=== PATIENT | female | born 1970 | race Caucasian/White ===

== ENCOUNTER 2016-03-14 14:22 | Outpatient (RCR) | payer OTHER ==
[~2016-03-14 14:22] MED LIST: AMLO1CAP; ATOR40TA PO; CANA100T PO; CIPR500T78 PO; CLN.1T; GLIM4TAB PO; INSU100V5 SQ; LEVO50TA6 PO; LISI-552 PO; METF-380 PO; METF500T4 PO; METR500T PO; ONDA-42 SL; PANT40TA2 PO; SUCR1TAB36 PO; THYR60TA2; TRILIPIX PO; VENL150C PO
[2016-03-14 14:55] LABS: BASOPHILS % (AUTO) 1 % (0-10); EOSINOPHILS # (AUTO) 0.3 10^3/uL (0.0-0.3); EOSINOPHILS % (AUTO) 4 % (0-10); LYMPHOCYTES # (AUTO) 2.4 X 10^3 (1.0-4.0); LYMPHOCYTES % (AUTO) 34 % (12-44); MEAN CORPUSCULAR HEMOGLOBIN 29 PG (25-34); MEAN CORPUSCULAR HGB CONC 33 G/DL (32-36); MEAN CORPUSCULAR VOLUME 86 FL (80-99); MEAN PLATELET VOLUME 10.1 FL (7.4-10.4); MONOCYTES # (AUTO) 0.6 X 10^3 (0.0-1.0); MONOCYTES % (AUTO) 8 % (0-12); NEUTROPHILS # (AUTO) 3.9 X 10^3 (1.8-7.8); NEUTROPHILS % (AUTO) 53 % (42-75); PLATELET COUNT 322 10^3/uL (130-400); RED BLOOD COUNT 4.76 10^6/uL (4.35-5.85); RED CELL DISTRIBUTION WIDTH 13.4 % (10.0-14.5); WHITE BLOOD COUNT 7.2 10^3/uL (4.3-11.0)
== END 2016-06-12 | disposition home or self-care (01) ==
LOC: ONC 14:22
PROVIDERS: ATTEND Internal Medicine Hematology & Oncology
DX: D50.9 Iron deficiency anemia, unspecified (principal); E11.9 Type 2 diabetes mellitus without complications; I10 Essential (primary) hypertension; E03.9 Hypothyroidism, unspecified; F32.9 Major depressive disorder, single episode, unspecified; K59.00 Constipation, unspecified; Z79.899 Other long term (current) drug therapy
CPT/HCPCS: 99213

== ENCOUNTER 2018-03-25 14:45 | Emergency (ER) | payer SELFPAY ==
[~2018-03-25] VITALS: Ht 157.5 cm; Wt 79.4 kg
[~2018-03-25 14:45] MED LIST changes: +METF-397 PO; -METF500T4 PO
--- OUTSIDE RECORDS SUMMARY | 2018-03-25 14:49 | XMS REPORT ---
Author Author KHRIS TRUONG [facility] Address [address] [place] [address] Care Team Providers Care Field Ring Assembler Name Role Phone MAYLIN TRUONGTA Unavailable PROBLEMS Type Condition ICD9-CM Code UGU67-SS Code Onset Dates Condition Status SNOMED Code Problem Essential hypertension I10 Active 55504298 Problem Mixed hyperlipidemia E78.2 Active 522244439 Problem Depression F32.9 Active 336319715 Problem Type 2 diabetes mellitus with other diabetic kidney complication E11.29 Active 010493133 Problem Type 2 diabetes mellitus with other specified complication E11.69 Active 68925474 Problem Body mass index (BMI) of 33.0-33.9 in adult Z68.33 Active 270462732 Problem Other obesity due to excess calories E66.09 Active 610109324 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 Active 794280914 Problem Body mass index (BMI) of 32.0-32.9 in adult Z68.32 Active 907843765 Problem Anxiety F41.9 Active 37848651 Problem Hypothyroid E03.9 Active 35036043 Problem Type 2 diabetes mellitus without complication E11.9 Active 721165710 Problem Microalbuminuria R80.9 Active 918217632 Problem Anemia D64.9 Active 548502282 ALLERGIES Substance Reaction Event Type Date Status Tresiba FlexTouch nausea and vomiting Drug Allergy Dec, Active Victoza nausea and vomiting Drug Allergy Dec, Active ENCOUNTERS Encounter Location Date Diagnosis [facility] [id number], [place] [address] Jan, [facility] [id number] [place] [address] 02831- 4547 Dec, Type 2 diabetes mellitus without complication E11.9 ; Essential hypertension I10 ; Mixed hyperlipidemia E78.2 and Depression F32.9 [facility] [id number] [place] [address] 72167- 7710 Dec, Essential hypertension I10 [facility] [id number] [place] [address] 49019- 5875 Sep, Depression F32.9 [facility] [place] [address] [place] [address] 05798- 6012 Aug, [facility] [id number] [place] [address] 80943- 3131 Aug, Type 2 diabetes mellitus with other specified complication E11.69 [facility] [address] [place] [address] 62564- 6750 02 Aug, 2017 Type 2 diabetes mellitus with other specified complication E11.69 ; group home current use of insulin Z79.4 ; Proteinuria, unspecified R80.9 ; Type 2 diabetes mellitus with other diabetic kidney complication E11.29 ; Hypothyroid E03.9 ; Mixed hyperlipidemia E78.2 ; Essential hypertension I10 ; Depression F32.9 ; Other obesity due to excess calories E66.09 and Body mass index (BMI) of 32.0-32.9 in adult Z68.32 [facility] [id number] [place] [address] 66001- 4908 June, Mixed hyperlipidemia E78.2 and Type 2 diabetes mellitus without complication E11.9 [facility] [place] [address] [place] [address] 06301- 1422 May, Anemia D64.9 ; Type 2 diabetes mellitus without complication E11.9 ; Hypothyroid E03.9 ; Mixed hyperlipidemia E78.2 ; Essential hypertension I10 ; Depression F32.9 ; Other obesity due to excess calories E66.09 ; Body mass index (BMI) of 33.0-33.9 in adult Z68.33 ; Anxiety F41.9 and Herpes zoster without complication B02.9 [place] [address] [place] [address] 78563- 3480 Apr, Type 2 diabetes mellitus without complication E11.9 ; Anemia D64.9 ; Hypothyroid E03.9 ; Mixed hyperlipidemia E78.2 ; Essential hypertension I10 ; Depression F32.9 ; Other obesity due to excess calories E66.09 ; Body mass index (BMI) of 33.0-33.9 in adult Z68.33 ; Anxiety F41.9 and Herpes zoster without complication B02.9 [facility] [address], [place] [address] 2303 27 Apr, 2017 [facility] [id number] [place] [address] 08445- 7311 Apr, [facility] [id number] [place] [address] 25353- 6193 Apr, [facility] [id number] [place] [address] 87790- 8704 Mar, [facility] [id number] [place] [address] 91906- 7127 Feb, [facility] [id number] [place] [address] 14592- 7062 Jan, [facility] [id number] [place] [address] 30399- 9164 Jan, [facility] [id number] [place] [address] 68006- 2713 Dec, Type 2 diabetes mellitus without complication E11.9 [facility] [address], [place] [address]- 9549 30 Nov, 2016 [facility] [id number] [place] [address] 02557- 3587 18 Nov, 2016 Type 2 diabetes mellitus without complication E11.9 [facility] [address], [place] [address]- 6921 17 Nov, 2016 [facility] [id number] [place] [address] 017759- 4996 26 Oct, 2016 Type 2 diabetes mellitus without complication E11.9 [facility] [address], [place] [address]- 1387 14 Oct, 2016 [facility] [address], [place] [address]- 4485 Oct, [facility] [address] [place] [address] 0845 Sep, [facility] [address] [place] [address]- 3145 Sep, Type 2 diabetes mellitus without complication E11.9 [facility] [id number] [place] [address], [place] [address]- 1178 Sep, Type 2 diabetes mellitus without complication E11.9 and Essential hypertension I10 [facility] [address] [place] [address] 3917 Sep, [facility] [address], [place] [address]- 2277 Sep, [facility] [address], [place] [address]- 4270 Sep, Type 2 diabetes mellitus without complication E11.9 [facility] [address], [place] [address]- 3599 Aug, [facility] [address], [place] [address]- 1895 Aug, Type 2 diabetes mellitus without complication E11.9 [facility] [address] [place] [address]- 5518 Aug, Type 2 diabetes mellitus without complication E11.9 [facility] [address], [place] [address]- 2067 Aug, [facility] [address], [place] [address]- 7573 Aug, Abnormal weight gain R63.5 [facility] [address], [place] [address]- 9135 Aug, [facility] [address], [place] [address]- 7694 Aug, Hypothyroid E03.9 [facility] [address], [place] [address]- 2536 Aug, Type 2 diabetes mellitus without complication E11.9 [facility] [address], [place] [address] 2546 Jul, Abnormal weight gain R63.5 [facility] [address], [place] [address] 2546 Jul, Abnormal weight gain R63.5 [facility] [address], [place] [address] 2546 Jul, Abnormal weight gain R63.5 [facility] [address], [place] [address]- 7586 Jul, Abnormal weight gain R63.5 ; Pain in right knee M25.561 and Pain in right ankle and joints of right foot M25.571 [place] [address], [place] [address]- 6306 Jul, [facility] [address], [place] [address]- 2690 Jul, 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 [place] [address], [place] [address]- 8916 Jul, Type 2 diabetes mellitus without complication E11.9 [facility] [address], [place] [address]- 3086 June, [facility] [address], [place] [address] 2546 June, Type 2 diabetes mellitus without complication E11.9 [facility] [address], [place] [address] 2546 June, [facility] [address], [place] [address] 2546 June, [facility] [address], [place] [address]- 3271 June, Type 2 diabetes mellitus without complication E11.9 ; Hypothyroid E03.9 ; Essential hypertension I10 ; Depression F32.9 and Mixed hyperlipidemia E78.2 [place] [id number] [place] [address] 48378- 0515 May, [place] [place] [id number] [place] [address] 52182- 3956 Feb, Type 2 diabetes mellitus without complication E11.9 ; Hypothyroid E03.9 ; Mixed hyperlipidemia E78.2 ; Essential hypertension I10 ; Depression F32.9 and Anemia D64.9 [place] [id number] [place] [address] 16559- 1967 Jan, [place] [id number] [place] [address] 74155- 7671 Sep, [place] [id number] [place] [address] 88318- 2221 Sep, Type 2 diabetes mellitus without complication E11.9 ; Anemia D64.9 ; Hypothyroid E03.9 ; Hyperlipidemia, unspecified hyperlipidemia type E78.5 and Essential (primary) hypertension I10 [place] [id number] [place] [address] 06502- 9833 Aug, [place] [id number] [place] [address] 71433- 4766 June, [place] [id number] [place] [address] 10167- 4700 June, Iron deficiency anemia, unspecified iron deficiency anemia type D50.9 [place] [id number] [place] [address] 80280- 5770 May, Abnormal finding of blood chemistry, unspecified R79.9 [place] [id number] [place] [address] 20010- 0185 May, Type 2 diabetes mellitus without complication E11.9 ; Anemia D64.9 ; Hypothyroid E03.9 ; Anxiety F41.9 and Dyslipidemia E78.5 [facility] [id number] [place] [address] 64252- 1062 Jan, Type 2 diabetes mellitus without complication E11.9 ; Depression F32.9 ; Essential hypertension I10 ; Hyperlipidemia E78.5 ; Anxiety F41.9 and Hypothyroidism E03.9 [facility] [id number] [place] [address] 26561- 6592 Jan, Type 2 diabetes mellitus with diabetic neuropathy E11.40 [facility] [id number] [place] [address] 34943- 3477 Jan, Type 2 diabetes mellitus with diabetic neuropathy E11.40 [facility] [id number] [place] [address] 95834- 1759 Jan, [facility] [id number] [place] [address] 35571- 5991 Jan, [facility] [id number] [place] [address] 59968- 3318 Jan, [facility] [id number] [place] [address] 58676- 7654 Jan, [facility] [id number] [place] [address] 86584- 2994 Dec, [facility] [id number] [place] [address] 98353- 5214 Dec, [facility] [id number] [place] [address] 23899- 1796 Nov, [facility] [id number] [place] [address] 78622- 1790 Nov, [facility] [id number] [place] [address] 00170- 0162 Nov, [facility] [id number] [place] [address] 71784- 0724 Nov, [facility] [id number] [place] [address] 48162- 2889 Nov, [facility] [id number] 6612 Nov, Pertussis exposure Z20.89 [facility] [address], [place] [address] 2546 Nov, [facility] [id number] [address]- 6216 Oct, [facility] [id number] [place] [address] 35588- 8652 Oct, [facility] [address] [place] [address] 77775- 2275 Oct, [facility] [id number] [place] [address] 41507- 1474 Sep, [facility] [id number] [place] [address] 490363- 8456 Sep, Diabetes mellitus without mention of complication, type II or unspecified type, uncontrolled 250.02 and Hyperlipidemia associated with type 2 diabetes mellitus 250.80 [facility] [address] 6178 Sep, [facility] [id number] 3499 Sep, [facility] [address] 4660 Sep, Diabetes mellitus without mention of complication, type II or unspecified type, not stated as uncontrolled 250.00 ; Hypothyroid 244.9 ; Hyperlipidemia 272.4 and Hypertension 401.9 [facility] [id number], [place] [address]- 9498 Aug, [facility] [id number] 5559 June, Diabetes mellitus without mention of complication, type II or unspecified type, not stated as uncontrolled 250.00 ; Hyperlipidemia 272.4 ; Hypertension 401.9 ; Candidiasis of female genitalia 112.1 ; Hypothyroid 244.9 and Liver lesion 573.8 [facility] [id number], [place] [address]- 9932 June, [facility] [address], [place] [address]- 7989 May, [facility] [address] [place] [address] 99108- 4755 May, [facility] [address] [facility] [id number] [place] [address] 09537- 4540 Mar, [facility] [id number] [place] [address] 832813- 0898 Mar, [facility] [id number] [place] [address] 13000- 0320 Mar, [facility] [id number] [place] [address] 92117- 3672 Mar, [facility] [address], [place] [address]- 9983 Jan, [facility] [id number] [place] [address], [place] [address]- 1216 Jan, [facility] [id number], [place] [address]- 1444 Nov, [facility] [id number], [place] [address]- 5364 Nov, [facility] [id number], [place] [address]- 4340 Nov, [facility] [address] [place] [address] 482522- 3222 Nov, [facility] [address] 4306 Nov, [facility] [address] 9112 Nov, [facility] [place] [facility] [address] [id number] [place] [address]- 5803 29 Oct, 2013 [facility] [place] [facility] [address] [id number] [place] [address]- 6456 29 Oct, 2013 [facility] [place] [facility] [address] [id number] [place] [address]- 9386 29 Oct, 2013 [facility] [place] [facility] [address] [id number] [place] [address] 2546 29 Oct, 2013 [facility] [place] [facility] [address] [id number] [place] [address]- 5686 23 Oct, 2013 [facility] [place] [facility] [address] [id number] [place] [address]- 1906 23 Oct, 2013 [facility] [place] [facility] [address] [id number] [place] [address]- 8966 Oct, 2013 [facility] [place] [facility] [address] [id number] [place] [address]- 0749 Oct, 2013 [facility] [place] [facility] [address] [id number] [place] [address]- 0465 Oct, 2013 [facility] [place] [facility] [address] [id number] [place] [address]- 7052 Oct, 2013 [facility] [place] [facility] [address] [id number], [place] [address]- 8206 08 Oct, 2013 [facility] [place] [facility] [address] [id number], [place] [address]- 9921 08 Oct, 2013 [facility] [place] [facility] [address] [id number] [place] [address]- 2548 Oct, 2013 [facility] [place] [facility] [address] [id number] [place] [address]- 9346 08 Oct, 2013 [facility] [place] [facility] [address] [id number], [place] [address]- 7726 29 Sep, 2013 [facility] [place] [facility] [address] [id number], [place] [address]- 0172 Sep, [facility] [place] [facility] [address] [id number] [place] [address]- 2605 Sep, [facility] [place] [facility] [address] [id number] [place] [address]- 7391 Sep, [facility] [place] [facility] [address] [id number] [place] [address]- 5352 Sep, [facility] [place] [facility] [address] [id number] [place] [address]- 2908 Sep, [facility] [place] [facility] [address] [id number] [place] [address]- 1229 Aug, [facility] [place] [facility] [address] [id number] [place] [address]- 5473 Aug, [facility] [place] [facility] [address] [id number] [place] [address]- 5283 Aug, [facility] [place] [facility] [address] [id number] [place] [address]- 3451 Aug, [facility] [place] [facility] [address] [id number] [place] [address]- 6071 Aug, [facility] [place] [facility] [address] [id number] [place] [address]- 9769 Aug, [facility] [place] [facility] [address] [id number] [place] [address]- 9471 Aug, [facility] [place] [facility] [address] [id number] [place] [address]- 8667 Aug, [facility] [place] [facility] [address] [id number] [place] [address]- 6338 Aug, [facility] [place] [facility] [address] [id number] [place] [address]- 6877 Aug, [facility] [place] [facility] [address] [id number] [place] [address]- 6297 Aug, [facility] [place] [facility] [address] [id number] [place] [address]- 0814 Aug, 2013 [facility] [place] [facility] [address] [id number] [place] [address]- 2246 Aug, 2013 [facility] [place] [facility] [address] [id number] [place] [address]- 8480 Aug, 2013 [facility] [place] [facility] [address] [id number] [place] [address]- 0692 Aug, 2013 [facility] [place] [facility] [address] [id number] [place] [address]- 7020 Aug, 2013 [facility] [place] [facility] [address] [id number] [place] [address]- 3771 Aug, 2013 [facility] [place] [facility] [address] [id number] [place] [address]- 3171 Aug, 2013 [facility] [place] [facility] [address] [id number] [place] [address]- 7627 Aug, 2013 [facility] [place] [facility] [address] [id number] [place] [address]- 8028 Jul, [facility] [place] [facility] [address] [id number] [place] [address]- 9565 Jul, [facility] [place] [facility] [address] [id number] [place] [address]- 3134 Jul, [facility] [place] [facility] [address] [id number] [place] [address]- 0782 Jul, [facility] [place] [facility] [address] [id number] [place] [address]- 0533 Apr, [facility] [place] [facility] [address] [id number] [place] [address]- 3267 Apr, [facility] [place] [facility] [address] [id number] [place] [address]- 1106 15 Mar, 2012 [facility] [place] [facility] [address] [id number] [place] [address]- 2602 Mar, [facility] [address] [id number] [place] [address]- 8999 Feb, [facility] [place] [facility] [address] [id number] [place] [address]- 0006 Feb, [facility] [address] [facility] [id number] [place] [address]- 1366 Feb, [facility] [place] [facility] [address] [id number] [place] [address]- 8666 Feb, [facility] [address] [id number] [place] [address]- 1562 Jan, [facility] [place] [facility] [address] [id number] [place] [address]- 9944 Jan, [facility] [address] [id number] [place] [address]- 0066 17 Jan, 2012 [facility] [place] [facility] [address] [id number] [place] [address]- 8727 17 Jan, 2012 [facility] [place] [facility] [address] [id number] [place] [address]- 8050 14 Jan, 2012 [facility] [place] [facility] [address] [facility] [id number] [place] [address]- 9061 13 Jan, 2012 [facility] [place] [facility] [address] [id number] [place] [address]- 2399 13 Jan, 2012 [facility] [place] [facility] [address] [id number], [place] [address]- 3258 10 Jan, 2012 [facility] [place] [facility] [address] [id number] [place] [address]- 7330 Jan, [facility] [place] [facility] [address] [id number] [place] [address]- 0196 Dec, [facility] [place] [facility] [address] [id number] [place] [address]- 9746 Dec, [facility] [place] [facility] [address] [id number] [place] [address]- 1661 21 Dec, 2011 [facility] [place] [facility] [address] [id number] [place] [address] 21 Dec, 2011 [facility] [place] [facility] [address] [id number] [place] [address] 20 Dec, 2011 [facility] [place] [facility] [address] [id number] [place] [address] 19 Dec, 2011 [facility] [place] [facility] [address] [id number] [place] [address] 19 Dec, 2011 [facility] [place] [facility] [address] [id number] [place] [address] 19 Dec, 2011 [facility] [place] [facility] [address] [id number] [place] [address] 19 Dec, 2011 [facility] [place] [facility] [address] [id number] [place] [address] 16 Dec, 2011 [facility] [place] [facility] [address] [id number] [place] [address] 16 Dec, 2011 [facility] [place] [facility] [address] [id number] [place] [address] 16 Dec, 2011 [facility] [place] [facility] [address] [facility] [id number] [place] [address] 16 Dec, 2011 [facility] [place] [facility] [address] [id number] [place] [address] 14 Dec, 2011 [facility] [place] [facility] [address] [id number] [place] [address] 14 Dec, 2011 [facility] [place] [facility] [address] [id number] [place] [address] 31 Nov, 2011 [facility] [place] [facility] [address] [id number] [place] [address] 31 Nov, 2011 [facility] [place] [facility] [address] [id number] [place] [address] Nov, [facility] [address] [facility] [id number] [place] [address] Nov, IMMUNIZATIONS No Known Immunizations SOCIAL HISTORY Never Assessed REASON FOR VISIT New Provider Visit, is needing medications refilled Desire Bentley MA, Needs A1C PLAN OF CARE Activity Details Follow Up 4 Weeks Reason:HTN VITAL SIGNS Height 63 in 2018-01-22 Weight 179.9 lbs 2018-01-22 Temperature 97.6 degrees Fahrenheit 2018-01-22 Heart Rate 110 bpm 2018-01-22 Respiratory Rate 20 2018-01-22 BMI 31.86 kg/m2 2018-01-22 Blood pressure systolic 158 mmHg 2018-01-22 Blood pressure diastolic 96 mmHg 2018-01-22 MEDICATIONS Medication Instructions Dosage Frequency Start Date End Date Duration Status Liraglutide 18 MG/3ML Subcutaneous Once a day 0.6 mg daily 24h Aug, Aug, Active Glucocard Expression Test 1 subcutaneously 4 times a day test 4 times per day 6h June, Active Levemir FlexTouch 100 UNIT/ML Subcutaneous 2 times a day 50 units 12h Dec, Active NovoFine 32G X 6 MM as directed Aug, 90 days Active Levothyroxine Sodium 50 mcg Orally Once a day TAKE ONE TABLET BY MOUTH ONCE DAILY 24h Active Effexor XR 150 MG Orally Once a day 1 capsule with food 24h Active MetFORMIN HCl ER 500 mg Orally twice a day 2 tablet twice daily with meals 12h Active Pioglitazone HCl 30 MG Orally Once a day 1 tablet 24h 17 Sep, 2016 Active NovoLog Flexpen 100 UNIT/ML Subcutaneous 3 times a day before meals 50 units June, Active Trilipix 135 MG Orally Once a day take 1 capsule (135 mg) by oral route once daily 24h Nov, 90 days Active Pen [place] 32G X 4 MM as directed 6h Sep, Active Lisinopril-Hydrochlorothiazide 20-25 MG Orally Once a day TAKE ONE TABLET BY MOUTH ONCE DAILY 24h Active Lipitor 40 mg Orally Once a day 1 tablet 24h June, Active RESULTS Name Result Date Reference Range A1C (IN HOUSE) 2018-01-22 A1C IN HOUSE 14 4.3 - 5.6 % Previous A1c 12.4 Lot [id number] Exp date 04/2019 PROCEDURES Procedure Date Ordered Result Body Site GLYCATED HEMOGLOBIN TEST Jan 22, 2018 INSTRUCTIONS MEDICATIONS ADMINISTERED No Known Medications MEDICAL (GENERAL) HISTORY Type Description Date Medical History Hypothyroidism Medical History Type II diabetes - dx 2004 Medical History kidney stones Medical History Hyperlipidemia Medical History Hypertension Medical History Depressive disorder, not elsewhere classified Medical History Anxiety state, unspecified Medical History Anemia Surgical History tonsillectomy 1991 Surgical History lithotripsy (multiple times-last in 2000) Surgical History colonoscopy/EGD 2015 Hospitalization History surgery
--- OUTSIDE RECORDS SUMMARY | 2018-03-25 14:50 | XMS REPORT ---
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.29 Active 675298888 Problem Type 2 diabetes mellitus with other specified complication E11.69 Active 72203106 Problem Body mass index (BMI) of 33.0-33.9 in adult Z68.33 Active 629222393 Problem Other obesity due to excess calories E66.09 Active 365981451 Problem senior living current use of insulin Z79.4 Active 213674226 Problem Body mass index (BMI) of 32.0-32.9 in adult Z68.32 Active 033630026 Problem Anxiety F41.9 Active 97214911 Problem Hypothyroid E03.9 Active 42785441 Problem Type 2 diabetes mellitus without complication E11.9 Active 263809640 Problem Microalbuminuria R80.9 Active 933953594 Problem Anemia D64.9 Active 440984975 ALLERGIES No Information ENCOUNTERS Encounter Location Date Diagnosis [facility] [id number] [address] Sep, Depression F32.9 [facility] [address] [id number] [address] Aug, [facility] [id number] [place] [address]- 7527 Aug, Type 2 diabetes mellitus with other specified complication E11.69 [facility] [id number] [address] Aug, Type 2 diabetes mellitus with other specified complication E11.69 ; terminal clerk current use of insulin Z79.4 ; Proteinuria, unspecified R80.9 ; Type 2 diabetes mellitus with other diabetic kidney complication E11.29 ; Hypothyroid E03.9 ; Mixed hyperlipidemia E78.2 ; Essential hypertension I10 ; Depression F32.9 ; Other obesity due to excess calories E66.09 and Body mass index (BMI) of 32.0-32.9 in adult Z68.32 [place] [address] [address] June, Mixed hyperlipidemia E78.2 and Type 2 diabetes mellitus without complication E11.[address] [address] May, Anemia D64.9 ; Type 2 diabetes mellitus without complication E11.9 ; Hypothyroid E03.9 ; Mixed hyperlipidemia E78.2 ; Essential hypertension I10 ; Depression F32.9 ; Other obesity due to excess calories E66.09 ; Body mass index (BMI) of 33.0-33.9 in adult Z68.33 ; Anxiety F41.9 and Herpes zoster without complication B02.[address] [address] Apr, Type 2 diabetes mellitus without complication E11.9 ; Anemia D64.9 ; Hypothyroid E03.9 ; Mixed hyperlipidemia E78.2 ; Essential hypertension I10 ; Depression F32.9 ; Other obesity due to excess calories E66.09 ; Body mass index (BMI) of 33.0-33.9 in adult Z68.33 ; Anxiety F41.9 and Herpes zoster without complication B02.9 [place] [id number] [place] [address]- 8397 Apr, [address] [address]- [address] Apr, [place] [id number] [place] [address]- 7887 Apr, [address] [place] [address] 9[address] 15 Mar, 2017 [facility] [address] [address] Feb, [facility] [address] [place] [address] 90[address] Jan, [facility] [address] [address] 6[address] Jan, [facility] [address] [place] [address]- 6974 Dec, Type 2 diabetes mellitus without complication E11.9 [facility] [address] [place] [address], [place] [address]- 4154 Nov, [facility] [address] [place] [address] 8[address] Nov, Type 2 diabetes mellitus without complication E11.9 [facility] [address] [address] 5[address] Nov, [facility] [address] [place] [address]- 2532 Oct, Type 2 diabetes mellitus without complication E11.9 [facility] [address] [place] [address]- 0878 14 Oct, 2016 [facility] [address] [address]- 8180 Oct, [facility] [address] [address]- 0[address] Sep, [facility] [address], [place] [address]- 6266 Sep, Type 2 diabetes mellitus without complication E11.9 [facility] [address] [place] [address]- 0702 Sep, Type 2 diabetes mellitus without complication E11.9 and Essential hypertension I10 [facility] [address] [place] [address]- 8769 Sep, [facility] [address] [facility] [id number] [place] [address]- 8179 Sep, [facility] [address] [id number] [place] [address]- 0880 Sep, Type 2 diabetes mellitus without complication E11.9 [facility] [address] [place] [address]- 3556 Aug, [facility] [address] [facility] [id number] [place] [address]- 7697 Aug, Type 2 diabetes mellitus without complication E11.9 [facility] [address] [place] [address]- 6552 Aug, Type 2 diabetes mellitus without complication E11.9 [facility] [address] [place] [address]- 3119 Aug, [facility] [address] [place] [address]- 9192 Aug, Abnormal weight gain R63.5 [facility] [address] [place] [address]- 8806 Aug, [facility] [id number] [address]- 4314 Aug, Hypothyroid E03.9 [facility] [address] [place] [address]- 1400 Aug, Type 2 diabetes mellitus without complication E11.9 [facility] [id number] [place] [address]- 1842 Jul, Abnormal weight gain R63.5 [facility] [id number] [place] [address]- 7[address] Jul, Abnormal weight gain R63.5 [facility] [id number] [place] [address]- 9479 Jul, Abnormal weight gain R63.5 [place] [address], [place] [address]- 87[address] 26 Jul, 2016 Abnormal weight gain R63.5 ; Pain in right knee M25.561 and Pain in right ankle and joints of right foot M25.571 [place] [address] [address]- 2973 Jul, [place] [id number] [place] [address] 264[address]- 8694 Jul, 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 [place] [address], [place] [address]- 9759 Jul, Type 2 diabetes mellitus without complication E11.9 [place] [address] [address]- 450[address] June, [place] [id number] [place] [address]- 7742 June, Type 2 diabetes mellitus without complication E11.9 [place] [address] [address]- 0[address] June, [place] [id number] [place] [address]- 8337 June, [place] [address] [address]- 5996 June, Type 2 diabetes mellitus without complication E11.9 ; Hypothyroid E03.9 ; Essential hypertension I10 ; Depression F32.9 and Mixed hyperlipidemia E78.2 [place] [address] [address]- 3394 May, [place] [id number] [place] [address] 35186- 8156 Feb, Type 2 diabetes mellitus without complication E11.9 ; Hypothyroid E03.9 ; Mixed hyperlipidemia E78.2 ; Essential hypertension I10 ; Depression F32.9 and Anemia D64.9 [place] [id number] [place] [address]- 9379 Jan, [place] [id number] [place] [address] 455[address]- 9984 Sep, [place] [id number] [place] [address] 99476- 5792 Sep, Type 2 diabetes mellitus without complication E11.9 ; Anemia D64.9 ; Hypothyroid E03.9 ; Hyperlipidemia, unspecified hyperlipidemia type E78.5 and Essential (primary) hypertension I10 [place] [id number] [place] [address] 18194- 8858 Aug, [place] [address] [address]- 9282 June, [place] [address] [address]- 2260 June, Iron deficiency anemia, unspecified iron deficiency anemia type D50.9 [place] [id number] [place] [address] 88352- 9018 May, Abnormal finding of blood chemistry, unspecified R79.9 [place] [id number] [place] [address] 22243- 1188 May, Type 2 diabetes mellitus without complication E11.9 ; Anemia D64.9 ; Hypothyroid E03.9 ; Anxiety F41.9 and Dyslipidemia E78.5 [place] [id number] [place] [address] 65368- 9823 Jan, Type 2 diabetes mellitus without complication E11.9 ; Depression F32.9 ; Essential hypertension I10 ; Hyperlipidemia E78.5 ; Anxiety F41.9 and Hypothyroidism E03.9 [place] [id number] [place] [address] 07241- 9114 Jan, Type 2 diabetes mellitus with diabetic neuropathy E11.40 [place] [address] [address]- 7599 Jan, Type 2 diabetes mellitus with diabetic neuropathy E11.40 [facility] [address] [id number] [place] [address]- 1426 Jan, [facility] [place] [facility] [address] [id number] [place] [address]- 2830 Jan, [facility] [place] [facility] [address] [id number] [place] [address]- 5699 Jan, [facility] [place] [facility] [id number] [place] [address], [place] [address]- 3623 Jan, [facility] [place] [facility] [address] [id number] [place] [address]- 2759 Dec, [facility] [place] [facility] [address] [id number] [place] [address]- 1105 Dec, [facility] [id number] [address]16 Nov, [facility] [address] [facility] [id number] [address]- 7214 Nov, [facility] [id number] [place] [address]- 7511 Nov, [facility] [address], [place] [address]- 6096 Nov, [facility] [address], [place] [address]- 2811 Nov, [facility] [id number], [place] [address]- 9742 Nov, Pertussis exposure Z20.89 [facility] [address] [facility] [id number] [place] [address]- 4416 Nov, [facility] [address] [facility] [id number] [address]- 6316 Oct, [facility] [place] [facility] [id number], [place] [address]- 0918 16 Oct, 2014 [facility] [id number], [place] [address]- 0151 Oct, [facility] [address], [place] [address]- 7487 Sep, [facility] [id number] [place] [address] 747515- 0460 Sep, Diabetes mellitus without mention of complication, type II or unspecified type, uncontrolled 250.02 and Hyperlipidemia associated with type 2 diabetes mellitus 250.80 [facility] [id number] [place] [address] 68125- 3115 Sep, [facility] [id number] [place] [address] 19022- 1050 Sep, [facility] [id number] [place] [address] 67003- 4179 Sep, Diabetes mellitus without mention of complication, type II or unspecified type, not stated as uncontrolled 250.00 ; Hypothyroid 244.9 ; Hyperlipidemia 272.4 and Hypertension 401.9 [facility] [address], [place] [address]- 2267 Aug, [facility] [id number] [place] [address] 24637- 3303 June, Diabetes mellitus without mention of complication, type II or unspecified type, not stated as uncontrolled 250.00 ; Hyperlipidemia 272.4 ; Hypertension 401.9 ; Candidiasis of female genitalia 112.1 ; Hypothyroid 244.9 and Liver lesion 573.8 [facility] [address], [place] [address]- 2599 June, [facility] [address], [place] [address]- 8041 May, [facility] [id number] [place] [address] 26435- 4910 May, [facility] [address], [place] [address]- 4330 Mar, [facility] [address] [place] [address]- 9148 16 Mar, 2014 [facility] [place] [facility] [address] [id number] [place] [address]- 7236 Mar, 2014 [facility] [place] [facility] [address] [id number] [place] [address]- 3576 Mar, 2014 [facility] [place] [facility] [address] [id number] [place] [address]- 5423 Jan, [facility] [place] [facility] [address] [id number] [place] [address]- 3767 Jan, [facility] [place] [facility] [address] [id number] [place] [address]- 8643 Nov, [facility] [place] [facility] [address] [id number] [place] [address]- 5482 Nov, [facility] [place] [facility] [address] [id number] [place] [address]- 4436 Nov, [facility] [place] [facility] [address] [id number] [place] [address]- 4268 Nov, [facility] [place] [facility] [address] [facility] [id number] [place] [address]- 3918 Nov, [facility] [place] [facility] [address] [facility] [id number] [place] [address]- 7442 06 Nov, 2013 [facility] [place] [facility] [address] [id number] [place] [address]- 9380 29 Oct, 2013 [facility] [place] [facility] [address] [id number] [place] [address]- 254 29 Oct, 2013 [facility] [place] [facility] [address] [id number] [place] [address]- 0097 29 Oct, 2013 [facility] [place] [facility] [address] [id number] [place] [address]- 2545 29 Oct, 2013 [facility] [place] [facility] [address] [id number] [place] [address]- 6428 Oct, 2013 [facility] [place] [facility] [address] [id number] [place] [address]- 6763 23 Oct, 2013 [facility] [place] [facility] [address] [id number] [place] [address]- 5245 Oct, 2013 [facility] [place] [facility] [address] [id number] [place] [address]- 1315 Oct, 2013 [facility] [place] [facility] [address] [id number] [place] [address]- 8002 Oct, 2013 [facility] [place] [facility] [address] [id number] [place] [address]- 9910 Oct, 2013 [facility] [place] [facility] [address] [id number] [place] [address]- 0663 Oct, 2013 [facility] [place] [facility] [address] [id number] [place] [address]- 8572 Oct, 2013 [facility] [place] [facility] [address] [id number] [place] [address]- 0057 Oct, 2013 [facility] [place] [facility] [address] [id number] [place] [address]- 6635 Oct, [facility] [place] [facility] [address] [id number] [place] [address]- 4075 Sep, [facility] [place] [facility] [address] [id number] [place] [address]- 6804 Sep, [facility] [place] [facility] [address] [id number] [place] [address]- 1662 Sep, [facility] [place] [facility] [address] [id number] [place] [address]- 7555 Sep, [facility] [place] [facility] [address] [id number] [place] [address]- 2779 Sep, [facility] [place] [facility] [address] [id number] [place] [address]- 2894 Sep, [facility] [place] [facility] [address] [id number], [place] [address]- 4298 Aug, 2013 [facility] [place] [facility] [address] [id number] [place] [address]- 3946 Aug, 2013 [facility] [place] [facility] [address] [id number] [place] [address]- 7392 Aug, 2013 [facility] [place] [facility] [address] [id number] [place] [address]- 5758 Aug, 2013 [facility] [place] [facility] [address] [id number] [place] [address]- 8386 Aug, 2013 [facility] [place] [facility] [address] [id number] [place] [address]- 0937 Aug, 2013 [facility] [place] [facility] [address] [id number] [place] [address]- 0329 Aug, 2013 [facility] [place] [facility] [address] [id number] [place] [address]- 6987 Aug, 2013 [facility] [place] [facility] [address] [id number] [place] [address]- 2297 Aug, [facility] [place] [facility] [address] [id number] [place] [address]- 6637 Aug, 2013 [facility] [place] [facility] [address] [id number] [place] [address]- 1046 Aug, [facility] [place] [facility] [address] [id number] [place] [address]- 2866 Aug, 2013 [facility] [place] [facility] [address] [id number] [place] [address]- 8676 Aug, 2013 [facility] [place] [facility] [address] [id number] [place] [address]- 3771 Aug, [facility] [place] [facility] [address] [id number] [place] [address]- 0693 Aug, [facility] [place] [facility] [address] [id number] [place] [address]- 6640 Aug, 2013 [facility] [place] [facility] [address] [id number] [place] [address]- 1393 Aug, [facility] [place] [facility] [address] [id number] [place] [address]- 8540 Aug, [facility] [place] [facility] [address] [id number] [place] [address]- 9403 Aug, [facility] [place] [facility] [address] [id number] [place] [address]- 7000 Jul, [facility] [place] [facility] [address] [id number] [place] [address]- 3555 Jul, [facility] [place] [facility] [address] [id number] [place] [address]- 7837 Jul, [facility] [place] [facility] [address] [id number] [place] [address]- 3421 Jul, [facility] [place] [facility] [address] [id number] [place] [address]- 4341 Apr, [facility] [place] [facility] [address] [id number] [place] [address]- 0593 Apr, [facility] [place] [facility] [address] [id number] [place] [address]- 7460 Mar, [facility] [place] [facility] [address] [id number] [place] [address]- 9794 Mar, [facility] [place] [facility] [address] [id number] [place] [address]- 9561 Feb, [facility] [place] [facility] [address] [id number] [place] [address]- 0934 Feb, [facility] [place] [facility] [address] [id number] [place] [address]- 3981 Feb, [facility] [place] [facility] [address] [id number] [place] [address]- 1228 Feb, [facility] [place] [facility] [address] [id number] [place] [address]- 6498 21 Jan, 2012 [facility] [place] [facility] [address] [id number] [place] [address]- 9762 21 Jan, 2012 [facility] [place] [facility] [address] [id number] [place] 7196 17 Jan, 2012 [facility] [place] [facility] [address] [id number] [place] 3386 17 Jan, 2012 [facility] [place] [facility] [address] [id number] [place] [address]- 6012 14 Jan, 2012 [facility] [place] [facility] [address] [id number] [place] [address]- 2932 13 Jan, 2012 [facility] [place] [facility] [address] [id number] [place] [address]- 6691 13 Jan, 2012 [facility] [place] [facility] [address] [id number] [place] [address] 10 Jan, 2012 [facility] [place] [facility] [address] [id number] [place] [address] 10 Jan, 2012 [facility] [place] [facility] [address] [id number] [place] [address] Dec, [facility] [place] [facility] [address] [id number] [place] [address] Dec, [facility] [place] [facility] [address] [id number] [place] [address] Dec, [facility] [place] [facility] [address] [id number], [place] [address] Dec, [facility] [place] [facility] [address] [id number] [place] [address] Dec, [facility] [place] [facility] [address] [id number] [place] [address] Dec, [facility] [place] [facility] [address] [id number] [place] [address] Dec, [facility] [place] [facility] [id number] [address] Dec, [facility] [id number], [place] [address] Dec, [facility] [address] [facility] [id number], [place] [address] Dec, [facility] [id number], [place] [address] Dec, [facility] [id number], [place] [address] Dec, [facility] [id number] [place] [address] Dec, [facility] [id number], [place] [address] Dec, [facility] [id number] [place] [address] Dec, [facility] [id number], [place] [address] Nov, [facility] [address], [place] [address] Nov, [facility] [address], [place] [address] Nov, [facility] [id number], [place] [address] Nov, IMMUNIZATIONS No Known Immunizations SOCIAL HISTORY Never Assessed REASON FOR VISIT Medication question PLAN OF CARE VITAL SIGNS MEDICATIONS Unknown Medications RESULTS No Results PROCEDURES No Known procedures INSTRUCTIONS MEDICATIONS ADMINISTERED No Known Medications MEDICAL [...]
--- OUTSIDE RECORDS SUMMARY | 2018-03-25 14:50 | XMS REPORT ---
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 Phone ERMIAS LOPEZ Unavailable PROBLEMS Type Condition ICD9-CM Code NWJ22-IY Code Onset Dates Condition Status SNOMED Code Problem Essential hypertension I10 Active 51126530 Problem Mixed hyperlipidemia E78.2 Active 018105992 Problem Depression F32.9 Active 782412289 Problem Type 2 diabetes mellitus with other diabetic kidney complication E11.29 Active 577157733 Problem Type 2 diabetes mellitus with other specified complication E11.69 Active 47729834 Problem Body mass index (BMI) of 33.0-33.9 in adult Z68.33 Active 114172315 Problem Other obesity due to excess calories E66.09 Active 857356462 Problem retirement current use of insulin Z79.4 Active 966774451 Problem Body mass index (BMI) of 32.0-32.9 in adult Z68.32 Active 912716908 Problem Anxiety F41.9 Active 89084206 Problem Hypothyroid E03.9 Active 36016612 Problem Type 2 diabetes mellitus without complication E11.9 Active 939301484 Problem Microalbuminuria R80.9 Active 550685197 Problem Anemia D64.9 Active 433671103 ALLERGIES No Information ENCOUNTERS Encounter Location Date Diagnosis [facility] [id number], [place] [address] Dec, [facility] [address], [place] [address] Dec, [facility] [id number] [place] [address]- 7425 Dec, Essential hypertension I10 [facility] [id number], [place] [address] 14 Sep, 2017 Depression F32.9 [place] [address], [place] [address] Aug, [place] [id number] [place] [address]656- 4660 Aug, Type 2 diabetes mellitus with other specified complication E11.69 [place] [id number] [place] [address] 46105- 7588 02 Aug, 2017 Type 2 diabetes mellitus with other specified complication E11.69 ; retirement current use of insulin Z79.4 ; Proteinuria, unspecified R80.9 ; Type 2 diabetes mellitus with other diabetic kidney complication E11.29 ; Hypothyroid E03.9 ; Mixed hyperlipidemia E78.2 ; Essential hypertension I10 ; Depression F32.9 ; Other obesity due to excess calories E66.09 and Body mass index (BMI) of 32.0-32.9 in adult Z68.32 [address] [place] [address] 99656- 9662 June, Mixed hyperlipidemia E78.2 and Type 2 diabetes mellitus without complication E11.9 [place] [address] [place] [address] 42781- 5857 May, Anemia D64.9 ; Type 2 diabetes mellitus without complication E11.9 ; Hypothyroid E03.9 ; Mixed hyperlipidemia E78.2 ; Essential hypertension I10 ; Depression F32.9 ; Other obesity due to excess calories E66.09 ; Body mass index (BMI) of 33.0-33.9 in adult Z68.33 ; Anxiety F41.9 and Herpes zoster without complication B02.9 [place] [id number], [place] [address] Apr, Type 2 diabetes mellitus without complication E11.9 ; Anemia D64.9 ; Hypothyroid E03.9 ; Mixed hyperlipidemia E78.2 ; Essential hypertension I10 ; Depression F32.9 ; Other obesity due to excess calories E66.09 ; Body mass index (BMI) of 33.0-33.9 in adult Z68.33 ; Anxiety F41.9 and Herpes zoster without complication B02.9 [place] [address] [facility] [id number] [place] [address] 5338 Apr, [facility] [address] [facility] [id number] [place] [address]- 4852 Apr, [facility] [address] [facility] [id number] [place] [address] 1486 Apr, [facility] [address] [facility] [id number] [place] [address]- 1410 Mar, [facility] [address] [facility] [id number] [place] [address]- 8224 Feb, [facility] [address] [address] 4653 Jan, [facility] [address] [address] Jan, [facility] [address] [address] 9630 Dec, Type 2 diabetes mellitus without complication E11.9 [facility] [address] [address] 6845 Nov, [facility] [address] [address] Nov, Type 2 diabetes mellitus without complication E11.9 [facility] [address] [address]- 6074 Nov, [facility] [address] 98[address] Oct, Type 2 diabetes mellitus without complication E11.9 [facility] [address] [address] 3[address] 14 Oct, 2016 [facility] [address] [facility] [id number] [place] [address]- 8129 Oct, [facility] [id number] [address]- 9697 Sep, [facility] [address], [place] [address] 7616 Sep, Type 2 diabetes mellitus without complication E11.9 [facility] [address], [place] [address]- 7167 Sep, Type 2 diabetes mellitus without complication E11.9 and Essential hypertension I10 [facility] [address], [place] [address]- 8960 Sep, [facility] [address], [place] [address]- 3842 Sep, [facility] [address] [place] [address] 17887- 4166 Sep, Type 2 diabetes mellitus without complication E11.9 [facility] [address] [address]- 8661 Aug, [facility] [address] [place] [address] 41647- 4613 Aug, Type 2 diabetes mellitus without complication E11.9 [facility] [address], [place] [address]- 7306 Aug, Type 2 diabetes mellitus without complication E11.9 [facility] [address], [place] [address]- 1453 Aug, [facility] [address], [place] [address]- 3687 Aug, Abnormal weight gain R63.5 [facility] [address], [place] [address]- 2853 Aug, [facility] [address], [place] [address]- 1126 Aug, Hypothyroid E03.9 [facility] [address], [place] [address]- 9942 Aug, Type 2 diabetes mellitus without complication E11.9 [facility] [address], [place] [address]- 0445 Jul, Abnormal weight gain R63.5 [facility] [address], [place] [address]- 2886 Jul, Abnormal weight gain R63.5 [facility] [address], [place] [address]- 8764 Jul, Abnormal weight gain R63.5 [facility] [id number] [place] [address] 32965- 2435 Jul, Abnormal weight gain R63.5 ; Pain in right knee M25.561 and Pain in right ankle and joints of right foot M25.571 [place] [address], [place] [address]- 9894 Jul, [place] [id number] [place] [address] 93377- 2972 Jul, 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 [place] [address], [place] [address]- 2792 Jul, Type 2 diabetes mellitus without complication E11.9 [place] [address], [place] [address]- 4117 June, [place] [address], [place] [address]- 6271 June, Type 2 diabetes mellitus without complication E11.9 [facility] [address], [place] [address]- 6228 June, [facility] [address], [place] [address]- 9372 June, [facility] [address], [place] [address]- 7231 June, Type 2 diabetes mellitus without complication E11.9 ; Hypothyroid E03.9 ; Essential hypertension I10 ; Depression F32.9 and Mixed hyperlipidemia E78.2 [place] [id number], [place] [address]- 4860 May, [place] [id number] [place] [address] 61736- 3248 Feb, Type 2 diabetes mellitus without complication E11.9 ; Hypothyroid E03.9 ; Mixed hyperlipidemia E78.2 ; Essential hypertension I10 ; Depression F32.9 and Anemia D64.9 [place] [id number] [place] [address] 19128- 2546 Jan, [place] [id number] [place] [address] 05216- 9414 Sep, [place] [id number] [place] [address] 53694- 0038 Sep, Type 2 diabetes mellitus without complication E11.9 ; Anemia D64.9 ; Hypothyroid E03.9 ; Hyperlipidemia, unspecified hyperlipidemia type E78.5 and Essential (primary) hypertension I10 [place] [id number] [place] [address] 57994- 4480 Aug, [place] [id number] [place] [address] 96666- 2890 June, [place] [id number] [place] [address] 24450- 8448 June, Iron deficiency anemia, unspecified iron deficiency anemia type D50.9 [place] [id number] [place] [address] 56719- 7150 May, Abnormal finding of blood chemistry, unspecified R79.9 [place] [address] [place] [address] 70454- 9512 May, Type 2 diabetes mellitus without complication E11.9 ; Anemia D64.9 ; Hypothyroid E03.9 ; Anxiety F41.9 and Dyslipidemia E78.5 [place] [address] [place] [address] 86367- 6146 Jan, Type 2 diabetes mellitus without complication E11.9 ; Depression F32.9 ; Essential hypertension I10 ; Hyperlipidemia E78.5 ; Anxiety F41.9 and Hypothyroidism E03.9 [facility] [address], [place] [address]- 8521 Jan, Type 2 diabetes mellitus with diabetic neuropathy E11.40 [facility] [id number] [place] [address] 96769- 3205 Jan, Type 2 diabetes mellitus with diabetic neuropathy E11.40 [facility] [id number] [place] [address] 98751- 8192 Jan, [facility] [id number] [place] [address] 52588- 6553 Jan, [facility] [id number] [place] [address] 47932- 4068 Jan, [facility] [id number] [place] [address] 12096- 5433 Jan, [facility] [id number] [place] [address] 69476- 9112 Dec, [facility] [id number] [place] [address] 67573- 1561 Dec, [facility] [id number] [place] [address] 72630- 8102 Nov, [facility] [address] [place] [address] 12496- 9584 Nov, [facility] [address] [place] [address] 75284- 1748 Nov, [facility] [id number] [place] [address] 41167- 7796 Nov, [facility] [id number] [place] [address] 946583- 1633 Nov, [facility] [address], [place] [address]- 9748 Nov, Pertussis exposure Z20.89 [facility] [address], [place] [address]- 8106 Nov, [facility] [address] 6048 Oct, [facility] [address], [place] [address]- 4388 Oct, [facility] [address], [place] [address]- 3880 Oct, [facility] [address] 0565 Sep, [facility] [address] [place] [address] 019379- 4568 Sep, Diabetes mellitus without mention of complication, type II or unspecified type, uncontrolled 250.02 and Hyperlipidemia associated with type 2 diabetes mellitus 250.80 [facility] [address], [place] [address]- 8460 Sep, [facility] [address], [place] [address]- 7142 Sep, [facility] [address], [place] [address]- 8801 Sep, Diabetes mellitus without mention of complication, type II or unspecified type, not stated as uncontrolled 250.00 ; Hypothyroid 244.9 ; Hyperlipidemia 272.4 and Hypertension 401.9 [facility] [address], [place] [address]- 2912 Aug, [facility] [id number] 8518 June, Diabetes mellitus without mention of complication, type II or unspecified type, not stated as uncontrolled 250.00 ; Hyperlipidemia 272.4 ; Hypertension 401.9 ; Candidiasis of female genitalia 112.1 ; Hypothyroid 244.9 and Liver lesion 573.8 [facility] [address] 9324 June, [facility] [place] [facility] [address] [id number] [place] [address]- 2926 14 May, 2014 [facility] [place] [facility] [address] [id number] [place] [address]- 7693 May, 2014 [facility] [place] [facility] [address] [id number] [place] [address]- 9433 16 Mar, 2014 [facility] [place] [facility] [address] [id number] [place] [address]- 4606 16 Mar, 2014 [facility] [place] [facility] [address] [id number] [place] [address]- 0183 Mar, 2014 [facility] [place] [facility] [address] [id number] [place] [address]- 6416 Mar, 2014 [facility] [place] [facility] [address] [facility] [id number] [place] [address]- 5156 Jan, [facility] [place] [facility] [address] [id number] [place] [address]- 7990 Jan, [facility] [place] [facility] [address] [id number] [place] [address]- 2276 Nov, [facility] [place] [facility] [address] [id number] [place] [address]- 4455 Nov, [facility] [place] [facility] [address] [id number] [place] [address]- 4713 Nov, [facility] [place] [facility] [address] [id number] [place] [address]- 9698 Nov, [facility] [place] [facility] [address] [id number] [place] [address]- 1942 Nov, [facility] [place] [facility] [address] [id number] [place] [address]- 8076 Nov, [facility] [place] [facility] [address] [id number] [place] [address]- 0377 29 Oct, 2013 [facility] [place] [facility] [address] [id number] [place] [address]- 4366 29 Oct, 2013 [facility] [place] [facility] [address] [id number] [place] [address] 2546 29 Oct, 2013 [facility] [place] [facility] [address] [id number] [place] [address] 2546 29 Oct, 2013 [facility] [place] [facility] [address] [id number] [place] [address] 2546 23 Oct, 2013 [facility] [place] [facility] [address] [id number] [place] [address] 2548 23 Oct, 2013 [facility] [place] [facility] [address] [id number] [place] [address]- 1462 Oct, 2013 [facility] [place] [facility] [address] [id number] [place] [address]- 4451 Oct, 2013 [facility] [place] [facility] [address] [id number] [place] [address]- 0856 Oct, 2013 [facility] [place] [facility] [address] [id number] [place] [address]- 3914 Oct, 2013 [facility] [place] [facility] [address] [id number] [place] [address]- 2110 Oct, 2013 [facility] [place] [facility] [address] [id number] [place] [address]- 9087 08 Oct, 2013 [facility] [place] [facility] [address] [id number] [place] [address]- 6649 Oct, 2013 [facility] [place] [facility] [address] [id number] [place] [address]- 1931 Oct, 2013 [facility] [place] [facility] [address] [id number] [place] [address]- 6683 Sep, [facility] [place] [facility] [address] [id number] [place] [address]- 8069 Sep, [facility] [place] [facility] [address] [id number] [place] [address]- 6150 Sep, [facility] [place] [facility] [address] [id number] [place] [address]- 3065 Sep, [facility] [place] [facility] [address] [id number] [place] [address]- 6596 Sep, [facility] [place] [facility] [address] [id number] [place] [address]- 5426 Sep, [facility] [place] [facility] [address] [id number] [place] [address]- 2224 Aug, [facility] [place] [facility] [address] [id number] [place] [address]- 0452 Aug, [facility] [place] [facility] [address] [id number] [place] [address]- 9777 Aug, [facility] [place] [facility] [address] [id number] [place] [address]- 7265 Aug, [facility] [place] [facility] [address] [id number] [place] [address]- 3967 Aug, [facility] [place] [facility] [address] [id number] [place] [address]- 0666 Aug, [facility] [place] [facility] [address] [id number] [place] [address]- 8279 Aug, [facility] [place] [facility] [address] [id number] [place] [address]- 9527 Aug, [facility] [place] [facility] [address] [id number] [place] [address]- 7754 Aug, [facility] [place] [facility] [address] [id number] [place] [address]- 4924 Aug, [facility] [place] [facility] [address] [id number] [place] [address]- 8911 Aug, [facility] [place] [facility] [address] [id number] [place] [address]- 2916 Aug, [facility] [place] [facility] [address] [id number] [place] [address]- 3223 Aug, [facility] [place] [facility] [address] [id number] [place] [address]- 1734 Aug, 2013 [facility] [place] [facility] [address] [id number] [place] [address]- 4746 Aug, 2013 [facility] [place] [facility] [address] [id number] [place] [address]- 4147 Aug, 2013 [facility] [place] [facility] [address] [id number] [place] [address]- 0327 Aug, 2013 [facility] [place] [facility] [address] [id number] [place] [address]- 9788 Aug, 2013 [facility] [place] [facility] [address] [id number] [place] [address]- 3545 Aug, 2013 [facility] [place] [facility] [address] [id number] [place] [address]- 5435 Jul, [facility] [place] [facility] [address] [id number] [place] [address]- 2161 Jul, [facility] [place] [facility] [address] [id number] [place] [address]- 4448 Jul, [facility] [place] [facility] [address] [id number] [place] [address]- 9926 Jul, [facility] [place] [facility] [address] [id number] [place] [address]- 2116 Apr, [facility] [place] [facility] [address] [id number] [place] [address]- 7320 Apr, [facility] [place] [facility] [address] [id number] [place] [address]- 0986 Mar, [facility] [place] [facility] [address] [id number] [place] [address]- 1624 Mar, [facility] [place] [facility] [address] [id number] [place] [address]- 8919 Feb, [facility] [place] [facility] [address] [id number] [place] [address]- 7354 Feb, [facility] [address] [id number] [place] [address]- 3989 Feb, [facility] [place] [facility] [address] [id number] [place] [address]- 4068 Feb, [facility] [address] [id number] [place] [address]- 2196 Jan, [facility] [place] [facility] [address] [id number] [place] [address]- 0208 Jan, [facility] [place] [facility] [address] [id number] [place] [address]- 1081 17 Jan, 2012 [facility] [place] [facility] [address] [id number] [place] [address]- 9560 17 Jan, 2012 [facility] [address] [id number] [place] [address]- 4778 14 Jan, 2012 [facility] [place] [facility] [address] [id number] [place] [address]- 3504 Jan, [facility] [place] [facility] [address] [id number] [place] [address]- 7464 13 Jan, 2012 [facility] [place] [facility] [address] [id number] [place] [address]- 0559 10 Jan, 2012 [facility] [place] [facility] [address] [id number] [place] [address]- 6208 Jan, [facility] [place] [facility] [address] [id number] [place] [address]- 7195 Dec, [facility] [place] [facility] [address] [id number] [place] [address]- 0460 Dec, [facility] [place] [facility] [address] [id number] [place] [address]- 6263 Dec, [facility] [place] [facility] [address] [id number] [place] [address]- 9564 Dec, [facility] [place] [facility] [address] [facility] [id number], [place] [address]- 2594 Dec, [facility] [address] [facility] [id number], [place] [address] Dec, [facility] [address] [facility] [id number], [place] [address] Dec, [facility] [address] [facility] [id number], [place] [address] Dec, [facility] [address] [facility] [id number], [place] [address] Dec, [facility] [address] [facility] [id number] [place] [address] 16 Dec, 2011 [facility] [address] [facility] [id number], [place] [address] 16 Dec, 2011 [facility] [id number], [place] [address] 16 Dec, 2011 [facility] [address] [id number], [place] [address] Dec, [facility] [id number], [place] [address] Dec, [facility] [address] [id number], [place] [address] Dec, [facility] [id number], [place] [address] Nov, [facility] [address] [facility] [id number][place] [address] Nov, [facility] [address] [facility] [id number], [place] [address] Nov, [facility] [address] [facility] [id number], [place] [address] Nov, IMMUNIZATIONS No Known Immunizations SOCIAL HISTORY Never Assessed REASON FOR VISIT PLAN OF CARE VITAL SIGNS MEDICATIONS Medication Instructions Dosage Frequency Start Date End Date Duration Status Lisinopril-Hydrochlorothiazide 20-25 MG Orally Once a day TAKE ONE TABLET BY MOUTH ONCE DAILY 24h 21 days Active RESULTS No Results PROCEDURES No Known procedures [...]
--- OUTSIDE RECORDS SUMMARY | 2018-03-25 14:50 | XMS REPORT ---
Author Author STOLLRONAL Organization [facility] Address [address] [place] [address] Care Team Providers Care Chief Lifestyle Officer Name Role Phone RONAL STOLL Unavailable PROBLEMS Type Condition ICD9-CM Code NGF93-RR Code Onset Dates Condition Status SNOMED Code Problem Essential hypertension I10 Active 64655829 Problem Mixed hyperlipidemia E78.2 Active 575613708 Problem Depression F32.9 Active 889641944 Problem Type 2 diabetes mellitus with other diabetic kidney complication E11.29 Active 029422063 Problem Type 2 diabetes mellitus with other specified complication E11.69 Active 86686644 Problem Body mass index (BMI) of 33.0-33.9 in adult Z68.33 Active 185201605 Problem Other obesity due to excess calories E66.09 Active 568617636 Problem FDC current use of insulin Z79.4 Active 495274111 Problem Body mass index (BMI) of 32.0-32.9 in adult Z68.32 Active 414763536 Problem Anxiety F41.9 Active 93432117 Problem Hypothyroid E03.9 Active 13138404 Problem Type 2 diabetes mellitus without complication E11.9 Active 151780113 Problem Microalbuminuria R80.9 Active 583885858 Problem Anemia D64.9 Active 948909061 ALLERGIES No Information ENCOUNTERS Encounter Location Date Diagnosis [facility] [id number] [address] Sep, Depression [address]32.9 [facility] [id number] [address] Aug, [facility] [id number] [place] [address]- 4745 Aug, Type 2 diabetes mellitus with other specified complication E11.69 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 ; Proteinuria, unspecified R80.9 ; Type 2 diabetes mellitus with other diabetic kidney complication E11.29 ; Hypothyroid E03.9 ; Mixed hyperlipidemia E78.2 ; Essential hypertension I10 ; Depression F32.9 ; Other obesity due to excess calories E66.09 and Body mass index (BMI) of 32.0-32.9 in adult Z68.32 [place] [address] [address] June, Mixed hyperlipidemia E78.2 and Type 2 diabetes mellitus without complication E11.[address] [address] May, Anemia D64.9 ; Type 2 diabetes mellitus without complication E11.9 ; Hypothyroid E03.9 ; Mixed hyperlipidemia E78.2 ; Essential hypertension I10 ; Depression F32.9 ; Other obesity due to excess calories E66.09 ; Body mass index (BMI) of 33.0-33.9 in adult Z68.33 ; Anxiety F41.9 and Herpes zoster without complication B02.[address] [address] Apr, Type 2 diabetes mellitus without complication E11.9 ; Anemia D64.9 ; Hypothyroid E03.9 ; Mixed hyperlipidemia E78.2 ; Essential hypertension I10 ; Depression F32.9 ; Other obesity due to excess calories E66.09 ; Body mass index (BMI) of 33.0-33.9 in adult Z68.33 ; Anxiety F41.9 and Herpes zoster without complication B02.9 [place] [id number] [place] [address] 44245- 4397 Apr, [address] [address] Apr, [place] [id number] [place] [address] 16562- 9026 Apr, [address] [place] [address] 4511 15 Mar, 2017 [facility] [address] [address] Feb, [facility] [address] [place] [address]47 Jan, [facility] [address] [address] Jan, [facility] [address] [place] [address] 74[address] Dec, Type 2 diabetes mellitus without complication E11.9 [facility] [id number] [place] [address], [place] [address]- [address] Nov, [facility] [address] [place] [address]- 3790 Nov, Type 2 diabetes mellitus without complication E11.9 [facility] [address] [address]- 5[address] Nov, [facility] [address] [address]- 7429 Oct, Type 2 diabetes mellitus without complication E11.9 [facility] [address] [place] [address]- 6494 [address], [address] [facility] [address] [address] Oct, [facility] [address] [address] Sep, [facility] [address] [address]- 1231 Sep, Type 2 diabetes mellitus without complication E11.9 [facility] [address] [place] [address]- 6059 Sep, Type 2 diabetes mellitus without complication E11.9 and Essential hypertension I10 [facility] [address] [place] [address]- [address] Sep, [facility] [address] [facility] [id number] [place] [address]- 1741 Sep, [facility] [id number] [address]- 0892 Sep, Type 2 diabetes mellitus without complication E11.9 [facility] [address] [place] [address]- 8[address] Aug, [facility] [address] [facility] [id number] [place] [address]- 7433 Aug, Type 2 diabetes mellitus without complication E11.9 [facility] [address] [address]- 7728 Aug, Type 2 diabetes mellitus without complication E11.9 [facility] [address] [place] [address] Aug, [facility] [address] [address]- 8463 Aug, Abnormal weight gain R63.5 [facility] [address] [place] [address]- 4736 Aug, [facility] [id number] [address]- 7294 Aug, Hypothyroid E03.9 [facility] [address] [address]- 4092 Aug, Type 2 diabetes mellitus without complication E11.9 [facility] [id number] [address]- 9281 Jul, Abnormal weight gain R63.5 [facility] [id number] [address]- 8820 Jul, Abnormal weight gain R63.5 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 [place] [address] [address]- 9441 Jul, Type 2 diabetes mellitus without complication E11.9 [place] [address] [address]- 3797 June, [place] [id number] [place] [address] 14522- 9825 June, Type 2 diabetes mellitus without complication E11.9 [place] [address] [address]- 3638 June, [place] [id number] [place] [address] 74180- 9378 June, [place] [address] [address]- 7691 June, Type 2 diabetes mellitus without complication E11.9 ; Hypothyroid E03.9 ; Essential hypertension I10 ; Depression F32.9 and Mixed hyperlipidemia E78.2 [place] [address] [address]- 4599 May, [place] [id number] [place] [address] 45198- 4105 Feb, Type 2 diabetes mellitus without complication E11.9 ; Hypothyroid E03.9 ; Mixed hyperlipidemia E78.2 ; Essential hypertension I10 ; Depression F32.9 and Anemia D64.9 [place] [id number] [place] [address] 97331- 6522 Jan, [place] [id number] [place] [address] 27809- 9801 Sep, [place] [id number] [place] [address] 14874- 5094 Sep, Type 2 diabetes mellitus without complication E11.9 ; Anemia D64.9 ; Hypothyroid E03.9 ; Hyperlipidemia, unspecified hyperlipidemia type E78.5 and Essential (primary) hypertension I10 [place] [id number] [place] [address] 40798- 6482 Aug, [place] [address] [address]- 3596 June, [place] [address] [address]- 9350 June, Iron deficiency anemia, unspecified iron deficiency anemia type D50.9 [place] [id number] [place] [address] 26325- 1163 May, Abnormal finding of blood chemistry, unspecified R79.9 [place] [id number] [place] [address] 07761- 2029 May, Type 2 diabetes mellitus without complication E11.9 ; Anemia D64.9 ; Hypothyroid E03.9 ; Anxiety F41.9 and Dyslipidemia E78.5 [place] [id number] [place] [address] 39511- 1478 Jan, Type 2 diabetes mellitus without complication E11.9 ; Depression F32.9 ; Essential hypertension I10 ; Hyperlipidemia E78.5 ; Anxiety F41.9 and Hypothyroidism E03.9 [place] [id number] [place] [address] 54601- 5363 Jan, Type 2 diabetes mellitus with diabetic neuropathy E11.40 [place] [address] [address]- 1216 Jan, Type 2 diabetes mellitus with diabetic neuropathy E11.40 [facility] [address] [id number] [place] [address]- 6625 Jan, [facility] [place] [facility] [address] [id number] [place] [address]- 7997 Jan, [facility] [place] [facility] [address] [id number] [place] [address]- 9445 Jan, [facility] [place] [facility] [id number] [place] [address], [place] [address]- 2833 Jan, [facility] [place] [facility] [address] [id number] [place] [address]- 8767 Dec, [facility] [place] [facility] [address] [id number] [place] [address]- 0866 Dec, [facility] [id number] 8189 Nov, [facility] [address] [facility] [id number] [address]- 8623 Nov, [facility] [id number] [place] [address]- 2591 Nov, [facility] [address] [address]- 4266 Nov, [facility] [address] [address]- 0940 Nov, [facility] [id number] [address]- 8604 Nov, Pertussis exposure Z20.89 [facility] [address] [facility] [id number] [place] [address]- 2727 Nov, [facility] [address] [facility] [id number] [place] [address]- 6896 Oct, [facility] [place] [facility] [id number] [address]- 6041 16 Oct, 2014 [facility] [id number] [address]- 7564 Oct, [facility] [address] [address]- 2959 Sep, [facility] [id number] [place] [address] 222244- 2799 Sep, Diabetes mellitus without mention of complication, type II or unspecified type, uncontrolled 250.02 and Hyperlipidemia associated with type [address] [facility] [id number] [place] [address] 55885- [address] Sep, [facility] [id number] [place] [address] 12976- 2725 Sep, [facility] [id number] [place] [address] 51337- 8813 Sep, Diabetes mellitus without mention of complication, type II or unspecified type, not stated as uncontrolled 250.00 ; Hypothyroid 244.9 ; Hyperlipidemia 272.[address] [facility] [address] [address]- 5235 Aug, [facility] [id number] [place] [address] 03322- 2780 June, Diabetes mellitus without mention of complication, type II or unspecified type, not stated as uncontrolled 250.00 ; Hyperlipidemia 272.4 ; Hypertension 401.9 ; Candidiasis of female genitalia 112.1 ; Hypothyroid 244.9 [address] [facility] [address] [address]- 6655 June, [facility] [address] [address]- 8468 May, [facility] [id number] [place] [address] 26161- 78[address] May, [facility] [address] [address]- 6804 Mar, [facility] [address] [place] [address]- 6844 16 Mar, 2014 [facility] [place] [facility] [address] [id number] [place] [address]- 9786 Mar, 2014 [facility] [place] [facility] [address] [id number] [place] [address]- 4026 Mar, 2014 [facility] [place] [facility] [address] [id number] [place] [address]- 3305 Jan, [facility] [place] [facility] [address] [id number] [place] [address]- 7451 Jan, [facility] [place] [facility] [address] [id number] [place] [address]- 5576 Nov, [facility] [place] [facility] [address] [id number] [place] [address]- 6601 Nov, [facility] [place] [facility] [address] [id number] [place] [address]- 2358 Nov, [facility] [place] [facility] [address] [id number] [place] [address]- 2131 Nov, [facility] [place] [facility] [address] [facility] [id number] [place] [address]- 1001 Nov, [facility] [place] [facility] [address] [facility] [id number] [place] [address]- 8413 06 Nov, 2013 [facility] [place] [facility] [address] [id number] [place] [address]- 2820 29 Oct, 2013 [facility] [place] [facility] [address] [id number] [place] [address]- 254 29 Oct, 2013 [facility] [place] [facility] [address] [id number] [place] [address]- 6392 29 Oct, 2013 [facility] [place] [facility] [address] [id number] [place] [address]- 2545 29 Oct, 2013 [facility] [place] [facility] [address] [id number] [place] [address]- 9762 Oct, 2013 [facility] [place] [facility] [address] [id number] [place] [address]- 7555 23 Oct, 2013 [facility] [place] [facility] [address] [id number] [place] [address]- 0982 Oct, 2013 [facility] [place] [facility] [address] [id number] [place] [address]- 7455 Oct, 2013 [facility] [place] [facility] [address] [id number] [place] [address]- 1343 Oct, 2013 [facility] [place] [facility] [address] [id number] [place] [address]- 6500 Oct, 2013 [facility] [place] [facility] [address] [id number] [place] [address]- 2164 Oct, 2013 [facility] [place] [facility] [address] [id number] [place] [address]- 1945 Oct, 2013 [facility] [place] [facility] [address] [id number] [place] [address]- 5128 Oct, 2013 [facility] [place] [facility] [address] [id number] [place] [address]- 7746 Oct, [facility] [place] [facility] [address] [id number] [place] [address]- 2289 Sep, [facility] [place] [facility] [address] [id number] [place] [address]- 8971 Sep, [facility] [place] [facility] [address] [id number] [place] [address]- 1578 Sep, [facility] [place] [facility] [address] [id number] [place] [address]- 2427 Sep, [facility] [place] [facility] [address] [id number] [place] [address]- 1018 Sep, [facility] [place] [facility] [address] [id number] [place] [address]- 7079 Sep, [facility] [place] [facility] [address] [id number] [address]- 3285 Aug, 2013 [facility] [place] [facility] [address] [id number] [place] [address]- 9740 Aug, 2013 [facility] [place] [facility] [address] [id number] [place] [address]- 8382 Aug, 2013 [facility] [place] [facility] [address] [id number] [place] [address]- 8043 Aug, 2013 [facility] [place] [facility] [address] [id number] [place] [address]- 3794 Aug, 2013 [facility] [place] [facility] [address] [id number] [place] [address]- 9764 Aug, 2013 [facility] [place] [facility] [address] [id number] [place] [address]- 9342 Aug, 2013 [facility] [place] [facility] [address] [id number] [place] [address]- 8681 Aug, 2013 [facility] [place] [facility] [address] [id number] [place] [address]- 0465 Aug, [facility] [place] [facility] [address] [id number] [place] [address]- 6219 Aug, 2013 [facility] [place] [facility] [address] [id number] [place] [address]- 6637 Aug, [facility] [place] [facility] [address] [id number] [place] [address]- 1668 Aug, 2013 [facility] [place] [facility] [address] [id number] [place] [address]- 8839 Aug, 2013 [facility] [place] [facility] [address] [id number] [place] [address]- 2285 Aug, [facility] [place] [facility] [address] [id number] [place] [address]- 6902 Aug, [facility] [place] [facility] [address] [id number] [place] [address]- 0436 Aug, 2013 [facility] [place] [facility] [address] [id number] [place] [address]- 0279 Aug, [facility] [place] [facility] [address] [id number] [place] [address]- 6775 Aug, [facility] [place] [facility] [address] [id number] [place] [address]- 0558 Aug, [facility] [place] [facility] [address] [id number] [place] [address]- 4005 Jul, [facility] [place] [facility] [address] [id number] [place] [address]- 9308 Jul, [facility] [place] [facility] [address] [id number] [place] [address]- 8378 Jul, [facility] [place] [facility] [address] [id number] [place] [address]- 8643 Jul, [facility] [place] [facility] [address] [id number] [place] [address]- 3909 Apr, [facility] [place] [facility] [address] [id number] [place] [address]- 1505 Apr, [facility] [place] [facility] [address] [id number] [place] [address]- 6452 Mar, [facility] [place] [facility] [address] [id number] [place] [address]- 1249 Mar, [facility] [place] [facility] [address] [id number] [place] [address]- 2142 Feb, [facility] [place] [facility] [address] [id number] [place] [address]- 0005 Feb, [facility] [place] [facility] [address] [id number] [place] [address]- 1188 Feb, [facility] [place] [facility] [address] [id number] [place] [address]- 4770 Feb, [facility] [place] [facility] [address] [id number] [place] [address]- 9505 21 Jan, 2012 [facility] [place] [facility] [address] [id number] [place] [address]- 2629 21 Jan, 2012 [facility] [place] [facility] [address] [id number] [place] 8976 17 Jan, 2012 [facility] [place] [facility] [address] [id number] [place] 4016 17 Jan, 2012 [facility] [place] [facility] [address] [id number] [place] [address]- 8335 14 Jan, 2012 [facility] [place] [facility] [address] [id number] [place] [address]- 6590 13 Jan, 2012 [facility] [place] [facility] [address] [id number] [place] [address]- 0915 13 Jan, 2012 [facility] [place] [facility] [address] [id number] [place] [address]- 0112 10 Jan, 2012 [facility] [place] [facility] [address] [id number] [place] [address]- 6710 10 Jan, 2012 [facility] [place] [facility] [address] [id number] [place] [address]- 0482 Dec, [facility] [place] [facility] [address] [id number] [place] [address]- 1297 Dec, [facility] [place] [facility] [address] [id number] [place] [address]- 2668 Dec, [facility] [place] [facility] [address] [id number] [address]- 2139 Dec, [facility] [place] [facility] [address] [id number] [place] [address]- 5215 Dec, [facility] [place] [facility] [address] [id number] [place] [address]- 6443 Dec, [facility] [place] [facility] [address] [id number] [place] [address]- 8939 Dec, [facility] [place] [facility] [address] [address]- 1152 Dec, [facility] [address] [address]- [address] Dec, [facility] [address] [address]- [address] Dec, [facility] [address] [address]- 2348 Dec, [facility] [address] [address]- [address] Dec, [facility] [id number] [place] [phone] Dec, [facility] [id number] [place] [address] Dec, [facility] [id number] [place] [address] Dec, [facility] [id number] [address] Nov, [facility] [id number] [place] [address] Nov, [facility] [id number] [address] Nov, [facility] [id number] [address] Nov, IMMUNIZATIONS No Known Immunizations SOCIAL HISTORY Never Assessed REASON FOR VISIT LVM PLAN OF CARE VITAL SIGNS MEDICATIONS Medication Instructions Dosage Frequency Start Date End Date Duration Status Effexor XR 150 MG Orally Once a day 1 capsule with food 24h Active RESULTS No Results PROCEDURES No Known [...] (multiple times-last in 2000) Surgical History colonoscopy/EGD 2016 Hospitalization History surgery
--- OUTSIDE RECORDS SUMMARY | 2018-03-25 14:51 | XMS REPORT ---
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.29 Active 341607982 Problem Type 2 diabetes mellitus with other specified complication E11.69 Active 67269352 Problem Body mass index (BMI) of 33.0-33.9 in adult Z68.33 Active 678367769 Problem Other obesity due to excess calories E66.09 Active 312118172 Problem intermediate current use of insulin Z79.4 Active 821576232 Problem Body mass index (BMI) of 32.0-32.9 in adult Z68.32 Active 087840147 Problem Anxiety F41.9 Active 00406678 Problem Hypothyroid E03.9 Active 07595854 Problem Type 2 diabetes mellitus without complication E11.9 Active 728478765 Problem Microalbuminuria R80.9 Active 094939791 Problem Anemia D64.9 Active 283675816 ALLERGIES Substance Reaction Event Type Date Status Tresiba FlexTouch nausea and vomiting Drug Allergy Aug, Active ENCOUNTERS Encounter Location Date Diagnosis [facility] [id number] [address] Sep, Depression F32.9 [facility] [address] [address] Aug, [facility] [id number] [address] Aug, Type 2 diabetes mellitus with other specified complication E11.69 [facility] [id number] [place] [address]- 2858 Aug, Type 2 diabetes mellitus with other specified complication E11.69 ; [employer] current use of insulin Z79.4 ; Proteinuria, unspecified R80.9 ; Type 2 diabetes mellitus with other diabetic kidney complication E11.29 ; Hypothyroid E03.9 ; Mixed hyperlipidemia E78.2 ; Essential hypertension I10 ; Depression F32.9 ; Other obesity due to excess calories E66.09 and Body mass index (BMI) of 32.0-32.9 in adult Z68.32 [facility] [id number] [place] [address]- 6603 June, Mixed hyperlipidemia E78.2 and Type 2 diabetes mellitus without complication E11.9 [facility] [id number] [place] [address] 65249- 1183 May, Anemia D64.9 ; Type 2 diabetes mellitus without complication E11.9 ; Hypothyroid E03.9 ; Mixed hyperlipidemia E78.2 ; Essential hypertension I10 ; Depression F32.9 ; Other obesity due to excess calories E66.09 ; Body mass index (BMI) of 33.0-33.9 in adult Z68.33 ; Anxiety F41.9 and Herpes zoster without complication B02.9 [facility] [id number] [place] [address] 98[address]- 0846 30 Apr, 2017 Type 2 diabetes mellitus without complication E11.9 ; Anemia D64.9 ; Hypothyroid E03.9 ; Mixed hyperlipidemia E78.2 ; Essential hypertension I10 ; Depression F32.9 ; Other obesity due to excess calories E66.09 ; Body mass index (BMI) of 33.0-33.9 in adult Z68.33 ; Anxiety F41.9 and Herpes zoster without complication B02.9 [facility] [id number] [place] [address] 57847- 4333 Apr, [facility] [id number] [place] [address] 65495- 1161 Apr, [facility] [id number] [place] [address] 14766- 7403 Apr, [facility] [address] [facility] [id number] [place] [address] 9159 Mar, [facility] [address] [facility] [id number] [place] [address]- 9836 Feb, [facility] [address] [place] [address]- 4668 Jan, [facility] [address] [facility] [id number] [place] [address]- 0252 Jan, [facility] [address] [facility] [id number] [place] [address] Dec, Type 2 diabetes mellitus without complication E11.9 [facility] [address] [facility] [id number] [place] [address]- 5366 Nov, [facility] [address] [place] [address]- 4785 Nov, Type 2 diabetes mellitus without complication E11.9 [facility] [address] [facility] [id number] [place] [address]- 2133 Nov, [facility] [address] [address] Oct, Type 2 diabetes mellitus without complication E11.9 [facility] [address] [place] [address]- 0422 14 Oct, 2016 [facility] [address] [id number] [address] 0404 Oct, [facility] [address] [facility] [id number] [place] [address]- 3701 Sep, [facility] [address] [facility] [id number] [place] 4136 Sep, Type 2 diabetes mellitus without complication E11.9 [facility] [address] [id number] [address]- 6026 Sep, Type 2 diabetes mellitus without complication E11.9 and Essential hypertension I10 [facility] [address] [facility] [id number] [place] [address]- 8316 Sep, [facility] [address] [place] [address] 2546 Sep, [facility] [address] [id number] [address]- 5436 Sep, Type 2 diabetes mellitus without complication E11.9 [facility] [id number] [address]- 3056 Aug, [facility] [address] [facility] [id number] [place] [address], [place] [address]- 6646 Aug, Type 2 diabetes mellitus without complication E11.9 [facility] [id number] [address]- 5416 Aug, Type 2 diabetes mellitus without complication E11.9 [facility] [address] [place] [address]- 8356 Aug, [facility] [address] [id number] [address]- 0912 Aug, Abnormal weight gain R63.5 [facility] [address] [address]- 0846 Aug, [facility] [address] [address]- 2666 Aug, Hypothyroid E03.9 [facility] [id number] [address]- 8430 Aug, Type 2 diabetes mellitus without complication E11.9 [facility] [id number] [address]- 2816 Jul, Abnormal weight gain R63.5 [facility] [id number] [address]- 1725 Jul, Abnormal weight gain R63.5 [facility] [address] [address]- 1184 Jul, Abnormal weight gain R63.5 [facility] [address] [place] [address] 44118- 9773 Jul, Abnormal weight gain R63.5 ; Pain in right knee M25.561 and Pain in right ankle and joints of right foot M25.571 [facility] [id number] [place] [address] 37419- 7577 Jul, [facility] [id number] [place] [address] 69798- 5725 Jul, 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 [facility] [id number] [place] [address] 55614- 8968 Jul, Type 2 diabetes mellitus without complication E11.9 [facility] [address] [address]- 4498 June, [facility] [id number] [place] [address] 69852- 0176 June, Type 2 diabetes mellitus without complication E11.9 [facility] [address] [address]- 0087 June, [facility] [address] [address]- 5777 June, [facility] [address] [address]- 9737 June, Type 2 diabetes mellitus without complication E11.9 ; Hypothyroid E03.9 ; Essential hypertension I10 ; Depression F32.9 and Mixed hyperlipidemia E78.2 [facility] [address] [address]- 0482 May, [facility] [address] [address]- 3119 Feb, Type 2 diabetes mellitus without complication E11.9 ; Hypothyroid E03.9 ; Mixed hyperlipidemia E78.2 ; Essential hypertension I10 ; Depression F32.9 and Anemia D64.9 [facility] [id number] [place] [address] 18606- 7080 Jan, [facility] [id number] [place] [address] 61892- 7910 Sep, [facility] [id number] [place] [address] 32141- 5542 Sep, Type 2 diabetes mellitus without complication E11.9 ; Anemia D64.9 ; Hypothyroid E03.9 ; Hyperlipidemia, unspecified hyperlipidemia type E78.5 and Essential (primary) hypertension I10 [facility] [address] [address]- 9239 Aug, [facility] [address] 20761- 5732 June, [facility] [address] 28354- 0479 June, Iron deficiency anemia, unspecified iron deficiency anemia type D50.9 [facility] [id number] [place] [address] 04931- 3816 May, Abnormal finding of blood chemistry, unspecified R79.9 [facility] [id number] [place] [address] 85538- 4869 May, Type 2 diabetes mellitus without complication E11.9 ; Anemia D64.9 ; Hypothyroid E03.9 ; Anxiety F41.9 and Dyslipidemia E78.5 [facility] [id number] [place] [address] 69688- 8763 Jan, Type 2 diabetes mellitus without complication E11.9 ; Depression F32.9 ; Essential hypertension I10 ; Hyperlipidemia E78.5 ; Anxiety F41.9 and Hypothyroidism E03.9 [facility] [id number] [place] [address] 12961- 0673 Jan, Type 2 diabetes mellitus with diabetic neuropathy E11.40 [facility] [address] 57905- 6967 Jan, Type 2 diabetes mellitus with diabetic neuropathy E11.40 [facility] [address] [address]- 5205 Jan, [facility] [address] [address]- 2803 Jan, [facility] [address] [address]- 8295 Jan, [facility] [id number] [address]- 0129 Jan, [facility] [id number] [place] [address] 09215- 2332 Dec, [facility] [id number] [place] [address] 51060- 7905 Dec, [facility] [id number] [place] [address] 07688- 5056 Nov, [facility] [address] 1210 Nov, [facility] [id number] [place] [address] 93319- 9528 Nov, [facility] [address] [address]- 7300 Nov, [facility] [address] [address]- 0832 Nov, [facility] [address] [address]- 7645 Nov, Pertussis exposure Z20.89 [facility] [id number] [address]- 4786 Nov, [facility] [address] [address]- 5626 Oct, [facility] [address] [address]- 4211 Oct, [facility] [id number] 6860 Oct, [facility] [address] 2424 Sep, [facility] [address] 6209 Sep, Diabetes mellitus without mention of complication, type II or unspecified type, uncontrolled 250.02 and Hyperlipidemia associated with type 2 diabetes mellitus 250.80 [facility] [address] [address]- 2002 Sep, [facility] [address] [address]- 4253 Sep, [facility] [address] [address]- 2947 Sep, Diabetes mellitus without mention of complication, type II or unspecified type, not stated as uncontrolled 250.00 ; Hypothyroid 244.9 ; Hyperlipidemia 272.4 and Hypertension 401.9 [facility] [address] [address]- 0906 Aug, [facility] [address] [address]- 9294 June, Diabetes mellitus without mention of complication, type II or unspecified type, not stated as uncontrolled 250.00 ; Hyperlipidemia 272.4 ; Hypertension 401.9 ; Candidiasis of female genitalia 112.1 ; Hypothyroid 244.9 and Liver lesion 573.8 [facility] [id number] [address]- 7699 June, [facility] [address] 3855 May, [facility] [id number] 3327 May, [facility] [id number] [address]- 0077 Mar, 2014 [facility] [place] [facility] [address] [id number] [place] [address]- 8416 16 Mar, 2014 [facility] [place] [facility] [address] [id number] [place] [address]- 1057 Mar, 2014 [facility] [place] [facility] [address] [id number] [place] [address]- 3750 Mar, 2014 [facility] [place] [facility] [address] [id number] [place] [address]- 1395 Jan, [facility] [place] [facility] [address] [id number] [place] [address]- 0454 Jan, [facility] [place] [facility] [address] [id number] [place] [address]- 8575 Nov, [facility] [place] [facility] [address] [id number] [place] [address]- 7363 Nov, [facility] [place] [facility] [address] [id number] [place] [address]- 1697 Nov, [facility] [place] [facility] [address] [id number] [place] [address]- 9810 Nov, [facility] [place] [facility] [address] [id number] [place] [address]- 8147 Nov, [facility] [place] [facility] [address] [id number] [place] [address]- 9463 Nov, [facility] [place] [facility] [address] [id number] [place] [address]- 3270 29 Oct, 2013 [facility] [place] [facility] [address] [id number] [place] [address]- 8735 29 Oct, 2013 [facility] [place] [facility] [address] [id number] [place] [address]- 5275 29 Oct, 2013 [facility] [place] [facility] [address] [id number] [place] [address]- 6016 29 Oct, 2013 [facility] [place] [facility] [address] [id number] [place] [address]- 6315 23 Oct, 2013 [facility] [place] [facility] [address] [id number] [place] [address]- 9936 23 Oct, 2013 [facility] [place] [facility] [address] [id number] [place] [address]- 3186 Oct, 2013 [facility] [place] [facility] [address] [id number] [place] [address]- 6224 Oct, 2013 [facility] [place] [facility] [address] [id number] [place] [address]- 2599 Oct, 2013 [facility] [place] [facility] [address] [id number] [place] [address]- 0057 Oct, 2013 [facility] [place] [facility] [address] [id number] [place] [address]- 4575 08 Oct, 2013 [facility] [place] [facility] [address] [id number] [place] [address]- 1975 Oct, 2013 [facility] [place] [facility] [address] [id number] [place] [address]- 2027 Oct, 2013 [facility] [place] [facility] [address] [id number] [place] [address]- 9268 Oct, 2013 [facility] [place] [facility] [address] [id number] [place] [address]- 0186 Sep, [facility] [place] [facility] [address] [id number] [place] [address]- 2543 Sep, [facility] [place] [facility] [address] [id number] [place] [address]- 5225 Sep, [facility] [place] [facility] [address] [id number] [place] [address]- 0873 Sep, [facility] [place] [facility] [address] [id number] [place] [address]- 7512 Sep, [facility] [place] [facility] [address] [id number] [place] [address]- 1828 Sep, [facility] [place] [facility] [address] [id number] [place] [address]- 8012 Aug, [facility] [place] [facility] [address] [id number] [place] [address]- 8605 Aug, [facility] [place] [facility] [address] [id number] [place] [address]- 6717 Aug, [facility] [place] [facility] [address] [id number] [place] [address]- 3897 Aug, [facility] [place] [facility] [address] [id number] [place] [address]- 1487 Aug, [facility] [place] [facility] [address] [id number] [place] [address]- 5878 Aug, [facility] [place] [facility] [address] [id number] [place] [address]- 1527 Aug, [facility] [place] [facility] [address] [id number] [place] [address]- 8406 Aug, [facility] [place] [facility] [address] [id number] [place] [address]- 4271 Aug, [facility] [place] [facility] [address] [id number] [place] [address]- 1651 Aug, [facility] [place] [facility] [address] [id number] [place] [address]- 3164 Aug, [facility] [place] [facility] [address] [id number] [place] [address]- 5333 Aug, [facility] [place] [facility] [address] [id number] [place] [address]- 7372 Aug, [facility] [place] [facility] [address] [id number] [place] [address]- 3834 Aug, [facility] [place] [facility] [address] [id number] [place] [address]- 6603 Aug, [facility] [place] [facility] [address] [id number] [place] [address]- 3252 Aug, [facility] [address] [id number] [place] [address]- 8315 Aug, [facility] [place] [facility] [address] [id number] [place] [address]- 8271 Aug, [facility] [address] [facility] [id number] [place] [address]- 1235 Aug, [facility] [place] [facility] [address] [id number] [place] [address]- 4237 Jul, [facility] [address] [id number] [place] [address]- 3264 Jul, [facility] [place] [facility] [address] [facility] [id number] [place] [address]- 0930 Jul, [facility] [id number] [place] [address]- 3743 Jul, [facility] [place] [facility] [address] [facility] [id number] [place] [address]- 5590 Apr, [facility] [id number] [place] [address]- 2442 Apr, [facility] [id number] [place] [address]- 2496 Mar, [facility] [address] [facility] [id number] [place] [address]- 4339 Mar, [facility] [place] [facility] [address] [facility] [id number] [place] [address]- 8730 Feb, [facility] [place] [facility] [address] [id number] [place] [address]- 1054 Feb, [facility] [place] [facility] [address] [facility] [id number] [place] [address]- 8597 Feb, [facility] [place] [facility] [address] [facility] [id number] [place] [address]- 4281 Feb, [facility] [place] [facility] [address] [id number] [place] [address]- 6669 21 Jan, 2012 [facility] [place] [facility] [address] [id number] [place] [address]- 8206 21 Jan, 2012 [facility] [place] [facility] [address] [id number] [place] [address]- 8136 17 Jan, 2012 [facility] [place] [facility] [address] [id number] [place] [address]- 3886 17 Jan, 2012 [facility] [place] [facility] [address] [id number] [place] [address]- 5710 14 Jan, 2012 [facility] [place] [facility] [address] [id number] [place] [address]- 5534 13 Jan, 2012 [facility] [place] [facility] [address] [id number] [place] [address]- 5985 13 Jan, 2012 [facility] [place] [facility] [address] [id number] [place] [address]- 2884 10 Jan, 2012 [facility] [place] [facility] [address] [id number] [place] [address]- 8144 10 Jan, 2012 [facility] [place] [facility] [address] [id number] [place] [address]- 0752 Dec, [facility] [place] [facility] [address] [id number] [place] [address]- 0468 Dec, [facility] [place] [facility] [address] [id number] [place] [address]- 2246 Dec, [facility] [place] [facility] [address] [id number] [place] [address] Dec, [facility] [place] [facility] [address] [id number] [place] [address] Dec, [facility] [place] [facility] [address] [id number] [place] [address] 19 Dec, 2011 [facility] [place] [facility] [address] [id number] [place] [address] Dec, [facility] [id number] [address] 19 Dec, 2011 [facility] [id number] [address] 19 Dec, 2011 [facility] [id number] [address] 16 Dec, 2011 [facility] [id number] [place] [id number] 16 Dec, 2011 [facility] [id number] [address] Dec, [facility] [id number] [place] [address] Dec, [facility] [id number] [place] [address] Dec, [facility] [id number] [place] [address] Dec, [facility] [id number] [place] [address] Nov, [facility] [id number] [address] Nov, [facility] [id number] [address] Nov, [facility] [id number] [id number] Nov, IMMUNIZATIONS No Known Immunizations SOCIAL HISTORY Never Assessed REASON FOR VISIT Diabetes follow-up. CRISTY Velázquez PLAN OF CARE Activity Details Follow Up 3 Months, prn Reason:CHM/DM VITAL SIGNS Height 63 in 2017-08-27 Weight 184.8 lbs 2017-08-27 Temperature 97.0 degrees Fahrenheit 2017-08-27 Heart Rate 88 bpm 2017-08-27 Respiratory Rate 20 2017-08-27 BMI 32.73 kg/m2 2017-08-27 Blood pressure systolic 122 mmHg 2017-08-27 Blood pressure diastolic 74 mmHg 2017-08-27 MEDICATIONS Medication Instructions Dosage Frequency Start Date End Date Duration Status Glucocard Expression Test 1 subcutaneously 4 times a day test 4 times per day 6h June, Active Pioglitazone HCl 30 MG Orally Once a day 1 tablet 24h 17 Sep, 2016 Active NovoLog Flexpen 100 UNIT/ML Subcutaneous 3 times a day before meals 50 units June, Active MetFORMIN HCl ER 500 mg Orally twice a day 2 tablet twice daily with meals 12h Active Levothyroxine Sodium 50 mcg Orally Once a day TAKE ONE TABLET BY MOUTH ONCE DAILY 24h Active Effexor XR 150 MG Orally Once a day 1 capsule with food 24h Active Levemir FlexTouch 100 UNIT/ML Subcutaneous 2 times a day 50 units 12h 15 Dec, 2016 Active Pen Leopold 32G X 4 MM as directed 6h Sep, Active Lipitor 40 mg Orally Once a day 1 tablet 24h 13 Jun, 2014 Active Trilipix 135 MG Orally Once a day take 1 capsule (135 mg) by oral route once daily 24h Nov, 90 days Active Lisinopril-Hydrochlorothiazide 20-25 MG Orally Once a day TAKE ONE TABLET BY MOUTH ONCE DAILY 24h Active Liraglutide 18 MG/3ML Subcutaneous Once a day 0.6 mg daily 24h Aug, Active RESULTS Name Result Date Reference Range A1C (IN HOUSE) 2017-08-27 A1C IN HOUSE 12.4 4.3 - 5.6 % Previous A1c 14 Lot [id number] Exp date 01/2019 PROCEDURES Procedure Date Ordered Result Body Site GLYCATED HEMOGLOBIN TEST August 27, 2017 INSTRUCTIONS MEDICATIONS ADMINISTERED No Known Medications MEDICAL [...]
--- OUTSIDE RECORDS SUMMARY | 2018-03-25 14:51 | XMS REPORT ---
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 Name Role Phone RONAL STOLL Unavailable PROBLEMS Type Condition ICD9-CM Code [id number] Code Onset Dates Condition Status SNOMED Code Problem Essential hypertension I10 Active 78851442 Problem Mixed hyperlipidemia E78.2 Active 956800939 Problem Depression F32.9 Active 295782090 Problem Type 2 diabetes mellitus with other diabetic kidney complication E11.29 Active 490255559 Problem Type 2 diabetes mellitus with other specified complication E11.69 Active 77309785 Problem Body mass index (BMI) of 33.0-33.9 in adult Z68.33 Active 694698534 Problem Other obesity due to excess calories E66.09 Active 914053003 Problem [facility] current use of insulin Z79.4 Active 762967687 Problem Body mass index (BMI) of 32.0-32.9 in adult Z68.32 Active 866465077 Problem Anxiety F41.9 Active 22439153 Problem Hypothyroid E03.9 Active 32228200 Problem Type 2 diabetes mellitus without complication E11.9 Active 758151300 Problem Microalbuminuria R80.9 Active 660613853 Problem Anemia D64.9 Active 924375808 ALLERGIES No Information ENCOUNTERS Encounter Location Date Diagnosis [facility] [id number] [address] Sep, Depression F32.9 [facility] [id number] [address] Aug, [facility] [id number] [place] [address]- 4828 Aug, Type 2 diabetes mellitus with other specified complication E11.69 [facility] [id number] [address] Aug, Type 2 diabetes mellitus with other specified complication E11.69 ; 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 ; Proteinuria, unspecified R80.9 ; Type 2 diabetes mellitus with other diabetic kidney complication E11.29 ; Hypothyroid E03.9 ; Mixed hyperlipidemia E78.2 ; Essential hypertension I10 ; Depression F32.9 ; Other obesity due to excess calories E66.09 and Body mass index (BMI) of 32.0-32.9 in adult Z68.32 [place] [address] [address] June, Mixed hyperlipidemia E78.2 and Type 2 diabetes mellitus without complication E11.[address] [address] May, Anemia D64.9 ; Type 2 diabetes mellitus without complication E11.9 ; Hypothyroid E03.9 ; Mixed hyperlipidemia E78.2 ; Essential hypertension I10 ; Depression F32.9 ; Other obesity due to excess calories E66.09 ; Body mass index (BMI) of 33.0-33.9 in adult Z68.33 ; Anxiety F41.9 and Herpes zoster without complication B02.[address] [address] Apr, Type 2 diabetes mellitus without complication E11.9 ; Anemia D64.9 ; Hypothyroid E03.9 ; Mixed hyperlipidemia E78.2 ; Essential hypertension I10 ; Depression F32.9 ; Other obesity due to excess calories E66.09 ; Body mass index (BMI) of 33.0-33.9 in adult Z68.33 ; Anxiety F41.9 and Herpes zoster without complication B02.9 [place] [id number] [place] [address]- 5463 Apr, [address] [address]- [address] Apr, [place] [id number] [place] [address]- 8970 Apr, [address] [place] [address] 15 Mar, 2017 [facility] [address] [address] Feb, [facility] [address] [place] [address] Jan, [facility] [address] [address] Jan, [facility] [address] [place] [address] 29[address] Dec, Type 2 diabetes mellitus without complication E11.9 [facility] [id number] [place] [address], [place] [address]- [address] Nov, [facility] [address] [place] [address] 1481 Nov, Type 2 diabetes mellitus without complication E11.9 [facility] [address] [address]- [address] Nov, [facility] [address] [place] [address]- 8[address] Oct, Type 2 diabetes mellitus without complication E11.9 [facility] [address] [place] [address]- 9[address] 14 Oct, 2016 [facility] [address] [address] 69[address] Oct, [facility] [address] [address]- [address] Sep, [facility] [address] [address] 2603 Sep, Type 2 diabetes mellitus without complication E11.9 [facility] [address] [place] [address] 7032 Sep, Type 2 diabetes mellitus without complication E11.9 and Essential hypertension I10 [facility] [address] [place] [address]- 0[address] Sep, [facility] [address] [facility] [id number] [place] [address] 52[address] Sep, [facility] [id number] [place] [address]- 7093 Sep, Type 2 diabetes mellitus without complication E11.9 [facility] [address] [place] [address]- 0466 Aug, [facility] [address] [facility] [id number] [place] [address]- 1610 Aug, Type 2 diabetes mellitus without complication E11.9 [facility] [address] [place] [address]- 6026 Aug, Type 2 diabetes mellitus without complication E11.9 [facility] [address] [place] [address]- 1314 Aug, [facility] [address] [place] [address]- 0616 Aug, Abnormal weight gain R63.5 [facility] [address] [place] [address]- 1446 Aug, [facility] [id number] [address]- 4275 Aug, Hypothyroid E03.9 [facility] [address] [place] [address]- 1856 Aug, Type 2 diabetes mellitus without complication E11.9 [facility] [id number] [place] [address]- 2[address] Jul, Abnormal weight gain R63.5 [facility] [id number] [place] [address]- 0660 Jul, Abnormal weight gain R63.5 [facility] [id number] [place] [address]- 7[address] Jul, Abnormal weight gain R63.5 [place] [address] [address]- [address] 26 Jul, 2016 Abnormal weight gain R63.5 ; Pain in right knee M25.561 and Pain in right ankle and joints of right foot M25.571 [place] [address] [address]- [address] Jul, [place] [id number] [place] [address]- 6045 Jul, 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 [place] [address] [address]- 0252 Jul, Type 2 diabetes mellitus without complication E11.9 [place] [address] [address]- 7004 June, [place] [id number] [place] [address] 28[address]- 4922 June, Type 2 diabetes mellitus without complication E11.9 [place] [address] [address]- 2686 June, [place] [address] [place] [address] 29204- 6001 June, [place] [address] [address]- 9281 June, Type 2 diabetes mellitus without complication E11.9 ; Hypothyroid E03.9 ; Essential hypertension I10 ; Depression F32.9 and Mixed hyperlipidemia E78.2 [place] [address] [address]- 3262 May, [place] [id number] [place] [address]- 2183 Feb, Type 2 diabetes mellitus without complication E11.9 ; Hypothyroid E03.9 ; Mixed hyperlipidemia E78.2 ; Essential hypertension I10 ; Depression F32.9 and Anemia D64.9 [place] [id number] [place] [address] 82294- 1502 Jan, [place] [id number] [place] [address] 19931- 7618 Sep, [place] [id number] [place] [address] 45131- 9225 Sep, Type 2 diabetes mellitus without complication E11.9 ; Anemia D64.9 ; Hypothyroid E03.9 ; Hyperlipidemia, unspecified hyperlipidemia type E78.5 and Essential (primary) hypertension I10 [place] [id number] [place] [address] 82143- 2145 Aug, [place] [address] [address]- [address] June, [place] [address] [address]- 9[address] June, Iron deficiency anemia, unspecified iron deficiency anemia type D50.9 [place] [id number] [place] [address] 85568- 2810 May, Abnormal finding of blood chemistry, unspecified R79.9 [place] [id number] [place] [address]37- 3650 May, Type 2 diabetes mellitus without complication E11.9 ; Anemia D64.9 ; Hypothyroid E03.9 ; Anxiety F41.9 and Dyslipidemia E78.5 [place] [id number] [place] [address] 05389- 0544 Jan, Type 2 diabetes mellitus without complication E11.9 ; Depression F32.9 ; Essential hypertension I10 ; Hyperlipidemia E78.5 ; Anxiety F41.9 and Hypothyroidism E03.9 [place] [id number] [place] [address] 86710- 9570 Jan, Type 2 diabetes mellitus with diabetic neuropathy E11.40 [place] [address] [address]- 7940 Jan, Type 2 diabetes mellitus with diabetic neuropathy E11.40 [facility] [address] [id number] [place] [address]- 2782 Jan, [facility] [place] [facility] [address] [id number] [place] [address]- 2985 Jan, [facility] [place] [facility] [address] [id number] [place] [address]- 7816 Jan, [facility] [place] [facility] [id number] [place] [address], [place] [address]- 4202 Jan, [facility] [place] [facility] [address] [id number] [place] [address]- 9293 Dec, [facility] [place] [facility] [address] [id number] [place] [address]- 2401 Dec, [facility] [id number] [address] Nov, [facility] [address] [facility] [id number] [address]- 5062 Nov, [facility] [id number] [place] [address]- 4000 Nov, [facility] [address] [address]- 6446 Nov, [facility] [address] [address]- 3018 Nov, [facility] [id number] [address]- 2423 Nov, Pertussis exposure Z20.89 [facility] [address] [facility] [id number] [place] [address]- 0564 Nov, [facility] [address] [facility] [id number] [address]- 2486 Oct, [facility] [place] [facility] [id number] [address]- 6914 16 Oct, 2014 [facility] [id number] [address]- 8209 Oct, [facility] [address] [address]- 9351 Sep, [facility] [id number] [place] [address] 786916- 6809 Sep, Diabetes mellitus without mention of complication, type II or unspecified type, uncontrolled 250.02 and Hyperlipidemia associated with type 2 diabetes mellitus 250.80 [facility] [id number] [place] [address] 79865- 8373 Sep, [facility] [id number] [place] [address] 69741- 6417 Sep, [facility] [id number] [place] [address] 52054- 5600 Sep, Diabetes mellitus without mention of complication, type II or unspecified type, not stated as uncontrolled 250.00 ; Hypothyroid 244.9 ; Hyperlipidemia 272.4 and Hypertension 401.9 [facility] [address] [address]- 4841 Aug, [facility] [id number] [place] [address] 90637- 2365 June, Diabetes mellitus without mention of complication, type II or unspecified type, not stated as uncontrolled 250.00 ; Hyperlipidemia 272.4 ; Hypertension 401.9 ; Candidiasis of female genitalia 112.1 ; Hypothyroid 244.9 and Liver lesion 573.8 [facility] [address] [address]- 5616 June, [facility] [address] [address]- 6352 May, [facility] [id number] [place] [address] 72924- 5089 May, [facility] [address] [address]- 1961 Mar, [facility] [address] [place] [address]- 6035 16 Mar, 2014 [facility] [place] [facility] [address] [id number] [place] [address]- 9596 Mar, 2014 [facility] [place] [facility] [address] [id number] [place] [address]- 3136 Mar, 2014 [facility] [place] [facility] [address] [id number] [place] [address]- 3196 Jan, [facility] [place] [facility] [address] [id number] [place] [address]- 9161 Jan, [facility] [place] [facility] [address] [id number] [place] [address]- 5364 Nov, [facility] [place] [facility] [address] [id number] [place] [address]- 9703 Nov, [facility] [place] [facility] [address] [id number] [place] [address]- 1308 Nov, [facility] [place] [facility] [address] [id number] [place] [address]- 7334 Nov, [facility] [place] [facility] [address] [facility] [id number] [place] [address]- 2994 Nov, [facility] [place] [facility] [address] [facility] [id number] [place] [address]- 1466 06 Nov, 2013 [facility] [place] [facility] [address] [id number] [place] [address]- 5986 29 Oct, 2013 [facility] [place] [facility] [address] [id number] [place] [address]- 2544 29 Oct, 2013 [facility] [place] [facility] [address] [id number] [place] [address]- 8124 29 Oct, 2013 [facility] [place] [facility] [address] [id number] [place] [address]- 2549 29 Oct, 2013 [facility] [place] [facility] [address] [id number] [place] [address]- 0573 Oct, 2013 [facility] [place] [facility] [address] [id number] [place] [address]- 1432 23 Oct, 2013 [facility] [place] [facility] [address] [id number] [place] [address]- 9870 Oct, 2013 [facility] [place] [facility] [address] [id number] [place] [address]- 7768 Oct, 2013 [facility] [place] [facility] [address] [id number] [place] [address]- 3919 Oct, 2013 [facility] [place] [facility] [address] [id number] [place] [address]- 8968 Oct, 2013 [facility] [place] [facility] [address] [id number] [place] [address]- 6615 Oct, 2013 [facility] [place] [facility] [address] [id number] [place] [address]- 6881 Oct, 2013 [facility] [place] [facility] [address] [id number] [place] [address]- 3756 Oct, 2013 [facility] [place] [facility] [address] [id number] [place] [address]- 3819 Oct, [facility] [place] [facility] [address] [id number] [place] [address]- 7246 Sep, [facility] [place] [facility] [address] [id number] [place] [address]- 9159 Sep, [facility] [place] [facility] [address] [id number] [place] [address]- 4639 Sep, [facility] [place] [facility] [address] [id number] [place] [address]- 3058 Sep, [facility] [place] [facility] [address] [id number] [place] [address]- 2336 Sep, [facility] [place] [facility] [address] [id number] [place] [address]- 8786 Sep, [facility] [place] [facility] [address] [id number] [address]- 9071 Aug, 2013 [facility] [place] [facility] [address] [id number] [place] [address]- 9580 Aug, 2013 [facility] [place] [facility] [address] [id number] [place] [address]- 1816 Aug, 2013 [facility] [place] [facility] [address] [id number] [place] [address]- 7672 Aug, 2013 [facility] [place] [facility] [address] [id number] [place] [address]- 3329 Aug, 2013 [facility] [place] [facility] [address] [id number] [place] [address]- 9558 Aug, 2013 [facility] [place] [facility] [address] [id number] [place] [address]- 7744 Aug, 2013 [facility] [place] [facility] [address] [id number] [place] [address]- 9921 Aug, 2013 [facility] [place] [facility] [address] [id number] [place] [address]- 3733 Aug, [facility] [place] [facility] [address] [id number] [place] [address]- 3083 Aug, 2013 [facility] [place] [facility] [address] [id number] [place] [address]- 3788 Aug, [facility] [place] [facility] [address] [id number] [place] [address]- 1138 Aug, 2013 [facility] [place] [facility] [address] [id number] [place] [address]- 8797 Aug, 2013 [facility] [place] [facility] [address] [id number] [place] [address]- 7116 Aug, [facility] [place] [facility] [address] [id number] [place] [address]- 8721 Aug, [facility] [place] [facility] [address] [id number] [place] [address]- 2527 Aug, 2013 [facility] [place] [facility] [address] [id number] [place] [address]- 8805 Aug, [facility] [place] [facility] [address] [id number] [place] [address]- 8076 Aug, [facility] [place] [facility] [address] [id number] [place] [address]- 7557 Aug, [facility] [place] [facility] [address] [id number] [place] [address]- 7153 Jul, [facility] [place] [facility] [address] [id number] [place] [address]- 8404 Jul, [facility] [place] [facility] [address] [id number] [place] [address]- 8054 Jul, [facility] [place] [facility] [address] [id number] [place] [address]- 4566 Jul, [facility] [place] [facility] [address] [id number] [place] [address]- 7965 Apr, [facility] [place] [facility] [address] [id number] [place] [address]- 6958 Apr, [facility] [place] [facility] [address] [id number] [place] [address]- 8226 Mar, [facility] [place] [facility] [address] [id number] [place] [address]- 4265 Mar, [facility] [place] [facility] [address] [id number] [place] [address]- 4478 Feb, [facility] [place] [facility] [address] [id number] [place] [address]- 1673 Feb, [facility] [place] [facility] [address] [id number] [place] [address]- 5056 Feb, [facility] [place] [facility] [address] [id number] [place] [address]- 1411 Feb, [facility] [place] [facility] [address] [id number] [place] [address]- 6975 21 Jan, 2012 [facility] [place] [facility] [address] [id number] [place] [address]- 8172 21 Jan, 2012 [facility] [place] [facility] [address] [id number] [place] 5746 17 Jan, 2012 [facility] [place] [facility] [address] [id number] [place] 7946 17 Jan, 2012 [facility] [place] [facility] [address] [id number] [place] [address]- 5091 14 Jan, 2012 [facility] [place] [facility] [address] [id number] [place] [address]- 8276 13 Jan, 2012 [facility] [place] [facility] [address] [id number] [place] [address]- 1449 13 Jan, 2012 [facility] [place] [facility] [address] [id number] [place] [address]- 4317 10 Jan, 2012 [facility] [place] [facility] [address] [id number] [place] [address]- 7122 10 Jan, 2012 [facility] [place] [facility] [address] [id number] [place] [address]- 5680 Dec, [facility] [place] [facility] [address] [id number] [place] [address]- 8408 Dec, [facility] [place] [facility] [address] [id number] [place] [address]- 9737 Dec, [facility] [place] [facility] [address] [id number] [address]- 8311 Dec, [facility] [place] [facility] [address] [id number] [place] [address] Dec, [facility] [place] [facility] [address] [id number] [place] [address] Dec, [facility] [place] [facility] [address] [id number] [place] [address] Dec, [facility] [place] [facility] [id number] [address] Dec, [facility] [address] [facility] [id number] [place] [address] Dec, [facility] [address] [facility] [id number] [place] [address] Dec, 2011 [facility] [id number] [address] Dec, [facility] [address] [facility] [id number] [place] [address] Dec, [facility] [id number] [place] [address] Dec, [facility] [id number] [place] [address] Dec, [facility] [id number] [place] [address] Dec, [facility] [id number] [address] Nov, [facility] [id number] [address] Nov, [facility] [id number] [address] Nov, [facility] [id number] [address] Nov, IMMUNIZATIONS No Known Immunizations SOCIAL HISTORY Never Assessed REASON FOR VISIT PALS PLAN OF CARE VITAL SIGNS MEDICATIONS Medication Instructions Dosage Frequency Start Date End Date Duration Status Liraglutide 18 MG/3ML Subcutaneous Once a day 0.6 mg daily 24h Aug, Aug, 90 days Active NovoFine 32G X 6 MM as directed Aug, 90 days Active Levemir FlexTouch 100 UNIT/ML Subcutaneous 2 times a day 50 units 12h 15 Dec, 2016 90 days Active NovoLog Flexpen 100 UNIT/ML Subcutaneous 3 times a day before meals 50 units June, 90 days Active RESULTS No Results PROCEDURES No [...]
--- OUTSIDE RECORDS SUMMARY | 2018-03-25 14:52 | XMS REPORT ---
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 Active 415905471 Problem Type 2 diabetes mellitus with other specified complication E11.69 Active 57523859 Problem Body mass index (BMI) of 33.0-33.9 in adult Z68.33 Active 246339540 Problem Other obesity due to excess calories E66.09 Active 597152205 Problem [facility] current use of insulin Z79.4 Active 775392743 Problem Body mass index (BMI) of 32.0-32.9 in adult Z68.32 Active 516794409 Problem Anxiety F41.9 Active 38151854 Problem Hypothyroid E03.9 Active 79852448 Problem Type 2 diabetes mellitus without complication E11.9 Active 203990566 Problem Microalbuminuria R80.9 Active 561768945 Problem Anemia D64.9 Active 312522108 ALLERGIES No Information ENCOUNTERS Encounter Location Date Diagnosis [facility] [id number], [place] [address] Aug, [facility] [id number], [place] [address] Aug, Type 2 diabetes mellitus with other specified complication E11.69 [facility] [id number], [place] [address] 7[address] Aug, Type 2 diabetes mellitus with other specified complication E11.69 ; 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 ; Proteinuria, unspecified R80.9 ; Type 2 diabetes mellitus with other diabetic kidney complication E11.29 ; Hypothyroid E03.9 ; Mixed hyperlipidemia E78.2 ; Essential hypertension I10 ; Depression F32.9 ; Other obesity due to excess calories E66.09 and Body mass index (BMI) of 32.0-32.9 in adult Z68.32 [address] [address] [place] [address] 53774- 4975 June, Mixed hyperlipidemia E78.2 and Type 2 diabetes mellitus without complication E11.9 [facility] [id number] [place] [address] 74978- 0231 May, Anemia D64.9 ; Type 2 diabetes mellitus without complication E11.9 ; Hypothyroid E03.9 ; Mixed hyperlipidemia E78.2 ; Essential hypertension I10 ; Depression F32.9 ; Other obesity due to excess calories E66.09 ; Body mass index (BMI) of 33.0-33.9 in adult Z68.33 ; Anxiety F41.9 and Herpes zoster without complication B02.9 [place] [address] [place] [address] 02271- 8253 Apr, Type 2 diabetes mellitus without complication E11.9 ; Anemia D64.9 ; Hypothyroid E03.9 ; Mixed hyperlipidemia E78.2 ; Essential hypertension I10 ; Depression F32.9 ; Other obesity due to excess calories E66.09 ; Body mass index (BMI) of 33.0-33.9 in adult Z68.33 ; Anxiety F41.9 and Herpes zoster without complication B02.9 [place] [id number] [place] [address] 43788- 9818 Apr, [place] [id number] [place] [address] 51063- 4969 Apr, [facility] [place] [id number] [place] [address] 27391- 8185 Apr, [facility] [id number] [place] [address] 73095- 4735 Mar, [facility] [place] [id number] [place] [address] 33294- 6698 Feb, [facility] [address], [place] [address] 44[address] Jan, [facility] [id number] [address] Jan, [facility] [address], [place] [address] 9441 Dec, Type 2 diabetes mellitus without complication E11.9 [facility] [id number] [address] 7160 Nov, [facility] [id number] [place] [address] 79561- 9148 Nov, Type 2 diabetes mellitus without complication E11.9 [facility] [address], [place] [address] 2252 Nov, [facility] [id number] [place] [address] 05873- 1991 Oct, Type 2 diabetes mellitus without complication E11.9 [facility] [address], [place] [address] 0447 Oct, [facility] [address], [place] [address] 8132 Oct, [facility] [address], [place] [address] Sep, [facility] [address], [place] [address]- 9705 Sep, Type 2 diabetes mellitus without complication E11.9 [facility] [address], [place] [address] 5289 Sep, Type 2 diabetes mellitus without complication E11.9 and Essential hypertension I10 [facility] [address], [place] [address] 1433 Sep, [facility] [address], [place] [address]- 2174 Sep, [facility] [address] [facility] [id number] [place] [address]- 1807 Sep, Type 2 diabetes mellitus without complication E11.9 [facility] [address] [facility] [id number] [place] [address]- 6396 Aug, [facility] [address] [facility] [id number] [place] [address]- 4949 Aug, Type 2 diabetes mellitus without complication E11.9 [facility] [address] [facility] [id number] [place] [address]- 8880 Aug, Type 2 diabetes mellitus without complication E11.9 [facility] [address] [facility] [id number] [place] [address]- 8984 Aug, [facility] [id number] [address]- 6182 Aug, Abnormal weight gain R63.5 [facility] [address] [facility] [id number] [place] [address]- 5666 Aug, [facility] [id number], [place] [address] 2029 Aug, Hypothyroid E03.9 [facility] [address] [facility] [id number] [place] [address]- 6975 Aug, Type 2 diabetes mellitus without complication E11.9 [facility] [address] [facility] [id number], [place] [address]- 8165 Jul, Abnormal weight gain R63.5 [facility] [address] [facility] [id number] [place] [address]- 5256 Jul, Abnormal weight gain R63.5 [facility] [address] 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 [place] [id number] [place] [address] 14665- 9376 Jul, Type 2 diabetes mellitus without complication E11.9 [place] [id number] [place] [address] 34781- 0026 June, [facility] [id number] [place] [address] 62430- 0496 June, Type 2 diabetes mellitus without complication E11.9 [facility] [id number] [place] [address] 43466- 3569 June, [facility] [id number], [place] [address]- 5729 June, [facility] [id number] [place] [address]- 3701 June, Type 2 diabetes mellitus without complication E11.9 ; Hypothyroid E03.9 ; Essential hypertension I10 ; Depression F32.9 and Mixed hyperlipidemia E78.2 [place] [address], [place] [address]- 9116 May, [place] [address], [place] [address]- 5649 Feb, Type 2 diabetes mellitus without complication E11.9 ; Hypothyroid E03.9 ; Mixed hyperlipidemia E78.2 ; Essential hypertension I10 ; Depression F32.9 and Anemia D64.9 [place] [address], [place] [address]- 7156 Jan, [facility] [id number] [place] [address] 77004- 7601 Sep, [place] [address] [place] [address] 81248- 7182 Sep, Type 2 diabetes mellitus without complication E11.9 ; Anemia D64.9 ; Hypothyroid E03.9 ; Hyperlipidemia, unspecified hyperlipidemia type E78.5 and Essential (primary) hypertension I10 [place] [id number] [place] [address] 35187- 5877 Aug, [place] [id number] [place] [address] 76539- 6811 June, [facility] [id number] [place] [address] 67178- 6190 June, Iron deficiency anemia, unspecified iron deficiency anemia type D50.9 [place] [id number] [place] [address] 74695- 0386 May, Abnormal finding of blood chemistry, unspecified R79.9 [place] [id number] [place] [address] 78360- 3953 May, Type 2 diabetes mellitus without complication E11.9 ; Anemia D64.9 ; Hypothyroid E03.9 ; Anxiety F41.9 and Dyslipidemia E78.5 [address] [address] [place] [address] 80095- 7167 Jan, Type 2 diabetes mellitus without complication E11.9 ; Depression F32.9 ; Essential hypertension I10 ; Hyperlipidemia E78.5 ; Anxiety F41.9 and Hypothyroidism E03.9 [place] [address] [place] [address] 21412- 1639 Jan, Type 2 diabetes mellitus with diabetic neuropathy E11.40 [place] [id number] [place] [address] 58143- 3158 Jan, Type 2 diabetes mellitus with diabetic neuropathy E11.40 [place] [id number] [place] [address] 87673- 8186 Jan, [place] [address] [facility] [id number] [place] [address]- 8808 Jan, [facility] [address] [facility] [id number] [place] [address]- 4743 Jan, [facility] [address] [facility] [id number] [place] [address]- 5114 Jan, [facility] [address] [facility] [id number] [place] [address], [place] [address]- 1062 Dec, [facility] [address] [facility] [id number] [place] [address]- 8767 Dec, [facility] [address] [facility] [id number] [place] [address], [place] 5974 Nov, [facility] [address] [facility] [id number], [place] [address]- 2185 Nov, [facility] [id number] [place] [address] 88338- 6148 Nov, [facility] [id number], [place] [address]- 3393 Nov, [facility] [address], [place] [address]- 3003 Nov, [facility] [address], [place] [address]- 3451 Nov, Pertussis exposure Z20.89 [facility] [id number], [place] [address]- 0459 Nov, [facility] [address] [facility] [id number] 6299 Oct, [facility] [address] [facility] [id number] 0297 Oct, [facility] [id number], [place] [address]- 0122 Oct, [facility] [address] [place] [address] 35458- 9824 Sep, [facility] [id number] 7085 Sep, Diabetes mellitus without mention of complication, type II or unspecified type, uncontrolled 250.02 and Hyperlipidemia associated with type 2 diabetes mellitus 250.80 [facility] [address] 2848 Sep, [facility] [id number] [place] [address] 480672- 2226 Sep, [facility] [address] [place] [address] 569494- 9404 Sep, Diabetes mellitus without mention of complication, type II or unspecified type, not stated as uncontrolled 250.00 ; Hypothyroid 244.9 ; Hyperlipidemia 272.4 and Hypertension 401.9 [facility] [id number] [place] [address]- 6437 Aug, [facility] [id number], [place] [address]- 4948 June, Diabetes mellitus without mention of complication, type II or unspecified type, not stated as uncontrolled 250.00 ; Hyperlipidemia 272.4 ; Hypertension 401.9 ; Candidiasis of female genitalia 112.1 ; Hypothyroid 244.9 and Liver lesion 573.8 [facility] [address] 1518 June, [facility] [address] [place] [address] 69833- 1950 May, [facility] [address] 4085 May, [facility] [id number] [place] [address] 927617- 9199 Mar, [facility] [address] 6586 Mar, [facility] [id number] [place] [address] [place] [address]- 2692 Mar, 2014 [facility] [place] [facility] [address] [id number] [place] [address]- 5496 Mar, 2014 [facility] [place] [facility] [address] [id number] [place] [address]- 8887 Jan, [facility] [place] [facility] [address] [id number] [place] [address]- 1858 Jan, [facility] [place] [facility] [address] [id number] [place] [address]- 1462 Nov, [facility] [place] [facility] [address] [id number] [place] [address]- 6087 Nov, [facility] [place] [facility] [address] [id number] [place] [address]- 6277 Nov, [facility] [place] [facility] [address] [id number] [place] [address]- 6585 Nov, [facility] [place] [facility] [address] [id number] [place] [address]- 1680 Nov, [facility] [place] [facility] [address] [id number] [place] [address]- 0541 Nov, [facility] [place] [facility] [address] [id number] [place] [address]- 6894 29 Oct, 2013 [facility] [place] [facility] [address] [id number] [place] [address]- 3767 29 Oct, 2013 [facility] [place] [facility] [address] [id number] [place] [address]- 2540 29 Oct, 2013 [facility] [place] [facility] [address] [id number] [place] [address]- 3501 29 Oct, 2013 [facility] [place] [facility] [address] [id number] [place] [address]- 8248 23 Oct, 2013 [facility] [place] [facility] [address] [id number] [place] [address]- 1467 23 Oct, 2013 [facility] [place] [facility] [address] [id number] [place] [address]- 3811 Oct, 2013 [facility] [place] [facility] [address] [id number] [place] [address]- 9833 Oct, [facility] [place] [facility] [address] [id number] [place] [address]- 3799 Oct, [facility] [place] [facility] [address] [id number] [place] [address]- 2817 Oct, 2013 [facility] [place] [facility] [address] [id number] [place] [address]- 4309 Oct, [facility] [place] [facility] [address] [id number] [place] [address]- 9185 Oct, [facility] [place] [facility] [address] [id number] [place] [address]- 2880 Oct, [facility] [place] [facility] [address] [id number] [place] [address]- 2835 Oct, [facility] [place] [facility] [address] [id number] [place] [address]- 3595 Sep, [facility] [place] [facility] [address] [id number] [place] [address]- 6015 Sep, [facility] [place] [facility] [address] [id number] [place] [address]- 7020 Sep, [facility] [place] [facility] [address] [id number] [place] [address]- 8264 Sep, [facility] [place] [facility] [address] [id number] [place] [address]- 0465 Sep, [facility] [place] [facility] [address] [id number] [place] [address]- 2099 Sep, [facility] [place] [facility] [address] [id number] [place] [address]- 1537 Aug, [facility] [place] [facility] [address] [id number] [place] [address]- 8426 Aug, 2013 [facility] [place] [facility] [address] [id number] [place] [address]- 4490 Aug, 2013 [facility] [place] [facility] [address] [id number] [place] [address]- 1126 Aug, 2013 [facility] [place] [facility] [address] [id number] [place] [address]- 8301 Aug, 2013 [facility] [place] [facility] [address] [id number] [place] [address]- 8832 Aug, 2013 [facility] [place] [facility] [address] [id number] [place] [address]- 5979 Aug, [facility] [place] [facility] [address] [id number] [place] [address]- 6142 Aug, 2013 [facility] [place] [facility] [address] [id number] [place] [address]- 2898 Aug, [facility] [place] [facility] [address] [id number] [place] [address]- 6469 Aug, [facility] [place] [facility] [address] [id number] [place] [address]- 0183 Aug, 2013 [facility] [place] [facility] [address] [id number] [place] [address]- 1852 Aug, [facility] [place] [facility] [address] [id number] [place] [address]- 8572 Aug, [facility] [place] [facility] [address] [id number] [place] [address]- 8087 Aug, [facility] [place] [facility] [address] [id number] [place] [address]- 8216 Aug, [facility] [place] [facility] [address] [id number] [place] [address]- 2524 Aug, [facility] [place] [facility] [address] [id number] [place] [address]- 7496 Aug, [facility] [place] [facility] [address] [id number] [place] [address]- 5526 Aug, [facility] [address] [id number] [place] [address]- 8027 Aug, [facility] [address] [id number] [place] [address]- 3992 Jul, [facility] [address] [id number] [place] [address]- 1000 Jul, [facility] [address] [id number] [place] [address]- 0564 Jul, [facility] [address] [id number] [place] [address]- 7667 Jul, [facility] [address] [id number] [place] [address]- 0216 Apr, [facility] [address] [id number] [place] [address]- 2782 Apr, [facility] [address] [id number] [place] [address]- 8358 Mar, [facility] [address] [id number] [place] [address]- [address] Mar, [facility] [address] [id number] [place] [address]- 6452 Feb, [facility] [address] [id number] [place] [address]- 5685 Feb, [facility] [address] [id number] [place] [address]- 8396 Feb, [facility] [address] [id number] [place] [address]- 6579 Feb, [facility] [address] [id number] [place] [address]- 2086 Jan, [facility] [address] [id number] [place] 2036 Jan, [facility] [place] [facility] [address] [id number] [place] [address]- 1767 17 Jan, 2012 [facility] [place] [facility] [address] [id number] [place] [address]- 4456 17 Jan, 2012 [facility] [place] [facility] [address] [id number] [place] [address]- 6551 14 Jan, 2012 [facility] [place] [facility] [address] [id number] [place] [address]- 0368 13 Jan, 2012 [facility] [place] [facility] [address] [id number] [place] [address]- 0210 13 Jan, 2012 [facility] [place] [facility] [address] [id number] [place] [address]- 8297 10 Jan, 2012 [facility] [place] [facility] [address] [id number] [place] [address]- 7388 10 Jan, 2012 [facility] [place] [facility] [address] [id number] [place] [address] 26 Dec, 2011 [facility] [place] [facility] [address] [id number] [place] [address] Dec, [facility] [place] [facility] [address] [id number] [place] [address] Dec, [facility] [place] [facility] [address] [id number] [place] [address] Dec, [facility] [place] [facility] [address] [id number] [place] [address] Dec, [facility] [place] [facility] [address] [id number] [place] [address] Dec, [facility] [place] [facility] [address] [id number] [place] [address] Dec, [facility] [place] [facility] [address] [id number] [place] [address] Dec, [facility] [place] [facility] [address] [id number], [place] [address] 19 Dec, 2011 [facility] [id number] [address] 16 Dec, 2011 [facility] [id number] [address] 16 Dec, 2011 [facility] [id number], [place] [address] Dec, [facility] [id number] [address] Dec, [facility] [id number] [place] [address] Dec, [facility] [id number], [place] [address] Dec, [facility] [id number] [place] [address] Nov, [facility] [id number], [place] [address] Nov, [facility] [id number], [place] [address] Nov, [facility] [id number], [place] [address] Nov, IMMUNIZATIONS No Known Immunizations SOCIAL HISTORY Never Assessed REASON FOR VISIT Lab (walk-in) PLAN OF CARE VITAL SIGNS MEDICATIONS Unknown Medications RESULTS No Results PROCEDURES Procedure Date Ordered Result Body Site COMPLETE CBC W/AUTO DIFF WBC June 04, 2017 COMPREHEN METABOLIC PANEL June 04, 2017 LIPID PANEL June 04, 2017 ASSAY THYROID STIM HORMONE June 04, 2017 INSTRUCTIONS MEDICATIONS ADMINISTERED No Known Medications [...]
--- OUTSIDE RECORDS SUMMARY | 2018-03-25 14:52 | XMS REPORT ---
Author Author STOLLRONAL Vargas Organization [facility] Address [address] [place] [address] Care Team Providers Care Sales Representative Education Courses Name Role Phone RONAL STOLL Unavailable PROBLEMS Type Condition ICD9-CM Code [id number] Code Onset Dates Condition Status SNOMED Code Problem Essential hypertension I10 Active 17474348 Problem Mixed hyperlipidemia E78.2 Active 119810119 Problem Depression F32.9 Active 831336006 Problem Type 2 diabetes mellitus with other diabetic kidney complication E11.29 Active 852131335 Problem Type 2 diabetes mellitus with other specified complication E11.69 Active 90495989 Problem Body mass index (BMI) of 33.0-33.9 in adult Z68.33 Active 234179900 Problem Other obesity due to excess calories E66.09 Active 926074396 Problem [facility] current use of insulin Z79.4 Active 392275821 Problem Body mass index (BMI) of 32.0-32.9 in adult Z68.32 Active 785076252 Problem Anxiety F41.9 Active 24054630 Problem Hypothyroid E03.9 Active 73616474 Problem Type 2 diabetes mellitus without complication E11.9 Active 777301028 Problem Microalbuminuria R80.9 Active 384968315 Problem Anemia D64.9 Active 573827202 ALLERGIES No Information ENCOUNTERS Encounter Location Date Diagnosis [facility] [id number] [address] Aug, [facility] [id number] [address] Aug, Type 2 diabetes mellitus with other specified complication E11.69 [facility] [id number] [address] Aug, Type 2 diabetes mellitus with other specified complication E11.69 ; termite treater current use of insulin Z79.4 ; Proteinuria, unspecified R80.9 ; Type 2 diabetes mellitus with other diabetic kidney complication E11.29 ; Hypothyroid E03.9 ; Mixed hyperlipidemia E78.2 ; Essential hypertension I10 ; Depression F32.9 ; Other obesity due to excess calories E66.09 and Body mass index (BMI) of 32.0-32.9 in adult Z68.32 [address] [address] [place] [address] 59844- 4196 June, Mixed hyperlipidemia E78.2 and Type 2 diabetes mellitus without complication E11.9 [place] [id number] [place] [address] 50681- 2821 May, Anemia D64.9 ; Type 2 diabetes mellitus without complication E11.9 ; Hypothyroid E03.9 ; Mixed hyperlipidemia E78.2 ; Essential hypertension I10 ; Depression F32.9 ; Other obesity due to excess calories E66.09 ; Body mass index (BMI) of 33.0-33.9 in adult Z68.33 ; Anxiety F41.9 and Herpes zoster without complication B02.9 [place] [id number] [place] [address] 30634- 9872 Apr, Type 2 diabetes mellitus without complication E11.9 ; Anemia D64.9 ; Hypothyroid E03.9 ; Mixed hyperlipidemia E78.2 ; Essential hypertension I10 ; Depression F32.9 ; Other obesity due to excess calories E66.09 ; Body mass index (BMI) of 33.0-33.9 in adult Z68.33 ; Anxiety F41.9 and Herpes zoster without complication B02.9 [place] [id number] [place] [address] 63649- 1848 Apr, [place] [id number] [place] [address] 95900- 3039 Apr, [place] [id number] [place] [address] 96786- 5267 Apr, [place] [id number] [place] [address] 98956- 0681 Mar, [place] [id number] [place] [address] 84831- 9112 Feb, [facility] [address] [address] 9226 Jan, [facility] [id number] [address] [address] Jan, [facility] [address] [address] 7961 Dec, Type 2 diabetes mellitus without complication E11.9 [facility] [id number] [place] [address] 6273 Nov, [facility] [id number] [place] [address] 05570- 7509 Nov, Type 2 diabetes mellitus without complication E11.9 [facility] [address] [address]- 4773 Nov, [facility] [id number] [place] [address] 93214- 9267 Oct, Type 2 diabetes mellitus without complication E11.9 [facility] [address] [address]- 4287 Oct, [facility] [address] [address]- 2495 Oct, [facility] [address] [address]- 4083 Sep, [facility] [address] [address]- 3199 Sep, Type 2 diabetes mellitus without complication E11.9 [facility] [address] [address]- 7761 Sep, Type 2 diabetes mellitus without complication E11.9 and Essential hypertension I10 [facility] [address] [address]- 7123 Sep, [facility] [address] [address]- 1127 Sep, [facility] [address] [facility] [id number] [place] [address]- 3005 Sep, Type 2 diabetes mellitus without complication E11.9 [facility] [address] [facility] [id number] [place] [address]- 1436 Aug, [facility] [address] [facility] [id number] [place] [address]- 0957 Aug, Type 2 diabetes mellitus without complication E11.9 [facility] [address] [facility] [id number] [place] [address]- 8956 Aug, Type 2 diabetes mellitus without complication E11.9 [facility] [address] [facility] [id number] [place] [address]- 0852 Aug, [facility] [id number] [place] [address]- 3483 Aug, Abnormal weight gain R63.5 [facility] [address] [facility] [id number] [place] [address]- 7776 Aug, [facility] [id number] [address]- 5649 Aug, Hypothyroid E03.9 [facility] [address] [facility] [id number] [place] [address]- 4462 Aug, Type 2 diabetes mellitus without complication E11.9 [facility] [address] [facility] [id number] [address] 4339 Jul, Abnormal weight gain R63.5 [facility] [address] [facility] [id number] [place] [address]- 9866 Jul, Abnormal weight gain R63.5 [facility] [address] [facility] [id number] [place] [address]- 7276 Jul, Abnormal weight gain R63.5 [facility] [id number] [address]- 5210 Jul, Abnormal weight gain R63.5 ; Pain in right knee M25.561 and Pain in right ankle and joints of right foot M25.571 [place] [address] [address]- 0656 Jul, [place] [id number] [address]- 3509 Jul, 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 [place] [id number] [place] [address] 89523- 0975 Jul, Type 2 diabetes mellitus without complication E11.9 [place] [id number] [place] [address] 26648- 1539 June, [place] [id number] [place] [address] 60674- 5825 June, Type 2 diabetes mellitus without complication E11.9 [place] [id number] [place] [address] 17665- 5581 June, [place] [id number] [address]- 0739 June, [place] [id number] [address]- 3186 June, Type 2 diabetes mellitus without complication E11.9 ; Hypothyroid E03.9 ; Essential hypertension I10 ; Depression F32.9 and Mixed hyperlipidemia E78.2 [place] [address] [address]- 1179 May, [place] [address] [address]- 2408 Feb, Type 2 diabetes mellitus without complication E11.9 ; Hypothyroid E03.9 ; Mixed hyperlipidemia E78.2 ; Essential hypertension I10 ; Depression F32.9 and Anemia D64.9 [place] [address] [address]- 3901 Jan, [place] [id number] [place] [address] 36928- 1147 Sep, [place] [address] [place] [address] 73436- 9179 Sep, Type 2 diabetes mellitus without complication E11.9 ; Anemia D64.9 ; Hypothyroid E03.9 ; Hyperlipidemia, unspecified hyperlipidemia type E78.5 and Essential (primary) hypertension I10 [place] [id number] [place] [address] 74901- 8687 Aug, [place] [id number] [place] [address] 84875- 6700 June, [place] [id number] [place] [address] 42485- 8043 June, Iron deficiency anemia, unspecified iron deficiency anemia type D50.9 [place] [id number] [place] [address] 10383- 3186 May, Abnormal finding of blood chemistry, unspecified R79.9 [place] [id number] [place] [address] 13921- 9075 May, Type 2 diabetes mellitus without complication E11.9 ; Anemia D64.9 ; Hypothyroid E03.9 ; Anxiety F41.9 and Dyslipidemia E78.5 [place] [address] [place] [address] 69004- 1274 Jan, Type 2 diabetes mellitus without complication E11.9 ; Depression F32.9 ; Essential hypertension I10 ; Hyperlipidemia E78.5 ; Anxiety F41.9 and Hypothyroidism E03.9 [place] [address] [place] [address] 60659- 9461 Jan, Type 2 diabetes mellitus with diabetic neuropathy E11.40 [place] [id number] [place] [address] 17497- 6339 Jan, Type 2 diabetes mellitus with diabetic neuropathy E11.40 [place] [id number] [place] [address] 77944- 6524 Jan, [place] [address] [facility] [id number] [place] [address]- 7640 Jan, [facility] [address] [facility] [id number] [place] [address]- 8912 Jan, [facility] [address] [facility] [id number] [place] [address]- 1384 Jan, [facility] [address] [facility] [id number] [place] [address], [place] [address]- 1391 Dec, [facility] [address] [facility] [id number] [place] [address]- 8098 Dec, [facility] [address] [facility] [id number] [place] [address], [place] 5746 Nov, [facility] [address] [facility] [id number] [address]- 1452 Nov, [facility] [id number] [place] [address] 34034- 2644 Nov, [facility] [id number] [address]- 5670 Nov, [facility] [address] [address]- 8166 Nov, [facility] [address] [address]- 3220 Nov, Pertussis exposure Z20.89 [facility] [id number] [address]- 9230 Nov, [facility] [address] [facility] [id number] 3314 Oct, [facility] [address] [facility] [id number] 3684 Oct, [facility] [id number] [address]- 0163 Oct, [facility] [id number] [place] [address] 57885- 2858 Sep, [facility] [id number] 3125 Sep, Diabetes mellitus without mention of complication, type II or unspecified type, uncontrolled 250.02 and Hyperlipidemia associated with type 2 diabetes mellitus 250.80 [facility] [address]- 7829 Sep, [facility] [id number] [place] [address] 377791- 9924 Sep, [facility] [address] [place] [address] 171201- 3930 Sep, Diabetes mellitus without mention of complication, type II or unspecified type, not stated as uncontrolled 250.00 ; Hypothyroid 244.9 ; Hyperlipidemia 272.4 and Hypertension 401.9 [facility] [id number] [address]- 2969 Aug, [facility] [id number] [address]- 4528 June, Diabetes mellitus without mention of complication, type II or unspecified type, not stated as uncontrolled 250.00 ; Hyperlipidemia 272.4 ; Hypertension 401.9 ; Candidiasis of female genitalia 112.1 ; Hypothyroid 244.9 and Liver lesion 573.8 [facility] [address]- 2292 June, [facility] [address] [place] [address] 50213- 8444 May, [facility] [address] 5246 May, [facility] [id number] [place] [address] 693583- 9490 Mar, [facility] [address] 9636 Mar, [facility] [id number] [place] [address] [place] [address]- 4803 Mar, 2014 [facility] [place] [facility] [address] [id number] [place] [address]- 0788 Mar, 2014 [facility] [place] [facility] [address] [id number] [place] [address]- 2477 Jan, [facility] [place] [facility] [address] [id number] [place] [address]- 1488 Jan, [facility] [place] [facility] [address] [id number] [place] [address]- 1907 Nov, [facility] [place] [facility] [address] [id number] [place] [address]- 2896 Nov, [facility] [place] [facility] [address] [id number] [place] [address]- 7822 Nov, [facility] [place] [facility] [address] [id number] [place] [address]- 8628 Nov, [facility] [place] [facility] [address] [id number] [place] [address]- 6978 Nov, [facility] [place] [facility] [address] [id number] [place] [address]- 0036 Nov, [facility] [place] [facility] [address] [id number] [place] [address]- 6632 29 Oct, 2013 [facility] [place] [facility] [address] [id number] [place] [address]- 6364 29 Oct, 2013 [facility] [place] [facility] [address] [id number] [place] [address]- 2541 29 Oct, 2013 [facility] [place] [facility] [address] [id number] [place] [address]- 3882 29 Oct, 2013 [facility] [place] [facility] [address] [id number] [place] [address]- 2872 23 Oct, 2013 [facility] [place] [facility] [address] [id number] [place] [address]- 2426 23 Oct, 2013 [facility] [place] [facility] [address] [id number] [place] [address]- 7637 Oct, 2013 [facility] [place] [facility] [address] [id number] [place] [address]- 5324 Oct, [facility] [place] [facility] [address] [id number] [place] [address]- 4967 Oct, [facility] [place] [facility] [address] [id number] [place] [address]- 4846 Oct, 2013 [facility] [place] [facility] [address] [id number] [place] [address]- 3048 Oct, [facility] [place] [facility] [address] [id number] [place] [address]- 9613 Oct, [facility] [place] [facility] [address] [id number] [place] [address]- 0822 Oct, [facility] [place] [facility] [address] [id number] [place] [address]- 4177 Oct, [facility] [place] [facility] [address] [id number] [place] [address]- 3244 Sep, [facility] [place] [facility] [address] [id number] [place] [address]- 3795 Sep, [facility] [place] [facility] [address] [id number] [place] [address]- 0091 Sep, [facility] [place] [facility] [address] [id number] [place] [address]- 6815 Sep, [facility] [place] [facility] [address] [id number] [place] [address]- 6383 Sep, [facility] [place] [facility] [address] [id number] [place] [address]- 2382 Sep, [facility] [place] [facility] [address] [id number] [place] [address]- 2254 Aug, [facility] [place] [facility] [address] [id number] [place] [address]- 5591 Aug, 2013 [facility] [place] [facility] [address] [id number] [place] [address]- 8401 Aug, 2013 [facility] [place] [facility] [address] [id number] [place] [address]- 2580 Aug, 2013 [facility] [place] [facility] [address] [id number] [place] [address]- 7635 Aug, 2013 [facility] [place] [facility] [address] [id number] [place] [address]- 6195 Aug, 2013 [facility] [place] [facility] [address] [id number] [place] [address]- 0323 Aug, [facility] [place] [facility] [address] [id number] [place] [address]- 6798 Aug, 2013 [facility] [place] [facility] [address] [id number] [place] [address]- 1494 Aug, [facility] [place] [facility] [address] [id number] [place] [address]- 4381 Aug, [facility] [place] [facility] [address] [id number] [place] [address]- 1520 Aug, 2013 [facility] [place] [facility] [address] [id number] [place] [address]- 6791 Aug, [facility] [place] [facility] [address] [id number] [place] [address]- 8726 Aug, [facility] [place] [facility] [address] [id number] [place] [address]- 4541 Aug, [facility] [place] [facility] [address] [id number] [place] [address]- 1171 Aug, [facility] [place] [facility] [address] [id number] [place] [address]- 4768 Aug, [facility] [place] [facility] [address] [id number] [place] [address]- 4886 Aug, [facility] [place] [facility] [address] [id number] [place] [address]- 4549 Aug, [facility] [address] [id number] [place] [address]- 0911 Aug, [facility] [address] [id number] [place] [address]- 0323 Jul, [facility] [address] [id number] [place] [address]- 3070 Jul, [facility] [address] [id number] [place] [address]- 3937 Jul, [facility] [address] [id number] [place] [address]- 4280 Jul, [facility] [address] [id number] [place] [address]- 2536 Apr, [facility] [address] [id number] [place] [address]- 2141 Apr, [facility] [address] [id number] [place] [address]- 1864 Mar, [facility] [address] [id number] [place] [address]- 8879 Mar, [facility] [address] [id number] [place] [address]- 5574 Feb, [facility] [address] [id number] [place] [address]- 1262 Feb, [facility] [address] [id number] [place] [address]- 9355 Feb, [facility] [address] [id number] [place] [address]- 8754 Feb, [facility] [address] [id number] [place] [address]- 7996 Jan, [facility] [address] [id number] [id number] 7044 Jan, [facility] [place] [facility] [address] [id number] [place] [address]- 4829 17 Jan, 2012 [facility] [place] [facility] [address] [id number] [place] [address]- 9296 17 Jan, 2012 [facility] [place] [facility] [address] [id number] [place] [address]- 2372 14 Jan, 2012 [facility] [place] [facility] [address] [id number] [place] [address]- 1078 13 Jan, 2012 [facility] [place] [facility] [address] [id number] [place] [address]- 5695 13 Jan, 2012 [facility] [place] [facility] [address] [id number] [place] [address]- 9761 10 Jan, 2012 [facility] [place] [facility] [address] [id number] [place] [address]- 8115 10 Jan, 2012 [facility] [place] [facility] [address] [id number] [place] [address]- 1240 26 Dec, 2011 [facility] [place] [facility] [address] [id number] [place] [address]- 1047 Dec, [facility] [place] [facility] [address] [id number] [place] [address]- 8225 Dec, [facility] [place] [facility] [address] [id number] [place] [address]- 1375 Dec, [facility] [place] [facility] [address] [id number] [place] [address]- 0163 Dec, [facility] [place] [facility] [address] [id number] [place] [address]- 7657 Dec, [facility] [place] [facility] [address] [id number] [place] [address]- 9036 Dec, [facility] [place] [facility] [address] [id number] [place] [address]- [address] Dec, [facility] [place] [facility] [address] [id number] [address] Dec, [facility] [id number] [address] Dec, [facility] [id number] [address] 16 Dec, 2011 [facility] [id number] [address] Dec, [facility] [id number] [address] Dec, [facility] [id number] [address] Dec, [facility] [id number] [address] Dec, [facility] [id number] [address] Nov, [facility] [id number] [address] Nov, [facility] [id number] [address] Nov, [facility] [id number] [address] Nov, IMMUNIZATIONS No Known Immunizations SOCIAL HISTORY Never Assessed REASON FOR VISIT Update on doses PLAN OF CARE VITAL SIGNS MEDICATIONS Medication Instructions Dosage Frequency Start Date End Date Duration Status Levemir FlexTouch 100 UNIT/ML Subcutaneous 2 times a day 50 units 12h 15 Dec, 2016 Active NovoLog Flexpen 100 UNIT/ML Subcutaneous 3 times a day before meals 25 units June, Active RESULTS No Results PROCEDURES No Known [...]
--- OUTSIDE RECORDS SUMMARY | 2018-03-25 14:53 | XMS REPORT ---
Author Author STOLLRONAL Vargas Organization [facility] Address [address] [place] [address] Care Team Providers Care Supervisor Cold Rolling Name Role Phone RONAL STOLL Unavailable PROBLEMS Type Condition ICD9-CM Code DHE84-OS Code Onset Dates Condition Status SNOMED Code Problem Essential hypertension I10 Active 65618838 Problem Mixed hyperlipidemia E78.2 Active 868747098 Problem Depression F32.9 Active 218917925 Problem Type 2 diabetes mellitus with other diabetic kidney complication E11.29 Active 569230857 Problem Type 2 diabetes mellitus with other specified complication E11.69 Active 94572377 Problem Body mass index (BMI) of 33.0-33.9 in adult Z68.33 Active 429494354 Problem Other obesity due to excess calories E66.09 Active 617743335 Problem skilled nursing current use of insulin Z79.4 Active 706395536 Problem Body mass index (BMI) of 32.0-32.9 in adult Z68.32 Active 332115513 Problem Anxiety F41.9 Active 98283388 Problem Hypothyroid E03.9 Active 39585563 Problem Type 2 diabetes mellitus without complication E11.9 Active 293836913 Problem Microalbuminuria R80.9 Active 737930265 Problem Anemia D64.9 Active 214913443 ALLERGIES No Information ENCOUNTERS Encounter Location Date Diagnosis [facility] [id number] [address] Aug, [facility] [id number] [address] 5[address] Aug, Type 2 diabetes mellitus with other specified complication E11.69 [facility] [id number] [address] 6101 Aug, Type 2 diabetes mellitus with other specified complication E11.69 ; 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 ; Proteinuria, unspecified R80.9 ; Type 2 diabetes mellitus with other diabetic kidney complication E11.29 ; Hypothyroid E03.9 ; Mixed hyperlipidemia E78.2 ; Essential hypertension I10 ; Depression F32.9 ; Other obesity due to excess calories E66.09 and Body mass index (BMI) of 32.0-32.9 in adult Z68.32 [address] [place] [address] 91720- 2797 June, Mixed hyperlipidemia E78.2 and Type 2 diabetes mellitus without complication E11.9 [place] [id number] [place] [address] 42124- 4184 May, Anemia D64.9 ; Type 2 diabetes mellitus without complication E11.9 ; Hypothyroid E03.9 ; Mixed hyperlipidemia E78.2 ; Essential hypertension I10 ; Depression F32.9 ; Other obesity due to excess calories E66.09 ; Body mass index (BMI) of 33.0-33.9 in adult Z68.33 ; Anxiety F41.9 and Herpes zoster without complication B02.9 [place] [id number] [place] [address] 32111- 6772 Apr, Type 2 diabetes mellitus without complication E11.9 ; Anemia D64.9 ; Hypothyroid E03.9 ; Mixed hyperlipidemia E78.2 ; Essential hypertension I10 ; Depression F32.9 ; Other obesity due to excess calories E66.09 ; Body mass index (BMI) of 33.0-33.9 in adult Z68.33 ; Anxiety F41.9 and Herpes zoster without complication B02.9 [place] [id number] [place] [address] 40496- 9795 Apr, [place] [id number] [place] [address] 63244- 6840 Apr, [place] [id number] [place] [address] 13142- 8427 Apr, [place] [id number] [place] [address] 09670- 1132 Mar, [place] [id number] [place] [address] 79496- 5477 Feb, [facility] [address] [address] 3[address] Jan, [facility] [id number] [address] Jan, [facility] [address] [address]- 0860 Dec, Type 2 diabetes mellitus without complication E11.9 [facility] [id number] [address] 7936 Nov, [facility] [id number] [place] [address] 82443- 9674 Nov, Type 2 diabetes mellitus without complication E11.9 [facility] [address], [place] [address] 3501 Nov, [facility] [id number] [place] [address] 84397- 1887 Oct, Type 2 diabetes mellitus without complication E11.9 [facility] [address], [place] [address]- 4509 Oct, [facility] [address], [place] [address]- 7838 Oct, [facility] [address], [place] [address]- 1278 Sep, [facility] [address], [place] [address]- 3528 Sep, Type 2 diabetes mellitus without complication E11.9 [facility] [address], [place] [address]- 1835 Sep, Type 2 diabetes mellitus without complication E11.9 and Essential hypertension I10 [facility] [address], [place] [address]- 9802 Sep, [facility] [address], [place] [address]- 4873 Sep, [facility] [address] [facility] [id number] [place] [address]- 8647 Sep, Type 2 diabetes mellitus without complication E11.9 [facility] [address] [facility] [id number] [place] [address]- 7136 Aug, [facility] [address] [facility] [id number] [place] [address]- 4245 Aug, Type 2 diabetes mellitus without complication E11.9 [facility] [address] [facility] [id number] [place] [address]- 8918 Aug, Type 2 diabetes mellitus without complication E11.9 [facility] [address] [facility] [id number] [place] [address]- 7998 Aug, [facility] [id number] [address]- 5052 Aug, Abnormal weight gain R63.5 [facility] [address] [facility] [id number] [place] [address]- 0446 Aug, [facility] [id number] [address]- 0120 Aug, Hypothyroid E03.9 [facility] [address] [facility] [id number] [place] [address]- 8573 Aug, Type 2 diabetes mellitus without complication E11.9 [facility] [address] [facility] [id number] [address] 8014 Jul, Abnormal weight gain R63.5 [facility] [address] [facility] [id number] [place] [address]- 8896 Jul, Abnormal weight gain R63.5 [facility] [address] [facility] [id number] [place] [address]- 5046 Jul, Abnormal weight gain R63.5 [facility] [id number] [address]- 3086 Jul, Abnormal weight gain R63.5 ; Pain in right knee M25.561 and Pain in right ankle and joints of right foot M25.571 [place] [address], [place] [address]- 9542 Jul, [place] [id number], [place] [address]- 2612 Jul, 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 [place] [id number] [place] [address] 33202- 2340 Jul, Type 2 diabetes mellitus without complication E11.9 [place] [id number] [place] [address] 42351- 7622 June, [place] [id number] [place] [address] 42061- 5379 June, Type 2 diabetes mellitus without complication E11.9 [place] [id number] [place] [address] 50688- 2275 June, [place] [id number] [address]- 3662 June, [place] [id number] [address]- 3257 June, Type 2 diabetes mellitus without complication E11.9 ; Hypothyroid E03.9 ; Essential hypertension I10 ; Depression F32.9 and Mixed hyperlipidemia E78.2 [place] [address], [place] [address]- 0454 May, [place] [address] [address]- 1802 Feb, Type 2 diabetes mellitus without complication E11.9 ; Hypothyroid E03.9 ; Mixed hyperlipidemia E78.2 ; Essential hypertension I10 ; Depression F32.9 and Anemia D64.9 [place] [address], [place] [address]- 2615 Jan, [place] [id number] [place] [address] 50808- 2444 Sep, [place] [address] [place] [address] 29592- 3061 Sep, Type 2 diabetes mellitus without complication E11.9 ; Anemia D64.9 ; Hypothyroid E03.9 ; Hyperlipidemia, unspecified hyperlipidemia type E78.5 and Essential (primary) hypertension I10 [place] [id number] [place] [address] 58128- 9111 Aug, [place] [id number] [place] [address] 05649- 8518 June, [place] [id number] [place] [address] 92236- 5911 June, Iron deficiency anemia, unspecified iron deficiency anemia type D50.9 [place] [id number] [place] [address] 96108- 3338 May, Abnormal finding of blood chemistry, unspecified R79.9 [place] [id number] [place] [address] 26607- 4198 May, Type 2 diabetes mellitus without complication E11.9 ; Anemia D64.9 ; Hypothyroid E03.9 ; Anxiety F41.9 and Dyslipidemia E78.5 [place] [address] [place] [address] 35783- 0965 Jan, Type 2 diabetes mellitus without complication E11.9 ; Depression F32.9 ; Essential hypertension I10 ; Hyperlipidemia E78.5 ; Anxiety F41.9 and Hypothyroidism E03.9 [place] [address] [place] [address] 11224- 9990 Jan, Type 2 diabetes mellitus with diabetic neuropathy E11.40 [place] [id number] [place] [address] 26860- 0064 Jan, Type 2 diabetes mellitus with diabetic neuropathy E11.40 [place] [id number] [place] [address] 55874- 5489 Jan, [place] [address] [facility] [id number] [place] [address]- 9483 Jan, [facility] [address] [facility] [id number] [place] [address]- 8355 Jan, [facility] [address] [facility] [id number] [place] [address]- 4870 Jan, [facility] [address] [facility] [id number] [place] [address], [place] [address]- 7792 Dec, [facility] [address] [facility] [id number] [place] [address]- 5510 Dec, [facility] [address] [facility] [id number] [place] [address], [place] 9263 Nov, [facility] [address] [facility] [id number] [address]- 4261 Nov, [facility] [id number] [place] [address] 15599- 4798 Nov, [facility] [id number], [place] [address]- 0412 Nov, [facility] [address], [place] [address]- 4271 Nov, [facility] [address], [place] [address]- 2598 Nov, Pertussis exposure Z20.89 [facility] [id number], [place] [address]- 3544 Nov, [facility] [address] [facility] [id number] 1657 Oct, [facility] [address] [facility] [id number] 5056 Oct, [facility] [id number], [place] [address]- 0813 Oct, [facility] [id number] [place] [address] 46236- 7966 Sep, [facility] [id number]- 5684 Sep, Diabetes mellitus without mention of complication, type II or unspecified type, uncontrolled 250.02 and Hyperlipidemia associated with type 2 diabetes mellitus 250.80 [facility] [address] 0470 Sep, [facility] [id number] [place] [address] 528603- 0986 Sep, [facility] [address] [place] [address] 699434- 4821 Sep, Diabetes mellitus without mention of complication, type II or unspecified type, not stated as uncontrolled 250.00 ; Hypothyroid 244.9 ; Hyperlipidemia 272.4 and Hypertension 401.9 [facility] [id number], [place] [address]- 0691 Aug, [facility] [id number], [place] [address]- 5366 June, Diabetes mellitus without mention of complication, type II or unspecified type, not stated as uncontrolled 250.00 ; Hyperlipidemia 272.4 ; Hypertension 401.9 ; Candidiasis of female genitalia 112.1 ; Hypothyroid 244.9 and Liver lesion 573.8 [facility] [address] [address]- 2008 June, [facility] [id number] [place] [address] 10834- 5638 May, [facility] [address] 8772 May, [facility] [id number] [place] [address] 600471- 1803 Mar, [facility] [address] 0266 Mar, [facility] [id number] [place] [address] [place] [address]- 8385 Mar, 2014 [facility] [place] [facility] [address] [id number] [place] [address]- 0789 Mar, 2014 [facility] [place] [facility] [address] [id number] [place] [address]- 6398 Jan, [facility] [place] [facility] [address] [id number] [place] [address]- 7711 Jan, [facility] [place] [facility] [address] [id number] [place] [address]- 1959 Nov, [facility] [place] [facility] [address] [id number] [place] [address]- 1481 Nov, [facility] [place] [facility] [address] [id number] [place] [address]- 7734 Nov, [facility] [place] [facility] [address] [id number] [place] [address]- 0242 Nov, [facility] [place] [facility] [address] [id number] [place] [address]- 0302 Nov, [facility] [place] [facility] [address] [id number] [place] [address]- 8253 Nov, [facility] [place] [facility] [address] [id number] [place] [address]- 5067 29 Oct, 2013 [facility] [place] [facility] [address] [id number] [place] [address]- 8760 29 Oct, 2013 [facility] [place] [facility] [address] [id number] [place] [address]- 2549 29 Oct, 2013 [facility] [place] [facility] [address] [id number] [place] [address]- 4637 29 Oct, 2013 [facility] [place] [facility] [address] [id number] [place] [address]- 5100 23 Oct, 2013 [facility] [place] [facility] [address] [id number] [place] [address]- 5989 23 Oct, 2013 [facility] [place] [facility] [address] [id number] [place] [address]- 2131 Oct, 2013 [facility] [place] [facility] [address] [id number] [place] [address]- 5130 Oct, [facility] [place] [facility] [address] [id number] [place] [address]- 9221 Oct, [facility] [place] [facility] [address] [id number] [place] [address]- 4013 Oct, 2013 [facility] [place] [facility] [address] [id number] [place] [address]- 2984 Oct, [facility] [place] [facility] [address] [id number] [place] [address]- 3223 Oct, [facility] [place] [facility] [address] [id number] [place] [address]- 7671 Oct, [facility] [place] [facility] [address] [id number] [place] [address]- 3323 Oct, [facility] [place] [facility] [address] [id number] [place] [address]- 2524 Sep, [facility] [place] [facility] [address] [id number] [place] [address]- 3839 Sep, [facility] [place] [facility] [address] [id number] [place] [address]- 3573 Sep, [facility] [place] [facility] [address] [id number] [place] [address]- 6915 Sep, [facility] [place] [facility] [address] [id number] [place] [address]- 6371 Sep, [facility] [place] [facility] [address] [id number] [place] [address]- 2085 Sep, [facility] [place] [facility] [address] [id number] [place] [address]- 5884 Aug, [facility] [place] [facility] [address] [id number] [place] [address]- 6894 Aug, 2013 [facility] [place] [facility] [address] [id number] [place] [address]- 2927 Aug, 2013 [facility] [place] [facility] [address] [id number] [place] [address]- 9247 Aug, 2013 [facility] [place] [facility] [address] [id number] [place] [address]- 1400 Aug, 2013 [facility] [place] [facility] [address] [id number] [place] [address]- 8242 Aug, 2013 [facility] [place] [facility] [address] [id number] [place] [address]- 5402 Aug, [facility] [place] [facility] [address] [id number] [place] [address]- 6017 Aug, 2013 [facility] [place] [facility] [address] [id number] [place] [address]- 8817 Aug, [facility] [place] [facility] [address] [id number] [place] [address]- 8589 Aug, [facility] [place] [facility] [address] [id number] [place] [address]- 4279 Aug, 2013 [facility] [place] [facility] [address] [id number] [place] [address]- 1840 Aug, [facility] [place] [facility] [address] [id number] [place] [address]- 0529 Aug, [facility] [place] [facility] [address] [id number] [place] [address]- 8625 Aug, [facility] [place] [facility] [address] [id number] [place] [address]- 0532 Aug, [facility] [place] [facility] [address] [id number] [place] [address]- 0193 Aug, [facility] [place] [facility] [address] [id number] [place] [address]- 3341 Aug, [facility] [place] [facility] [address] [id number] [place] [address]- 0987 Aug, [facility] [address] [id number] [place] [address]- 3012 Aug, [facility] [address] [id number] [place] [address]- 6965 Jul, [facility] [address] [id number] [place] [address]- 8193 Jul, [facility] [address] [id number] [place] [address]- 2220 Jul, [facility] [address] [id number] [place] [address]- 4634 Jul, [facility] [address] [id number] [place] [address]- 2216 Apr, [facility] [address] [id number] [place] [address]- 5301 Apr, [facility] [address] [id number] [place] [address]- 2977 Mar, [facility] [address] [id number] [place] [address]- 0689 Mar, [facility] [address] [id number] [place] [address]- 3064 Feb, [facility] [address] [id number] [place] [address]- 4186 Feb, [facility] [address] [id number] [place] [address]- 3429 Feb, [facility] [address] [id number] [place] [address]- 6141 Feb, [facility] [address] [id number] [place] [address]- 2226 Jan, [facility] [address] [id number] [place] 6398 Jan, [facility] [place] [facility] [address] [id number] [place] [address]- 1673 17 Jan, 2012 [facility] [place] [facility] [address] [id number] [place] [address]- 7536 17 Jan, 2012 [facility] [place] [facility] [address] [id number] [place] [address]- 3155 14 Jan, 2012 [facility] [place] [facility] [address] [id number] [place] [address]- 7933 13 Jan, 2012 [facility] [place] [facility] [address] [id number] [place] [address]- 7522 13 Jan, 2012 [facility] [place] [facility] [address] [id number] [place] [address]- 4104 10 Jan, 2012 [facility] [place] [facility] [address] [id number] [place] [address]- 0890 10 Jan, 2012 [facility] [place] [facility] [address] [id number] [place] [address]- 5270 26 Dec, 2011 [facility] [place] [facility] [address] [id number] [place] [address]- 4540 Dec, [facility] [place] [facility] [address] [id number] [place] [address]- 8940 Dec, [facility] [place] [facility] [address] [id number] [place] [address]- 2958 Dec, [facility] [place] [facility] [address] [id number] [place] [address]- 5667 Dec, [facility] [place] [facility] [address] [id number] [place] [address]- 2395 Dec, [facility] [place] [facility] [address] [id number] [place] [address]- 5059 Dec, [facility] [place] [facility] [address] [id number] [place] [address]- 9328 Dec, [facility] [place] [facility] [address] [id number], [place] [address]- 3664 Dec, [facility] [address], [place] [address]- 4402 Dec, [facility] [address], [place] [address]- 0187 16 Dec, 2011 [facility] [address], [place] [address]- 8862 Dec, [facility] [address], [place] [address]- 0832 Dec, [facility] [id number] [address] Dec, [facility] [id number] [address] Dec, [facility] [id number] [place] [id number] Nov, [facility] [id number] [address] Nov, [facility] [id number] [place] [address] Nov, [facility] [id number] [address] Nov, IMMUNIZATIONS No Known Immunizations SOCIAL HISTORY Never Assessed REASON FOR VISIT Requests return call PLAN OF CARE VITAL SIGNS MEDICATIONS Unknown [...]
--- OUTSIDE RECORDS SUMMARY | 2018-03-25 14:53 | XMS REPORT ---
Author Author STOLLRONAL Vargas Organization [facility] Address [address] [place] [address] Care Team Providers Care Head Cager Name Role Phone RONAL STOLL Unavailable PROBLEMS Type Condition ICD9-CM Code TQD13-OA Code Onset Dates Condition Status SNOMED Code Problem Essential hypertension I10 Active 62303643 Problem Mixed hyperlipidemia E78.2 Active 827108531 Problem Depression F32.9 Active 997346645 Problem Type 2 diabetes mellitus with other diabetic kidney complication E11.29 Active 848071760 Problem Type 2 diabetes mellitus with other specified complication E11.69 Active 37955781 Problem Body mass index (BMI) of 33.0-33.9 in adult Z68.33 Active 369893872 Problem Other obesity due to excess calories E66.09 Active 585049569 Problem shelter current use of insulin Z79.4 Active 864819968 Problem Body mass index (BMI) of 32.0-32.9 in adult Z68.32 Active 786109509 Problem Anxiety F41.9 Active 11856043 Problem Hypothyroid E03.9 Active 80294956 Problem Type 2 diabetes mellitus without complication E11.9 Active 700820594 Problem Microalbuminuria R80.9 Active 174435534 Problem Anemia D64.9 Active 703146775 ALLERGIES No Information ENCOUNTERS Encounter Location Date Diagnosis [facility] [id number] [address] Aug, [facility] [id number], [place] [address] Aug, Type 2 diabetes mellitus with other specified complication E11.69 [facility] [id number], [place] [address] Aug, Type 2 diabetes mellitus with other specified complication E11.69 ; termite inspector current use of insulin Z79.4 ; Proteinuria, unspecified R80.9 ; Type 2 diabetes mellitus with other diabetic kidney complication E11.29 ; Hypothyroid E03.9 ; Mixed hyperlipidemia E78.2 ; Essential hypertension I10 ; Depression F32.9 ; Other obesity due to excess calories E66.09 and Body mass index (BMI) of 32.0-32.9 in adult Z68.32 [place] [address] [place] [address]6593- 1593 June, Mixed hyperlipidemia E78.2 and Type 2 diabetes mellitus without complication E11.9 [place] [id number] [place] [address] 14566- 5424 May, Anemia D64.9 ; Type 2 diabetes mellitus without complication E11.9 ; Hypothyroid E03.9 ; Mixed hyperlipidemia E78.2 ; Essential hypertension I10 ; Depression F32.9 ; Other obesity due to excess calories E66.09 ; Body mass index (BMI) of 33.0-33.9 in adult Z68.33 ; Anxiety F41.9 and Herpes zoster without complication B02.9 [place] [id number] [place] [address]- 8194 Apr, Type 2 diabetes mellitus without complication E11.9 ; Anemia D64.9 ; Hypothyroid E03.9 ; Mixed hyperlipidemia E78.2 ; Essential hypertension I10 ; Depression F32.9 ; Other obesity due to excess calories E66.09 ; Body mass index (BMI) of 33.0-33.9 in adult Z68.33 ; Anxiety F41.9 and Herpes zoster without complication B02.9 [place] [id number] [place] [address] 23699- 8265 Apr, [place] [id number] [place] [address] 00874- 9567 Apr, [place] [id number] [place] [address] 66622- 2094 Apr, [place] [id number] [place] [address] 68563- 6712 Mar, [place] [id number] [place] [address] 56851- 4751 Feb, [facility] [address], [place] [address] 5[address] Jan, [facility] [id number] [address] Jan, [facility] [address] [address] 3138 Dec, Type 2 diabetes mellitus without complication E11.9 [facility] [id number] [address] 0766 Nov, [facility] [id number] [place] [address] 65783- 9814 Nov, Type 2 diabetes mellitus without complication E11.9 [facility] [address], [place] [address] 2005 Nov, [facility] [id number] [place] [address] 27917- 7193 Oct, Type 2 diabetes mellitus without complication E11.9 [facility] [address], [place] [address] 8216 Oct, [facility] [address], [place] [address]- 9093 Oct, [facility] [address], [place] [address] 74[address] Sep, [facility] [address], [place] [address]- 8833 Sep, Type 2 diabetes mellitus without complication E11.9 [facility] [address], [place] [address]- 6752 Sep, Type 2 diabetes mellitus without complication E11.9 and Essential hypertension I10 [facility] [address], [place] [address]- 5565 Sep, [facility] [address], [place] [address]- 6207 Sep, [facility] [address] [facility] [id number] [place] [address]- 7598 Sep, Type 2 diabetes mellitus without complication E11.9 [facility] [address] [facility] [id number] [place] [address]- 2196 Aug, [facility] [address] [facility] [id number] [place] [address]- 6590 Aug, Type 2 diabetes mellitus without complication E11.9 [facility] [address] [facility] [id number] [place] [address]- 9183 Aug, Type 2 diabetes mellitus without complication E11.9 [facility] [address] [facility] [id number] [place] [address]- 8543 Aug, [facility] [id number] [place] [address]- 7754 Aug, Abnormal weight gain R63.5 [facility] [address] [facility] [id number] [place] [address]- 1536 Aug, [facility] [id number], [place] [address]- 8536 Aug, Hypothyroid E03.9 [facility] [address] [facility] [id number] [place] [address]- 7701 Aug, Type 2 diabetes mellitus without complication E11.9 [facility] [address] [facility] [id number], [place] [address]- 8465 Jul, Abnormal weight gain R63.5 [facility] [address] [facility] [id number] [place] [address]- 4976 Jul, Abnormal weight gain R63.5 [facility] [address] [facility] [id number] [place] [address]- 5706 Jul, Abnormal weight gain R63.5 [facility] [id number], [place] [address]- 8988 Jul, Abnormal weight gain R63.5 ; Pain in right knee M25.561 and Pain in right ankle and joints of right foot M25.571 [place] [address], [place] [address]- 60[address] Jul, [place] [id number] [address]- 6369 Jul, 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 [place] [id number] [place] [address] 72853- 5048 Jul, Type 2 diabetes mellitus without complication E11.9 [place] [id number] [place] [address] 79731- 4058 June, [place] [id number] [place] [address] 64016- 3054 June, Type 2 diabetes mellitus without complication E11.9 [place] [id number] [place] [address] 28822- 5940 June, [place] [id number] [address]- 8876 June, [place] [id number] [address]- 7121 June, Type 2 diabetes mellitus without complication E11.9 ; Hypothyroid E03.9 ; Essential hypertension I10 ; Depression F32.9 and Mixed hyperlipidemia E78.2 [place] [address], [place] [address]- 4840 May, [place] [address], [place] [address]- 2873 Feb, Type 2 diabetes mellitus without complication E11.9 ; Hypothyroid E03.9 ; Mixed hyperlipidemia E78.2 ; Essential hypertension I10 ; Depression F32.9 and Anemia D64.9 [place] [address], [place] [address]- 5288 Jan, [place] [id number] [place] [address] 45875- 3891 Sep, [place] [address] [place] [address] 03956- 8945 Sep, Type 2 diabetes mellitus without complication E11.9 ; Anemia D64.9 ; Hypothyroid E03.9 ; Hyperlipidemia, unspecified hyperlipidemia type E78.5 and Essential (primary) hypertension I10 [place] [id number] [place] [address] 34932- 8807 Aug, [place] [id number] [place] [address] 28629- 1780 June, [place] [id number] [place] [address] 55551- 9535 June, Iron deficiency anemia, unspecified iron deficiency anemia type D50.9 [place] [id number] [place] [address] 29083- 9158 May, Abnormal finding of blood chemistry, unspecified R79.9 [place] [id number] [place] [address] 08274- 2610 May, Type 2 diabetes mellitus without complication E11.9 ; Anemia D64.9 ; Hypothyroid E03.9 ; Anxiety F41.9 and Dyslipidemia E78.5 [place] [address] [place] [address] 67513- 6139 Jan, Type 2 diabetes mellitus without complication E11.9 ; Depression F32.9 ; Essential hypertension I10 ; Hyperlipidemia E78.5 ; Anxiety F41.9 and Hypothyroidism E03.9 [place] [id number] [place] [address] 82153- 1415 Jan, Type 2 diabetes mellitus with diabetic neuropathy E11.40 [place] [id number] [place] [address] 93906- 4421 Jan, Type 2 diabetes mellitus with diabetic neuropathy E11.40 [place] [id number] [place] [address] 58072- 8213 Jan, [place] [address] [facility] [id number] [place] [address]- 9824 Jan, [facility] [address] [facility] [id number] [place] [address]- 5237 Jan, [facility] [address] [facility] [id number] [place] [address]- 1428 Jan, [facility] [address] [facility] [id number] [place] [address], [place] [address]- 4348 Dec, [facility] [address] [facility] [id number] [place] [address]- 5378 Dec, [facility] [address] [facility] [id number] [place] [address], [place] 0624 Nov, [facility] [address] [facility] [id number], [place] [address]- 9445 Nov, [facility] [id number] [place] [address] 32383- 3274 Nov, [facility] [id number], [place] [address]- 9795 Nov, [facility] [address], [place] [address]- 6532 Nov, [facility] [address], [place] [address]- 8854 Nov, Pertussis exposure Z20.89 [facility] [id number], [place] [address]- 9262 Nov, [facility] [address] [facility] [id number] 3620 Oct, [facility] [address] [facility] [id number] 5097 Oct, [facility] [id number], [place] [address]- 0691 Oct, [facility] [address] [place] [address] 39489- 2640 Sep, [facility] [id number] 9319 Sep, Diabetes mellitus without mention of complication, type II or unspecified type, uncontrolled 250.02 and Hyperlipidemia associated with type 2 diabetes mellitus 250.80 [facility] [address] 1859 Sep, [facility] [id number] [place] [address] 941598- 5617 Sep, [facility] [address] [place] [address] 372850- 2888 Sep, Diabetes mellitus without mention of complication, type II or unspecified type, not stated as uncontrolled 250.00 ; Hypothyroid 244.9 ; Hyperlipidemia 272.4 and Hypertension 401.9 [facility] [id number] [address]- 5937 Aug, [facility] [id number] [address]- 3057 June, Diabetes mellitus without mention of complication, type II or unspecified type, not stated as uncontrolled 250.00 ; Hyperlipidemia 272.4 ; Hypertension 401.9 ; Candidiasis of female genitalia 112.1 ; Hypothyroid 244.9 and Liver lesion 573.8 [facility] [address] 1788 June, [facility] [address] [place] [address] 33934- 3562 May, [facility] [address] 4893 May, [facility] [id number] [place] [address] 556959- 8285 Mar, [facility] [address] 7966 Mar, [facility] [id number] [place] [address] [place] [address]- 6762 Mar, 2014 [facility] [place] [facility] [address] [id number] [place] [address]- 4834 Mar, 2014 [facility] [place] [facility] [address] [id number] [place] [address]- 3211 Jan, [facility] [place] [facility] [address] [id number] [place] [address]- 9695 Jan, [facility] [place] [facility] [address] [id number] [place] [address]- 3167 Nov, [facility] [place] [facility] [address] [id number] [place] [address]- 3644 Nov, [facility] [place] [facility] [address] [id number] [place] [address]- 5140 Nov, [facility] [place] [facility] [address] [id number] [place] [address]- 9020 Nov, [facility] [place] [facility] [address] [id number] [place] [address]- 8855 Nov, [facility] [place] [facility] [address] [id number] [place] [address]- 3703 Nov, [facility] [place] [facility] [address] [id number] [place] [address]- 3172 29 Oct, 2013 [facility] [place] [facility] [address] [id number] [place] [address]- 9793 29 Oct, 2013 [facility] [place] [facility] [address] [id number] [place] [address]- 2545 29 Oct, 2013 [facility] [place] [facility] [address] [id number] [place] [address]- 5163 29 Oct, 2013 [facility] [place] [facility] [address] [id number] [place] [address]- 6115 23 Oct, 2013 [facility] [place] [facility] [address] [id number] [place] [address]- 7664 23 Oct, 2013 [facility] [place] [facility] [address] [id number] [place] [address]- 6493 Oct, 2013 [facility] [place] [facility] [address] [id number] [place] [address]- 8741 Oct, [facility] [place] [facility] [address] [id number] [place] [address]- 7164 Oct, [facility] [place] [facility] [address] [id number] [place] [address]- 1176 Oct, 2013 [facility] [place] [facility] [address] [id number] [place] [address]- 4125 Oct, [facility] [place] [facility] [address] [id number] [place] [address]- 3260 Oct, [facility] [place] [facility] [address] [id number] [place] [address]- 6188 Oct, [facility] [place] [facility] [address] [id number] [place] [address]- 5480 Oct, [facility] [place] [facility] [address] [id number] [place] [address]- 8152 Sep, [facility] [place] [facility] [address] [id number] [place] [address]- 9579 Sep, [facility] [place] [facility] [address] [id number] [place] [address]- 7138 Sep, [facility] [place] [facility] [address] [id number] [place] [address]- 4131 Sep, [facility] [place] [facility] [address] [id number] [place] [address]- 0123 Sep, [facility] [place] [facility] [address] [id number] [place] [address]- 3346 Sep, [facility] [place] [facility] [address] [id number] [place] [address]- 3832 Aug, [facility] [place] [facility] [address] [id number] [place] [address]- 7065 Aug, 2013 [facility] [place] [facility] [address] [id number] [place] [address]- 3963 Aug, 2013 [facility] [place] [facility] [address] [id number] [place] [address]- 1301 Aug, 2013 [facility] [place] [facility] [address] [id number] [place] [address]- 3489 Aug, 2013 [facility] [place] [facility] [address] [id number] [place] [address]- 2379 Aug, 2013 [facility] [place] [facility] [address] [id number] [place] [address]- 7933 Aug, [facility] [place] [facility] [address] [id number] [place] [address]- 1839 Aug, 2013 [facility] [place] [facility] [address] [id number] [place] [address]- 9564 Aug, [facility] [place] [facility] [address] [id number] [place] [address]- 4494 Aug, [facility] [place] [facility] [address] [id number] [place] [address]- 5334 Aug, 2013 [facility] [place] [facility] [address] [id number] [place] [address]- 9902 Aug, [facility] [place] [facility] [address] [id number] [place] [address]- 2281 Aug, [facility] [place] [facility] [address] [id number] [place] [address]- 3507 Aug, [facility] [place] [facility] [address] [id number] [place] [address]- 4791 Aug, [facility] [place] [facility] [address] [id number] [place] [address]- 3547 Aug, [facility] [place] [facility] [address] [id number] [place] [address]- 1201 Aug, [facility] [place] [facility] [address] [id number] [place] [address]- 2500 Aug, [facility] [address] [id number] [place] [address]- 6554 Aug, [facility] [address] [id number] [place] [address]- 1758 Jul, [facility] [address] [id number] [place] [address]- 6755 Jul, [facility] [address] [id number] [place] [address]- 2915 Jul, [facility] [address] [id number] [place] [address]- 2708 Jul, [facility] [address] [id number] [place] [address]- 3966 Apr, [facility] [address] [id number] [place] [address]- 1987 Apr, [facility] [address] [id number] [place] [address]- 0149 Mar, [facility] [address] [id number] [place] [address]- 9045 Mar, [facility] [address] [id number] [place] [address]- 5128 Feb, [facility] [address] [id number] [place] [address]- 7814 Feb, [facility] [address] [id number] [place] [address]- 1306 Feb, [facility] [address] [id number] [place] [address]- 5545 Feb, [facility] [address] [id number] [place] [address]- 8866 Jan, [facility] [address] [id number] [id number] 1766 Jan, [facility] [place] [facility] [address] [id number] [place] [address]- 5887 17 Jan, 2012 [facility] [place] [facility] [address] [id number] [place] [address]- 5986 17 Jan, 2012 [facility] [place] [facility] [address] [id number] [place] [address]- 2450 14 Jan, 2012 [facility] [place] [facility] [address] [id number] [place] [address]- 7073 13 Jan, 2012 [facility] [place] [facility] [address] [id number] [place] [address]- 9846 13 Jan, 2012 [facility] [place] [facility] [address] [id number] [place] [address]- 7099 10 Jan, 2012 [facility] [place] [facility] [address] [id number] [place] [address]- 0363 10 Jan, 2012 [facility] [place] [facility] [address] [id number] [place] [address]- 2368 26 Dec, 2011 [facility] [place] [facility] [address] [id number] [place] [address] Dec, [facility] [place] [facility] [address] [id number] [place] [address] Dec, [facility] [place] [facility] [address] [id number] [place] [address] Dec, [facility] [place] [facility] [address] [id number] [place] [address] Dec, [facility] [place] [facility] [address] [id number] [place] [address] Dec, [facility] [place] [facility] [address] [id number] [place] [address] Dec, [facility] [place] [facility] [address] [id number] [place] [address] Dec, [facility] [place] [facility] [address] [id number], [place] [address] Dec, [facility] [id number] [address] Dec, [facility] [id number] [address] Dec, [facility] [id number] [place] [address] Dec, [facility] [id number] [address] Dec, [facility] [id number] [address] Dec, [facility] [id number] [address] Dec, [facility] [id number] [place] [address] Nov, [facility] [id number] [address] Nov, [facility] [id number] [place] [address] Nov, [facility] [id number] [address] Nov, IMMUNIZATIONS No Known Immunizations SOCIAL HISTORY Never Assessed REASON FOR VISIT appt request PLAN OF CARE VITAL SIGNS MEDICATIONS Unknown [...]
--- OUTSIDE RECORDS SUMMARY | 2018-03-25 14:53 | XMS REPORT ---
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.29 Active 719137785 Problem Type 2 diabetes mellitus with other specified complication E11.69 Active 72581649 Problem Body mass index (BMI) of 33.0-33.9 in adult Z68.33 Active 817901534 Problem Other obesity due to excess calories E66.09 Active 893096781 Problem correction current use of insulin Z79.4 Active 198776772 Problem Body mass index (BMI) of 32.0-32.9 in adult Z68.32 Active 724720617 Problem Anxiety F41.9 Active 16070741 Problem Hypothyroid E03.9 Active 23720097 Problem Type 2 diabetes mellitus without complication E11.9 Active 851841923 Problem Microalbuminuria R80.9 Active 729399879 Problem Anemia D64.9 Active 966386931 ALLERGIES Substance Reaction Event Type Date Status Victoza nausea Drug Allergy Apr, Active ENCOUNTERS Encounter Location Date Diagnosis [facility] [address] [facility] [id number] [address] Aug, [facility] [address] [id number] [address] Aug, Type 2 diabetes mellitus with other specified complication E11.69 [facility] [address] [facility] [id number], [place] [address] Aug, Type 2 diabetes mellitus with other specified complication E11.69 ; correction current use of insulin Z79.4 ; Proteinuria, unspecified R80.9 ; Type 2 diabetes mellitus with other diabetic kidney complication E11.29 ; Hypothyroid E03.9 ; Mixed hyperlipidemia E78.2 ; Essential hypertension I10 ; Depression F32.9 ; Other obesity due to excess calories E66.09 and Body mass index (BMI) of 32.0-32.9 in adult Z68.32 [place] [address] [place] [address]- 2075 June, Mixed hyperlipidemia E78.2 and Type 2 diabetes mellitus without complication E11.9 [place] [id number] [place] [address] 63914- 5252 May, Anemia D64.9 ; Type 2 diabetes mellitus without complication E11.9 ; Hypothyroid E03.9 ; Mixed hyperlipidemia E78.2 ; Essential hypertension I10 ; Depression F32.9 ; Other obesity due to excess calories E66.09 ; Body mass index (BMI) of 33.0-33.9 in adult Z68.33 ; Anxiety F41.9 and Herpes zoster without complication B02.9 [place] [id number] [place] [address] 37666- 8238 Apr, Type 2 diabetes mellitus without complication E11.9 ; Anemia D64.9 ; Hypothyroid E03.9 ; Mixed hyperlipidemia E78.2 ; Essential hypertension I10 ; Depression F32.9 ; Other obesity due to excess calories E66.09 ; Body mass index (BMI) of 33.0-33.9 in adult Z68.33 ; Anxiety F41.9 and Herpes zoster without complication B02.9 [place] [address] [place] [address] 53515- 2243 Apr, [place] [id number] [place] [address] 07454- 7780 Apr, [place] [id number] [place] [address] 70554- 7751 Apr, [place] [id number] [place] [address] 16657- 9890 Mar, [place] [address] [facility] [id number] [place] [address] 4686 Feb, [facility] [address] [address] Jan, [facility] [address] [facility] [id number] [place] [address]- 9044 Jan, [facility] [id number] [place] [address], [place] [address]- 1029 Dec, Type 2 diabetes mellitus without complication E11.9 [facility] [address] [facility] [id number] [place] [address]- 3513 Nov, [facility] [id number] [place] [address], [place] [address]- 6369 Nov, Type 2 diabetes mellitus without complication E11.9 [facility] [address] [address] 7132 Nov, [facility] [address] [address] 2160 Oct, Type 2 diabetes mellitus without complication E11.9 [facility] [address] [address]- 4035 14 Oct, 2016 [facility] [address] [address] 2852 Oct, [facility] [address] [address] 0593 Sep, [facility] [address] [facility] [id number] [place] [address]- 8710 Sep, Type 2 diabetes mellitus without complication E11.9 [facility] [address] [address]- 4397 Sep, Type 2 diabetes mellitus without complication E11.9 and Essential hypertension I10 [facility] [address] [address]- 7018 Sep, [facility] [address] [facility] [id number] [place] [address]- 3746 Sep, [facility] [address] [facility] [id number] [place] [address]- 4646 Sep, Type 2 diabetes mellitus without complication E11.9 [facility] [address] [facility] [id number] [place] [address]- 6256 Aug, [facility] [address] [facility] [id number] [place] [address]- 1386 Aug, Type 2 diabetes mellitus without complication E11.9 [facility] [address] [facility] [id number] [place] [address]- 6736 Aug, Type 2 diabetes mellitus without complication E11.9 [facility] [address] [facility] [id number] [place] [address]- 9166 Aug, [facility] [id number] [address]- 2363 Aug, Abnormal weight gain R63.5 [facility] [address] [facility] [id number] [place] [address]- 2506 Aug, [facility] [address] [facility] [id number] [place] [address]- 3676 Aug, Hypothyroid E03.9 [facility] [address] [facility] [id number] [place] [address]- 7236 Aug, Type 2 diabetes mellitus without complication E11.9 [facility] [address] [facility] [id number] [place] [address]- 4217 Jul, Abnormal weight gain R63.5 [facility] [address] [facility] [id number] [place] [address]- 9576 Jul, Abnormal weight gain R63.5 [facility] [address] [facility] [id number] [place] [address]- 3276 Jul, Abnormal weight gain R63.5 [facility] [address] [facility] [id number], [place] [address]80 Jul, Abnormal weight gain R63.5 ; Pain in right knee M25.561 and Pain in right ankle and joints of right foot M25.571 [place] [address], [place] [address] 0468 Jul, [place] [address] [id number], [place] [address]- 8438 Jul, 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 [place] [id number] [place] [address] 76185- 5264 Jul, Type 2 diabetes mellitus without complication E11.9 [place] [id number] [place] [address] 91953- 6943 June, [place] [id number] [place] [address] 93071- 8176 June, Type 2 diabetes mellitus without complication E11.9 [place] [address] [id number], [place] [address]- 6466 June, [place] [address] [place] [address] 31670- 6538 June, [place] [address], [place] [address]- 4775 June, Type 2 diabetes mellitus without complication E11.9 ; Hypothyroid E03.9 ; Essential hypertension I10 ; Depression F32.9 and Mixed hyperlipidemia E78.2 [place] [address], [place] [address]- 5444 May, [place] [address], [place] [address]- 6769 Feb, Type 2 diabetes mellitus without complication E11.9 ; Hypothyroid E03.9 ; Mixed hyperlipidemia E78.2 ; Essential hypertension I10 ; Depression F32.9 and Anemia D64.9 [place] [address], [place] [address]- 9136 Jan, [place] [id number] [place] [address] 41817- 7571 Sep, [place] [id number] [place] [address] 35424- 3646 Sep, Type 2 diabetes mellitus without complication E11.9 ; Anemia D64.9 ; Hypothyroid E03.9 ; Hyperlipidemia, unspecified hyperlipidemia type E78.5 and Essential (primary) hypertension I10 [place] [id number] [place] [address] 65310- 9028 Aug, [place] [id number] [place] [address] 63034- 6089 June, [place] [id number] [place] [address] 38678- 2931 June, Iron deficiency anemia, unspecified iron deficiency anemia type D50.9 [place] [id number] [place] [address] 35856- 4611 May, Abnormal finding of blood chemistry, unspecified R79.9 [place] [id number] [place] [address] 06778- 7706 May, Type 2 diabetes mellitus without complication E11.9 ; Anemia D64.9 ; Hypothyroid E03.9 ; Anxiety F41.9 and Dyslipidemia E78.5 [place] [id number] [place] [address] 44573- 6796 Jan, Type 2 diabetes mellitus without complication E11.9 ; Depression F32.9 ; Essential hypertension I10 ; Hyperlipidemia E78.5 ; Anxiety F41.9 and Hypothyroidism E03.9 [place] [id number] [place] [address] 64648- 9814 Jan, Type 2 diabetes mellitus with diabetic neuropathy E11.40 [place] [id number] [place] [address] 24642- 0375 30 Jan, 2015 Type 2 diabetes mellitus with diabetic neuropathy E11.40 [place] [id number] [place] [address] 50088- 4174 Jan, [facility] [address] [facility] [id number], [place] [address]- 6329 Jan, [facility] [address] [facility] [id number], [place] [address]- 3316 Jan, [facility] [address], [place] [address]- 5265 Jan, [facility] [place] [facility] [address] [facility] [id number], [place] [address]- 6133 Dec, [facility] [address] [facility] [id number], [place] [address]- 1940 Dec, [facility] [address] [place] [address] 26263- 7717 Nov, [facility] [address] [id number], [place] [address]- 8535 Nov, [facility] [address], [place] [address]- 8719 Nov, [facility] [address], [place] [address]- 1426 Nov, [facility] [address], [place] [address]- 3189 Nov, [facility] [address], [place] [address]- 2879 Nov, Pertussis exposure Z20.89 [facility] [address] [facility] [id number], [place] [address] 2544 Nov, [facility] [address] [id number], [place] [address]- 5788 Oct, [facility] [place] [facility] [address] [facility] [id number], [place] [address] 2546 16 Oct, 2014 [facility] [address], [place] [address]- 6546 Oct, [facility] [place] [facility] [address], [place] [address]- 4134 Sep, [facility] [id number] [place] [address] 51013- 4519 Sep, Diabetes mellitus without mention of complication, type II or unspecified type, uncontrolled 250.02 and Hyperlipidemia associated with type 2 diabetes mellitus 250.80 [facility] [id number] [place] [address] 95416- 7507 Sep, [facility] [id number] [place] [address] 15988- 6576 Sep, [facility] [id number] [place] [address] 81350- 7303 Sep, Diabetes mellitus without mention of complication, type II or unspecified type, not stated as uncontrolled 250.00 ; Hypothyroid 244.9 ; Hyperlipidemia 272.4 and Hypertension 401.9 [facility] [id number] [place] [address] 85049- 4018 Aug, [facility] [address] [place] [address] 82938- 2343 June, Diabetes mellitus without mention of complication, type II or unspecified type, not stated as uncontrolled 250.00 ; Hyperlipidemia 272.4 ; Hypertension 401.9 ; Candidiasis of female genitalia 112.1 ; Hypothyroid 244.9 and Liver lesion 573.8 [facility] [address], [place] [address]- 7650 June, [facility] [address] [place] [address] 28083- 2970 May, [facility] [id number] [place] [address] 93826- 7993 May, [facility] [id number] [place] [address] 924708- 3250 Mar, [facility] [address] [place] [address] 50528- 9391 Mar, [facility] [place] [facility] [address] [id number] [place] [address]- 7258 Mar, 2014 [facility] [place] [facility] [address] [id number] [place] [address]- 4792 Mar, [facility] [place] [facility] [address] [id number] [place] [address]- 7602 Jan, [facility] [place] [facility] [address] [id number] [place] [address]- 4533 Jan, [facility] [place] [facility] [address] [id number] [place] [address]- 3081 Nov, [facility] [place] [facility] [address] [id number] [place] [address]- 0849 Nov, [facility] [place] [facility] [address] [id number] [place] [address]- 8862 Nov, [facility] [place] [facility] [address] [id number] [place] [address]- 3667 Nov, [facility] [place] [facility] [address] [id number] [place] [address]- 6624 Nov, [facility] [place] [facility] [address] [id number] [place] [address]- 5601 Nov, [facility] [place] [facility] [address] [id number] [place] [address]- 5760 29 Oct, 2013 [facility] [place] [facility] [address] [id number], [place] [address]- 6454 29 Oct, 2013 [facility] [place] [facility] [address] [id number] [place] [address]- 1526 29 Oct, 2013 [facility] [place] [facility] [address] [id number] [place] [address]- 9222 29 Oct, 2013 [facility] [place] [facility] [address] [id number] [place] [address]- 4479 23 Oct, 2013 [facility] [place] [facility] [address] [id number], [place] [address]- 0196 Oct, [facility] [place] [facility] [address] [id number] [place] [address]- 7033 Oct, [facility] [place] [facility] [address] [id number] [place] [address]- 9242 Oct, [facility] [place] [facility] [address] [id number] [place] [address]- 6056 Oct, [facility] [place] [facility] [address] [id number] [place] [address]- 0641 Oct, [facility] [place] [facility] [address] [id number] [place] [address]- 3248 Oct, [facility] [place] [facility] [address] [id number] [place] [address]- 4318 Oct, [facility] [place] [facility] [address] [id number] [place] [address]- 2280 Oct, [facility] [place] [facility] [address] [id number] [place] [address]- 0703 Oct, [facility] [place] [facility] [address] [id number] [place] [address]- 1265 Sep, [facility] [place] [facility] [address] [id number] [place] [address]- 9529 Sep, [facility] [place] [facility] [address] [id number] [place] [address]- 0147 Sep, [facility] [place] [facility] [address] [id number] [place] [address]- 0615 Sep, [facility] [place] [facility] [address] [id number] [place] [address]- 4206 Sep, [facility] [place] [facility] [address] [id number] [place] [address]- 1823 Sep, [facility] [place] [facility] [address] [id number] [place] [address]- 3933 Aug, [facility] [place] [facility] [address] [id number] [place] [address]- 2249 Aug, 2013 [facility] [place] [facility] [address] [id number] [place] [address]- 3699 Aug, 2013 [facility] [place] [facility] [address] [id number] [place] [address]- 6731 Aug, 2013 [facility] [place] [facility] [address] [id number] [place] [address]- 3291 Aug, 2013 [facility] [place] [facility] [address] [id number] [place] [address]- 9393 Aug, 2013 [facility] [place] [facility] [address] [id number] [place] [address]- 7611 Aug, 2013 [facility] [place] [facility] [address] [id number] [place] [address]- 2110 Aug, 2013 [facility] [place] [facility] [address] [id number] [place] [address]- 5860 Aug, 2013 [facility] [place] [facility] [address] [id number] [place] [address]- 5766 Aug, [facility] [place] [facility] [address] [id number] [place] [address]- 3672 Aug, [facility] [place] [facility] [address] [id number] [place] [address]- 5517 Aug, [facility] [place] [facility] [address] [id number] [place] [address]- 5278 Aug, [facility] [place] [facility] [address] [id number] [place] [address]- 7112 Aug, [facility] [place] [facility] [address] [id number] [place] [address]- 4495 Aug, [facility] [place] [facility] [address] [id number] [place] [address]- 2727 Aug, [facility] [place] [facility] [address] [id number] [place] [address]- 6670 Aug, [facility] [address] [id number] [place] [address]- 4275 Aug, [facility] [place] [facility] [address] [id number] [place] [address]- 3573 Aug, [facility] [place] [facility] [address] [id number] [place] [address]- 6524 Jul, [facility] [place] [facility] [address] [id number] [place] [address]- 5686 Jul, [facility] [place] [facility] [address] [id number] [place] [address]- 8218 Jul, [facility] [place] [facility] [address] [id number] [place] [address]- 8484 Jul, [facility] [place] [facility] [address] [id number] [place] [address]- 7106 Apr, [facility] [place] [facility] [address] [id number] [place] [address]- 3624 Apr, [facility] [place] [facility] [address] [id number] [place] [address]- 1812 Mar, [facility] [place] [facility] [address] [id number] [place] [address]- 0738 Mar, [facility] [place] [facility] [address] [id number] [place] [address]- 2047 Feb, [facility] [place] [facility] [address] [id number], [place] [address]- 3101 Feb, [facility] [place] [facility] [address] [id number] [place] [address]- 2484 Feb, [facility] [place] [facility] [address] [id number] [place] [address]- 0369 Feb, [facility] [place] [facility] [address] [id number] [place] [address]- 6743 Jan, [facility] [place] [facility] [address] [id number] [place] [address]- 1261 21 Jan, 2012 [facility] [place] [facility] [address] [id number] [place] [address]- 3966 17 Jan, 2012 [facility] [place] [facility] [address] [id number] [place] [address]- 4716 17 Jan, 2012 [facility] [place] [facility] [address] [id number] [place] [address]- 9026 14 Jan, 2012 [facility] [place] [facility] [address] [id number] [place] [address] 2546 13 Jan, 2012 [facility] [place] [facility] [address] [id number] [place] [address]- 1634 13 Jan, 2012 [facility] [place] [facility] [address] [id number] [place] [address]- 4704 10 Jan, 2012 [facility] [place] [facility] [address] [id number] [place] [address]- 8838 10 Jan, 2012 [facility] [place] [facility] [address] [id number] [place] [address]- 7176 26 Dec, 2011 [facility] [place] [facility] [address] [id number] [place] [address] 26 Dec, 2011 [facility] [place] [facility] [address] [facility] [id number] [place] [address] Dec, [facility] [place] [facility] [address] [id number] [place] [address] Dec, [facility] [place] [facility] [address] [id number] [place] [address] Dec, [facility] [place] [facility] [address] [id number] [place] [address] 19 Dec, 2011 [facility] [place] [facility] [address] [id number] [place] [address] Dec, [facility] [place] [facility] [address] [id number] [place] [address] Dec, [facility] [id number] [place] [address] Dec, [facility] [id number] [place] [address] Dec, [facility] [id number] [place] [address] 16 Dec, 2011 [facility] [id number] [place] [address] Dec, [facility] [id number] [place] [address] 16 Dec, 2011 [facility] [id number] [place] [address]- [address] Dec, [facility] [id number] [place] [address] Dec, [facility] [id number] [place] [address] Nov, [facility] [id number] [place] [address] Nov, [facility] [id number] [place] [address] Nov, [facility] [id number] [place] [address] Nov, IMMUNIZATIONS No Known Immunizations SOCIAL HISTORY Never Assessed REASON FOR VISIT med review, hasnt taken any meds since me except effexor. CRISTY Velázquez, Right mid back pain with tingles. PLAN OF CARE Activity Details Follow Up 3 Months, prn Reason:CHM/DM VITAL SIGNS Height 63 in 2017-05-25 Weight 187 lbs 2017-05-25 Temperature 98.2 degrees Fahrenheit 2017-05-25 Heart Rate 93 bpm 2017-05-25 Respiratory Rate 18 2017-05-25 BMI 33.12 kg/m2 2017-05-25 Blood pressure systolic 138 mmHg 2017-05-25 Blood pressure diastolic 96 mmHg 2017-05-25 MEDICATIONS Medication Instructions Dosage Frequency Start Date End Date Duration Status Pen Alpha 32G X 4 MM as directed 6h Sep, 90 days Not- Taking Effexor XR 150 MG Orally Once a day 1 capsule with food 24h 90 days Active Lisinopril-Hydrochlorothiazide 20-25 MG Orally Once a day TAKE ONE TABLET BY MOUTH ONCE DAILY 24h 90 days Active Glucocard Expression Test 1 subcutaneously 4 times a day test 4 times per day 6h June, 30 days Not-Taking Levemir FlexTouch 100 UNIT/ML Subcutaneous 2 times a day 80 units in divided dose 12h 15 Dec, 2016 12 months Active Levothyroxine Sodium 50 mcg Orally Once a day TAKE ONE TABLET BY MOUTH ONCE DAILY 24h 90 days Active NovoLog Flexpen 100 UNIT/ML Subcutaneous 3 times a day before meals 55 units June, Active Gabapentin 300 MG Orally 3 times a day 1 capsule as needed 8h 30 Apr, 2017 30 day(s) Active MetFORMIN HCl ER 500 mg Orally twice a day 2 tablet twice daily with meals 12h Not-Taking Trilipix 135 MG Orally Once a day take 1 capsule (135 mg) by oral route once daily 24h 28 Nov, 2013 90 days Active Famciclovir 500 mg Orally 3 times a day 1 tablet 8h 30 Apr, 2017 May, 10 day(s) Active Pioglitazone HCl 30 MG Orally Once a day 1 tablet 24h 17 Sep, 2016 90 days Active Lipitor 40 mg Orally Once a day 1 tablet 24h 13 Jun, 2014 90 days Active RESULTS No Results PROCEDURES Procedure Date Ordered Result Body Site GLYCATED HEMOGLOBIN TEST May 25, 2017 MICROALBUMIN, SEMIQUANT May 25, 2017 MICROALBUMIN, QUANTITATIVE May 25, 2017 ASSAY OF URINE CREATININE May 25, 2017 INSTRUCTIONS MEDICATIONS ADMINISTERED No Known Medications [...]
--- OUTSIDE RECORDS SUMMARY | 2018-03-25 14:54 | XMS REPORT ---
Author Author JERMAN RONAL Organization [facility] Address [address] [place] [address] Care Team Providers Care [employer] Consultant Name Role Phone RONAL STOLL Unavailable PROBLEMS Type Condition ICD9-CM Code [id number] Code Onset Dates Condition Status SNOMED Code Problem Anxiety F41.9 Active 99883943 Problem Type 2 diabetes mellitus without complication E11.9 Active 134906840 Problem Hypothyroid E03.9 Active 49247184 Problem Microalbuminuria R80.9 Active 835740801 Problem Other obesity due to excess calories E66.09 Active 060811057 Problem Body mass index (BMI) of 33.0-33.9 in adult Z68.33 Active 425607960 Problem Essential hypertension I10 Active 78707422 Problem Anemia D64.9 Active 891210709 Problem Mixed hyperlipidemia E78.2 Active 917422728 Problem Depression F32.9 Active [id number] ALLERGIES No Information ENCOUNTERS Encounter Location Date Diagnosis [facility] [id number] [place] [address] 91350- 1252 May, [facility] [id number] [place] [address] 17676- 2972 May, Anemia D64.9 ; Type 2 diabetes mellitus without complication E11.9 ; Hypothyroid E03.9 ; Mixed hyperlipidemia E78.2 ; Essential hypertension I10 ; Depression F32.9 ; Other obesity due to excess calories E66.09 ; Body mass index (BMI) of 33.0-33.9 in adult Z68.33 ; Anxiety F41.9 and Herpes zoster without complication B02.9 [facility] [id number] [place] [address] 61594- 3693 Apr, Type 2 diabetes mellitus without complication E11.9 ; Anemia D64.9 ; Hypothyroid E03.9 ; Mixed hyperlipidemia E78.2 ; Essential hypertension I10 ; Depression F32.9 ; Other obesity due to excess calories E66.09 ; Body mass index (BMI) of 33.0-33.9 in adult Z68.33 ; Anxiety F41.9 and Herpes zoster without complication B02.9 [facility] [id number] [place] [address] 43241- 0952 Apr, [facility] [id number] [place] [address] 78096- 7890 Apr, [facility] [id number] [place] [address] 43356- 3926 Apr, [facility] [id number] [place] [address] 80520- 8394 Mar, [facility] [id number] [place] [address] 83822- 3405 Feb, [facility] [id number] [place] [address] 38061- 9006 Jan, [facility] [id number] [place] [address] 55911- 7421 Jan, [facility] [id number] [place] [address] 03682- 8471 Dec, Type 2 diabetes mellitus without complication E11.9 [facility] [id number] [place] [address] 63440- 4783 30 Nov, 2016 [facility] [id number] [place] [address] 01962- 9759 Nov, Type 2 diabetes mellitus without complication E11.9 [facility] [id number] [place] [address] 56358- 2996 Nov, [facility] [id number] [place] [address] 867831- 5168 Oct, Type 2 diabetes mellitus without complication E11.9 [facility] [id number] [place] [address] 363041- 2409 14 Oct, 2016 [facility] [address] [address]- 9706 Oct, [facility] [id number] [place] [address]- 8021 Sep, [facility] [id number] [place] [address]- 1655 Sep, Type 2 diabetes mellitus without complication E11.9 [facility] [id number] [place] [address], [place] [address]- 1433 Sep, Type 2 diabetes mellitus without complication E11.9 and Essential hypertension I10 [facility] [id number] [place] [address], [place] [address]- 9012 Sep, [facility] [id number] [place] [address]- 0600 Sep, [facility] [id number] [place] [address] 26564- 9198 Sep, Type 2 diabetes mellitus without complication E11.9 [facility] [id number] [place] [address]- 6879 Aug, [facility] [address] [address]- 5763 Aug, Type 2 diabetes mellitus without complication E11.9 [facility] [address] [place] [address]- 1814 Aug, Type 2 diabetes mellitus without complication E11.9 [facility] [id number] [place] [address]- 2050 Aug, [facility] [address] [address]- 3911 Aug, Abnormal weight gain R63.5 [facility] [address] [place] [address]- 9246 Aug, [facility] [address] [address]- 2792 Aug, Hypothyroid E03.9 [facility] [address] [address]- 4555 Aug, Type 2 diabetes mellitus without complication E11.9 [facility] [id number] [address]- 3149 Jul, Abnormal weight gain R63.5 [facility] [id number] [place] [address] 18320- 5875 Jul, Abnormal weight gain R63.5 [facility] [id number] [place] [address] 38589- 5905 Jul, Abnormal weight gain R63.5 [facility] [id number] [place] [address] 75454- 6180 Jul, Abnormal weight gain R63.5 ; Pain in right knee M25.561 and Pain in right ankle and joints of right foot M25.571 [facility] [id number] [place] [address] 31951- 0121 Jul, [facility] [id number] [place] [address] 18907- 4981 Jul, 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 [facility] [id number] [place] [address] 40879- 7812 Jul, Type 2 diabetes mellitus without complication E11.9 [facility] [address] [address]- 9795 June, [facility] [address] [address]- 1800 June, Type 2 diabetes mellitus without complication E11.9 [facility] [id number] [address]- 1885 June, [facility] [id number], [place] [address]- 5376 June, [facility] [id number] [place] [address] 10565- 2724 June, Type 2 diabetes mellitus without complication E11.9 ; Hypothyroid E03.9 ; Essential hypertension I10 ; Depression F32.9 and Mixed hyperlipidemia E78.2 [facility] [id number] [place] [address] 74816- 0668 May, [facility] [id number] [place] [address] 93318- 6026 Feb, Type 2 diabetes mellitus without complication E11.9 ; Hypothyroid E03.9 ; Mixed hyperlipidemia E78.2 ; Essential hypertension I10 ; Depression F32.9 and Anemia D64.9 [facility] [id number] [place] [address] 81294- 6631 Jan, [facility] [id number] [place] [address] 95662- 2692 Sep, [facility] [id number] [place] [address] 09799- 4653 Sep, Type 2 diabetes mellitus without complication E11.9 ; Anemia D64.9 ; Hypothyroid E03.9 ; Hyperlipidemia, unspecified hyperlipidemia type E78.5 and Essential (primary) hypertension I10 [facility] [id number] [place] [address] 42277- 2995 Aug, [facility] [id number] [place] [address] 61351- 7633 June, [facility] [id number] [place] [address] 29255- 0047 June, Iron deficiency anemia, unspecified iron deficiency anemia type D50.9 [facility] [id number] [place] [address] 18445- 4187 May, Abnormal finding of blood chemistry, unspecified R79.9 [facility] [id number] [place] [address] 17264- 3336 May, Type 2 diabetes mellitus without complication E11.9 ; Anemia D64.9 ; Hypothyroid E03.9 ; Anxiety F41.9 and Dyslipidemia E78.5 [facility] [address] [place] [address] 61323- 4507 Jan, Type 2 diabetes mellitus without complication E11.9 ; Depression F32.9 ; Essential hypertension I10 ; Hyperlipidemia E78.5 ; Anxiety F41.9 and Hypothyroidism E03.9 [facility] [id number] [place] [address] 14656- 6375 Jan, Type 2 diabetes mellitus with diabetic neuropathy E11.40 [facility] [id number] [place] [address] 37056- 0003 Jan, Type 2 diabetes mellitus with diabetic neuropathy E11.40 [facility] [id number] [place] [address] 91594- 9714 Jan, [facility] [id number] [place] [address] 39764- 6309 Jan, [facility] [id number] [place] [address] 01326- 6377 Jan, [facility] [id number] [place] [address] 49210- 6163 Jan, [facility] [id number] [place] [address] 25675- 2790 Dec, [facility] [id number] [place] [address] 54922- 3271 Dec, [facility] [id number] [place] [address] 55846- 7984 Nov, [facility] [id number] [place] [address] 19818- 0486 Nov, [facility] [id number] [place] [address] 985515- 3180 Nov, [facility] [id number] [place] [address] 984576- 0229 Nov, [facility] [id number] [place] [address] 83027- 2766 Nov, [facility] [address] [address]- 0972 Nov, Pertussis exposure Z20.89 [facility] [address] [address]- 2546 Nov, [facility] [address], [place] [address]- 6026 Oct, [facility] [address], [place] [address]- 9333 Oct, [facility] [address], [place] [address]- 9591 Oct, [facility] [address], [place] [address]- 2166 Sep, [facility] [address], [place] [address]- 0079 Sep, Diabetes mellitus without mention of complication, type II or unspecified type, uncontrolled 250.02 and Hyperlipidemia associated with type 2 diabetes mellitus 250.80 [facility] [address], [place] [address]- 8819 Sep, [facility] [address] 4651 Sep, [facility] [address] 2301 Sep, Diabetes mellitus without mention of complication, type II or unspecified type, not stated as uncontrolled 250.00 ; Hypothyroid 244.9 ; Hyperlipidemia 272.4 and Hypertension 401.9 [facility] [address], [place] [address]- 1173 Aug, [facility] [address] 0802 June, Diabetes mellitus without mention of complication, type II or unspecified type, not stated as uncontrolled 250.00 ; Hyperlipidemia 272.4 ; Hypertension 401.9 ; Candidiasis of female genitalia 112.1 ; Hypothyroid 244.9 and Liver lesion 573.8 [facility] [address] 0879 June, [facility] [id number] [place] [address]- 8086 May, [facility] [id number] [place] [address] 895077- 9591 May, [facility] [address] [facility] [id number] [place] [address], [place] [address]- 4342 Mar, [facility] [id number] [place] [address], [place]- 4136 Mar, [facility] [id number] [place] [address]- 9713 Mar, [facility] [id number] [place] [address], [place] [address]- 3139 Mar, [facility] [address], [place] [address]- 5000 Jan, [facility] [address] [place] [address]- 3537 Jan, [facility] [address], [place] [address]- 0152 Nov, [facility] [address], [place] [address]- 5340 Nov, [facility] [id number], [place] [address]- 3316 Nov, [facility] [address] 3209 Nov, [facility] [address], [place] [address] 2546 Nov, [facility] [address], [place] [address]- 0156 Nov, [facility] [place] [facility] [address] [id number] [place] [address]- 1748 29 Oct, 2013 [facility] [place] [facility] [address] [id number] [place] [address]- 7750 29 Oct, 2013 [facility] [place] [facility] [address] [id number] [place] [address]- 9817 29 Oct, 2013 [facility] [place] [facility] [address] [id number] [place] [address]- 0578 29 Oct, 2013 [facility] [place] [facility] [address] [id number] [place] [address]- 5837 23 Oct, 2013 [facility] [place] [facility] [address] [id number] [place] [address]- 6841 23 Oct, 2013 [facility] [place] [facility] [address] [id number] [place] [address]- 4288 Oct, 2013 [facility] [place] [facility] [address] [id number] [place] [address]- 6651 Oct, 2013 [facility] [place] [facility] [address] [id number] [place] [address]- 7581 11 Oct, 2013 [facility] [place] [facility] [address] [id number] [place] [address]- 3406 Oct, 2013 [facility] [place] [facility] [address] [id number] [address]- 7102 08 Oct, 2013 [facility] [place] [facility] [address] [id number], [place] [address]- 6105 08 Oct, 2013 [facility] [place] [facility] [address] [id number] [place] [address]- 0552 Oct, 2013 [facility] [place] [facility] [address] [id number] [place] [address]- 1127 08 Oct, 2013 [facility] [place] [facility] [address] [id number] [place] [address]- 8811 Sep, [facility] [place] [facility] [address] [id number] [place] [address]- 1804 Sep, [facility] [place] [facility] [address] [id number] [place] [address]- 8697 Sep, [facility] [place] [facility] [address] [id number] [place] [address]- 8234 Sep, [facility] [place] [facility] [address] [id number] [place] [address]- 5239 Sep, [facility] [place] [facility] [address] [id number] [place] [address]- 2056 Sep, [facility] [place] [facility] [address] [id number] [place] [address]- 7167 Aug, [facility] [place] [facility] [address] [id number] [place] [address]- 4129 Aug, [facility] [place] [facility] [address] [id number] [place] [address]- 5383 Aug, [facility] [place] [facility] [address] [id number] [place] [address]- 7917 Aug, [facility] [place] [facility] [address] [id number] [place] [address]- 4672 Aug, [facility] [place] [facility] [address] [id number] [place] [address]- 8076 Aug, [facility] [place] [facility] [address] [id number] [place] [address]- 8659 Aug, [facility] [place] [facility] [address] [id number] [place] [address]- 3555 Aug, [facility] [place] [facility] [address] [id number] [place] [address]- 4841 Aug, [facility] [place] [facility] [address] [id number] [place] [address]- 1914 Aug, [facility] [place] [facility] [address] [id number] [place] [address]- 0019 Aug, [facility] [place] [facility] [address] [id number] [place] [address]- 7696 Aug, 2013 [facility] [place] [facility] [address] [id number] [place] [address]- 4905 Aug, 2013 [facility] [place] [facility] [address] [id number] [place] [address]- 8638 Aug, 2013 [facility] [place] [facility] [address] [id number] [place] [address]- 1438 Aug, 2013 [facility] [place] [facility] [address] [id number] [place] [address]- 3146 Aug, 2013 [facility] [place] [facility] [address] [id number] [place] [address]- 0605 Aug, 2013 [facility] [place] [facility] [address] [id number] [place] [address]- 4560 Aug, 2013 [facility] [place] [facility] [address] [id number] [place] [address]- 3293 Aug, [facility] [place] [facility] [address] [id number] [place] [address]- 5275 Jul, [facility] [place] [facility] [address] [id number] [place] [address]- 9108 Jul, [facility] [place] [facility] [address] [id number] [place] [address]- 8899 Jul, [facility] [place] [facility] [address] [id number] [place] [address]- 3198 Jul, [facility] [place] [facility] [address] [id number] [place] [address]- 8239 Apr, [facility] [place] [facility] [address] [id number] [place] [address]- 5063 Apr, [facility] [place] [facility] [address] [id number] [place] [address]- 4783 Mar, [facility] [place] [facility] [address] [id number] [place] [address]- 7896 Mar, [facility] [address] [id number] [place] [address]- 1615 Feb, [facility] [place] [facility] [address] [id number] [place] [address]- 1196 Feb, [facility] [address] [id number] [place] [address]- 2881 Feb, [facility] [place] [facility] [address] [id number] [place] [address]- 5072 Feb, [facility] [address] [id number] [place] [address]- 0551 Jan, [facility] [place] [facility] [address] [id number] [place] [address]- 0317 Jan, [facility] [address] [id number] [place] [address]- 3780 17 Jan, 2012 [facility] [place] [facility] [address] [id number] [place] [address]- 4087 17 Jan, 2012 [facility] [address] [id number] [place] [address]- 6979 14 Jan, 2012 [facility] [place] [facility] [address] [id number] [place] [address]- 7213 13 Jan, 2012 [facility] [place] [facility] [address] [id number] [place] [address]- 8503 13 Jan, 2012 [facility] [place] [facility] [address] [id number] [place] [address]- 9194 10 Jan, 2012 [facility] [place] [facility] [address] [id number] [place] [address]- 8202 Jan, [facility] [place] [facility] [address] [id number] [place] 1444 Dec, [facility] [place] [facility] [address] [id number] [place] 5326 Dec, [facility] [place] [facility] [address] [id number] [place] [address]- 7812 21 Dec, 2011 [facility] [place] [facility] [address] [id number] [place] [address]- 7220 21 Dec, 2011 [facility] [place] [facility] [address] [id number] [place] [address]- 5806 20 Dec, 2011 [facility] [place] [facility] [address] [id number] [place] [address]- 5394 19 Dec, 2011 [facility] [place] [facility] [address] [id number] [place] [address]- 4425 19 Dec, 2011 [facility] [place] [facility] [address] [id number] [place] [address]- 5704 19 Dec, 2011 [facility] [place] [facility] [address] [id number] [place] [address]- 1671 19 Dec, 2011 [facility] [place] [facility] [address] [id number] [place] [address]- 4530 16 Dec, 2011 [facility] [place] [facility] [address] [id number] [place] [address]- 1622 16 Dec, 2011 [facility] [place] [facility] [address] [id number] [place] [address]- 5881 16 Dec, 2011 [facility] [place] [facility] [address] [id number] [place] [address]- 5780 16 Dec, 2011 [facility] [place] [facility] [address] [id number] [place] [address]- 2300 14 Dec, 2011 [facility] [place] [facility] [address] [id number] [place] [address]- 4907 14 Dec, 2011 [facility] [place] [facility] [address] [id number] [place] [address]- 2286 31 Nov, 2011 [facility] [place] [facility] [address] [id number] [place] [address] Nov, [facility] [place] [facility] [address] [id number] [place] [address] Nov, [facility] [address] [address] [id number] [place] [address] Nov, IMMUNIZATIONS No Known Immunizations SOCIAL HISTORY Never Assessed REASON FOR VISIT BS ck PLAN OF CARE VITAL SIGNS MEDICATIONS Unknown [...]
--- OUTSIDE RECORDS SUMMARY | 2018-03-25 14:54 | XMS REPORT ---
Author Author MAJOR MCCARTNEY [facility] eClinicalWorks Address Unknown Phone Unavailable Care Team Providers Care Parimutuel Cashier Name Role Phone MAJOR MCCARTNEY CP Unavailable Allergies No Known Allergies Problems Problem Type Condition ICD-9 Code Onset Dates Condition Status Problem Anxiety state, unspecified 300.00 Active Problem Depressive disorder, not elsewhere classified 311 Active Problem Pure hyperglyceridemia 272.1 Active Problem Proteinuria 791.0 Active Problem Hypertension 401.9 Active Problem Unspecified anemia 285.9 Active Problem Diabetes mellitus without mention of complication, type II or unspecified type, uncontrolled 250.02 Active Problem Unspecified episodic mood disorder 296.90 Active Problem Unspecified hypothyroidism 244.9 Active Medications No Known Medications Results No Known Results Summary Purpose eClinicalWorks Submission
--- OUTSIDE RECORDS SUMMARY | 2018-03-25 14:54 | XMS REPORT ---
Author Author RONAL STOLL Organization [facility] Address [address] [place] [address] Care Team Providers Care Missile Control Pilot Name Role Phone STOLLRONAL Vargas Unavailable PROBLEMS Type Condition ICD9-CM Code QCS50-DX Code Onset Dates Condition Status SNOMED Code Problem Anxiety F41.9 Active 35356253 Problem Type 2 diabetes mellitus without complication E11.9 Active 878903328 Problem Hypothyroid E03.9 Active 04031171 Problem Microalbuminuria R80.9 Active 864305089 Problem Other obesity due to excess calories E66.09 Active 214538812 Problem Body mass index (BMI) of 33.0-33.9 in adult Z68.33 Active 011583162 Problem Essential hypertension I10 Active 63710359 Problem Anemia D64.9 Active 087248313 Problem Mixed hyperlipidemia E78.2 Active 256261402 Problem Depression F32.9 Active 868208380 ALLERGIES No Information ENCOUNTERS Encounter Location Date Diagnosis [facility] [id number], [place] [address] May, Anemia D64.9 ; Type 2 diabetes mellitus without complication E11.9 ; Hypothyroid E03.9 ; Mixed hyperlipidemia E78.2 ; Essential hypertension I10 ; Depression F32.9 ; Other obesity due to excess calories E66.09 ; Body mass index (BMI) of 33.0-33.9 in adult Z68.33 ; Anxiety F41.9 and Herpes zoster without complication B02.9 [facility] [address] [facility] [id number] [address] Apr, Type 2 diabetes mellitus without complication E11.9 ; Anemia D64.9 ; Hypothyroid E03.9 ; Mixed hyperlipidemia E78.2 ; Essential hypertension I10 ; Depression F32.9 ; Other obesity due to excess calories E66.09 ; Body mass index (BMI) of 33.0-33.9 in adult Z68.33 ; Anxiety F41.9 and Herpes zoster without complication B02.9 [facility] [address] [place] [address] 64225- 0146 Apr, [facility] [id number] [place] [address] 990081- 2486 Apr, [facility] [id number] [place] [address] 69775- 0946 Apr, [facility] [id number] [place] [address] 93404- 8549 Mar, [facility] [id number] [place] [address] 742570- 0681 Feb, [facility] [id number] [place] [address] 52721- 7727 Jan, [facility] [id number] [place] [address] 35374- 4421 Jan, [facility] [id number] [place] [address] 25464- 8775 Dec, Type 2 diabetes mellitus without complication E11.9 [facility] [address] [place] [address] 68458- 1275 30 Nov, 2016 [facility] [address], [place] [address] 0160 18 Nov, 2016 Type 2 diabetes mellitus without complication E11.9 [facility] [address] [place] [address] 30627- 5430 17 Nov, 2016 [facility] [address] 8126 26 Oct, 2016 Type 2 diabetes mellitus without complication E11.9 [facility] [address] 0546 14 Oct, 2016 [facility] [address], [place] [address]- 9463 12 Oct, 2016 [facility] [address], [place] [address] 8513 Sep, [facility] [id number] [place] [address] 57053- 2712 Sep, Type 2 diabetes mellitus without complication E11.9 [facility] [address], [place] [address] 5347 Sep, Type 2 diabetes mellitus without complication E11.9 and Essential hypertension I10 [facility] [address], [place] [address]- 4786 Sep, [facility] [id number] [place] [address] 65356- 0301 Sep, [facility] [id number] [place] [address] 96716- 3967 Sep, Type 2 diabetes mellitus without complication E11.9 [facility] [id number] [place] [address] 39626- 0076 Aug, [facility] [address], [place] [address]- 1836 Aug, Type 2 diabetes mellitus without complication E11.9 [facility] [address], [place] [address] 8018 Aug, Type 2 diabetes mellitus without complication E11.9 [facility] [address], [place] [address]- 8298 Aug, [facility] [address], [place] [address]- 8699 Aug, Abnormal weight gain R63.5 [facility] [address], [place] [address]- 3178 Aug, [facility] [address], [place] [address]- 5561 Aug, Hypothyroid E03.9 [facility] [address], [place] [address] 5133 Aug, Type 2 diabetes mellitus without complication E11.9 [facility] [id number] [place] [address] 60490- 1718 Jul, Abnormal weight gain R63.5 [facility] [id number] [place] [address] 15849- 9091 Jul, Abnormal weight gain R63.5 [facility] [id number] [place] [address] 19133- 5709 Jul, Abnormal weight gain R63.5 [facility] [id number] [place] [address] 75609- 7945 Jul, Abnormal weight gain R63.5 ; Pain in right knee M25.561 and Pain in right ankle and joints of right foot M25.571 [facility] [id number] [place] [address] 00484- 1644 Jul, [facility] [id number] [place] [address] 29117- 8191 Jul, 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 [facility] [id number] [place] [address] 85527- 9216 Jul, Type 2 diabetes mellitus without complication E11.9 [facility] [id number] [place] [address] 54007- 3992 June, [facility] [id number] [place] [address] 42286- 7012 June, Type 2 diabetes mellitus without complication E11.9 [facility] [id number] [place] [address] 86586- 1064 June, [facility] [id number] [place] [address] 14557- 8499 June, [facility] [address] [place] [address] 00369- 8664 June, Type 2 diabetes mellitus without complication E11.9 ; Hypothyroid E03.9 ; Essential hypertension I10 ; Depression F32.9 and Mixed hyperlipidemia E78.2 [facility] [id number] [place] [address] 26839- 5248 May, [facility] [id number] [place] [address] 54944- 8954 Feb, Type 2 diabetes mellitus without complication E11.9 ; Hypothyroid E03.9 ; Mixed hyperlipidemia E78.2 ; Essential hypertension I10 ; Depression F32.9 and Anemia D64.9 [facility] [id number] [place] [address] 98624- 5032 Jan, [facility] [id number] [place] [address] 54549- 7635 Sep, [facility] [id number] [place] [address] 78533- 3274 Sep, Type 2 diabetes mellitus without complication E11.9 ; Anemia D64.9 ; Hypothyroid E03.9 ; Hyperlipidemia, unspecified hyperlipidemia type E78.5 and Essential (primary) hypertension I10 [facility] [id number] [place] [address] 41291- 8233 Aug, [facility] [id number] [place] [address] 72658- 4889 June, [facility] [id number] [place] [address] 36464- 5709 June, Iron deficiency anemia, unspecified iron deficiency anemia type D50.9 [facility] [id number] [place] [address] 17016- 3148 May, Abnormal finding of blood chemistry, unspecified R79.9 [facility] [id number] [place] [address] 01782- 1575 May, Type 2 diabetes mellitus without complication E11.9 ; Anemia D64.9 ; Hypothyroid E03.9 ; Anxiety F41.9 and Dyslipidemia E78.5 [facility] [facility] [id number] [place] [address] 12179- 2340 Jan, Type 2 diabetes mellitus without complication E11.9 ; Depression F32.9 ; Essential hypertension I10 ; Hyperlipidemia E78.5 ; Anxiety F41.9 and Hypothyroidism E03.9 [facility] [id number] [place] [address] 346197- 4283 Jan, Type 2 diabetes mellitus with diabetic neuropathy E11.40 [facility] [id number] [place] [address] 186424- 3812 Jan, Type 2 diabetes mellitus with diabetic neuropathy E11.40 [facility] [id number] [place] [address] 558314- 0438 Jan, [facility] [id number] [place] [address] 13426- 2092 Jan, [facility] [id number] [place] [address] 875062- 1942 Jan, [facility] [id number] [place] [address] 82675- 5894 Jan, [facility] [id number] [place] [address] 54371- 8724 Dec, [facility] [id number] [place] [address] 42061- 9744 Dec, [facility] [id number] [place] [address] 72560- 9309 Nov, [facility] [id number] [place] [address] 25385- 7880 Nov, [facility] [id number] [place] [address] 32963- 4993 Nov, [facility] [id number] [place] [address] 636159- 6130 Nov, [facility] [id number] [place] [address] 266292- 5342 Nov, [facility] [id number] [place] [address] 67628- 9592 Nov, Pertussis exposure Z20.89 [facility] [address], [place] [address]- 2856 Nov, [facility] [address], [place] [address]- 6736 Oct, [facility] [address], [place] [address]- 2351 Oct, [facility] [address] 9461 Oct, [facility] [address] 8345 Sep, [facility] [address] 9776 Sep, Diabetes mellitus without mention of complication, type II or unspecified type, uncontrolled 250.02 and Hyperlipidemia associated with type 2 diabetes mellitus 250.80 [address] [address], [place] [address]- 6554 Sep, [facility] [address] 7021 Sep, [facility] [id number], [place] [address]- 1432 Sep, Diabetes mellitus without mention of complication, type II or unspecified type, not stated as uncontrolled 250.00 ; Hypothyroid 244.9 ; Hyperlipidemia 272.4 and Hypertension 401.9 [facility] [id number], [place] [address]- 2789 Aug, [facility] [id number] 6554 June, Diabetes mellitus without mention of complication, type II or unspecified type, not stated as uncontrolled 250.00 ; Hyperlipidemia 272.4 ; Hypertension 401.9 ; Candidiasis of female genitalia 112.1 ; Hypothyroid 244.9 and Liver lesion 573.8 [address] [address] [place] [address]- 1303 June, [facility] [place] [facility] [address] [id number] [place] [address]- 9106 May, [facility] [place] [facility] [address] [id number] [place] [address]- 0006 May, [facility] [place] [facility] [address] [id number] [place] [address]- 8176 Mar, 2014 [facility] [place] [facility] [address] [id number] [place] [address]- 4726 Mar, 2014 [facility] [place] [facility] [address] [id number] [place] [address]- 7216 Mar, [facility] [place] [facility] [address] [facility] [id number] [place] 0957 Mar, 2014 [facility] [place] [facility] [address] [facility] [id number] [place] [address]- 8782 Jan, [facility] [place] [facility] [address] [id number] [place] [address]- 9798 Jan, [facility] [place] [facility] [address] [facility] [id number] [place] [address]- 5969 Nov, [facility] [place] [facility] [address] [facility] [id number] [place] [address]- 5743 Nov, [facility] [place] [facility] [address] [id number] [place] [address]- 4054 Nov, [facility] [place] [facility] [address] [id number] [place] 6897 Nov, [facility] [place] [facility] [address] [id number] [place] [address]- 9826 Nov, [facility] [place] [facility] [address] [facility] [id number] [place] [address]- 0326 Nov, [facility] [place] [facility] [address] [id number] [place] [address]- 2546 29 Oct, 2013 [facility] [place] [facility] [address] [id number] [place] [address]- 1119 29 Oct, 2013 [facility] [place] [facility] [address] [id number] [place] [address]- 0843 29 Oct, 2013 [facility] [place] [facility] [address] [id number] [place] [address]- 5533 29 Oct, 2013 [facility] [place] [facility] [address] [id number] [place] [address]- 6066 23 Oct, 2013 [facility] [place] [facility] [address] [id number] [place] [address]- 0156 23 Oct, 2013 [facility] [place] [facility] [address] [id number] [place] [address]- 1389 Oct, 2013 [facility] [place] [facility] [address] [id number] [place] [address]- 9503 Oct, 2013 [facility] [place] [facility] [address] [id number] [place] [address]- 7363 Oct, 2013 [facility] [place] [facility] [address] [id number] [place] [address]- 4704 11 Oct, 2013 [facility] [place] [facility] [address] [id number] [place] [address]- 3540 08 Oct, 2013 [facility] [place] [facility] [address] [id number], [place] [address]- 1912 08 Oct, 2013 [facility] [place] [facility] [address] [id number], [place] [address]- 5320 08 Oct, 2013 [facility] [place] [facility] [address] [id number] [place] [address]- 6795 Oct, 2013 [facility] [place] [facility] [address] [id number] [place] [address]- 9491 Sep, [facility] [place] [facility] [address] [id number] [place] [address]- 1615 Sep, [facility] [place] [facility] [address] [id number] [place] [address]- 2379 Sep, [facility] [place] [facility] [address] [id number] [place] [address]- 3710 Sep, [facility] [place] [facility] [address] [id number] [place] [address]- 0243 Sep, [facility] [place] [facility] [address] [id number] [place] [address]- 0899 Sep, [facility] [place] [facility] [address] [id number] [place] [address]- 9872 Aug, [facility] [place] [facility] [address] [id number] [place] [address]- 6375 Aug, [facility] [place] [facility] [address] [id number] [place] [address]- 5956 Aug, [facility] [place] [facility] [address] [id number] [place] [address]- 1694 Aug, [facility] [place] [facility] [address] [id number] [place] [address]- 2257 Aug, [facility] [place] [facility] [address] [id number] [place] [address]- 9346 Aug, [facility] [place] [facility] [address] [id number] [place] [address]- 0045 Aug, [facility] [place] [facility] [address] [id number] [place] [address]- 6807 Aug, [facility] [place] [facility] [address] [id number] [place] [address]- 1657 Aug, [facility] [place] [facility] [address] [id number] [place] [address]- 5052 Aug, [facility] [place] [facility] [address] [id number] [place] [address]- 0897 Aug, [facility] [place] [facility] [address] [id number] [place] 6694 Aug, [facility] [place] [facility] [address] [id number] [place] [address]- 8379 Aug, 2013 [facility] [place] [facility] [address] [id number] [place] [address]- 5615 Aug, 2013 [facility] [place] [facility] [address] [id number] [place] [address]- 2901 Aug, 2013 [facility] [place] [facility] [address] [id number] [place] [address]- 5237 Aug, 2013 [facility] [place] [facility] [address] [id number] [place] [address]- 5102 Aug, 2013 [facility] [place] [facility] [address] [id number] [place] [address]- 1721 Aug, 2013 [facility] [place] [facility] [address] [id number] [place] [address]- 7123 Aug, 2013 [facility] [place] [facility] [address] [id number] [place] [address]- 4869 Jul, [facility] [place] [facility] [address] [id number] [place] [address]- 5939 Jul, [facility] [place] [facility] [address] [id number] [place] [address]- 2527 Jul, [facility] [place] [facility] [address] [id number] [place] [address]- 7523 Jul, [facility] [place] [facility] [address] [id number] [place] [address]- 6991 Apr, [facility] [place] [facility] [address] [id number] [place] [address]- 8165 Apr, [facility] [place] [facility] [address] [id number] [place] [address]- 4333 15 Mar, 2012 [facility] [place] [facility] [address] [id number] [place] [address]- 9967 11 Mar, 2012 [facility] [place] [facility] [address] [id number] [place] [address]- 1470 Feb, [facility] [address] [id number] [place] [address]- 8806 Feb, [facility] [place] [facility] [address] [id number] [place] [address]- 0086 Feb, [facility] [place] [facility] [address] [id number] [place] [address]- 2073 Feb, [facility] [place] [facility] [address] [id number] [place] [address]- 5209 Jan, [facility] [place] [facility] [address] [id number] [place] [address]- 3881 Jan, [facility] [place] [facility] [address] [id number] [place] [address]- 9560 17 Jan, 2012 [facility] [place] [facility] [address] [id number] [place] [address]- 8585 17 Jan, 2012 [facility] [place] [facility] [address] [id number] [place] [address]- 9305 14 Jan, 2012 [facility] [place] [facility] [address] [id number] [place] [address]- 3035 13 Jan, 2012 [facility] [place] [facility] [address] [id number] [place] [address]- 4213 Jan, [facility] [place] [facility] [address] [id number] [place] [address]- 0945 10 Jan, 2012 [facility] [place] [facility] [address] [id number] [place] [address]- 2577 Jan, [facility] [place] [facility] [address] [id number] [place] [address]- 8195 Dec, [facility] [place] [facility] [address] [id number] [place] 1263 Dec, [facility] [place] [facility] [address] [id number] [place] [address]- 6684 Dec, [facility] [place] [facility] [address] [id number] [place] [address]- 9475 21 Dec, 2011 [facility] [place] [facility] [address] [id number] [place] [address]- 6021 20 Dec, 2011 [facility] [place] [facility] [address] [id number] [place] [address]- 9644 19 Dec, 2011 [facility] [place] [facility] [address] [id number] [place] [address]- 4643 19 Dec, 2011 [facility] [place] [facility] [address] [id number] [place] [address]- 9225 19 Dec, 2011 [facility] [place] [facility] [address] [id number] [place] [address]- 8677 19 Dec, 2011 [facility] [place] [facility] [address] [facility] [id number] [place] [address]- 7496 16 Dec, 2011 [facility] [place] [facility] [address] [id number] [place] [address]- 7826 16 Dec, 2011 [facility] [place] [facility] [address] [id number] [place] [address]- 1348 16 Dec, 2011 [facility] [place] [facility] [address] [facility] [id number] [place] [address]- 8473 16 Dec, 2011 [facility] [place] [facility] [address] [facility] [id number] [place] [address]- 8634 14 Dec, 2011 [facility] [place] [facility] [address] [id number] [place] [address] 14 Dec, 2011 [facility] [place] [facility] [address] [id number], [place] [address] Nov, [facility] [place] [facility] [address] [id number] [place] [address] Nov, [facility] [place] [facility] [address] [id number] [place] [address] Nov, [facility] [place] [facility] [address] [id number] [place] [address] Nov, IMMUNIZATIONS No Known Immunizations SOCIAL HISTORY Never Assessed REASON FOR VISIT Ipro STart PLAN OF CARE VITAL SIGNS MEDICATIONS Unknown [...]
--- OUTSIDE RECORDS SUMMARY | 2018-03-25 14:55 | XMS REPORT ---
Author Author JERMAN RONAL Organization [facility] [place] Address [address] [place] [address] Care Team Providers Care Excavator Operator Name Role Phone RONAL STOLL Unavailable PROBLEMS Type Condition ICD9-CM Code [id number] Code Onset Dates Condition Status SNOMED Code Problem Anxiety F41.9 Active 19568322 Problem Type 2 diabetes mellitus without complication E11.9 Active 734621558 Problem Hypothyroid E03.9 Active 28247897 Problem Microalbuminuria R80.9 Active 673355401 Problem Other obesity due to excess calories E66.09 Active 211817386 Problem Body mass index (BMI) of 33.0-33.9 in adult Z68.33 Active 619935799 Problem Essential hypertension I10 Active 37693375 Problem Anemia D64.9 Active 355411653 Problem Mixed hyperlipidemia E78.2 Active 277868091 Problem Depression F32.9 Active 998925306 ALLERGIES Substance Reaction Event Type Date Status Victoza nausea Drug Allergy Aug, Active ENCOUNTERS Encounter Location Date Diagnosis [facility] [id number] [place] [address] 96453- 2521 May, [facility] [place] [id number] [place] [address] 18548- 1417 Apr, Type 2 diabetes mellitus without complication E11.9 ; Anemia D64.9 ; Hypothyroid E03.9 ; Mixed hyperlipidemia E78.2 ; Essential hypertension I10 ; Depression F32.9 ; Other obesity due to excess calories E66.09 ; Body mass index (BMI) of 33.0-33.9 in adult Z68.33 ; Anxiety F41.9 and Herpes zoster without complication B02.9 [facility] [place] [address] [id number] [address] 0935 Apr, [facility] [place] [id number] [place] [address] 56081- 5916 Apr, [facility] [place] [address] [facility] [id number] [place] [address] 0606 Apr, [facility] [place] [address] [facility] [id number] [address] 5686 Mar, [facility] [place] [address] [place] [address] 8736 Feb, [facility] [place] [address]005[address] [address] 6237 Jan, [facility] [place] [address] [place] [address] 459[address] Jan, [facility] [place] [address] [place] [address]- 8763 Dec, Type 2 diabetes mellitus without complication E11.9 [facility] [place] [address]005[address] [address]- 6956 Nov, [facility] [place] [address] [facility] [id number] [address]- 1835 Nov, Type 2 diabetes mellitus without complication E11.9 [facility] [place] [address]00565[address] [address]- 0072 Nov, [facility] [place] [address] 6129 Oct, Type 2 diabetes mellitus without complication E11.9 [facility] [place] [address] [facility] [id number] [address] 8411 14 Oct, 2016 [facility] [place] [address] [facility] [id number] 0035 Oct, [facility] [place] [address] [id number] [address]- 8014 Sep, [facility] [place] [address] [id number] 0057 Sep, Type 2 diabetes mellitus without complication E11.9 [facility] [place] [address] [facility] [id number] [place] [address]- 2435 Sep, Type 2 diabetes mellitus without complication E11.9 and Essential hypertension I10 [facility] [place] [address] [place] [address]- 8407 Sep, [facility] [place] [address] [place] [address]- 5898 Sep, [facility] [address] [place] [address] 85522- 6140 Sep, Type 2 diabetes mellitus without complication E11.9 [facility] [place] [address] [place] [address]- 7433 Aug, [facility] [place] [address] [place] [address]- 0592 Aug, Type 2 diabetes mellitus without complication E11.9 [facility] [place] [address]00565100[place] [address]- 8798 Aug, Type 2 diabetes mellitus without complication E11.9 [facility] [place] [address] [place] [address]- 3606 Aug, [facility] [place] [address]00565100[place] [address]- 5296 Aug, Abnormal weight gain R63.5 [facility] [place] [address]00565100[place] [address]- 3579 Aug, [facility] [place] [address]00565[address] [address]- 1716 Aug, Hypothyroid E03.9 [facility] [place] [address] [place] [address]- 7715 Aug, Type 2 diabetes mellitus without complication E11.9 [facility] [place] [address] [place] [address]- 4385 Jul, Abnormal weight gain R63.5 [facility] [place] [address]00565100[place] [address]- 8082 Jul, Abnormal weight gain R63.5 [facility] [place] [id number] [place] [address] 40830- 2850 Jul, Abnormal weight gain R63.5 [facility] [address]005[address] [address]- 6595 Jul, Abnormal weight gain R63.5 ; Pain in right knee M25.561 and Pain in right ankle and joints of right foot M25.571 [address]00565100[place] [address]- 0629 Jul, [place] [id number] [place] [address] 10243- 0824 Jul, 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 [address] [address] [address]- 1097 Jul, Type 2 diabetes mellitus without complication E11.9 [place] [address]65100[place] [address]- 8865 June, [place] [id number] [place] [address] 34501- 0189 June, Type 2 diabetes mellitus without complication E11.9 [address] [address]65[address] [address]- 5939 June, [place] [address] [id number] [address]- 9454 June, [facility] [place] [address] [address]- 8436 June, Type 2 diabetes mellitus without complication E11.9 ; Hypothyroid E03.9 ; Essential hypertension I10 ; Depression F32.9 and Mixed hyperlipidemia E78.2 [address] [address]65[address] [address]- 7951 May, [place] [id number] [place] [address] 26363- 7492 Feb, Type 2 diabetes mellitus without complication E11.9 ; Hypothyroid E03.9 ; Mixed hyperlipidemia E78.2 ; Essential hypertension I10 ; Depression F32.9 and Anemia D64.9 [place] [id number] [place] [address] 01580- 7212 Jan, [place] [id number] [place] [address] 72983- 2516 Sep, [place] [address] [address]- 5970 Sep, Type 2 diabetes mellitus without complication E11.9 ; Anemia D64.9 ; Hypothyroid E03.9 ; Hyperlipidemia, unspecified hyperlipidemia type E78.5 and Essential (primary) hypertension I10 [place] [id number] [place] [address] 89832- 8286 Aug, [place] [address] 6[address]- 8697 June, [place] [address] 307[address]- 8615 June, Iron deficiency anemia, unspecified iron deficiency anemia type D50.9 [id number] [place] [address] 66047- 1582 May, Abnormal finding of blood chemistry, unspecified R79.9 [place] [id number] [place] [address] 55921- 5999 May, Type 2 diabetes mellitus without complication E11.9 ; Anemia D64.9 ; Hypothyroid E03.9 ; Anxiety F41.9 and Dyslipidemia E78.[address] [address]- 7175 Jan, Type 2 diabetes mellitus without complication E11.9 ; Depression F32.9 ; Essential hypertension I10 ; Hyperlipidemia E78.5 ; Anxiety F41.9 and Hypothyroidism E03.9 [place] [id number] [place] [address] 90334- 9394 Jan, Type 2 diabetes mellitus with diabetic neuropathy E11.40 [facility] [address] [facility] [id number] [address]- 6790 Jan, Type 2 diabetes mellitus with diabetic neuropathy E11.40 [facility] [address] [facility] [id number] [address]- 4158 Jan, [facility] [address] [facility] [id number] [place] [address] 870219- 4589 Jan, [facility] [address] [facility] [id number]- 8607 Jan, [facility] [id number] [place] [address] 551084- 2281 Jan, [facility] [id number] [place] [address] 539392- 0436 Dec, [facility] [id number] [place] [address] 100294- 2754 Dec, [facility] [address]00565[address] [address]- 3081 Nov, [facility] [address]005[address] [address]- 1526 Nov, [facility] [address]- 9872 Nov, [facility] [place] [address]- 3664 Nov, [facility] [address] [id number]- 2924 Nov, [facility] [id number] [place] [address] 821099- 7536 Nov, Pertussis exposure Z20.89 [facility] [address] [address]- 0581 Nov, [facility] [address] [place] [address] 20589- 1815 Oct, [facility] [address] [id number] [address]- 6568 Oct, [facility] [address] 9906 Oct, [facility] [place] [address] [address]- 7420 Sep, [facility] [address] [place] [address] 743804- 7525 Sep, Diabetes mellitus without mention of complication, type II or unspecified type, uncontrolled 250.02 and Hyperlipidemia associated with type 2 diabetes mellitus 250.80 [facility] [place] [address] [address]- 2448 Sep, [facility] [place] [address] [address]- 4892 Sep, [facility] [address]65[address] [address]- 0807 Sep, Diabetes mellitus without mention of complication, type II or unspecified type, not stated as uncontrolled 250.00 ; Hypothyroid 244.9 ; Hyperlipidemia 272.4 and Hypertension 401.9 [facility] [place] [address]005[address] [address]- 3070 Aug, [facility] [address] [id number] [address]- 7567 June, Diabetes mellitus without mention of complication, type II or unspecified type, not stated as uncontrolled 250.00 ; Hyperlipidemia 272.4 ; Hypertension 401.9 ; Candidiasis of female genitalia 112.1 ; Hypothyroid 244.9 and Liver lesion 573.8 [facility] [place] [address]- 7727 June, [facility] [place] [address] [id number] [address]- 8171 May, [facility] [place] [address] [place] [address] 63688- 1155 May, [facility] [place] [facility] [address] [id number] [place] [address]- 5423 Mar, 2014 [facility] [place] [facility] [address] [id number] [place] 0866 16 Mar, 2014 [facility] [place] [facility] [address] [id number] [place] [address]- 8526 Mar, 2014 [facility] [place] [facility] [address] [id number] [place] [address]- 4065 Mar, 2014 [facility] [place] [facility] [address] [id number] [place] 3178 Jan, [facility] [place] [facility] [address] [id number] [place] [address]- 1887 Jan, [facility] [place] [facility] [address] [id number] [place] [address]- 7120 Nov, [facility] [place] [facility] [address] [id number] [place] [address]- 3932 Nov, [facility] [place] [facility] [address] [id number] [place] [address]- 2666 Nov, [facility] [place] [facility] [address] [facility] [id number] [place] [address]- 4851 Nov, [facility] [place] [facility] [address] [id number] [place] [address]- 2319 Nov, [facility] [place] [facility] [address] [id number] [place] [address]- 6984 Nov, [facility] [place] [facility] [address] [id number] [place] [address]- 0498 Oct, [facility] [place] [facility] [address] [id number] [place] [address]- 5672 Oct, [facility] [place] [facility] [address] [id number] [place] [address]- 5283 Oct, [facility] [place] [facility] [address] [id number] [place] [address]- 5650 29 Oct, 2013 [facility] [place] [facility] [address] [id number] [place] [address]- 7554 23 Oct, 2013 [facility] [place] [facility] [address] [id number] [place] [address]- 2678 23 Oct, 2013 [facility] [place] [facility] [address] [id number] [place] [address]- 4858 Oct, 2013 [facility] [place] [facility] [address] [id number] [place] [address]- 0353 Oct, 2013 [facility] [place] [facility] [address] [id number] [place] [address]- 9259 Oct, 2013 [facility] [place] [facility] [address] [id number] [place] [address]- 0552 Oct, 2013 [facility] [place] [facility] [address] [id number] [place] [address]- 5189 Oct, 2013 [facility] [place] [facility] [address] [id number] [place] [address]- 2920 Oct, 2013 [facility] [place] [facility] [address] [id number] [place] [address]- 1919 Oct, 2013 [facility] [place] [facility] [address] [id number] [place] [address]- 0105 Oct, 2013 [facility] [place] [facility] [address] [id number] [place] [address]- 6080 Sep, [facility] [place] [facility] [address] [id number] [place] [address]- 7014 Sep, [facility] [place] [facility] [address] [id number] [place] [address]- 9831 Sep, [facility] [place] [facility] [address] [id number] [place] [address]- 3220 Sep, [facility] [place] [facility] [address] [id number] [place] [address]- 4683 Sep, [facility] [place] [facility] [address] [id number] [place] [address]- 9422 Sep, [facility] [place] [facility] [address] [id number] [place] [address]- 0380 Aug, [facility] [place] [facility] [address] [id number] [place] [address]- 3082 Aug, [facility] [place] [facility] [address] [id number] [place] [address]- 5202 Aug, [facility] [place] [facility] [address] [id number] [place] [address]- 6457 Aug, [facility] [place] [facility] [address] [id number] [place] [address]- 1122 Aug, [facility] [place] [facility] [address] [id number] [place] [address]- 7760 Aug, [facility] [place] [facility] [address] [id number] [place] [address]- 7366 Aug, [facility] [place] [facility] [address] [id number] [place] [address]- 8564 Aug, [facility] [place] [facility] [address] [id number] [place] [address]- 7663 Aug, [facility] [place] [facility] [address] [id number] [place] [address]- 8338 Aug, [facility] [place] [facility] [address] [id number] [place] [address]- 5704 Aug, [facility] [place] [facility] [address] [id number] [place] [address]- 2457 Aug, [facility] [place] [facility] [address] [id number] [place] [address]- 6419 Aug, [facility] [place] [facility] [address] [id number] [place] [address]- 1413 Aug, [facility] [place] [facility] [address] [id number] [place] [address]- 9723 Aug, 2013 [facility] [address] [id number] [place] [address]- 6402 Aug, 2013 [facility] [address] [id number] [place] [address]- 3661 Aug, 2013 [facility] [address] [id number] [place] [address]- 7475 Aug, 2013 [facility] [address] [id number] [place] [address]- 8238 Aug, [facility] [address] [id number] [place] [address]- 6331 Jul, [facility] [address] [id number] [place] [address]- 6340 Jul, [facility] [address] [id number] [place] [address]- 7580 Jul, [facility] [address] [id number] [place] [address]- 8043 Jul, [facility] [address] [id number] [place] [address]- 3673 Apr, [facility] [address] [id number] [place] [address]- 9797 Apr, [facility] [address] [id number] [place] [address]- 4961 Mar, [facility] [address] [id number] [place] [address]- 1433 Mar, [facility] [place] [facility] [address] [id number] [place] [address]- 3536 Feb, [facility] [place] [facility] [address] [id number] [place] [address]- 2546 Feb, [facility] [address] [id number] [place] [address]- 5504 Feb, [facility] [place] [facility] [address] [id number] [place] [address]- 0853 Feb, [facility] [place] [facility] [address] [id number] [place] [address]- 2712 Jan, [facility] [place] [facility] [address] [id number] [place] 8132 Jan, [facility] [place] [facility] [address] [id number] [place] [address]- 1149 17 Jan, 2012 [facility] [place] [facility] [address] [id number] [place] [address]- 1989 17 Jan, 2012 [facility] [place] [facility] [address] [id number] [place] [address]- 6220 14 Jan, 2012 [facility] [place] [facility] [address] [id number] [place] [address] 13 Jan, 2012 [facility] [place] [facility] [address] [id number] [place] [address] 13 Jan, 2012 [facility] [place] [facility] [address] [id number] [place] [address] Jan, [facility] [place] [facility] [address] [id number] [place] [address] Jan, [facility] [place] [facility] [address] [id number] [place] [address] Dec, [facility] [place] [facility] [address] [id number] [place] [address] Dec, [facility] [place] [facility] [address] [id number] [place] [address] Dec, [facility] [place] [facility] [address] [id number] [place] [address] Dec, [facility] [place] [facility] [address] [id number] [place] [address] Dec, [facility] [place] [facility] [id number] [address] Dec, [facility] [place] [address] [address] Dec, [facility] [place] [id number] [address] Dec, [facility] [place] [id number] [place] [address] Dec, [facility] [place] [id number] [place] [address] 16 Dec, 2011 [facility] [place] [id number] [place] [address] Dec, [facility] [place] [id number] [place] [address] Dec, [facility] [place] [id number] [place] [address]- [address] Dec, [facility] [place] [id number] [address] Dec, [facility] [place] [id number] [place] [address]- [address] Dec, [facility] [place] [address] [address] Nov, [facility] [place] [address] [address] Nov, [facility] [place] [address] [address] Nov, [facility] [place] [address] [address] Nov, IMMUNIZATIONS No Known Immunizations SOCIAL HISTORY Never Assessed REASON FOR VISIT Diabetes--DBennettRN PLAN OF CARE Activity Details Follow Up prn Reason:as scheduled VITAL SIGNS Height 63 in 2016-09-22 Weight 191 lbs 2016-09-22 Temperature 98.4 degrees Fahrenheit 2016-09-22 Heart Rate 80 bpm 2016-09-22 Respiratory Rate 20 2016-09-22 BMI 33.83 kg/m2 2016-09-22 Blood pressure systolic 122 mmHg 2016-09-22 Blood pressure diastolic 80 mmHg 2016-09-22 MEDICATIONS Medication Instructions Dosage Frequency Start Date End Date Duration Status Effexor XR 150 MG Orally Once a day 1 capsule with food 24h 90 days Active Levothyroxine Sodium 50 mcg Orally Once a day TAKE ONE TABLET BY MOUTH ONCE DAILY 24h 90 days Active Lisinopril-Hydrochlorothiazide 20-25 MG Orally Once a day TAKE ONE TABLET BY MOUTH ONCE DAILY 24h 90 days Active Levemir FlexTouch 100 UNIT/ML Subcutaneous twice a day 65 units 12h 16 Oct Active Invokana 100 MG Orally Once a day 1 tablet 24h Aug, Sep, 30 day(s) Active Lipitor 40 mg Orally Once a day 1 tablet 24h June, 90 days Active MetFORMIN HCl ER 500 mg Orally twice a day 2 tablet twice daily with meals 12h 90 days Active Trilipix 135 MG Orally Once a day take 1 capsule (135 mg) by oral route once daily 24h Nov, Active Glucocard Expression Test 1 subcutaneously 4 times a day test 4 times per day 6h June, 30 days Active NovoLog Flexpen 100 UNIT/ML Subcutaneous 3 times a day before meals 30 units June, Active RESULTS Name Result Date Reference Range A1C (IN HOUSE) 2016-09-22 A1C IN HOUSE 9.1 4.3 - 5.6 % Previous A1c >14 Lot [id number] Exp date GLUCOSE FINGERSTICK (IN HOUSE) 2016-09-22 GLU FINGERSTICK 104 PC fasting Lot # [id number] Exp date 10/14/16 PROCEDURES Procedure Date Ordered Result Body Site GLYCATED HEMOGLOBIN TEST September 22, 2016 GLUCOSE BLOOD TEST September 22, 2016 INSTRUCTIONS MEDICATIONS ADMINISTERED No Known Medications MEDICAL [...]
--- OUTSIDE RECORDS SUMMARY | 2018-03-25 14:55 | XMS REPORT ---
Author Author STOLLRONAL Organization [facility] Address [address] [place] [address] Care Team Providers Care Epic [facility] Name Role Phone RONAL STOLL Unavailable PROBLEMS Type Condition ICD9-CM Code MWA95-NL Code Onset Dates Condition Status SNOMED Code Problem Anxiety F41.9 Active 92978495 Problem Type 2 diabetes mellitus without complication E11.9 Active 775912572 Problem Hypothyroid E03.9 Active 55279309 Problem Microalbuminuria R80.9 Active 045517139 Problem Other obesity due to excess calories E66.09 Active 841704811 Problem Body mass index (BMI) of 33.0-33.9 in adult Z68.33 Active 600382987 Problem Essential hypertension I10 Active 76890658 Problem Anemia D64.9 Active 004877096 Problem Mixed hyperlipidemia E78.2 Active 899169989 Problem Depression F32.9 Active 981719444 ALLERGIES No Information ENCOUNTERS Encounter Location Date Diagnosis [facility] [id number] [place] [address] 05355- 8474 Aug, [place] [id number] [place] [address] 45190- 5981 June, Mixed hyperlipidemia E78.2 and Type 2 diabetes mellitus without complication E11.9 [facility] [id number] [place] [address] 72021- 9452 May, Anemia D64.9 ; Type 2 diabetes mellitus without complication E11.9 ; Hypothyroid E03.9 ; Mixed hyperlipidemia E78.2 ; Essential hypertension I10 ; Depression F32.9 ; Other obesity due to excess calories E66.09 ; Body mass index (BMI) of 33.0-33.9 in adult Z68.33 ; Anxiety F41.9 and Herpes zoster without complication B02.9 [facility] [id number] [place] [address] 14470- 7444 30 Apr, 2017 Type 2 diabetes mellitus without complication E11.9 ; Anemia D64.9 ; Hypothyroid E03.9 ; Mixed hyperlipidemia E78.2 ; Essential hypertension I10 ; Depression F32.9 ; Other obesity due to excess calories E66.09 ; Body mass index (BMI) of 33.0-33.9 in adult Z68.33 ; Anxiety F41.9 and Herpes zoster without complication B02.9 [facility] [id number] [place] [address] 13848- 6646 Apr, [facility] [id number] [place] [address] 62519- 0504 Apr, [facility] [id number] [place] [address] 04994- 8086 Apr, [facility] [id number] [place] [address] 179489- 0343 Mar, [facility] [id number] [place] [address] 620338- 7411 Feb, [facility] [id number] [place] [address] 14975- 8496 Jan, [facility] [id number] [place] [address] 39493- 7802 Jan, [facility] [id number] [place] [address] 74610- 7001 Dec, Type 2 diabetes mellitus without complication E11.9 [facility] [id number] [place] [address] [id number]- 7556 Nov, [facility] [id number] [place] [address] 532731- 5613 Nov, Type 2 diabetes mellitus without complication E11.9 [facility] [id number] [place] [address] 53566- 8316 Nov, [facility] [id number] [place] [address] 59947859- 4162 Oct, Type 2 diabetes mellitus without complication E11.9 [facility] [address] [facility] [id number] [address] 4257 14 Oct, 2016 [facility] [id number] [place] [address] 98141- 9660 Oct, [facility] [address], [place] [address]- 7137 Sep, [facility] [id number] [place] [address] 78645- 9594 Sep, Type 2 diabetes mellitus without complication E11.9 [facility] [id number] [place] [address] 98944- 9252 Sep, Type 2 diabetes mellitus without complication E11.9 and Essential hypertension I10 [facility] [address] [address]- 0728 Sep, [facility] [id number] [place] [address] 57227- 4277 Sep, [facility] [id number] [place] [address] 00577- 8055 Sep, Type 2 diabetes mellitus without complication E11.9 [facility] [address], [place] [address]- 6228 Aug, [facility] [address] [address]- 4547 Aug, Type 2 diabetes mellitus without complication E11.9 [facility] [id number] [address]- 5564 Aug, Type 2 diabetes mellitus without complication E11.9 [facility] [address] [address]- 8404 Aug, [facility] [address] [address] 2004 Aug, Abnormal weight gain R63.5 [facility] [id number] [address]- 1778 Aug, [facility] [id number] [address]- 1450 Aug, Hypothyroid E03.9 [facility] [id number] [address]- 3960 Aug, Type 2 diabetes mellitus without complication E11.9 [facility] [id number] [place] [address] 51809- 8517 Jul, Abnormal weight gain R63.5 [facility] [id number] [place] [address] 12623- 2524 Jul, Abnormal weight gain R63.5 [place] [id number] [place] [address] 01463- 6536 Jul, Abnormal weight gain R63.5 [place] [id number] [place] [address] 09125- 3781 Jul, Abnormal weight gain R63.5 ; Pain in right knee M25.561 and Pain in right ankle and joints of right foot M25.571 [place] [address] [place] [address] 88489- 7578 Jul, [place] [address], [place] [address]- 1653 Jul, 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 [facility] [address], [place] [address]- 0769 Jul, Type 2 diabetes mellitus without complication E11.9 [facility] [address], [place] [address]- 2556 June, [place] [id number] [place] [address] 15296- 3264 June, Type 2 diabetes mellitus without complication E11.9 [facility] [address], [place] [address]- 5947 June, [place] [address], [place] [address]- 7832 June, [facility] [id number] [place] [address] 17480- 3957 June, Type 2 diabetes mellitus without complication E11.9 ; Hypothyroid E03.9 ; Essential hypertension I10 ; Depression F32.9 and Mixed hyperlipidemia E78.2 [facility] [id number] [place] [address] 71840- 4178 May, [facility] [id number] [place] [address] 30506- 3742 Feb, Type 2 diabetes mellitus without complication E11.9 ; Hypothyroid E03.9 ; Mixed hyperlipidemia E78.2 ; Essential hypertension I10 ; Depression F32.9 and Anemia D64.9 [place] [address], [place] [address]- 7665 Jan, [facility] [id number] [place] [address] 60653- 5520 Sep, [facility] [id number] [place] [address] 47504- 2525 Sep, Type 2 diabetes mellitus without complication E11.9 ; Anemia D64.9 ; Hypothyroid E03.9 ; Hyperlipidemia, unspecified hyperlipidemia type E78.5 and Essential (primary) hypertension I10 [place] [address], [place] [address]- 8428 Aug, [facility] [address], [place] [address]- 0857 June, [facility] [id number] [address]- 2993 June, Iron deficiency anemia, unspecified iron deficiency anemia type D50.9 [facility] [address], [place] [address]- 6284 May, Abnormal finding of blood chemistry, unspecified R79.9 [facility] [id number] [place] [address] 86136- 3009 May, Type 2 diabetes mellitus without complication E11.9 ; Anemia D64.9 ; Hypothyroid E03.9 ; Anxiety F41.9 and Dyslipidemia E78.5 [facility] [id number] [place] [address] 64584- 2895 Jan, Type 2 diabetes mellitus without complication E11.9 ; Depression F32.9 ; Essential hypertension I10 ; Hyperlipidemia E78.5 ; Anxiety F41.9 and Hypothyroidism E03.9 [facility] [id number] [place] [address] 85882- 4359 Jan, Type 2 diabetes mellitus with diabetic neuropathy E11.40 [facility] [id number] [place] [address] 65687- 2572 Jan, Type 2 diabetes mellitus with diabetic neuropathy E11.40 [facility] [id number] [place] [address] 74144- 8343 Jan, [facility] [id number] [place] [address] 54553- 7378 Jan, [facility] [id number] [place] [address] 97911- 6785 Jan, [facility] [id number] [place] [address] 73322- 4227 Jan, [facility] [id number] [place] [address] 78105- 5245 Dec, [facility] [id number] [place] [address] 14865- 7589 Dec, [facility] [id number] [place] [address] 508501- 2034 Nov, [facility] [id number] [place] [address] 35520- 3850 Nov, [facility] [id number] [place] [address] 804709- 2151 Nov, [facility] [address], [place] [address]- 1990 Nov, [facility] [address], [place] [address]- 8087 Nov, [facility] [address], [place] [address]- 2499 Nov, Pertussis exposure Z20.89 [facility] [id number] [address]- 5532 Nov, [facility] [address], [place] [address]- 6557 Oct, [facility] [address]- 1290 Oct, [facility] [address] 0753 Oct, [facility] [address], [place] [address]- 8521 Sep, [facility] [id number] [address]- 1511 Sep, Diabetes mellitus without mention of complication, type II or unspecified type, uncontrolled 250.02 and Hyperlipidemia associated with type 2 diabetes mellitus 250.80 [facility] [id number], [place] [address]- 5704 Sep, [facility] [address], [place] [address]- 9137 Sep, [facility] [id number] 4047 Sep, Diabetes mellitus without mention of complication, type II or unspecified type, not stated as uncontrolled 250.00 ; Hypothyroid 244.9 ; Hyperlipidemia 272.4 and Hypertension 401.9 [facility] [id number], [place] [address]- 7297 Aug, [facility] [address], [place] [address]- 4294 June, Diabetes mellitus without mention of complication, type II or unspecified type, not stated as uncontrolled 250.00 ; Hyperlipidemia 272.4 ; Hypertension 401.9 ; Candidiasis of female genitalia 112.1 ; Hypothyroid 244.9 and Liver lesion 573.8 [facility] [address], [place] [address]- 1093 June, [facility] [id number] [place] [address] 08034- 9597 May, [facility] [id number] [place] [address] 15064- 0671 May, [facility] [id number] [place] [address] 71508- 6176 Mar, [facility] [address], [place] [address]- 6745 Mar, [facility] [id number] [place] [address] 99409- 9281 Mar, [facility] [address], [place] [address]- 6922 Mar, [facility] [address], [place] [address]- 4100 Jan, [facility] [address], [place] [address]- 8896 Jan, [facility] [address], [place] [address]- 3032 Nov, [facility] [address], [place] [address]- 6546 Nov, [facility] [address], [place] [address]- 4602 Nov, [facility] [address], [place] [address]- 9226 Nov, [facility] [address] [address]- 5644 06 Nov, 2013 [facility] [place] [facility] [address] [id number] [place] [address]- 1469 06 Nov, 2013 [facility] [place] [facility] [address] [id number] [place] [address]- 2546 29 Oct, 2013 [facility] [place] [facility] [address] [id number] [place] [address] 2546 29 Oct, 2013 [facility] [place] [facility] [address] [id number] [place] [address] 2547 29 Oct, 2013 [facility] [place] [facility] [address] [id number] [place] [address]- 5515 29 Oct, 2013 [facility] [place] [facility] [address] [id number] [place] [address]- 4064 23 Oct, 2013 [facility] [place] [facility] [address] [id number] [place] [address]- 2540 23 Oct, 2013 [facility] [place] [facility] [address] [id number] [place] [address]- 2549 22 Oct, 2013 [facility] [place] [facility] [address] [id number] [place] [address]- 2547 22 Oct, 2013 [facility] [place] [facility] [address] [id number] [place] [address]- 2540 11 Oct, 2013 [facility] [place] [facility] [address] [id number] [place] [address] 2542 11 Oct, 2013 [facility] [place] [facility] [address] [id number] [place] [address]- 2545 08 Oct, 2013 [facility] [place] [facility] [address] [id number] [place] [address] 2544 08 Oct, 2013 [facility] [place] [facility] [address] [id number] [place] [address]- 2541 08 Oct, 2013 [facility] [place] [facility] [address] [id number] [place] [address]- 254 Oct, [facility] [place] [facility] [address] [id number] [place] [address]- 4279 Sep, [facility] [place] [facility] [address] [id number] [place] [address]- 5220 Sep, [facility] [place] [facility] [address] [id number] [place] [address]- 4329 Sep, [facility] [place] [facility] [address] [id number] [place] [address]- 1584 Sep, [facility] [place] [facility] [address] [id number] [place] [address]- 3515 Sep, [facility] [place] [facility] [address] [id number] [place] [address]- 7410 Sep, [facility] [place] [facility] [address] [id number] [place] [address]- 5981 Aug, [facility] [place] [facility] [address] [id number] [place] [address]- 7653 Aug, [facility] [place] [facility] [address] [id number] [place] [address]- 9864 Aug, [facility] [place] [facility] [address] [id number] [place] [address]- 5269 Aug, [facility] [place] [facility] [address] [id number] [place] [address]- 2289 Aug, [facility] [place] [facility] [address] [id number] [place] [address]- 9339 Aug, [facility] [place] [facility] [address] [id number] [place] [address]- 6450 Aug, [facility] [place] [facility] [address] [id number] [place] [address]- 0404 Aug, [facility] [place] [facility] [address] [id number] [place] [address]- 8259 Aug, [facility] [place] [facility] [address] [id number] [place] [address]- 5419 Aug, 2013 [facility] [place] [facility] [address] [id number] [place] [address]- 1314 Aug, 2013 [facility] [place] [facility] [address] [id number] [place] [address]- 8428 Aug, 2013 [facility] [place] [facility] [address] [id number] [place] [address]- 2164 Aug, 2013 [facility] [place] [facility] [address] [id number] [place] [address]- 0999 Aug, 2013 [facility] [place] [facility] [address] [id number] [place] [address]- 0481 Aug, 2013 [facility] [place] [facility] [address] [id number] [place] [address]- 7057 Aug, 2013 [facility] [place] [facility] [address] [id number] [place] [address]- 8964 Aug, 2013 [facility] [place] [facility] [address] [id number] [place] [address]- 5170 Aug, 2013 [facility] [place] [facility] [address] [id number] [place] [address]- 2920 Aug, 2013 [facility] [place] [facility] [address] [id number] [place] [address]- 0978 Jul, [facility] [place] [facility] [address] [id number] [place] [address]- 2257 Jul, [facility] [place] [facility] [address] [id number] [place] [address]- 5594 Jul, [facility] [place] [facility] [address] [id number] [place] [address]- 2038 Jul, [facility] [place] [facility] [address] [id number] [place] [address]- 7841 05 Apr, 2012 [facility] [place] [facility] [address] [id number] [place] [address]- 1207 Apr, [facility] [place] [facility] [address] [id number] [place] [address]- 5354 15 Mar, 2012 [facility] [address] [id number] [place] [address]- 4196 11 Mar, 2012 [facility] [place] [facility] [address] [id number] [place] [address] 2546 30 Feb, 2012 [facility] [address] [id number] [place] [address]- 4656 Feb, [facility] [address] [id number] [place] [address] 2543 Feb, [facility] [address] [id number] [place] [address]- 5578 Feb, [facility] [address] [id number] [place] 1707 Jan, [facility] [address] [id number] [place] [address]- 2196 21 Jan, 2012 [facility] [address] [id number] [place] [address]- 9992 17 Jan, 2012 [facility] [address] [id number] [place] [address]- 2548 17 Jan, 2012 [facility] [address] [id number] [place] [address] 2544 14 Jan, 2012 [facility] [address] [id number] [place] [address]- 2546 13 Jan, 2012 [facility] [address] [id number] [place] [address] 2546 13 Jan, 2012 [facility] [place] [facility] [address] [id number] [place] [address] 2546 10 Jan, 2012 [facility] [place] [facility] [address] [id number] [place] [address] 2546 10 Jan, 2012 [facility] [place] [facility] [address] [id number] [place] [address]- 1226 Dec, [facility] [place] [facility] [address] [id number] [place] [address]- 9603 26 Dec, 2011 [facility] [place] [facility] [address] [id number] [address]- 3677 Dec, [facility] [place] [facility] [address] [facility] [id number] [place] [address] Dec, [facility] [place] [facility] [address] [id number], [place] [address] 20 Dec, 2011 [facility] [place] [facility] [address] [id number] [place] [address] 19 Dec, 2011 [facility] [place] [facility] [address] [id number], [place] [address] 19 Dec, 2011 [facility] [place] [facility] [address] [id number], [place] [address] Dec, [facility] [place] [facility] [address] [id number], [place] [address] 19 Dec, 2011 [facility] [place] [facility] [address] [id number], [place] [address] 16 Dec, 2011 [facility] [place] [facility] [address] [id number], [place] [address] 16 Dec, 2011 [facility] [place] [facility] [address] [id number], [place] [address] 16 Dec, 2011 [facility] [place] [facility] [address] [id number], [place] [address] 16 Dec, 2011 [facility] [place] [facility] [address] [id number], [place] [address] 14 Dec, 2011 [facility] [place] [facility] [address] [id number], [place] [address] 14 Dec, 2011 [facility] [place] [facility] [address] [id number], [place] [address] 31 Nov, 2011 [facility] [place] [facility] [address] [facility] [id number] [place] [address] Nov, [facility] [address] [facility] [id number] [place] [address] Nov, [facility] [address] [facility] [id number] [place] [address] Nov, IMMUNIZATIONS No Known Immunizations SOCIAL HISTORY Never Assessed REASON FOR VISIT BS f/u PLAN OF CARE VITAL SIGNS MEDICATIONS Unknown [...]
--- OUTSIDE RECORDS SUMMARY | 2018-03-25 14:55 | XMS REPORT ---
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.29 Active 080245149 Problem Type 2 diabetes mellitus with other specified complication E11.69 Active 22882455 Problem Body mass index (BMI) of 33.0-33.9 in adult Z68.33 Active 308499260 Problem Other obesity due to excess calories E66.09 Active 744632587 Problem assisted current use of insulin Z79.4 Active 356585321 Problem Body mass index (BMI) of 32.0-32.9 in adult Z68.32 Active 921472451 Problem Anxiety F41.9 Active 39261172 Problem Hypothyroid E03.9 Active 20536763 Problem Type 2 diabetes mellitus without complication E11.9 Active 082160972 Problem Microalbuminuria R80.9 Active 545859898 Problem Anemia D64.9 Active [id number] ALLERGIES No Information ENCOUNTERS Encounter Location Date Diagnosis [facility] [address] [facility] [id number] [address] Aug, Type 2 diabetes mellitus with other specified complication E11.69 ; terminal carman current use of insulin Z79.4 ; Proteinuria, unspecified R80.9 ; Type 2 diabetes mellitus with other diabetic kidney complication E11.29 ; Hypothyroid E03.9 ; Mixed hyperlipidemia E78.2 ; Essential hypertension I10 ; Depression F32.9 ; Other obesity due to excess calories E66.09 and Body mass index (BMI) of 32.0-32.9 in adult Z68.32 [facility] [id number] [place] [address] [id number]- 0150 June, Mixed hyperlipidemia E78.2 and Type 2 diabetes mellitus without complication E11.9 [facility] [id number] [place] [address] 121458- 5848 May, Anemia D64.9 ; Type 2 diabetes mellitus without complication E11.9 ; Hypothyroid E03.9 ; Mixed hyperlipidemia E78.2 ; Essential hypertension I10 ; Depression F32.9 ; Other obesity due to excess calories E66.09 ; Body mass index (BMI) of 33.0-33.9 in adult Z68.33 ; Anxiety F41.9 and Herpes zoster without complication B02.9 [id number] [place] [address] 56645- 1478 30 Apr, 2017 Type 2 diabetes mellitus without complication E11.9 ; Anemia D64.9 ; Hypothyroid E03.9 ; Mixed hyperlipidemia E78.2 ; Essential hypertension I10 ; Depression F32.9 ; Other obesity due to excess calories E66.09 ; Body mass index (BMI) of 33.0-33.9 in adult Z68.33 ; Anxiety F41.9 and Herpes zoster without complication B02.9 [address] [place] [id number] [place] [address] [id number]- 3808 Apr, [id number] [place] [address] 29241- 1390 Apr, [address] [id number] [place] [address] [id number]- 4460 Apr, [address] [id number] [place] [address] 597618- 5206 Mar, [address] [id number] [place] [address] 30186- 5294 Feb, [place] [id number] [place] [address] 835220- 3940 Jan, [address] [id number] [place] [address] 655309- 2627 Jan, [facility] [address] [facility] [id number] [address] Dec, Type 2 diabetes mellitus without complication E11.9 [facility] [address] [facility] [id number] [place] [address] 6[address] Nov, [facility] [id number] [place] [address], [place] [address]- 5[address] Nov, Type 2 diabetes mellitus without complication E11.9 [facility] [address] [facility] [id number] [place] [address], [place] [address]- 7158 Nov, [facility] [id number] [place] [address], [place] [address]- 1488 Oct, Type 2 diabetes mellitus without complication E11.9 [facility] [address] [place] [address]- 7002 Oct, [facility] [id number] [place] [address] 64503- 6889 Oct, [facility] [address] [place] [address]- 9986 Sep, [facility] [id number] [place] [address] 41110- 0331 Sep, Type 2 diabetes mellitus without complication E11.9 [facility] [address] [place] [address]- 1220 Sep, Type 2 diabetes mellitus without complication E11.9 and Essential hypertension I10 [facility] [address] [facility] [id number] [address] 7521 Sep, [facility] [address] [place] [address]- 3612 Sep, [facility] [address] [facility] [id number] [place] [address] 8833 Sep, Type 2 diabetes mellitus without complication E11.9 [facility] [address] [address]- 9033 Aug, [facility] [address] [address]- 2336 Aug, Type 2 diabetes mellitus without complication E11.9 [facility] [id number] [address] 2546 Aug, Type 2 diabetes mellitus without complication E11.9 [facility] [id number] [place] [address] 08972 2546 Aug, [facility] [id number] [place] [address] 77935 2540 Aug, Abnormal weight gain R63.5 [facility] [id number] [place] [address] 54694- 1766 Aug, [facility] [id number] [place] [address] 52294- 2766 Aug, Hypothyroid E03.9 [facility] [id number] [place] [address] 68624 2542 Aug, Type 2 diabetes mellitus without complication E11.9 [facility] [address] [address]- 2762 Jul, Abnormal weight gain R63.5 [facility] [address] [address]- 2209 Jul, Abnormal weight gain R63.5 [facility] [address] [address] 2546 Jul, Abnormal weight gain R63.5 [facility] [address] [address]- 2546 Jul, Abnormal weight gain R63.5 ; Pain in right knee M25.561 and Pain in right ankle and joints of right foot M25.571 [facility] [address] [address]- 4496 Jul, [facility] [id number] [address]- 7290 Jul, 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 [facility] [id number] [place] [address] 65622- 0856 06 Jul, 2016 Type 2 diabetes mellitus without complication E11.9 [facility] [id number] [place] [address] 81079- 2172 June, [facility] [id number] [place] [address] 20058- 0329 June, Type 2 diabetes mellitus without complication E11.9 [facility] [id number] [place] [address] 66100- 9683 June, [facility] [id number] [place] [address] 27448- 8691 June, [facility] [id number] [place] [address] 06200- 7645 June, Type 2 diabetes mellitus without complication E11.9 ; Hypothyroid E03.9 ; Essential hypertension I10 ; Depression F32.9 and Mixed hyperlipidemia E78.2 [facility] [address] [address]- 0226 May, [facility] [address] [address]- 1193 Feb, Type 2 diabetes mellitus without complication E11.9 ; Hypothyroid E03.9 ; Mixed hyperlipidemia E78.2 ; Essential hypertension I10 ; Depression F32.9 and Anemia D64.9 [facility] [address] [address]- 9402 Jan, [facility] [id number] [place] [address] 32938- 1043 Sep, [facility] [address] [address]- 2035 Sep, Type 2 diabetes mellitus without complication E11.9 ; Anemia D64.9 ; Hypothyroid E03.9 ; Hyperlipidemia, unspecified hyperlipidemia type E78.5 and Essential (primary) hypertension I10 [place] [address]- 1112 Aug, [place] [id number] [place] [address] 09550- 5514 June, [place] [id number] [place] [address] 53835- 7921 June, Iron deficiency anemia, unspecified iron deficiency anemia type D50.9 [place] [id number] [place] [address] 72756- 1537 May, Abnormal finding of blood chemistry, unspecified R79.9 [place] [id number] [place] [address] 08114- 7357 May, Type 2 diabetes mellitus without complication E11.9 ; Anemia D64.9 ; Hypothyroid E03.9 ; Anxiety F41.9 and Dyslipidemia E78.5 [place] [id number] [place] [address] 81294- 3310 Jan, Type 2 diabetes mellitus without complication E11.9 ; Depression F32.9 ; Essential hypertension I10 ; Hyperlipidemia E78.5 ; Anxiety F41.9 and Hypothyroidism E03.9 [place] [id number] [place] [address] 75883- 5566 Jan, Type 2 diabetes mellitus with diabetic neuropathy E11.40 [place] [id number] [place] [address] 63966- 9803 Jan, Type 2 diabetes mellitus with diabetic neuropathy E11.40 [place] [id number] [place] [address] 97602- 0146 Jan, [place] [id number] [place] [address] 46245- 6577 Jan, [place] [id number] [place] [address] 38817- 2412 Jan, [place] [id number] [place] [address] 15637 2546 Jan, [facility] [address] [address]- 4246 Dec, [facility] [address] [address]- 2546 Dec, [facility] [address] [address]- 5586 Nov, [facility] [address] [address]- 0961 Nov, [facility] [address] [address]- 2720 Nov, [facility] [id number] [address]- 5786 Nov, [facility] [address] [address]- 5633 Nov, [facility] [address] [address]- 6580 Nov, Pertussis exposure Z20.89 [facility] [address] [address]- 0579 Nov, [facility] [address] [address]- 8806 Oct, [facility] [address] [address]- 5085 Oct, [facility] [id number] [address]- 2546 Oct, [facility] [address] [address]- 0244 Sep, [facility] [address] [address]- 9946 Sep, Diabetes mellitus without mention of complication, type II or unspecified type, uncontrolled 250.02 and Hyperlipidemia associated with type 2 diabetes mellitus 250.80 [facility] [address] [address]- 9622 Sep, [facility] [address] 8018 Sep, [facility] [address] 2635 Sep, Diabetes mellitus without mention of complication, type II or unspecified type, not stated as uncontrolled 250.00 ; Hypothyroid 244.9 ; Hyperlipidemia 272.4 and Hypertension 401.9 [facility] [address] 1229 Aug, [facility] [address] [address]- 9653 June, Diabetes mellitus without mention of complication, type II or unspecified type, not stated as uncontrolled 250.00 ; Hyperlipidemia 272.4 ; Hypertension 401.9 ; Candidiasis of female genitalia 112.1 ; Hypothyroid 244.9 and Liver lesion 573.8 [facility] [address] [address]- 2071 June, [facility] [address] [address]- 8552 May, [facility] [address] [address]- 2051 May, [facility] [address] 0891 Mar, [facility] [id number] [address]- 3929 Mar, [facility] [address] 2013 Mar, [facility] [id number] [address]- 1346 Mar, [facility] [address] [address]- 0884 Jan, [facility] [place] [facility] [address] [id number] [place] [address]- 7302 Jan, [facility] [place] [facility] [address] [id number] [place] [address]- 1130 Nov, [facility] [place] [facility] [address] [id number] [place] [address]- 8139 Nov, [facility] [place] [facility] [address] [id number] [place] [address]- 4908 Nov, [facility] [place] [facility] [address] [id number] [place] [address]- 1387 Nov, [facility] [place] [facility] [address] [id number] [place] [address]- 5802 Nov, [facility] [place] [facility] [address] [id number] [place] [address]- 2880 Nov, [facility] [place] [facility] [address] [id number] [place] [address]- 4541 29 Oct, 2013 [facility] [place] [facility] [address] [id number] [place] [address]- 9816 29 Oct, 2013 [facility] [place] [facility] [address] [id number] [place] [address]- 8304 29 Oct, 2013 [facility] [place] [facility] [address] [id number] [place] [address]- 4616 29 Oct, 2013 [facility] [place] [facility] [address] [id number] [place] [address]- 8358 23 Oct, 2013 [facility] [place] [facility] [address] [id number] [place] [address]- 2548 23 Oct, 2013 [facility] [place] [facility] [address] [id number] [place] [address]- 9212 22 Oct, 2013 [facility] [place] [facility] [address] [id number] [place] [address]- 8495 22 Oct, 2013 [facility] [place] [facility] [address] [id number] [place] [address]- 5244 Oct, [facility] [place] [facility] [address] [id number] [place] [address]- 6216 Oct, [facility] [place] [facility] [address] [id number] [place] [address]- 8846 Oct, [facility] [place] [facility] [address] [id number] [place] [address]- 0776 Oct, [facility] [place] [facility] [address] [id number] [place] [address]- 4227 Oct, [facility] [place] [facility] [address] [id number] [place] [address]- 2584 Oct, [facility] [place] [facility] [address] [id number] [place] [address]- 6944 Sep, [facility] [place] [facility] [address] [id number] [place] [address]- 6950 Sep, [facility] [place] [facility] [address] [id number] [place] [address]- 5447 Sep, [facility] [place] [facility] [address] [id number] [place] [address]- 8144 Sep, [facility] [place] [facility] [address] [id number] [place] [address]- 7107 Sep, [facility] [place] [facility] [address] [id number] [place] [address]- 4389 Sep, [facility] [place] [facility] [address] [id number] [place] [address]- 1967 Aug, [facility] [place] [facility] [address] [id number] [place] [address]- 7665 Aug, [facility] [place] [facility] [address] [id number] [place] [address]- 0604 Aug, [facility] [place] [facility] [address] [id number] [place] [address]- 5221 Aug, [facility] [place] [facility] [address] [id number] [place] [address]- 0008 Aug, 2013 [facility] [place] [facility] [address] [id number] [place] [address]- 1544 Aug, 2013 [facility] [place] [facility] [address] [id number] [place] [address]- 8762 Aug, [facility] [place] [facility] [address] [id number] [place] [address]- 3540 Aug, 2013 [facility] [place] [facility] [address] [id number] [place] [address]- 3009 Aug, 2013 [facility] [place] [facility] [address] [id number] [place] [address]- 9157 Aug, 2013 [facility] [place] [facility] [address] [id number] [place] [address]- 6575 Aug, 2013 [facility] [place] [facility] [address] [id number] [place] [address]- 0455 Aug, [facility] [place] [facility] [address] [id number] [place] [address]- 1832 Aug, [facility] [place] [facility] [address] [id number] [place] [address]- 4077 Aug, [facility] [place] [facility] [address] [id number] [place] [address]- 3368 Aug, [facility] [place] [facility] [address] [id number] [place] [address]- 3556 Aug, [facility] [place] [facility] [address] [id number] [place] [address]- 4972 Aug, [facility] [place] [facility] [address] [id number] [place] [address]- 5155 Aug, [facility] [place] [facility] [address] [id number] [place] [address]- 3190 Aug, [facility] [place] [facility] [address] [id number] [place] [address]- 2546 Jul, [facility] [address] [id number] [place] [address]- 9295 Jul, [facility] [place] [facility] [address] [id number] [place] [address]- 0860 Jul, [facility] [place] [facility] [address] [id number] [place] [address]- 4026 Jul, [facility] [place] [facility] [address] [id number] [place] [address]- 8234 Apr, [facility] [place] [facility] [address] [id number] [place] [address]- 3364 Apr, [facility] [place] [facility] [address] [id number] [place] [address]- 5034 15 Mar, 2012 [facility] [address] [id number] [place] [address]- 0926 Mar, [facility] [place] [facility] [address] [id number] [place] [address]- 0603 Feb, [facility] [address] [id number] [place] [address]- 8416 Feb, [facility] [place] [facility] [address] [id number] [place] [address]- 6021 Feb, [facility] [address] [id number] [place] [address]- 1490 Feb, [facility] [place] [facility] [address] [id number] [place] [address]- 9401 Jan, [facility] [place] [facility] [address] [id number] [place] [address]- 2244 Jan, [facility] [place] [facility] [address] [id number] [place] [address]- 8739 Jan, [facility] [place] [facility] [address] [id number] [place] [address]- 7446 Jan, [facility] [place] [facility] [address] [id number] [place] [address]- 6982 14 Jan, 2012 [facility] [place] [facility] [address] [id number] [place] [address]- 2305 13 Jan, 2012 [facility] [place] [facility] [address] [id number] [place] [address]- 1496 13 Jan, 2012 [facility] [place] [facility] [address] [id number] [place] [address]- 3865 10 Jan, 2012 [facility] [place] [facility] [address] [id number] [place] [address]- 4146 10 Jan, 2012 [facility] [place] [facility] [address] [id number] [place] [address]- 5284 26 Dec, 2011 [facility] [place] [facility] [address] [id number] [place] [address]- 3094 26 Dec, 2011 [facility] [place] [facility] [address] [id number] [place] [address]- 0396 Dec, [facility] [place] [facility] [address] [id number] [place] [address]- 6830 Dec, [facility] [place] [facility] [address] [id number] [place] [address]- 9833 Dec, [facility] [place] [facility] [address] [id number] [place] [address]- 9759 19 Dec, 2011 [facility] [place] [facility] [address] [id number] [place] [address]- 2800 19 Dec, 2011 [facility] [place] [facility] [address] [id number] [place] [address]- 4094 19 Dec, 2011 [facility] [place] [facility] [address] [id number] [place] [address]- 7615 19 Dec, 2011 [facility] [place] [facility] [address] [id number] [place] [address]- 2544 16 Dec, 2011 [facility] [place] [facility] [address] [id number] [place] [address] Dec, [facility] [id number] [address] Dec, [facility] [id number] [address] Dec, [facility] [id number] [address] Dec, [facility] [id number] [address] Dec, [facility] [id number] [place] [id number] Nov, [facility] [id number] [place] [id number]- [address] Nov, [facility] [id number] [address] Nov, [facility] [id number] [address] Nov, IMMUNIZATIONS No Known Immunizations SOCIAL HISTORY Never Assessed REASON FOR VISIT Refill request PLAN OF CARE VITAL SIGNS MEDICATIONS No Known Medications RESULTS No Results PROCEDURES No Known [...]
--- OUTSIDE RECORDS SUMMARY | 2018-03-25 14:56 | XMS REPORT ---
Author Author STOLLRONAL Vargas [facility] Address [address] [place] [address] Care Team Providers Care Superintendent Division Name Role Phone RONAL STOLL Unavailable PROBLEMS Type Condition ICD9-CM Code SVM24-NN Code Onset Dates Condition Status SNOMED Code Problem Anxiety F41.9 Active 27373467 Problem Mixed hyperlipidemia E78.2 Active 932498341 Problem Depression F32.9 Active 388080731 Problem Type 2 diabetes mellitus without complication E11.9 Active 144788728 Problem Hypothyroid E03.9 Active 51916656 Problem Essential hypertension I10 Active 81980002 Problem Anemia D64.9 Active 395823324 ALLERGIES No Information ENCOUNTERS Encounter Location Date Diagnosis [facility] [id number] [place] [address] 73052- 7234 May, [facility] [id number] [place] [address] 07863- 8094 Apr, [facility] [id number] [place] [address] 05699- 6634 Apr, [facility] [id number] [place] [address] 21024- 3609 Mar, [facility] [id number] [place] [address] 12662- 0222 Feb, [facility] [id number] [place] [address] 19808- 5696 Jan, [facility] [address] [address]- 9972 Jan, [facility] [id number] [place] [address] 75874- 2116 Dec, Type 2 diabetes mellitus without complication E11.9 [facility] [address] [facility] [id number] [place] [address]- 7862 Nov, [facility] [address] [facility] [id number] [place] [address], [place] [address]- 1066 Nov, Type 2 diabetes mellitus without complication E11.9 [facility] [address] [place] [address] 2926 Nov, [facility] [address] [facility] [id number] [place] [address], [place] [address]- 9757 Oct, Type 2 diabetes mellitus without complication E11.9 [facility] [address] [facility] [id number] [place] [address]- 9406 Oct, [facility] [id number] [place] [address], [place] [address]- 2656 Oct, [facility] [id number] [place] [address], [place] [address]- 9976 Sep, [facility] [id number] [place] [address]- 5422 Sep, Type 2 diabetes mellitus without complication E11.9 [facility] [id number] [place] [address]- 1240 Sep, Type 2 diabetes mellitus without complication E11.9 and Essential hypertension I10 [facility] [id number] [place] [address] 0260 Sep, [facility] [id number], [place] [address] 2004 Sep, [facility] [id number] [place] [address]- 1130 Sep, Type 2 diabetes mellitus without complication E11.9 [facility] [id number] [address]478 Aug, [facility] [id number] [place] [address]- 8994 Aug, Type 2 diabetes mellitus without complication E11.9 [facility] [id number], [place] [address]- 8854 Aug, Type 2 diabetes mellitus without complication E11.9 [facility] [id number], [place] [address] 2546 Aug, [facility] [id number], [place] [address]- 2546 Aug, Abnormal weight gain R63.5 [facility] [id number], [place] [address] 2546 Aug, [facility] [id number] [place] [address] 20803- 4759 Aug, Hypothyroid E03.9 [facility] [id number], [place] [address]- 0127 Aug, Type 2 diabetes mellitus without complication E11.9 [facility] [address], [place] [address]- 7772 Jul, Abnormal weight gain R63.5 [facility] [address], [place] [address]- 5186 Jul, Abnormal weight gain R63.5 [facility] [address], [place] [address] 2546 Jul, Abnormal weight gain R63.5 [facility] [address], [place] [address] 2546 Jul, Abnormal weight gain R63.5 ; Pain in right knee M25.561 and Pain in right ankle and joints of right foot M25.571 [facility] [id number], [place] [address]- 0856 Jul, [facility] [address], [place] [address]- 2546 Jul, 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 [facility] [id number] [place] [address] 40944- 6943 Jul, Type 2 diabetes mellitus without complication E11.9 [facility] [address], [place] [address]- 4451 June, [facility] [id number] [place] [address] 41854- 7669 June, Type 2 diabetes mellitus without complication E11.9 [facility] [id number] [place] [address] 89098- 1499 June, [facility] [id number] [place] [address] 02587- 2320 June, [facility] [id number] [place] [address] 05438- 8625 June, Type 2 diabetes mellitus without complication E11.9 ; Hypothyroid E03.9 ; Essential hypertension I10 ; Depression F32.9 and Mixed hyperlipidemia E78.2 [facility] [id number] [place] [address] 49936- 1673 May, [facility] [address], [place] [address]- 8219 Feb, Type 2 diabetes mellitus without complication E11.9 ; Hypothyroid E03.9 ; Mixed hyperlipidemia E78.2 ; Essential hypertension I10 ; Depression F32.9 and Anemia D64.9 [facility] [address], [place] [address]- 8828 Jan, [facility] [id number] [place] [address] 69652- 8753 Sep, [facility] [address], [place] [address]- 3924 Sep, Type 2 diabetes mellitus without complication E11.9 ; Anemia D64.9 ; Hypothyroid E03.9 ; Hyperlipidemia, unspecified hyperlipidemia type E78.5 and Essential (primary) hypertension I10 [facility] [address], [place] [address]- 0068 Aug, [facility] [id number] [place] [address] 64928- 9183 June, [facility] [id number] [place] [address] 63291- 9100 June, Iron deficiency anemia, unspecified iron deficiency anemia type D50.9 [facility] [id number] [place] [address] 00888- 0657 May, Abnormal finding of blood chemistry, unspecified R79.9 [facility] [id number] [place] [address] 06311- 4079 May, Type 2 diabetes mellitus without complication E11.9 ; Anemia D64.9 ; Hypothyroid E03.9 ; Anxiety F41.9 and Dyslipidemia E78.5 [facility] [id number] [place] [address] 09576- 4232 Jan, Type 2 diabetes mellitus without complication E11.9 ; Depression F32.9 ; Essential hypertension I10 ; Hyperlipidemia E78.5 ; Anxiety F41.9 and Hypothyroidism E03.9 [facility] [id number] [place] [address] 57602- 7933 Jan, Type 2 diabetes mellitus with diabetic neuropathy E11.40 [facility] [id number] [place] [address] 42699- 6397 Jan, Type 2 diabetes mellitus with diabetic neuropathy E11.40 [facility] [id number] [place] [address] 96595- 2266 30 Jan, 2015 [facility] [id number] [place] [address] 98425- 8608 Jan, [facility] [id number] [place] [address] 70041- 2555 Jan, [facility] [id number] [place] [address] 21434- 2004 Jan, [facility] [id number] [place] [address] 27678- 4699 Dec, [place] [id number], [place] [address]- 0948 Dec, [facility] [id number] 4948 Nov, [facility] [address], [place] [address]- 0637 Nov, [facility] [id number] [place] [address] 22677- 5848 Nov, [facility] [address], [place] [address]- 2863 Nov, [facility] [id number] [place] [address] 51871- 1231 Nov, [facility] [id number], [place] [address]- 2975 Nov, Pertussis exposure Z20.89 [facility] [id number], [place] [address]- 7776 Nov, [facility] [id number], [place] [address]- 8637 Oct, [facility] [id number], [place] [address]- 7271 Oct, [facility] [address], [place] [address]- 2127 Oct, [facility] [id number], [place] [address]- 2788 Sep, [facility] [address] [id number], [place] [address]- 2441 Sep, Diabetes mellitus without mention of complication, type II or unspecified type, uncontrolled 250.02 and Hyperlipidemia associated with type 2 diabetes mellitus 250.80 [facility] [address], [place] [address]- 7427 Sep, [facility] [id number], [place] [address]- 7216 Sep, [facility] [id number], [place] [address]- 6033 Sep, Diabetes mellitus without mention of complication, type II or unspecified type, not stated as uncontrolled 250.00 ; Hypothyroid 244.9 ; Hyperlipidemia 272.4 and Hypertension 401.9 [facility] [id number], [place] [address]- 0690 Aug, [facility] [id number], [place] [address]- 9997 June, Diabetes mellitus without mention of complication, type II or unspecified type, not stated as uncontrolled 250.00 ; Hyperlipidemia 272.4 ; Hypertension 401.9 ; Candidiasis of female genitalia 112.1 ; Hypothyroid 244.9 and Liver lesion 573.8 [facility] [id number], [place] [address]- 6166 June, [facility] [id number], [place] [address]- 4328 May, [facility] [id number] 9277 May, [facility] [id number], [place] [address]- 2750 Mar, [facility] [id number], [place] [address]- 4306 Mar, [facility] [id number], [place] [address]- 6286 Mar, [facility] [id number], [place] [address]- 1866 Mar, [facility] [id number], [place] [address]- 5066 Jan, [facility] [id number], [place] [address]- 4246 Jan, [facility] [address] [place] [address]- 3959 Nov, [facility] [place] [facility] [address] [id number] [place] [address]- 5720 Nov, [facility] [place] [facility] [address] [id number] [place] [address]- 0265 Nov, [facility] [place] [facility] [address] [id number] [place] [address]- 7798 Nov, [facility] [place] [facility] [address] [id number] [place] [address]- 2548 Nov, [facility] [place] [facility] [address] [id number] [place] [address]- 2694 Nov, [facility] [place] [facility] [address] [id number] [place] [address]- 0763 29 Oct, 2013 [facility] [place] [facility] [address] [id number] [place] [address]- 1459 29 Oct, 2013 [facility] [place] [facility] [address] [id number] [place] [address]- 2541 29 Oct, 2013 [facility] [place] [facility] [address] [id number] [place] [address]- 254 29 Oct, 2013 [facility] [place] [facility] [address] [id number] [place] [address]- 2544 23 Oct, 2013 [facility] [place] [facility] [address] [id number] [place] [address] 2546 23 Oct, 2013 [facility] [place] [facility] [address] [id number] [place] [address]- 2547 22 Oct, 2013 [facility] [place] [facility] [address] [id number] [place] [address] 2546 22 Oct, 2013 [facility] [place] [facility] [address] [id number] [place] [address]- 2546 11 Oct, 2013 [facility] [place] [facility] [address] [id number] [place] [address]- 2540 Oct, [facility] [place] [facility] [address] [id number] [place] [address]- 3772 Oct, [facility] [place] [facility] [address] [id number] [place] [address]- 7896 Oct, [facility] [place] [facility] [address] [id number] [place] [address]- 5870 Oct, [facility] [place] [facility] [address] [id number] [place] [address]- 4568 Oct, [facility] [place] [facility] [address] [id number] [place] [address]- 3251 Sep, [facility] [place] [facility] [address] [id number] [place] [address]- 0236 Sep, [facility] [place] [facility] [address] [id number] [place] [address]- 6737 Sep, [facility] [place] [facility] [address] [id number] [place] [address]- 5999 Sep, [facility] [place] [facility] [address] [id number] [place] [address]- 3062 Sep, [facility] [place] [facility] [address] [id number] [place] [address]- 0095 Sep, [facility] [place] [facility] [address] [id number] [place] [address]- 3101 Aug, [facility] [place] [facility] [address] [id number] [place] [address]- 9463 Aug, [facility] [place] [facility] [address] [id number] [place] [address]- 0031 Aug, [facility] [place] [facility] [address] [id number] [place] [address]- 5169 Aug, [facility] [place] [facility] [address] [id number] [place] [address]- 9537 Aug, [facility] [place] [facility] [address] [id number] [place] [address]- 3683 Aug, 2013 [facility] [place] [facility] [address] [id number] [place] [address]- 4055 Aug, 2013 [facility] [place] [facility] [address] [id number] [place] [address]- 7251 Aug, 2013 [facility] [place] [facility] [address] [id number] [place] [address]- 5726 Aug, 2013 [facility] [place] [facility] [address] [id number] [place] [address]- 3469 Aug, 2013 [facility] [place] [facility] [address] [id number] [place] [address]- 1966 Aug, 2013 [facility] [place] [facility] [address] [id number] [place] [address]- 7035 Aug, 2013 [facility] [place] [facility] [address] [id number] [place] [address]- 5160 Aug, 2013 [facility] [place] [facility] [address] [id number] [place] [address]- 0851 Aug, 2013 [facility] [place] [facility] [address] [id number] [place] [address]- 7871 Aug, 2013 [facility] [place] [facility] [address] [id number] [place] [address]- 0527 Aug, 2013 [facility] [place] [facility] [address] [id number] [place] [address]- 7875 Aug, 2013 [facility] [place] [facility] [address] [id number] [place] [address]- 7079 Aug, 2013 [facility] [place] [facility] [address] [id number] [place] [address]- 8551 Aug, [facility] [place] [facility] [address] [id number] [place] [address]- 1528 Jul, [facility] [place] [facility] [address] [id number] [place] [address]- 9888 Jul, [facility] [place] [facility] [address] [id number] [place] [address] 2546 18 Jul, 2012 [facility] [address] [id number] [place] [address]- 0389 Jul, [facility] [place] [facility] [address] [id number] [place] [address]- 2546 Apr, [facility] [place] [facility] [address] [id number] [place] [address]- 2546 Apr, [facility] [place] [facility] [address] [id number] [place] [address]- 2836 15 Mar, 2012 [facility] [place] [facility] [address] [id number] [place] [address]- 2546 Mar, [facility] [place] [facility] [address] [id number] [place] [address]- 5546 Feb, [facility] [address] [id number] [place] [address]- 9520 Feb, [facility] [address] [id number] [place] [address]- 9682 Feb, [facility] [place] [facility] [address] [id number] [place] [address]- 3506 Feb, [facility] [address] [id number] [place] [address]- 1963 Jan, [facility] [place] [facility] [address] [id number] [place] [address]- 4856 Jan, [facility] [place] [facility] [address] [id number] [place] [address]- 5312 Jan, [facility] [place] [facility] [address] [id number] [place] [address]- 4666 17 Jan, 2012 [facility] [place] [facility] [address] [id number] [place] [address]- 2546 14 Jan, 2012 [facility] [place] [facility] [address] [id number] [place] [address]- 6123 13 Jan, 2012 [facility] [place] [facility] [address] [id number] [place] [address]- 9912 13 Jan, 2012 [facility] [place] [facility] [address] [id number] [place] [address]- 3244 10 Jan, 2012 [facility] [place] [facility] [address] [facility] [id number] [place] [address]- 9049 Jan, [facility] [place] [facility] [address] [id number] [place] [address]- 7834 Dec, [facility] [place] [facility] [address] [id number] [place] [address]- 4842 Dec, [facility] [place] [facility] [address] [id number] [place] [address]- 8676 Dec, [facility] [place] [facility] [address] [id number] [place] [address]- 5524 Dec, [facility] [place] [facility] [address] [id number], [place] [address]- 4274 Dec, [facility] [place] [facility] [address] [id number], [place] [address]- 9136 Dec, [facility] [place] [facility] [address] [id number], [place] [address]- 1095 Dec, [facility] [place] [facility] [address] [id number], [place] [address]- 5681 Dec, [facility] [place] [facility] [address] [id number], [place] [address]- 7960 19 Dec, 2011 [facility] [place] [facility] [address] [id number], [place] [address]- 8040 16 Dec, 2011 [facility] [place] [facility] [address] [id number], [place] [address]- 5959 16 Dec, 2011 [facility] [place] [facility] [address] [facility] [id number], [place] [address]- 2161 16 Dec, 2011 [facility] [place] [facility] [address] [facility] [id number], [place] [address]- 0810 Dec, [facility] [id number], [place] [address]- 2752 Dec, [facility] [address] [id number], [place] [address]- 5218 Dec, [facility] [id number] 9803 Nov, [facility] [address] [id number], [place] [address]- 1732 Nov, [facility] [address] [id number], [place] [address]- 2882 Nov, [facility] [address] [id number], [place] [address]- 1436 Nov, IMMUNIZATIONS No Known Immunizations SOCIAL HISTORY Never Assessed REASON FOR VISIT Add on Lab order PLAN OF CARE VITAL SIGNS MEDICATIONS Unknown Medications RESULTS No Results PROCEDURES Procedure Date Ordered Result Body Site CCP ANTIBODY August 24, 2016 INSTRUCTIONS MEDICATIONS ADMINISTERED No Known Medications [...]
--- OUTSIDE RECORDS SUMMARY | 2018-03-25 14:56 | XMS REPORT ---
Author Author RONAL STOLL Organization [facility] Address [address] [place] [address] Care Team Providers Care Kiss Setter Hand Name Role Phone RONAL STOLL Unavailable PROBLEMS Type Condition ICD9-CM Code [id number] Code Onset Dates Condition Status SNOMED Code Problem Anxiety F41.9 Active 51544497 Problem Mixed hyperlipidemia E78.2 Active 961377404 Problem Depression F32.9 Active 408383189 Problem Type 2 diabetes mellitus without complication E11.9 Active 588238525 Problem Hypothyroid E03.9 Active 00297964 Problem Essential hypertension I10 Active 71644115 Problem Anemia D64.9 Active [id number] ALLERGIES No Information SOCIAL HISTORY Never Assessed PLAN OF CARE VITAL SIGNS MEDICATIONS Unknown Medications RESULTS No Results PROCEDURES No Known procedures IMMUNIZATIONS No Known Immunizations MEDICAL (GENERAL) HISTORY Type Description Date Medical [...]
--- OUTSIDE RECORDS SUMMARY | 2018-03-25 14:56 | XMS REPORT ---
Author Author STOLLRONAL Vargas Organization [facility] Address [address] [place] [address] Care Team Providers Care Generator Operator Name Role Phone RONAL STOLL Unavailable PROBLEMS Type Condition ICD9-CM Code HOD26-EP Code Onset Dates Condition Status SNOMED Code Problem Anxiety F41.9 Active 55076931 Problem Type 2 diabetes mellitus without complication E11.9 Active 991862784 Problem Hypothyroid E03.9 Active 60945696 Problem Microalbuminuria R80.9 Active 229376925 Problem Other obesity due to excess calories E66.09 Active 492897892 Problem Body mass index (BMI) of 33.0-33.9 in adult Z68.33 Active 753033488 Problem Essential hypertension I10 Active 81870898 Problem Anemia D64.9 Active 460275923 Problem Mixed hyperlipidemia E78.2 Active 513677784 Problem Depression F32.9 Active [id number] ALLERGIES No Information ENCOUNTERS Encounter Location Date Diagnosis [facility] [id number] [place] [address] 21184- 7385 May, [facility] [id number] [place] [address] 19897- 3909 30 Apr, 2017 Type 2 diabetes mellitus without complication E11.9 ; Anemia D64.9 ; Hypothyroid E03.9 ; Mixed hyperlipidemia E78.2 ; Essential hypertension I10 ; Depression F32.9 ; Other obesity due to excess calories E66.09 ; Body mass index (BMI) of 33.0-33.9 in adult Z68.33 ; Anxiety F41.9 and Herpes zoster without complication B02.9 [facility] [id number] [place] [address] 11177- 7240 Apr, [facility] [id number] [place] [address] 79777- 9100 Apr, [facility] [address] [facility] [id number] [place] [address]- 3749 Apr, [facility] [address] [facility] [id number] [place] [address]- 8576 Mar, [facility] [address] [facility] [id number] [place] [address]- 7956 Feb, [facility] [address] [place] [address] 5466 Jan, [facility] [address] [facility] [id number] [place] [address] Jan, [facility] [address] [address] 3581 Dec, Type 2 diabetes mellitus without complication E11.9 [facility] [address] [place] [address] 8936 Nov, [facility] [address] [place] [address]- 1650 Nov, Type 2 diabetes mellitus without complication E11.9 [facility] [address] [place] [address]- 4994 Nov, [facility] [address] 3[address] Oct, Type 2 diabetes mellitus without complication E11.9 [facility] [address] [place] [address] 3449 14 Oct, 2016 [facility] [address] [facility] [id number] [address] 3761 Oct, [facility] [address] [place] [address]- 9516 Sep, [facility] [id number] [place] [address]- 3346 Sep, Type 2 diabetes mellitus without complication E11.9 [facility] [address] [address]- 9485 Sep, Type 2 diabetes mellitus without complication E11.9 and Essential hypertension I10 [facility] [address] [place] [address]- 9246 Sep, [facility] [address] [address]- 1156 Sep, [facility] [id number] [place] [address] 58523- 1911 Sep, Type 2 diabetes mellitus without complication E11.9 [facility] [address] [place] [address]- 6671 Aug, [facility] [id number] [place] [address] 60369- 0832 Aug, Type 2 diabetes mellitus without complication E11.9 [facility] [address] [address]- 2227 Aug, Type 2 diabetes mellitus without complication E11.9 [facility] [address] [address]- 8078 Aug, [facility] [address] [address]- 8947 Aug, Abnormal weight gain R63.5 [facility] [address] [address]- 0326 Aug, [facility] [address] [address]- 7856 Aug, Hypothyroid E03.9 [facility] [address] [place] [address]- 8341 Aug, Type 2 diabetes mellitus without complication E11.9 [facility] [address] [place] [address]- 8085 Jul, Abnormal weight gain R63.5 [facility] [address] [address]- 8050 Jul, Abnormal weight gain R63.5 [facility] [address] [address]- 5229 Jul, Abnormal weight gain R63.5 [facility] [address] [place] [address] 21344- 0970 Jul, Abnormal weight gain R63.5 ; Pain in right knee M25.561 and Pain in right ankle and joints of right foot M25.571 [facility] [id number] [place] [address] 89815- 3603 Jul, [facility] [id number] [place] [address] 70185- 5350 Jul, 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 [facility] [id number] [place] [address] 09132- 3316 Jul, Type 2 diabetes mellitus without complication E11.9 [facility] [id number] [place] [address] 14066- 9848 June, [facility] [id number] [address]- 3859 June, Type 2 diabetes mellitus without complication E11.9 [facility] [address] [address]- 6221 June, [facility] [address] [address]- 6250 June, [facility] [id number] [place] [address] 95590- 6042 June, Type 2 diabetes mellitus without complication E11.9 ; Hypothyroid E03.9 ; Essential hypertension I10 ; Depression F32.9 and Mixed hyperlipidemia E78.2 [facility] [address] [address]- 6287 May, [facility] [address] [address]- 7414 Feb, Type 2 diabetes mellitus without complication E11.9 ; Hypothyroid E03.9 ; Mixed hyperlipidemia E78.2 ; Essential hypertension I10 ; Depression F32.9 and Anemia D64.9 [facility] [id number] [place] [address] 93998- 6295 Jan, [facility] [id number] [place] [address] 43309- 1059 Sep, [facility] [address] 06154- 1804 Sep, Type 2 diabetes mellitus without complication E11.9 ; Anemia D64.9 ; Hypothyroid E03.9 ; Hyperlipidemia, unspecified hyperlipidemia type E78.5 and Essential (primary) hypertension I10 [facility] [id number] [place] [address] 36214- 0628 Aug, [facility] [id number] [place] [address] 19997- 1342 June, [facility] [id number] [place] [address] 04981- 2214 June, Iron deficiency anemia, unspecified iron deficiency anemia type D50.9 [facility] [id number] [place] [address] 47438- 8866 May, Abnormal finding of blood chemistry, unspecified R79.9 [facility] [id number] [place] [address] 59557- 9663 May, Type 2 diabetes mellitus without complication E11.9 ; Anemia D64.9 ; Hypothyroid E03.9 ; Anxiety F41.9 and Dyslipidemia E78.5 [facility] [id number] [place] [address] 89815- 4022 Jan, Type 2 diabetes mellitus without complication E11.9 ; Depression F32.9 ; Essential hypertension I10 ; Hyperlipidemia E78.5 ; Anxiety F41.9 and Hypothyroidism E03.9 [facility] [id number] [place] [address] 81313- 5465 Jan, Type 2 diabetes mellitus with diabetic neuropathy E11.40 [facility] [address] [facility] [id number] [address]- 4766 Jan, Type 2 diabetes mellitus with diabetic neuropathy E11.40 [facility] [address] [facility] [id number] [address]- 3461 Jan, [facility] [address] [address]- 8857 Jan, [facility] [address] [facility] [id number] 7377 Jan, [facility] [id number] [address]- 3789 Jan, [facility] [id number] [place] [address] 555029- 8451 Dec, [facility] [address] [address]- 1320 Dec, [facility] [address] [address]- 3058 Nov, [facility] [address] [address]- 3853 Nov, [facility] [address] [address]- 2157 Nov, [facility] [address] [address]- 4005 Nov, [facility] [address] [address]- 5227 Nov, [facility] [address] 2340 Nov, Pertussis exposure Z20.89 [facility] [address] [address]- 8165 Nov, [facility] [address] [address]- 7449 Oct, [facility] [id number] [address]- 9360 Oct, [facility] [id number] [address]- 3427 Oct, [facility] [address] 5884 Sep, [facility] [address] 2931 Sep, Diabetes mellitus without mention of complication, type II or unspecified type, uncontrolled 250.02 and Hyperlipidemia associated with type 2 diabetes mellitus 250.80 [facility] [address] [address]- 2365 Sep, [facility] [address] [address]- 3970 Sep, [facility] [address] [address]- 3510 Sep, Diabetes mellitus without mention of complication, type II or unspecified type, not stated as uncontrolled 250.00 ; Hypothyroid 244.9 ; Hyperlipidemia 272.4 and Hypertension 401.9 [facility] [address] [address]- 3688 Aug, [facility] [id number] [address]- 1582 June, Diabetes mellitus without mention of complication, type II or unspecified type, not stated as uncontrolled 250.00 ; Hyperlipidemia 272.4 ; Hypertension 401.9 ; Candidiasis of female genitalia 112.1 ; Hypothyroid 244.9 and Liver lesion 573.8 [facility] [id number] [address]- 0318 June, [facility] [address] [address]- 8245 May, [facility] [id number] [address]- 7508 May, [facility] [place] [facility] [address] [id number] [place] [address]- 9100 Mar, 2014 [facility] [place] [facility] [address] [id number] [place] [address]- 5490 Mar, 2014 [facility] [place] [facility] [address] [id number] [place] [address]- 8794 Mar, 2014 [facility] [place] [facility] [address] [id number] [place] [address]- 8986 Mar, [facility] [place] [facility] [address] [id number] [place] [address]- 9146 Jan, [facility] [place] [facility] [address] [id number] [place] [address]- 1869 Jan, [facility] [place] [facility] [address] [id number] [place] [address]- 3020 Nov, [facility] [place] [facility] [address] [id number] [place] [address]- 9541 Nov, [facility] [place] [facility] [address] [id number] [place] [address]- 5012 Nov, [facility] [place] [facility] [address] [id number] [place] [address]- 7822 Nov, [facility] [place] [facility] [address] [id number] [address]- 9334 Nov, [facility] [place] [facility] [address] [id number] [address]- 3641 Nov, [facility] [place] [facility] [address] [id number] [place] [address]- 4653 Oct, [facility] [place] [facility] [address] [id number] [place] [address]- 7824 29 Oct, 2013 [facility] [place] [facility] [address] [id number] [place] [address]- 8028 29 Oct, 2013 [facility] [place] [facility] [address] [id number] [address]- 0090 29 Oct, 2013 [facility] [place] [facility] [address] [id number] [place] [address]- 3167 23 Oct, 2013 [facility] [place] [facility] [address] [id number] [place] [address]- 2386 23 Oct, 2013 [facility] [place] [facility] [address] [id number] [place] [address]- 4350 Oct, 2013 [facility] [place] [facility] [address] [id number] [place] [address]- 6602 22 Oct, 2013 [facility] [place] [facility] [address] [id number] [place] [address]- 8208 Oct, 2013 [facility] [place] [facility] [address] [id number] [place] [address]- 5116 Oct, 2013 [facility] [place] [facility] [address] [id number] [place] [address]- 9307 08 Oct, 2013 [facility] [place] [facility] [address] [id number] [place] [address]- 5286 08 Oct, 2013 [facility] [place] [facility] [address] [id number] [place] [address]- 4431 Oct, 2013 [facility] [place] [facility] [address] [id number] [place] [address]- 1580 08 Oct, 2013 [facility] [place] [facility] [address] [id number] [place] [address]- 1676 Sep, [facility] [place] [facility] [address] [id number] [place] [address]- 0219 Sep, [facility] [place] [facility] [address] [id number] [place] [address]- 0838 Sep, [facility] [place] [facility] [address] [id number] [place] [address]- 1286 Sep, [facility] [place] [facility] [address] [id number] [place] [address]- 6505 Sep, [facility] [place] [facility] [address] [id number] [facility] [place] [address]- 4433 Sep, [facility] [place] [facility] [address] [id number] [facility] [place] [address]- 0603 Aug, [facility] [place] [facility] [address] [id number] [place] [address]- 4685 Aug, [facility] [place] [facility] [address] [id number] [place] [address]- 8123 Aug, [facility] [place] [facility] [address] [id number] [place] [address]- 9731 Aug, [facility] [place] [facility] [address] [id number] [place] [address]- 3044 Aug, [facility] [place] [facility] [address] [id number] [place] [address]- 1320 Aug, [facility] [place] [facility] [address] [id number] [place] [address]- 5736 Aug, [facility] [place] [facility] [address] [id number] [place] [address]- 8295 Aug, [facility] [place] [facility] [address] [id number] [place] [address]- 6193 Aug, [facility] [place] [facility] [address] [id number] [place] [address]- 2262 Aug, [facility] [place] [facility] [address] [id number] [place] [address]- 5562 Aug, [facility] [place] [facility] [address] [id number] [place] [address]- 5491 Aug, [facility] [place] [facility] [address] [id number] [place] [address]- 7186 Aug, [facility] [place] [facility] [address] [id number] [place] [address]- 3767 Aug, [facility] [place] [facility] [address] [id number] [place] [address]- 4279 Aug, [facility] [place] [facility] [address] [id number] [place] [address]- 0358 Aug, 2013 [facility] [place] [facility] [address] [id number] [place] [address]- 0482 Aug, [facility] [place] [facility] [address] [id number] [place] [address]- 3977 Aug, [facility] [place] [facility] [address] [id number] [place] [address]- 9156 Aug, [facility] [place] [facility] [address] [id number] [place] [address]- 1272 Jul, [facility] [place] [facility] [address] [id number] [place] [address]- 5361 Jul, [facility] [place] [facility] [address] [id number] [place] [address]- 6904 Jul, [facility] [place] [facility] [address] [id number] [place] [address]- 5494 Jul, [facility] [place] [facility] [address] [id number] [place] [address]- 4564 Apr, [facility] [place] [facility] [address] [id number] [place] [address]- 9498 Apr, [facility] [place] [facility] [address] [id number] [place] [address]- 9054 15 Mar, 2012 [facility] [place] [facility] [address] [id number] [address]- 9324 Mar, [facility] [place] [facility] [address] [id number] [place] [address]- 7486 Feb, [facility] [place] [facility] [address] [id number] [place] [address]- 0460 Feb, [facility] [place] [facility] [address] [id number] [place] [address]- 0467 Feb, [facility] [place] [facility] [address] [id number] [place] [address]- 2327 02 Feb, 2012 [facility] [address] [id number] [place] [address]- 6726 21 Jan, 2012 [facility] [address] [id number] [place] [address]- 2766 21 Jan, 2012 [facility] [address] [id number] [place] [address]- 0216 17 Jan, 2012 [facility] [address] [id number] [place] [address]- 8014 17 Jan, 2012 [facility] [address] [id number] [place] [address]- 5348 14 Jan, 2012 [facility] [address] [id number] [place] [address]- 5803 13 Jan, 2012 [facility] [address] [id number] [place] [address]- 2020 13 Jan, 2012 [facility] [address] [id number] [place] [address]- 0426 10 Jan, 2012 [facility] [address] [id number] [place] [address]- 3912 10 Jan, 2012 [facility] [address] [id number] [place] [address]- 7398 26 Dec, 2011 [facility] [address] [id number] [place] [address]- 0285 26 Dec, 2011 [facility] [address] [id number] [place] [address]- 3998 Dec, [facility] [place] [facility] [address] [id number] [place] [address]- 1820 Dec, [facility] [place] [facility] [address] [id number] [place] [address]- 2457 20 Dec, 2011 [facility] [address] [id number] [place] [address]- 0535 Dec, [facility] [address] [facility] [id number] [address]- 5139 Dec, [facility] [address] [facility] [id number] [address]- 6007 Dec, [facility] [address] [facility] [id number] 3613 Dec, [facility] [address] [facility] [id number] [address]- 6230 Dec, [facility] [address] [facility] [id number] [place] [address] Dec, [facility] [address] [facility] [id number] [place] [address] Dec, [facility] [id number] [address] Dec, [facility] [id number] [address] Dec, [facility] [id number] [address] Dec, [facility] [id number] [address] Nov, [facility] [address] [id number] [address] Nov, [facility] [address] [id number] [address] Nov, [facility] [address] [id number] [address] Nov, IMMUNIZATIONS No Known Immunizations SOCIAL HISTORY Never Assessed REASON FOR VISIT BS f/u PLAN OF CARE VITAL SIGNS MEDICATIONS Medication Instructions Dosage Frequency Start Date End Date Duration Status Levemir FlexTouch 100 UNIT/ML Subcutaneous twice a day 65 units in AM, 60 units in PM 12h 16 Oct, 2014 Active NovoLog Flexpen 100 UNIT/ML Subcutaneous 3 times a day before meals 30 units June, Active RESULTS No Results PROCEDURES [...]
--- OUTSIDE RECORDS SUMMARY | 2018-03-25 14:56 | XMS REPORT ---
Author Author RONAL STOLL [facility] eClinicalWorks Address Unknown Phone Unavailable Care Team Providers Care Plastic Eye Technician Name Role Phone RONAL STOLL CP Unavailable Allergies, Adverse Reactions, Alerts Substance Reaction Event Type Victoza nausea Drug Allergy Problems Problem Type Condition Code Onset Dates Condition Status Assessment Anxiety F41.9 Active Assessment Dyslipidemia E78.5 Active Problem Anemia D64.9 Active Problem Hypothyroid E03.9 Active Problem Type 2 diabetes mellitus without complication E11.9 Active Assessment Anemia D64.9 Active Assessment Hypothyroid E03.9 Active Problem Anxiety F41.9 Active Assessment Type 2 diabetes mellitus without complication E11.9 Active Medications Medication Code System Code Instructions Start Date End Date Status Dosage Glimepiride [facility] [address]-17 4 MG TAKE TWO TABLETS BY MOUTH ONCE DAILY (MUST HAVE APPOINTMENT FOR REFILL) Invokana [facility] [address]-24 100 MG Orally Once a day Dec 28, 2014 1 tablet Trilipix [facility] [address]-04 135 MG Orally Once a day Dec 23, 2013 take 1 capsule (135 mg) by oral route once daily Effexor XR [facility] [address]-12 150 MG Orally Once a day 1 capsule with food metformin [facility] 0 500 mg oral 2 times a day with meals Dec 23, 2013July take 2 tablet by Oral route 2 times per day Levemir FlexTouch [facility] [address]-19 100 UNIT/ML Subcutaneous 2 times a day Nov 11, 2014 70 units Lipitor [facility] [address]-66 40 MG Orally Once a day July 08, 2014 1 tablet Lisinopril-Hydrochlorothiazide [facility] [address]-18 20-25 MG Orally Once a day 1 tablet Levothyroxine Sodium [facility] 95248707928 50 MCG TAKE ONE TABLET BY MOUTH DAILY Procedures Procedure Coding System Code Date IRON BINDING TEST CPT-4 28124 June 15, 2015 ASSAY OF IRON CPT-4 04799 June 15, 2015 GLYCATED HEMOGLOBIN TEST CPT-4 51592 June 15, 2015 Office Visit, Est Pt., Level 3 CPT-4 84791 June 15, 2015 COMPLETE CBC W/AUTO DIFF WBC CPT-4 41314 June 15, 2015 VENIPUNCT, ROUTINE* CPT-4 71227 June 15, 2015 VITAMIN B-12 CPT-4 39939 June 15, 2015 BLOOD FOLIC ACID SERUM CPT-4 00932 June 15, 2015 ASSAY OF FERRITIN CPT-4 96475 June 15, 2015 AUTOMATED RETICULOCYTE COUNT CPT-4 74038 June 15, 2015 Vital Signs Date/Time: June 15, 2015 Temperature 98.4 F Weight 178.0 lbs Height 63 in BMI 31.53 Index Blood Pressure Diastolic 78 mmHg Blood Pressure Systolic 118 mmHg Cardiac Monitoring Heart Rate 86 bpm Results Name Result Date Reference Range Unit Abnormality Flag A1C (IN HOUSE) ----A1C IN HOUSE 8.1 20150615 4.3 - 5.6 % ----Previous A1c 8.8 20150615 ----Lot [id number] ----Exp date [id number] ROUTINE VENIPUNCTURE Summary Purpose eClinicalWorks Submission
--- OUTSIDE RECORDS SUMMARY | 2018-03-25 14:57 | XMS REPORT ---
Author Author RONAL STOLL Organization [facility] Address [address] [place] [address] Care Team Providers Care Public Employment Mediator Name Role Phone RONAL STOLL Unavailable PROBLEMS Type Condition ICD9-CM Code IIG07-YH Code Onset Dates Condition Status SNOMED Code Problem Anxiety F41.9 Active 63319683 Problem Mixed hyperlipidemia E78.2 Active 338398031 Problem Depression F32.9 Active 877746550 Problem Type 2 diabetes mellitus without complication E11.9 Active 528825755 Problem Hypothyroid E03.9 Active 60018710 Problem Essential hypertension I10 Active 42170965 Problem Anemia D64.9 Active 935057139 ALLERGIES No Information SOCIAL HISTORY Never Assessed [...]
--- OUTSIDE RECORDS SUMMARY | 2018-03-25 14:57 | XMS REPORT ---
Author Author STOLLRONAL Vargas Organization [facility] Address [address] [place] [address] Care Team Providers Care Clinical Material Handler Name Role Phone RONAL STOLL Unavailable PROBLEMS Type Condition ICD9-CM Code KHI27-AH Code Onset Dates Condition Status SNOMED Code Problem Anxiety F41.9 Active 67102392 Problem Type 2 diabetes mellitus without complication E11.9 Active 926716802 Problem Hypothyroid E03.9 Active 08528102 Problem Microalbuminuria R80.9 Active 869502235 Problem Other obesity due to excess calories E66.09 Active 323733411 Problem Body mass index (BMI) of 33.0-33.9 in adult Z68.33 Active 538129066 Problem Essential hypertension I10 Active 65197353 Problem Anemia D64.9 Active 411919045 Problem Mixed hyperlipidemia E78.2 Active 909706303 Problem Depression F32.9 Active [id number] ALLERGIES No Information ENCOUNTERS Encounter Location Date Diagnosis [facility] [id number] [place] [address] 63127- 9882 Aug, [place] [id number] [place] [address] 59501- 7946 June, Mixed hyperlipidemia E78.2 and Type 2 diabetes mellitus without complication E11.9 [facility] [id number] [place] [address] 66134- 6047 May, Anemia D64.9 ; Type 2 diabetes mellitus without complication E11.9 ; Hypothyroid E03.9 ; Mixed hyperlipidemia E78.2 ; Essential hypertension I10 ; Depression F32.9 ; Other obesity due to excess calories E66.09 ; Body mass index (BMI) of 33.0-33.9 in adult Z68.33 ; Anxiety F41.9 and Herpes zoster without complication B02.9 [facility] [id number] [place] [address] 07150- 9242 30 Apr, 2017 Type 2 diabetes mellitus without complication E11.9 ; Anemia D64.9 ; Hypothyroid E03.9 ; Mixed hyperlipidemia E78.2 ; Essential hypertension I10 ; Depression F32.9 ; Other obesity due to excess calories E66.09 ; Body mass index (BMI) of 33.0-33.9 in adult Z68.33 ; Anxiety F41.9 and Herpes zoster without complication B02.9 [facility] [id number] [place] [address] 79350- 1016 Apr, [facility] [id number] [place] [address] 24221- 1186 Apr, [facility] [id number] [place] [address] 09278- 6966 Apr, [facility] [id number] [place] [address] 088556- 3303 Mar, [facility] [id number] [place] [address] 275316- 9389 Feb, [facility] [id number] [place] [address] 20879- 7650 Jan, [facility] [id number] [place] [address] 77363- 5462 Jan, [facility] [id number] [place] [address] 48249- 1080 Dec, Type 2 diabetes mellitus without complication E11.9 [facility] [id number] [place] [address] [id number]- 0716 Nov, [facility] [id number] [place] [address] 261513- 4548 Nov, Type 2 diabetes mellitus without complication E11.9 [facility] [id number] [place] [address] 40905- 7226 Nov, [facility] [id number] [place] [address] [id number]- 2682 Oct, Type 2 diabetes mellitus without complication E11.9 [facility] [address] [facility] [id number] [address]- 0499 [address], [address] [facility] [id number] [place] [address] 36600- 5803 Oct, [facility] [address] [address]- 4570 Sep, [facility] [id number] [place] [address] 43669- 2496 Sep, Type 2 diabetes mellitus without complication E11.9 [facility] [id number] [place] [address] 66008- 1635 Sep, Type 2 diabetes mellitus without complication E11.9 and Essential hypertension I10 [facility] [address] [address]- 5387 Sep, [facility] [id number] [place] [address] 41563- 8713 Sep, [facility] [id number] [place] [address] 66575- 6929 Sep, Type 2 diabetes mellitus without complication E11.9 [facility] [address] [address]- 2551 Aug, [facility] [address] [address]- 6492 Aug, Type 2 diabetes mellitus without complication E11.9 [facility] [id number] [address]- 4884 Aug, Type 2 diabetes mellitus without complication E11.9 [facility] [address] [address]- 0289 Aug, [facility] [address] [address]- 1077 Aug, Abnormal weight gain R63.5 [facility] [id number] [address]- 4048 Aug, [facility] [id number] [address]- 8772 Aug, Hypothyroid E03.9 [facility] [id number] [address]- 1731 Aug, Type 2 diabetes mellitus without complication E11.9 [facility] [id number] [place] [address] 20012- 4174 Jul, Abnormal weight gain R63.5 [facility] [id number] [place] [address] 17488- 0545 Jul, Abnormal weight gain R63.5 [place] [id number] [place] [address] 24642- 0705 Jul, Abnormal weight gain R63.5 [place] [id number] [place] [address] 67327- 8627 Jul, Abnormal weight gain R63.5 ; Pain in right knee M25.561 and Pain in right ankle and joints of right foot M25.571 [place] [id number] [place] [address] 47910- 6384 Jul, [place] [address] [address]- 2522 Jul, 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 [address] [address]- 7933 Jul, Type 2 diabetes mellitus without complication E11.9 [facility] [address] [address]- 9538 June, [place] [id number] [place] [address] 72536- 3523 June, Type 2 diabetes mellitus without complication E11.9 [facility] [address] [address]- 9486 June, [place] [address] [address]- 5878 June, [facility] [id number] [place] [address] 71655- 0629 June, Type 2 diabetes mellitus without complication E11.9 ; Hypothyroid E03.9 ; Essential hypertension I10 ; Depression F32.9 and Mixed hyperlipidemia E78.2 [facility] [id number] [place] [address] 14431- 6568 May, [facility] [id number] [place] [address] 82707- 6617 Feb, Type 2 diabetes mellitus without complication E11.9 ; Hypothyroid E03.9 ; Mixed hyperlipidemia E78.2 ; Essential hypertension I10 ; Depression F32.9 and Anemia D64.9 [place] [address] [address]- 5271 Jan, [facility] [id number] [place] [address] 41253- 9216 Sep, [facility] [id number] [place] [address] 51918- 7581 Sep, Type 2 diabetes mellitus without complication E11.9 ; Anemia D64.9 ; Hypothyroid E03.9 ; Hyperlipidemia, unspecified hyperlipidemia type E78.5 and Essential (primary) hypertension I10 [place] [address] [address]- 4634 Aug, [facility] [address] [address]- 6250 June, [facility] [address] [address]- 5900 June, Iron deficiency anemia, unspecified iron deficiency anemia type D50.9 [facility] [address] [address]- 4954 May, Abnormal finding of blood chemistry, unspecified R79.9 [facility] [id number] [place] [address] 93123- 1212 May, Type 2 diabetes mellitus without complication E11.9 ; Anemia D64.9 ; Hypothyroid E03.9 ; Anxiety F41.[address] [facility] [id number] [place] [address] 21989- 1747 Jan, Type 2 diabetes mellitus without complication E11.9 ; Depression F32.9 ; Essential hypertension I10 ; Hyperlipidemia E78.5 ; Anxiety F41[address] [facility] [id number] [place] [address] 84306- 3036 Jan, Type 2 diabetes mellitus with diabetic neuropathy E11.40 [facility] [id number] [place] [address] 29596- 2758 Jan, Type 2 diabetes mellitus with diabetic neuropathy E11.40 [facility] [id number] [place] [address] 06227- 6592 Jan, [facility] [id number] [place] [address] 00340- 69[address] Jan, [facility] [id number] [place] [address] 06844- 1912 Jan, [facility] [id number] [place] [address] 01792- [address]505 Jan, [facility] [id number] [place] [address] 18319- 4841 Dec, [facility] [id number] [place] [address] 61386- 8855 Dec, [facility] [id number] [place] [address] 449728- 9080 Nov, [facility] [id number] [place] [address] 30396- 2747 Nov, [facility] [id number] [place] [address] 833580- 6[address] Nov, [facility] [address] [address]- 1232 Nov, [facility] [address] [address]- 4534 Nov, [facility] [address] [address]- 4107 Nov, Pertussis exposure Z20.89 [facility] [id number] [address]- 8317 Nov, [facility] [address] [address]- 7548 Oct, [facility] [address]- 7228 Oct, [facility] [address]- 5571 Oct, [facility] [address] [address]- 4870 Sep, [facility] [id number] [address]- 9525 Sep, Diabetes mellitus without mention of complication, type II or unspecified type, uncontrolled 250.02 and Hyperlipidemia associated with type [address] [facility] [id number] [address]- [address] Sep, [facility] [address] [address]- 6237 Sep, [facility] [id number] 6112 Sep, Diabetes mellitus without mention of complication, type II or unspecified type, not stated as uncontrolled 250.00 ; Hypothyroid 244.9 ; Hyperlipidemia 272.[address] [facility] [id number] [address]- 1387 Aug, [facility] [address] [address]- 9886 June, Diabetes mellitus without mention of complication, type II or unspecified type, not stated as uncontrolled 250.00 ; Hyperlipidemia 272.4 ; Hypertension 401.9 ; Candidiasis of female genitalia 112.1 ; Hypothyroid 244.[address] [facility] [address] [address]- [address]956 June, [facility] [id number] [place] [address] 88573- [address] May, [facility] [id number] [place] [address] 72296- 8403 May, [facility] [id number] [place] [address] 67827- 6820 Mar, [facility] [address] [address]- 2141 Mar, [facility] [id number] [place] [address] 14215- 1105 Mar, [facility] [address] [address]- 6032 Mar, [facility] [address] [address]- [address] Jan, [facility] [address] [address]- 8503 Jan, [facility] [address] [address]- 3333 Nov, [facility] [address] [address]- 6379 Nov, [facility] [address] [address]- 1436 Nov, [facility] [address] [address]- 2435 Nov, [facility] [address] [place] [address]- 6537 06 Nov, 2013 [facility] [place] [facility] [address] [id number] [place] [address]- 8666 06 Nov, 2013 [facility] [place] [facility] [address] [id number] [place] [address]- 2546 29 Oct, 2013 [facility] [place] [facility] [address] [id number] [place] [address] 2546 29 Oct, 2013 [facility] [place] [facility] [address] [id number] [place] [address] 2541 29 Oct, 2013 [facility] [place] [facility] [address] [id number] [place] [address]- 5997 29 Oct, 2013 [facility] [place] [facility] [address] [id number] [place] [address]- 6241 23 Oct, 2013 [facility] [place] [facility] [address] [id number] [place] [address]- 254 23 Oct, 2013 [facility] [place] [facility] [address] [id number] [place] [address]- 2547 22 Oct, 2013 [facility] [place] [facility] [address] [id number] [place] [address]- 2545 22 Oct, 2013 [facility] [place] [facility] [address] [id number] [place] [address]- 2547 11 Oct, 2013 [facility] [place] [facility] [address] [id number] [place] [address] 2548 11 Oct, 2013 [facility] [place] [facility] [address] [id number] [place] [address]- 2548 08 Oct, 2013 [facility] [place] [facility] [address] [id number] [place] [address] 2544 08 Oct, 2013 [facility] [place] [facility] [address] [id number] [place] [address]- 2548 08 Oct, 2013 [facility] [place] [facility] [address] [id number] [place] [address]- 2548 Oct, [facility] [place] [facility] [address] [id number] [place] [address]- 8192 Sep, [facility] [place] [facility] [address] [id number] [place] [address]- 4189 Sep, [facility] [place] [facility] [address] [id number] [place] [address]- 8733 Sep, [facility] [place] [facility] [address] [id number] [place] [address]- 5639 Sep, [facility] [place] [facility] [address] [id number] [place] [address]- 2118 Sep, [facility] [place] [facility] [address] [id number] [place] [address]- 3760 Sep, [facility] [place] [facility] [address] [id number] [place] [address]- 7546 Aug, [facility] [place] [facility] [address] [id number] [place] [address]- 8225 Aug, [facility] [place] [facility] [address] [id number] [place] [address]- 9200 Aug, [facility] [place] [facility] [address] [id number] [place] [address]- 1528 Aug, [facility] [place] [facility] [address] [id number] [place] [address]- 1174 Aug, [facility] [place] [facility] [address] [id number] [place] [address]- 5155 Aug, [facility] [place] [facility] [address] [id number] [place] [address]- 6421 Aug, [facility] [place] [facility] [address] [id number] [place] [address]- 8713 Aug, [facility] [place] [facility] [address] [id number] [place] [address]- 8307 Aug, [facility] [place] [facility] [address] [id number] [place] [address]- 3572 Aug, 2013 [facility] [place] [facility] [address] [id number] [place] [address]- 9146 Aug, 2013 [facility] [place] [facility] [address] [id number] [place] [address]- 2467 Aug, 2013 [facility] [place] [facility] [address] [id number] [place] [address]- 3917 Aug, 2013 [facility] [place] [facility] [address] [id number] [place] [address]- 4625 Aug, 2013 [facility] [place] [facility] [address] [id number] [place] [address]- 1775 Aug, 2013 [facility] [place] [facility] [address] [id number] [place] [address]- 8406 Aug, 2013 [facility] [place] [facility] [address] [id number] [place] [address]- 3577 Aug, 2013 [facility] [place] [facility] [address] [id number] [place] [address]- 8468 Aug, 2013 [facility] [place] [facility] [address] [id number] [place] [address]- 0318 Aug, 2013 [facility] [place] [facility] [address] [id number] [place] [address]- 5630 Jul, [facility] [place] [facility] [address] [id number] [place] [address]- 3655 Jul, [facility] [place] [facility] [address] [id number] [place] [address]- 8427 Jul, [facility] [place] [facility] [address] [id number] [place] [address]- 4485 Jul, [facility] [place] [facility] [address] [id number] [place] [address]- 1956 05 Apr, 2012 [facility] [place] [facility] [address] [id number] [place] [address]- 8600 Apr, [facility] [place] [facility] [address] [id number] [place] [address]- 4675 15 Mar, 2012 [facility] [address] [id number] [place] [address]- 5936 11 Mar, 2012 [facility] [place] [facility] [address] [id number] [place] [address] 2546 30 Feb, 2012 [facility] [address] [id number] [place] [address]- 8586 Feb, [facility] [address] [id number] [place] [address] 2544 Feb, [facility] [address] [id number] [place] [address]- 0232 Feb, [facility] [address] [id number] [place] 9093 Jan, [facility] [address] [id number] [place] [address]- 9044 21 Jan, 2012 [facility] [address] [id number] [place] [address]- 9009 17 Jan, 2012 [facility] [address] [id number] [place] [address]- 2541 17 Jan, 2012 [facility] [address] [id number] [place] [address] 2545 14 Jan, 2012 [facility] [address] [id number] [place] [address]- 2546 13 Jan, 2012 [facility] [address] [id number] [place] [address] 2546 [address], [address] [facility] [place] [facility] [address] [id number] [place] [address] 2546 10 Jan, 2012 [facility] [place] [facility] [address] [id number] [place] [address] 2546 10 Jan, 2012 [facility] [place] [facility] [address] [id number] [place] [address]- 3659 Dec, [facility] [place] [facility] [address] [id number] [place] [address]- 5141 26 Dec, 2011 [facility] [place] [facility] [address] [id number] [address]- 9306 Dec, [facility] [place] [facility] [address] [facility] [id number] [place] [address]- 7006 Dec, [facility] [place] [facility] [address] [id number] [place] [address]- 8886 20 Dec, 2011 [facility] [place] [facility] [address] [id number] [place] [address]- 5768 19 Dec, 2011 [facility] [place] [facility] [address] [id number] [address]- 4453 19 Dec, 2011 [facility] [place] [facility] [address] [id number] [place] [address] Dec, [facility] [place] [facility] [address] [id number] [place] [address] 19 Dec, 2011 [facility] [place] [facility] [address] [id number] [place] [address] 16 Dec, 2011 [facility] [place] [facility] [address] [id number] [place] [address] 16 Dec, 2011 [facility] [place] [facility] [address] [id number] [place] [address] 16 Dec, 2011 [facility] [place] [facility] [address] [id number] [place] [address] 16 Dec, 2011 [facility] [place] [facility] [address] [id number] [place] [address] 14 Dec, 2011 [facility] [place] [facility] [address] [id number] [place] [address] 14 Dec, 2011 [facility] [place] [facility] [address] [id number] [place] [address] 31 Nov, 2011 [facility] [place] [facility] [address] [facility] [id number] [place] [address] Nov, [facility] [address] [facility] [id number] [place] [address] Nov, [facility] [address] [facility] [id number] [place] [address] Nov, IMMUNIZATIONS No Known Immunizations SOCIAL HISTORY Never Assessed REASON FOR VISIT BS f/u attempt PLAN OF CARE VITAL SIGNS MEDICATIONS Unknown [...]
--- OUTSIDE RECORDS SUMMARY | 2018-03-25 14:57 | XMS REPORT ---
Author Author RONAL STOLL Organization [facility] Address [address] [place] [address] Care Team Providers Care Heel Former Name Role Phone JERMAN RONAL Unavailable PROBLEMS Type Condition ICD9-CM Code [id number] Code Onset Dates Condition Status SNOMED Code Problem Anxiety F41.9 Active 94517263 Problem Mixed hyperlipidemia E78.2 Active 072213195 Problem Depression F32.9 Active 001776756 Problem Type 2 diabetes mellitus without complication E11.9 Active 896922740 Problem Hypothyroid E03.9 Active 20041696 Problem Essential hypertension I10 Active 54800983 Problem Anemia D64.9 Active 613144279 ALLERGIES Substance Reaction Event Type Date Status Victoza nausea Drug Allergy Feb, Active SOCIAL HISTORY No smoking Hx information available PLAN OF CARE Activity Details Follow Up 3 Months Reason:[facility] SIGNS Height 63 in 2016-03-07 Weight 178.2 lbs 2016-03-07 Temperature 98.3 degrees Fahrenheit 2016-03-07 Heart Rate 70 bpm 2016-03-07 Respiratory Rate 18 2016-03-07 BMI 31.56 kg/m2 2016-03-07 Blood pressure systolic 120 mmHg 2016-03-07 Blood pressure diastolic 76 mmHg 2016-03-07 MEDICATIONS Medication Instructions Dosage Frequency Start Date End Date Duration Status Invokana 100 MG Orally Once a day 1 tablet 24h Active MetFORMIN HCl ER 500 MG Orally twice a day 2 tablet twice daily with meals 12h 90 days Active Glimepiride 4 MG TAKE TWO TABLETS BY MOUTH ONCE DAILY (MUST HAVE APPOINTMENT FOR REFILL) Active Effexor XR 150 MG Orally Once a day 1 capsule with food 24h Active Levothyroxine Sodium 50 MCG TAKE ONE TABLET BY MOUTH ONCE DAILY Active Trilipix 135 MG Orally Once a day take 1 capsule (135 mg) by oral route once daily 24h Nov, Active Lisinopril-Hydrochlorothiazide 20-25 MG TAKE ONE TABLET BY MOUTH ONCE DAILY Active Levemir FlexTouch 100 UNIT/ML Subcutaneous Once a day 75 units 24h 16 Oct, 2014 Active Lipitor 40 mg Orally Once a day 1 tablet 24h June, Active RESULTS Name Result Date Reference Range MICROALBUMIN/CREATININE RATIO, URINE 2016-03-07 Creatinine, Urine 35.6 Not Estab. Microalbumin, Urine 5.4 Not Estab. Microalb/Creat Ratio 15.2 0.0-30.0 A1C (IN HOUSE) 2016-03-07 A1C IN HOUSE 10.7 4.3 - 5.6 % Previous A1c 7.9 Lot [id number] Exp date ?2017 MICROALBUMIN, URINE (IN HOUSE) 2016-03-07 MICROALBUMIN Abnormal Lot # [id number] Exp date 15/03/30 Clarity Clear Color Yellow ALB 10mg/L CRE 10mg/dL A:C (IN HOUSE) 30-300mg/g Control + Control Lot # Exp PROCEDURES Procedure Date Ordered Related Diagnosis Body Site GLYCATED HEMOGLOBIN TEST Mar 07, 2016 MICROALBUMIN, SEMIQUANT Mar 07, 2016 MICROALBUMIN, QUANTITATIVE Mar 07, 2016 ASSAY OF URINE CREATININE Mar 07, 2016 Office Visit, Est Pt., Level 4 Mar 07, 2016 IMMUNIZATIONS No Known Immunizations
--- OUTSIDE RECORDS SUMMARY | 2018-03-25 14:57 | XMS REPORT ---
Author Author RONAL STOLL Organization [employer] Address Unknown Phone Unavailable Care Team Providers Care Agricultural Equipment Sales Engineer Name Role Phone RONAL STOLL CP Unavailable Allergies, Adverse Reactions, Alerts Substance Reaction Event Type Victoza nausea Drug Allergy Problems Problem Type Condition Code Onset Dates Condition Status Assessment Hyperlipidemia, unspecified hyperlipidemia type E78.5 Active Assessment Essential (primary) hypertension I10 Active Problem Anemia D64.9 Active Problem Hypothyroid E03.9 Active Problem Type 2 diabetes mellitus without complication E11.9 Active Assessment Anemia D64.9 Active Assessment Hypothyroid E03.9 Active Problem Anxiety F41.9 Active Assessment Type 2 diabetes mellitus without complication E11.9 Active Medications Medication Code System Code Instructions Start Date End Date Status Dosage Effexor XR [facility] [address]-80 150 MG Orally Once a day 1 capsule with food Levemir FlexTouch [facility] [address]-89 100 UNIT/ML Subcutaneous Once a day Nov 11, 2014 75 units Levothyroxine Sodium [facility] 62390906883 50 MCG Orally Once a day TAKE ONE TABLET BY MOUTH DAILY Lipitor [facility] [address]-83 40 mg Orally Once a day July 08, 2014 1 tablet Lisinopril-Hydrochlorothiazide [facility] [address]-54 20-25 MG Orally Once a day 1 tablet Trilipix [facility] [address]-99 135 MG Orally Once a day Dec 23, 2013 take 1 capsule (135 mg) by oral route once daily Glimepiride [facility] [address]-84 4 MG Orally Once a day TAKE TWO TABLETS BY MOUTH ONCE DAILY (MUST HAVE APPOINTMENT FOR REFILL) Invokana [facility] 60927776577 100 MG Orally Once a day 1 tablet Procedures Procedure Coding System Code Date COMPLETE CBC W/AUTO DIFF WBC CPT-4 93579 Oct 15, 2015 COMPREHEN METABOLIC PANEL CPT-4 01829 Oct 15, 2015 GLYCATED HEMOGLOBIN TEST CPT-4 76474 Oct 15, 2015 LIPID PANEL CPT-4 16094 Oct 15, 2015 ASSAY THYROID STIM HORMONE CPT-4 22373 Oct 15, 2015 Office Visit, Est Pt., Level 3 CPT-4 04966 Oct 15, 2015 VENIPUNCT, ROUTINE* CPT-4 46725 Oct 15, 2015 Vital Signs Date/Time: Oct 15, 2015 Cardiac Monitoring Heart Rate 82 bpm Weight 179.2 lbs Height 63 in BMI 31.74 Index Blood Pressure Diastolic 70 mmHg Blood Pressure Systolic 112 mmHg Results No Known Results Summary Purpose [employer] Submission
--- OUTSIDE RECORDS SUMMARY | 2018-03-25 14:57 | XMS REPORT ---
Author Author MAJOR MCCARTNEY [facility] [employer] Address Unknown Phone Unavailable Care Team Providers Care Informatica Developer Name Role Phone MAJOR MCCARTNEY CP Unavailable Allergies No Known Allergies Problems Problem Type Condition Code Onset Dates Condition Status Problem Depressive disorder, not elsewhere classified 311 Active Problem Diabetes mellitus without mention of complication, type II or unspecified type, uncontrolled 250.02 Active Problem Anxiety state, unspecified 300.00 Active Problem Hypertension 401.9 Active Problem Pure hyperglyceridemia 272.1 Active Problem Hyperlipidemia associated with type 2 diabetes mellitus 250.80 Active Problem Unspecified hypothyroidism 244.9 Active Problem Unspecified anemia 285.9 Active Problem Proteinuria 791.0 Active Problem Unspecified episodic mood disorder 296.90 Active Medications No Known Medications Results No Known Results Summary Purpose [employer] Submission
--- OUTSIDE RECORDS SUMMARY | 2018-03-25 14:58 | XMS REPORT ---
Author Author STOLLRONAL Vargas [facility] Address [address] [place] [address] Care Team Providers Care Hop Sorter Name Role Phone RONAL STOLL Unavailable PROBLEMS Type Condition ICD9-CM Code XTY87-RI Code Onset Dates Condition Status SNOMED Code Problem Anxiety F41.9 Active 65490438 Problem Mixed hyperlipidemia E78.2 Active 654079858 Problem Depression F32.9 Active 324786009 Problem Type 2 diabetes mellitus without complication E11.9 Active 340931543 Problem Hypothyroid E03.9 Active 71099555 Problem Essential hypertension I10 Active 31914958 Problem Anemia D64.9 Active [id number] ALLERGIES No Information ENCOUNTERS Encounter Location Date Diagnosis [facility] [id number] [place] [address] 36623- 3214 May, [facility] [id number] [place] [address] 38871- 6176 Apr, [facility] [id number] [place] [address] 97205- 6389 Apr, [facility] [id number] [place] [address] 71099- 9755 Mar, [facility] [id number] [place] [address] 79345- 7819 Feb, [facility] [id number] [place] [address] 70744- 9250 Jan, [facility] [address] 22041- 2564 Jan, [facility] [id number] [place] [address] 43947- 1482 Dec, Type 2 diabetes mellitus without complication E11.9 [facility] [address] [facility] [id number] [place] [address]- 6964 Nov, [facility] [address] [facility] [id number] [place] [address], [place] [address]- 6666 Nov, Type 2 diabetes mellitus without complication E11.9 [facility] [address] [place] [address]- 1066 Nov, [facility] [address] [facility] [id number] [place] [address], [place] [address]- 1243 Oct, Type 2 diabetes mellitus without complication E11.9 [facility] [address] [facility] [id number] [place] [address]- 5166 Oct, [facility] [id number] [place] [address], [place] [address]- 6984 Oct, [facility] [id number] [place] [address], [place] [address]- 9374 Sep, [facility] [id number] [place] [address]- 1775 Sep, Type 2 diabetes mellitus without complication E11.9 [facility] [address] [place] [address]- 6391 Sep, Type 2 diabetes mellitus without complication E11.9 and Essential hypertension I10 [facility] [address] [place] [address]- 6609 Sep, [facility] [address], [place] [address]- 4770 Sep, [facility] [id number] [address]- 8768 Sep, Type 2 diabetes mellitus without complication E11.9 [facility] [address] [id number] 8054 Aug, [facility] [address] [place] [address]- 6312 Aug, Type 2 diabetes mellitus without complication E11.9 [facility] [address], [place] [address]- 4001 Aug, Type 2 diabetes mellitus without complication E11.9 [facility] [address], [place] [address] 2546 Aug, [facility] [address], [place] [address]- 2546 Aug, Abnormal weight gain R63.5 [facility] [address], [place] [address] 2546 Aug, [facility] [id number] [place] [address] 44152- 6002 Aug, Hypothyroid E03.9 [facility] [address], [place] [address]- 3674 Aug, Type 2 diabetes mellitus without complication E11.9 [facility] [address], [place] [address]- 0880 Jul, Abnormal weight gain R63.5 [facility] [address], [place] [address]- 9476 Jul, Abnormal weight gain R63.5 [facility] [address], [place] [address] 2546 Jul, Abnormal weight gain R63.5 [facility] [address], [place] [address] 2546 Jul, Abnormal weight gain R63.5 ; Pain in right knee M25.561 and Pain in right ankle and joints of right foot M25.571 [facility] [address], [place] [address]- 4066 Jul, [facility] [address], [place] [address]- 2546 Jul, 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 [facility] [id number] [place] [address] 43682- 2034 Jul, Type 2 diabetes mellitus without complication E11.9 [facility] [address], [place] [address]- 1117 June, [facility] [id number] [place] [address] 10056- 6886 June, Type 2 diabetes mellitus without complication E11.9 [facility] [id number] [place] [address] 36175- 7832 June, [facility] [id number] [place] [address] 13737- 4108 June, [facility] [id number] [place] [address] 32175- 5676 June, Type 2 diabetes mellitus without complication E11.9 ; Hypothyroid E03.9 ; Essential hypertension I10 ; Depression F32.9 and Mixed hyperlipidemia E78.2 [facility] [id number] [place] [address] 81893- 3517 May, [facility] [address], [place] [address]- 4176 Feb, Type 2 diabetes mellitus without complication E11.9 ; Hypothyroid E03.9 ; Mixed hyperlipidemia E78.2 ; Essential hypertension I10 ; Depression F32.9 and Anemia D64.9 [facility] [address], [place] [address]- 1176 Jan, [facility] [id number] [place] [address] 68175- 7229 Sep, [facility] [address], [place] [address]- 8602 Sep, Type 2 diabetes mellitus without complication E11.9 ; Anemia D64.9 ; Hypothyroid E03.9 ; Hyperlipidemia, unspecified hyperlipidemia type E78.5 and Essential (primary) hypertension I10 [facility] [address], [place] [address]- 3205 Aug, [place] [id number] [place] [address] 11102- 0860 June, [facility] [id number] [place] [address] 69185- 9386 June, Iron deficiency anemia, unspecified iron deficiency anemia type D50.9 [facility] [id number] [place] [address] 17144- 0194 May, Abnormal finding of blood chemistry, unspecified R79.9 [facility] [id number] [place] [address] 02459- 9311 May, Type 2 diabetes mellitus without complication E11.9 ; Anemia D64.9 ; Hypothyroid E03.9 ; Anxiety F41.9 and Dyslipidemia E78.5 [facility] [id number] [place] [address] 00127- 1598 Jan, Type 2 diabetes mellitus without complication E11.9 ; Depression F32.9 ; Essential hypertension I10 ; Hyperlipidemia E78.5 ; Anxiety F41.9 and Hypothyroidism E03.9 [facility] [id number] [place] [address] 68078- 8324 Jan, Type 2 diabetes mellitus with diabetic neuropathy E11.40 [facility] [id number] [place] [address] 27590- 5722 Jan, Type 2 diabetes mellitus with diabetic neuropathy E11.40 [facility] [id number] [place] [address] 12791- 5392 30 Jan, 2015 [facility] [id number] [place] [address] 25611- 2729 Jan, [facility] [id number] [place] [address] 76616- 6043 Jan, [facility] [id number] [place] [address] 17104- 4959 Jan, [facility] [id number] [place] [address] 49301- 6397 Dec, [place] [address], [place] [address]- 0936 Dec, [facility] [address] 7021 Nov, [facility] [address], [place] [address]- 2835 Nov, [facility] [id number] [place] [address] 38656- 0860 Nov, [facility] [address], [place] [address]- 5172 Nov, [facility] [id number] [place] [address] 03255- 7386 Nov, [facility] [id number] [address]- 3498 Nov, Pertussis exposure Z20.89 [facility] [address], [place] [address]- 4790 Nov, [facility] [address], [place] [address]- 2003 Oct, [facility] [address], [place] [address]- 5996 Oct, [facility] [address], [place] [address]- 0601 Oct, [facility] [address], [place] [address]- 0820 Sep, [facility] [id number], [place] [address]- 3084 Sep, Diabetes mellitus without mention of complication, type II or unspecified type, uncontrolled 250.02 and Hyperlipidemia associated with type 2 diabetes mellitus 250.80 [facility] [address], [place] [address]- 3210 Sep, [facility] [address], [place] [address]- 6316 Sep, [facility] [id number], [place] [address]- 5259 Sep, Diabetes mellitus without mention of complication, type II or unspecified type, not stated as uncontrolled 250.00 ; Hypothyroid 244.9 ; Hyperlipidemia 272.4 and Hypertension 401.9 [facility] [address], [place] [address]- 8443 Aug, [facility] [address], [place] [address]- 0672 June, Diabetes mellitus without mention of complication, type II or unspecified type, not stated as uncontrolled 250.00 ; Hyperlipidemia 272.4 ; Hypertension 401.9 ; Candidiasis of female genitalia 112.1 ; Hypothyroid 244.9 and Liver lesion 573.8 [facility] [address], [place] [address]- 3636 June, [facility] [address], [place] [address]- 9212 May, [facility] [address] 1031 May, [facility] [address], [place] [address]- 9025 Mar, [facility] [id number], [place] [address]- 6796 Mar, [facility] [address], [place] [address]- 6926 Mar, [facility] [id number], [place] [address]- 3866 Mar, [facility] [address], [place] [address]- 3796 Jan, [facility] [id number], [place] [address]- 5796 Jan, [facility] [address] [place] [address]- 6375 Nov, [facility] [place] [facility] [address] [id number] [place] [address]- 4191 Nov, [facility] [place] [facility] [address] [id number] [place] [address]- 1829 Nov, [facility] [place] [facility] [address] [id number] [place] [address]- 2948 Nov, [facility] [place] [facility] [address] [id number] [place] [address]- 6123 Nov, [facility] [place] [facility] [address] [id number] [place] [address]- 7888 Nov, [facility] [place] [facility] [address] [id number] [place] [address]- 4810 29 Oct, 2013 [facility] [place] [facility] [address] [id number] [place] [address]- 1225 29 Oct, 2013 [facility] [place] [facility] [address] [id number] [place] [address]- 2541 29 Oct, 2013 [facility] [place] [facility] [address] [id number] [place] [address]- 2548 29 Oct, 2013 [facility] [place] [facility] [address] [id number] [place] [address]- 2542 23 Oct, 2013 [facility] [place] [facility] [address] [id number] [place] [address] 2546 23 Oct, 2013 [facility] [place] [facility] [address] [id number] [place] [address]- 254 22 Oct, 2013 [facility] [place] [facility] [address] [id number] [place] [address] 2546 22 Oct, 2013 [facility] [place] [facility] [address] [id number] [place] [address]- 2546 11 Oct, 2013 [facility] [place] [facility] [address] [id number] [place] [address]- 2542 Oct, [facility] [place] [facility] [address] [id number] [place] [address]- 0644 Oct, [facility] [place] [facility] [address] [id number] [place] [address]- 4885 Oct, [facility] [place] [facility] [address] [id number] [place] [address]- 4983 Oct, [facility] [place] [facility] [address] [id number] [place] [address]- 9429 Oct, [facility] [place] [facility] [address] [id number] [place] [address]- 3726 Sep, [facility] [place] [facility] [address] [id number] [place] [address]- 0354 Sep, [facility] [place] [facility] [address] [id number] [place] [address]- 3559 Sep, [facility] [place] [facility] [address] [id number] [place] [address]- 9375 Sep, [facility] [place] [facility] [address] [id number] [place] [address]- 1820 Sep, [facility] [place] [facility] [address] [id number] [place] [address]- 2513 Sep, [facility] [place] [facility] [address] [id number] [place] [address]- 2433 Aug, [facility] [place] [facility] [address] [id number] [place] [address]- 2144 Aug, [facility] [place] [facility] [address] [id number] [place] [address]- 9246 Aug, [facility] [place] [facility] [address] [id number] [place] [address]- 1506 Aug, [facility] [place] [facility] [address] [id number] [place] [address]- 2137 Aug, [facility] [place] [facility] [address] [id number] [place] [address]- 3997 Aug, 2013 [facility] [place] [facility] [address] [id number] [place] [address]- 5549 Aug, 2013 [facility] [place] [facility] [address] [id number] [place] [address]- 6921 Aug, 2013 [facility] [place] [facility] [address] [id number] [place] [address]- 9215 Aug, 2013 [facility] [place] [facility] [address] [id number] [place] [address]- 1184 Aug, 2013 [facility] [place] [facility] [address] [id number] [place] [address]- 8511 Aug, 2013 [facility] [place] [facility] [address] [id number] [place] [address]- 9580 Aug, 2013 [facility] [place] [facility] [address] [id number] [place] [address]- 9317 Aug, 2013 [facility] [place] [facility] [address] [id number] [place] [address]- 5388 Aug, 2013 [facility] [place] [facility] [address] [id number] [place] [address]- 1534 Aug, 2013 [facility] [place] [facility] [address] [id number] [place] [address]- 3114 Aug, 2013 [facility] [place] [facility] [address] [id number] [place] [address]- 0184 Aug, 2013 [facility] [place] [facility] [address] [id number] [place] [address]- 2778 Aug, 2013 [facility] [place] [facility] [address] [id number] [place] [address]- 4133 Aug, [facility] [place] [facility] [address] [id number] [place] [address]- 1964 Jul, [facility] [place] [facility] [address] [id number] [place] [address]- 0767 Jul, [facility] [place] [facility] [address] [id number] [place] [address] 2546 18 Jul, 2012 [facility] [address] [id number] [place] [address]- 3910 Jul, [facility] [place] [facility] [address] [id number] [place] [address]- 2546 Apr, [facility] [place] [facility] [address] [id number] [place] [address]- 2546 Apr, [facility] [place] [facility] [address] [id number] [place] [address]- 0656 15 Mar, 2012 [facility] [place] [facility] [address] [id number] [place] [address]- 2546 Mar, [facility] [place] [facility] [address] [id number] [place] [address]- 5626 Feb, [facility] [address] [id number] [place] [address]- 7687 Feb, [facility] [address] [id number] [place] [address]- 9496 Feb, [facility] [place] [facility] [address] [id number] [place] [address]- 1916 Feb, [facility] [address] [id number] [place] [address]- 4734 Jan, [facility] [place] [facility] [address] [id number] [place] [address]- 5531 Jan, [facility] [place] [facility] [address] [id number] [place] [address]- 4797 Jan, [facility] [place] [facility] [address] [id number] [place] [address]- 8856 17 Jan, 2012 [facility] [place] [facility] [address] [id number] [place] [address]- 2546 14 Jan, 2012 [facility] [place] [facility] [address] [id number] [place] [address]- 3082 13 Jan, 2012 [facility] [place] [facility] [address] [id number] [place] [address]- 0088 13 Jan, 2012 [facility] [place] [facility] [address] [id number] [place] [address]- 3248 10 Jan, 2012 [facility] [place] [facility] [address] [facility] [id number] [place] [address]- 7936 Jan, [facility] [place] [facility] [address] [id number] [place] [address]- 3987 Dec, [facility] [place] [facility] [address] [id number] [place] [address]- 8342 Dec, [facility] [place] [facility] [address] [id number] [place] [address]- 8724 Dec, [facility] [place] [facility] [address] [id number] [place] [address]- 7868 Dec, [facility] [place] [facility] [address] [id number], [place] [address]- 3674 Dec, [facility] [place] [facility] [address] [id number], [place] [address]- 4146 Dec, [facility] [place] [facility] [address] [id number], [place] [address]- 7809 Dec, [facility] [place] [facility] [address] [id number], [place] [address]- 2539 Dec, [facility] [place] [facility] [address] [id number], [place] [address]- 8021 19 Dec, 2011 [facility] [place] [facility] [address] [id number], [place] [address]- 2949 16 Dec, 2011 [facility] [place] [facility] [address] [id number], [place] [address]- 7118 16 Dec, 2011 [facility] [place] [facility] [address] [facility] [id number], [place] [address]- 2491 16 Dec, 2011 [facility] [place] [facility] [address] [facility] [id number], [place] [address]- 3419 Dec, [facility] [id number], [place] [address]- 1842 Dec, [facility] [id number] 8887 Dec, [facility] [id number], [place] [address]- 7223 Nov, [facility] [id number] 8718 Nov, [facility] [id number] [address] Nov, [facility] [address] [id number], [place] [address] Nov, IMMUNIZATIONS No Known Immunizations SOCIAL HISTORY Never Assessed REASON FOR VISIT Lab (add-on) PLAN OF CARE VITAL SIGNS MEDICATIONS Unknown Medications RESULTS No Results PROCEDURES Procedure Date Ordered Result Body Site CCP ANTIBODY August 22, 2016 INSTRUCTIONS MEDICATIONS ADMINISTERED No Known [...]
--- OUTSIDE RECORDS SUMMARY | 2018-03-25 14:58 | XMS REPORT ---
Author Author MAJOR MCCARTNEY [facility] eClinicalWorks Address Unknown Phone Unavailable Care Team Providers Care Aluminum Siding Mechanic Name Role Phone MAJOR MCCARTNEY CP Unavailable [...] Unspecified episodic mood disorder 296.90 Active Medications Medication Code System Code Instructions Start Date End Date Status Dosage NovoLog Flexpen [facility] [id number] 100 UNIT/ML Subcutaneous before each meal Oct 26, 2014 35 units Results No Known Results Summary Purpose eClinicalWorks Submission
--- OUTSIDE RECORDS SUMMARY | 2018-03-25 14:58 | XMS REPORT ---
Author Author STOLLRONAL Vargas Organization [facility] Address [address] [place] [address] Care Team Providers Care Global Logistics Analyst Name Role Phone RONAL STOLL Unavailable PROBLEMS Type Condition ICD9-CM Code MET23-II Code Onset Dates Condition Status SNOMED Code Problem Anxiety F41.9 Active 39147938 Problem Type 2 diabetes mellitus without complication E11.9 Active 556148483 Problem Hypothyroid E03.9 Active 76653745 Problem Microalbuminuria R80.9 Active 767118417 Problem Other obesity due to excess calories E66.09 Active 166824957 Problem Body mass index (BMI) of 33.0-33.9 in adult Z68.33 Active 896513077 Problem Essential hypertension I10 Active 60826928 Problem Anemia D64.9 Active 988783449 Problem Mixed hyperlipidemia E78.2 Active 724074103 Problem Depression F32.9 Active 753681932 ALLERGIES No Information ENCOUNTERS Encounter Location Date Diagnosis [facility] [id number] [place] [address] 43141- 8332 Aug, [place] [id number] [place] [address] 66457- 4060 June, Mixed hyperlipidemia E78.2 and Type 2 diabetes mellitus without complication E11.9 [facility] [id number] [place] [address] 35647- 5026 May, Anemia D64.9 ; Type 2 diabetes mellitus without complication E11.9 ; Hypothyroid E03.9 ; Mixed hyperlipidemia E78.2 ; Essential hypertension I10 ; Depression F32.9 ; Other obesity due to excess calories E66.09 ; Body mass index (BMI) of 33.0-33.9 in adult Z68.33 ; Anxiety F41.9 and Herpes zoster without complication B02.9 [facility] [id number] [place] [address] 27274- 7389 30 Apr, 2017 Type 2 diabetes mellitus without complication E11.9 ; Anemia D64.9 ; Hypothyroid E03.9 ; Mixed hyperlipidemia E78.2 ; Essential hypertension I10 ; Depression F32.9 ; Other obesity due to excess calories E66.09 ; Body mass index (BMI) of 33.0-33.9 in adult Z68.33 ; Anxiety F41.9 and Herpes zoster without complication B02.9 [facility] [id number] [place] [address] 02977- 1406 Apr, [facility] [id number] [place] [address] 78465- 3889 Apr, [facility] [id number] [place] [address] 81131- 9786 Apr, [facility] [id number] [place] [address] 444758- 2800 Mar, [facility] [id number] [place] [address] 167492- 4414 Feb, [facility] [id number] [place] [address] 10762- 0628 Jan, [facility] [id number] [place] [address] 19696- 1575 Jan, [facility] [id number] [place] [address] 32621- 2020 Dec, Type 2 diabetes mellitus without complication E11.9 [facility] [id number] [place] [address] [phone]- 7276 Nov, [facility] [id number] [place] [address] 646223- 7358 Nov, Type 2 diabetes mellitus without complication E11.9 [facility] [id number] [place] [address] 72018- 9456 Nov, [facility] [id number] [place] [address] [id number]- 8859 Oct, Type 2 diabetes mellitus without complication E11.9 [facility] [address] [facility] [id number] [address] 14 Oct, 2016 [facility] [id number] [place] [address] 51781- 0064 Oct, [facility] [address] [address]- 0638 Sep, [facility] [id number] [place] [address] 11708- 5011 Sep, Type 2 diabetes mellitus without complication E11.9 [facility] [id number] [place] [address] 30293- 5086 Sep, Type 2 diabetes mellitus without complication E11.9 and Essential hypertension I10 [facility] [address] [address]- 4938 Sep, [facility] [id number] [place] [address] 63557- 7332 Sep, [facility] [id number] [place] [address] 99449- 9667 Sep, Type 2 diabetes mellitus without complication E11.9 [facility] [address] [address]- 5738 Aug, [facility] [address] [address]- 8046 Aug, Type 2 diabetes mellitus without complication E11.9 [facility] [id number] [address]- 6988 Aug, Type 2 diabetes mellitus without complication E11.9 [facility] [address] [address]- 7802 Aug, [facility] [address] [address]- 3192 Aug, Abnormal weight gain R63.5 [facility] [id number] [address]- 6287 Aug, [facility] [id number] [address]- 7400 Aug, Hypothyroid E03.9 [facility] [id number] [address]- 3337 Aug, Type 2 diabetes mellitus without complication E11.9 [facility] [id number] [place] [address] 16269- 1343 Jul, Abnormal weight gain R63.5 [facility] [id number] [place] [address] 95409- 0508 Jul, Abnormal weight gain R63.5 [place] [id number] [place] [address] 58928- 1734 Jul, Abnormal weight gain R63.5 [place] [id number] [place] [address] 49948- 5579 Jul, Abnormal weight gain R63.5 ; Pain in right knee M25.561 and Pain in right ankle and joints of right foot M25.571 [place] [address] [place] [address] 63383- 4653 Jul, [place] [address] [address]- 9198 Jul, 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 [facility] [address] [address]- 8463 Jul, Type 2 diabetes mellitus without complication E11.9 [facility] [address] [address]- 7423 June, [place] [id number] [place] [address] 90365- 6746 June, Type 2 diabetes mellitus without complication E11.9 [facility] [address] [address]- 7872 June, [place] [address] [address]- 2914 June, [facility] [id number] [place] [address] 28990- 3337 June, Type 2 diabetes mellitus without complication E11.9 ; Hypothyroid E03.9 ; Essential hypertension I10 ; Depression F32.9 and Mixed hyperlipidemia E78.2 [facility] [id number] [place] [address] 80299- 8189 May, [facility] [id number] [place] [address] 90233- 4905 Feb, Type 2 diabetes mellitus without complication E11.9 ; Hypothyroid E03.9 ; Mixed hyperlipidemia E78.2 ; Essential hypertension I10 ; Depression F32.9 and Anemia D64.9 [place] [address] [address]- 7781 Jan, [facility] [id number] [place] [address] 63856- 1565 Sep, [facility] [id number] [place] [address] 47139- 8761 Sep, Type 2 diabetes mellitus without complication E11.9 ; Anemia D64.9 ; Hypothyroid E03.9 ; Hyperlipidemia, unspecified hyperlipidemia type E78.5 and Essential (primary) hypertension I10 [place] [address] [address]- 4023 Aug, [facility] [address] [address]- 0816 June, [facility] [id number] [address]- 0935 June, Iron deficiency anemia, unspecified iron deficiency anemia type D50.9 [facility] [address] [address]- 8317 May, Abnormal finding of blood chemistry, unspecified R79.9 [facility] [id number] [place] [address] 92362- 3545 May, Type 2 diabetes mellitus without complication E11.9 ; Anemia D64.9 ; Hypothyroid E03.9 ; Anxiety F41.9 and Dyslipidemia E78.5 [facility] [id number] [place] [address] 07729- 3633 Jan, Type 2 diabetes mellitus without complication E11.9 ; Depression F32.9 ; Essential hypertension I10 ; Hyperlipidemia E78.5 ; Anxiety F41.9 and Hypothyroidism E03.9 [facility] [id number] [place] [address] 83063- 7746 Jan, Type 2 diabetes mellitus with diabetic neuropathy E11.40 [facility] [id number] [place] [address] 36997- 9707 Jan, Type 2 diabetes mellitus with diabetic neuropathy E11.40 [facility] [id number] [place] [address] 38724- 9516 Jan, [facility] [id number] [place] [address] 28558- 4348 Jan, [facility] [id number] [place] [address] 47042- 3302 Jan, [facility] [id number] [place] [address] 23144- 3617 Jan, [facility] [id number] [place] [address] 88786- 4804 Dec, [facility] [id number] [place] [address] 45983- 8960 Dec, [facility] [id number] [place] [address] 418801- 0967 Nov, [facility] [id number] [place] [address] 51809- 2183 Nov, [facility] [id number] [place] [address] 621626- 5564 Nov, [facility] [address] [address]- 4927 Nov, [facility] [address] [address]- 1561 Nov, [facility] [address] [address]- 7305 Nov, Pertussis exposure Z20.89 [facility] [id number] [address]- 6865 Nov, [facility] [address] [address]- 0295 Oct, [facility] [address] 0266 Oct, [facility] [address] 9891 Oct, [facility] [address] [address]- 8191 Sep, [facility] [id number] [address]- 1914 Sep, Diabetes mellitus without mention of complication, type II or unspecified type, uncontrolled 250.02 and Hyperlipidemia associated with type 2 diabetes mellitus 250.80 [facility] [id number] [address]- 1444 Sep, [facility] [address] [address]- 8756 Sep, [facility] [id number] 9440 Sep, Diabetes mellitus without mention of complication, type II or unspecified type, not stated as uncontrolled 250.00 ; Hypothyroid 244.9 ; Hyperlipidemia 272.4 and Hypertension 401.9 [facility] [id number] [address]- 2888 Aug, [facility] [address] [address]- 1589 June, Diabetes mellitus without mention of complication, type II or unspecified type, not stated as uncontrolled 250.00 ; Hyperlipidemia 272.4 ; Hypertension 401.9 ; Candidiasis of female genitalia 112.1 ; Hypothyroid 244.9 and Liver lesion 573.8 [facility] [address] [address]- 9905 June, [facility] [id number] [place] [address] 28901- 6924 May, [facility] [id number] [place] [address] 57278- 2921 May, [facility] [id number] [place] [address] 62938- 6920 Mar, [facility] [address] [address]- 5845 Mar, [facility] [id number] [place] [address] 93068- 3760 Mar, [facility] [address] [address]- 4397 Mar, [facility] [address] [address]- 8255 Jan, [facility] [address] [address]- 5111 Jan, [facility] [address] [address]- 9589 Nov, [facility] [address] [address]- 8608 Nov, [facility] [address] [address]- 0982 Nov, [facility] [address] [address]- 0927 Nov, [facility] [address] [place] [address]- 1053 06 Nov, 2013 [facility] [place] [facility] [address] [id number] [place] [address]- 8926 06 Nov, 2013 [facility] [place] [facility] [address] [id number] [place] [address]- 2546 29 Oct, 2013 [facility] [place] [facility] [address] [id number] [place] [address] 2546 29 Oct, 2013 [facility] [place] [facility] [address] [id number] [place] [address] 2541 29 Oct, 2013 [facility] [place] [facility] [address] [id number] [place] [address]- 3929 29 Oct, 2013 [facility] [place] [facility] [address] [id number] [place] [address]- 8003 23 Oct, 2013 [facility] [place] [facility] [address] [id number] [place] [address]- 2543 23 Oct, 2013 [facility] [place] [facility] [address] [id number] [place] [address]- 2549 22 Oct, 2013 [facility] [place] [facility] [address] [id number] [place] [address]- 2540 22 Oct, 2013 [facility] [place] [facility] [address] [id number] [place] [address]- 254 11 Oct, 2013 [facility] [place] [facility] [address] [id number] [place] [address] 2544 11 Oct, 2013 [facility] [place] [facility] [address] [id number] [place] [address]- 2543 08 Oct, 2013 [facility] [place] [facility] [address] [id number] [place] [address] 2545 08 Oct, 2013 [facility] [place] [facility] [address] [id number] [place] [address]- 2542 08 Oct, 2013 [facility] [place] [facility] [address] [id number] [place] [address]- 2547 Oct, [facility] [place] [facility] [address] [id number] [place] [address]- 3325 Sep, [facility] [place] [facility] [address] [id number] [place] [address]- 9277 Sep, [facility] [place] [facility] [address] [id number] [place] [address]- 9781 Sep, [facility] [place] [facility] [address] [id number] [place] [address]- 9269 Sep, [facility] [place] [facility] [address] [id number] [place] [address]- 8949 Sep, [facility] [place] [facility] [address] [id number] [place] [address]- 2140 Sep, [facility] [place] [facility] [address] [id number] [place] [address]- 8437 Aug, [facility] [place] [facility] [address] [id number] [place] [address]- 8241 Aug, [facility] [place] [facility] [address] [id number] [place] [address]- 2957 Aug, [facility] [place] [facility] [address] [id number] [place] [address]- 3861 Aug, [facility] [place] [facility] [address] [id number] [place] [address]- 2547 Aug, [facility] [place] [facility] [address] [id number] [place] [address]- 7259 Aug, [facility] [place] [facility] [address] [id number] [place] [address]- 5215 Aug, [facility] [place] [facility] [address] [id number] [place] [address]- 6851 Aug, [facility] [place] [facility] [address] [id number] [place] [address]- 0877 Aug, [facility] [place] [facility] [address] [id number] [place] [address]- 5521 Aug, 2013 [facility] [place] [facility] [address] [id number] [place] [address]- 4053 Aug, 2013 [facility] [place] [facility] [address] [id number] [place] [address]- 6795 Aug, 2013 [facility] [place] [facility] [address] [id number] [place] [address]- 4021 Aug, 2013 [facility] [place] [facility] [address] [id number] [place] [address]- 5200 Aug, 2013 [facility] [place] [facility] [address] [id number] [place] [address]- 7394 Aug, 2013 [facility] [place] [facility] [address] [id number] [place] [address]- 5635 Aug, 2013 [facility] [place] [facility] [address] [id number] [place] [address]- 2178 Aug, 2013 [facility] [place] [facility] [address] [id number] [place] [address]- 3157 Aug, 2013 [facility] [place] [facility] [address] [id number] [place] [address]- 0413 Aug, 2013 [facility] [place] [facility] [address] [id number] [place] [address]- 9255 Jul, [facility] [place] [facility] [address] [id number] [place] [address]- 6889 Jul, [facility] [place] [facility] [address] [id number] [place] [address]- 6596 Jul, [facility] [place] [facility] [address] [id number] [place] [address]- 1233 Jul, [facility] [place] [facility] [address] [id number] [place] [address]- 5883 05 Apr, 2012 [facility] [place] [facility] [address] [id number] [place] [address]- 6300 Apr, [facility] [place] [facility] [address] [id number] [place] [address]- 5296 15 Mar, 2012 [facility] [address] [id number] [place] [address]- 9116 11 Mar, 2012 [facility] [place] [facility] [address] [id number] [place] [address] 2546 30 Feb, 2012 [facility] [address] [id number] [place] [address]- 4216 Feb, [facility] [address] [id number] [place] [address] 2548 Feb, [facility] [address] [id number] [place] [address]- 9592 Feb, [facility] [address] [id number] [place] 0993 Jan, [facility] [address] [id number] [place] [address]- 5600 21 Jan, 2012 [facility] [address] [id number] [place] [address]- 1402 17 Jan, 2012 [facility] [address] [id number] [place] [address]- 2548 17 Jan, 2012 [facility] [address] [id number] [place] [address] 2541 14 Jan, 2012 [facility] [address] [id number] [place] [address]- 2546 13 Jan, 2012 [facility] [address] [id number] [place] [address] 2546 13 Jan, 2012 [facility] [place] [facility] [address] [id number] [place] [address] 2546 10 Jan, [address] [facility] [place] [facility] [address] [id number] [place] [address] 2546 10 Jan, 2012 [facility] [place] [facility] [address] [id number] [place] [address]- 0115 Dec, [facility] [place] [facility] [address] [id number] [place] [address] 26 Dec, 2011 [facility] [place] [facility] [address] [id number] [place] [address] Dec, [facility] [place] [facility] [address] [facility] [id number] [place] [address] Dec, [facility] [place] [facility] [address] [id number] [place] [address] 20 Dec, 2011 [facility] [place] [facility] [address] [id number] [place] [address] 19 Dec, 2011 [facility] [place] [facility] [address] [id number] [place] [address] 19 Dec, 2011 [facility] [place] [facility] [address] [id number] [place] [address] Dec, [facility] [place] [facility] [address] [id number] [place] [address] 19 Dec, 2011 [facility] [place] [facility] [address] [id number] [place] [address] 16 Dec, 2011 [facility] [place] [facility] [address] [id number] [place] [address] 16 Dec, 2011 [facility] [place] [facility] [address] [id number] [place] [address] 16 Dec, 2011 [facility] [place] [facility] [address] [id number] [place] [address] 16 Dec, 2011 [facility] [place] [facility] [address] [id number] [place] [address] 14 Dec, 2011 [facility] [place] [facility] [address] [id number] [place] [address] 14 Dec, 2011 [facility] [place] [facility] [address] [id number] [place] [address] 31 Nov, 2011 [facility] [place] [facility] [address] [facility] [id number] [place] [address] Nov, [facility] [address] [facility] [id number] [place] [address] Nov, [facility] [address] [facility] [id number] [place] [address] Nov, IMMUNIZATIONS No Known Immunizations SOCIAL HISTORY Never Assessed REASON FOR VISIT BS inquiry to pt PLAN OF CARE VITAL SIGNS MEDICATIONS Unknown [...]
--- OUTSIDE RECORDS SUMMARY | 2018-03-25 14:58 | XMS REPORT ---
Author Author STOLLRONAL Vargas Organization [facility] Address [address] [place] [address] Care Team Providers Care Overhead Garage Door Hanger Name Role Phone RONAL STOLL Unavailable PROBLEMS Type Condition ICD9-CM Code [id number]-AJ Code Onset Dates Condition Status SNOMED Code Problem Anxiety F41.9 Active 63894932 Problem Type 2 diabetes mellitus without complication E11.9 Active 553198829 Problem Hypothyroid E03.9 Active 74291376 Problem Microalbuminuria R80.9 Active 441088834 Problem Other obesity due to excess calories E66.09 Active 590475525 Problem Body mass index (BMI) of 33.0-33.9 in adult Z68.33 Active 088580274 Problem Essential hypertension I10 Active 98929395 Problem Anemia D64.9 Active 316971742 Problem Mixed hyperlipidemia E78.2 Active 867048397 Problem Depression F32.9 Active [id number] ALLERGIES No Information ENCOUNTERS Encounter Location Date Diagnosis [facility] [id number] [place] [address] 87607- 1827 May, [facility] [id number] [place] [address] 48287- 5973 30 Apr, 2017 Type 2 diabetes mellitus without complication E11.9 ; Anemia D64.9 ; Hypothyroid E03.9 ; Mixed hyperlipidemia E78.2 ; Essential hypertension I10 ; Depression F32.9 ; Other obesity due to excess calories E66.09 ; Body mass index (BMI) of 33.0-33.9 in adult Z68.33 ; Anxiety F41.9 and Herpes zoster without complication B02.9 [facility] [id number] [place] [address] 49976- 8396 Apr, [facility] [id number] [place] [address]5629- 6934 Apr, [facility] [address] [facility] [id number] [place] [address] 17[address] Apr, [facility] [address] [facility] [id number] [place] [address] 0766 Mar, [facility] [address] [facility] [id number] [place] [address] 8286 Feb, [facility] [id number] [place] [place] [address] Jan, [facility] [address] [facility] [id number] [place] [address] Jan, [facility] [id number] 3504 Dec, Type 2 diabetes mellitus without complication E11.9 [facility] [id number] [place] [address] 7[address] Nov, [facility] [id number] [place] [address] 6282 Nov, Type 2 diabetes mellitus without complication E11.9 [facility] [id number] [place] [address] 6175 Nov, [facility] [id number] [address] Oct, Type 2 diabetes mellitus without complication E11.9 [facility] [id number] [place] [address]- 9964 14 Oct, [address] [facility] [address] [facility] [id number] [address] 74[address] Oct, [facility] [id number] [place] [address] Sep, [facility] [id number] [place] [address]- 7586 Sep, Type 2 diabetes mellitus without complication E11.9 [facility] [id number] [address]- 3691 Sep, Type 2 diabetes mellitus without complication E11.9 and Essential hypertension I10 [facility] [id number] [place] [address] 20[address] Sep, [facility] [id number] [address] 4096 Sep, [facility] [id number] [place] [address] 58020- 7098 Sep, Type 2 diabetes mellitus without complication E11.9 [facility] [id number] [place] [address] 7039 Aug, [facility] [id number] [place] [address] 12228- 3751 Aug, Type 2 diabetes mellitus without complication E11.9 [facility] [address] [address]- 2234 Aug, Type 2 diabetes mellitus without complication E11.9 [facility] [id number] [address] 4[address] Aug, [facility] [address] [address]- 0997 Aug, Abnormal weight gain R63.5 [facility] [id number] [address] 34[address] Aug, [facility] [id number] [address]- 4802 Aug, Hypothyroid E03.9 [facility] [id number] [place] [address]- 4346 Aug, Type 2 diabetes mellitus without complication E11.9 [facility] [id number] [place] [address]- 9113 Jul, Abnormal weight gain R63.5 [facility] [address] [address]- 1865 Jul, Abnormal weight gain R63.5 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 [place] [id number] [place] [address] 67772- 4598 Jul, Type 2 diabetes mellitus without complication E11.9 [place] [id number] [place] [address] 34296- 2789 June, [place] [id number] [address]- 8007 June, Type 2 diabetes mellitus without complication E11.9 [place] [address] [address]- 7519 June, [place] [address] [address]- 6079 June, [place] [id number] [place] [address] 35226- 7383 June, Type 2 diabetes mellitus without complication E11.9 ; Hypothyroid E03.9 ; Essential hypertension I10 ; Depression F32.9 and Mixed hyperlipidemia E78.2 [place] [address] [address]- 63[address] May, [facility] [address] [address]- 8514 Feb, Type 2 diabetes mellitus without complication E11.9 ; Hypothyroid E03.9 ; Mixed hyperlipidemia E78.2 ; Essential hypertension I10 ; Depression F32.9 and Anemia D64.9 [place] [id number] [place] [address] 30781- 9215 Jan, [place] [id number] [place] [address] 66412- 5178 Sep, [place] [address] 92746- 0800 Sep, Type 2 diabetes mellitus without complication E11.9 ; Anemia D64.9 ; Hypothyroid E03.9 ; Hyperlipidemia, unspecified hyperlipidemia type E78.5 and Essential (primary) hypertension I10 [place] [id number] [place] [address] 16019- 7970 Aug, [place] [id number] [place] [address] 70482- 6657 June, [place] [id number] [place] [address] 43970- 3386 June, Iron deficiency anemia, unspecified iron deficiency anemia type D50.9 [place] [id number] [place] [address] 22531- 5029 May, Abnormal finding of blood chemistry, unspecified R79.9 [place] [id number] [place] [address] 49123- 5743 May, Type 2 diabetes mellitus without complication E11.9 ; Anemia D64.9 ; Hypothyroid E03.9 ; Anxiety F41.9 and Dyslipidemia E78.5 [place] [id number] [place] [address] 40552- 7676 Jan, Type 2 diabetes mellitus without complication E11.9 ; Depression F32.9 ; Essential hypertension I10 ; Hyperlipidemia E78.5 ; Anxiety F41.9 and Hypothyroidism E03.9 [place] [id number] [place] [address] 01261- 5278 Jan, Type 2 diabetes mellitus with diabetic neuropathy E11.40 [facility] [address] [facility] [id number] [address]- 0600 Jan, Type 2 diabetes mellitus with diabetic neuropathy E11.40 [facility] [address] [facility] [id number] [address]- 3159 Jan, [facility] [address] [address]- 4704 Jan, [facility] [address] [facility] [id number] 8047 Jan, [facility] [id number] [address]- 4255 Jan, [facility] [id number] [place] [address] 149094- 7997 Dec, [facility] [id number] [address]- 5416 Dec, [facility] [id number] [address]- 3626 Nov, [facility] [id number] [address]- 4821 Nov, [facility] [id number] [address]- 1057 Nov, [facility] [id number] [address]- 2924 Nov, [facility] [id number] [address]- 2940 Nov, [facility] [id number] 7447 Nov, Pertussis exposure Z20.89 [facility] [id number] [address]- 3647 Nov, [facility] [id number] [address]- 2189 Oct, [facility] [id number] [address]- 1822 Oct, [facility] [id number] [address]- 8985 Oct, [facility] [id number] [address] 1938 Sep, [facility] [address] 0513 Sep, Diabetes mellitus without mention of complication, type II or unspecified type, uncontrolled 250.02 and Hyperlipidemia associated with type [address] [facility] [address] [address]- 7468 Sep, [facility] [address] [address]- 2038 Sep, [facility] [address] [address]- 8267 Sep, Diabetes mellitus without mention of complication, type II or unspecified type, not stated as uncontrolled 250.00 ; Hypothyroid 244.9 ; Hyperlipidemia 272.[address] [facility] [address] [address]- 0631 Aug, [facility] [id number] [address]- 6636 June, Diabetes mellitus without mention of complication, type II or unspecified type, not stated as uncontrolled 250.00 ; Hyperlipidemia 272.4 ; Hypertension 401.9 ; Candidiasis of female genitalia 112.1 ; Hypothyroid 244.[address] [facility] [id number] [address]- 4796 June, [facility] [address] [address]- 3833 May, [facility] [id number] [address]- 9321 May, [facility] [place] [facility] [address] [id number] [place] [address]- 8990 Mar, 2014 [facility] [place] [facility] [address] [id number] [place] [address]- 1256 Mar, 2014 [facility] [place] [facility] [address] [id number] [place] [address]- 6902 Mar, 2014 [facility] [place] [facility] [address] [id number] [place] [address]- 1491 Mar, [facility] [place] [facility] [address] [id number] [place] [address]- 8782 Jan, [facility] [place] [facility] [address] [id number] [place] [address]- 0163 Jan, [facility] [place] [facility] [address] [id number] [place] [address]- 6154 Nov, [facility] [place] [facility] [address] [id number] [place] [address]- 4374 Nov, [facility] [place] [facility] [address] [id number] [place] [address]- 0309 Nov, [facility] [place] [facility] [address] [id number] [place] [address]- 3477 Nov, [facility] [place] [facility] [address] [id number] [address]- 1215 Nov, [facility] [place] [facility] [address] [id number] [address]- 1872 Nov, [facility] [place] [facility] [address] [id number] [place] [address]- 1516 Oct, [facility] [place] [facility] [address] [id number] [place] [address]- 4101 29 Oct, 2013 [facility] [place] [facility] [address] [id number] [place] [address]- 0976 29 Oct, 2013 [facility] [place] [facility] [address] [id number] [address]- 9499 29 Oct, 2013 [facility] [place] [facility] [address] [id number] [place] [address]- 1928 23 Oct, 2013 [facility] [place] [facility] [address] [id number] [place] [address]- 1076 23 Oct, 2013 [facility] [place] [facility] [address] [id number] [place] [address]- 0841 Oct, 2013 [facility] [place] [facility] [address] [id number] [place] [address]- 1200 22 Oct, 2013 [facility] [place] [facility] [address] [id number] [place] [address]- 5554 Oct, 2013 [facility] [place] [facility] [address] [id number] [place] [address]- 5961 Oct, 2013 [facility] [place] [facility] [address] [id number] [place] [address]- 4986 08 Oct, 2013 [facility] [place] [facility] [address] [id number] [place] [address]- 9765 08 Oct, 2013 [facility] [place] [facility] [address] [id number] [place] [address]- 5324 Oct, 2013 [facility] [place] [facility] [address] [id number] [place] [address]- 7437 08 Oct, 2013 [facility] [place] [facility] [address] [id number] [place] [address]- 5747 Sep, [facility] [place] [facility] [address] [id number] [place] [address]- 2154 Sep, [facility] [place] [facility] [address] [id number] [place] [address]- 2676 Sep, [facility] [place] [facility] [address] [id number] [place] [address]- 7235 Sep, [facility] [place] [facility] [address] [id number] [place] [address]- 5528 Sep, [facility] [place] [facility] [address] [id number] [facility] [place] [address]- 0176 Sep, [facility] [place] [facility] [address] [id number] [facility], [place] [address]- 8299 Aug, [facility] [place] [facility] [address] [id number] [place] [address]- 1754 Aug, [facility] [place] [facility] [address] [id number] [place] [address]- 4103 Aug, [facility] [place] [facility] [address] [id number] [place] [address]- 9521 Aug, [facility] [place] [facility] [address] [id number] [place] [address]- 8679 Aug, [facility] [place] [facility] [address] [id number] [place] [address]- 8283 Aug, [facility] [place] [facility] [address] [id number] [place] [address]- 6043 Aug, [facility] [place] [facility] [address] [id number] [place] [address]- 2544 Aug, [facility] [place] [facility] [address] [id number] [place] [address]- 1841 Aug, [facility] [place] [facility] [address] [id number] [place] [address]- 2287 Aug, [facility] [place] [facility] [address] [id number] [place] [address]- 7152 Aug, [facility] [place] [facility] [address] [id number] [place] [address]- 0851 Aug, [facility] [place] [facility] [address] [id number] [place] [address]- 2842 Aug, [facility] [place] [facility] [address] [id number] [place] [address]- 6495 Aug, [facility] [place] [facility] [address] [id number] [place] [address]- 1123 Aug, [facility] [place] [facility] [address] [id number] [place] [address]- 0299 Aug, 2013 [facility] [place] [facility] [address] [id number] [place] [address]- 4479 Aug, [facility] [place] [facility] [address] [id number] [place] [address]- 3113 Aug, [facility] [place] [facility] [address] [id number] [place] [address]- 2868 Aug, [facility] [place] [facility] [address] [id number] [place] [address]- 9668 Jul, [facility] [place] [facility] [address] [id number] [place] [address]- 5539 Jul, [facility] [place] [facility] [address] [id number] [place] [address]- 7185 Jul, [facility] [place] [facility] [address] [id number] [place] [address]- 8521 Jul, [facility] [place] [facility] [address] [id number] [place] [address]- 1794 Apr, [facility] [place] [facility] [address] [id number] [place] [address]- 8714 Apr, [facility] [place] [facility] [address] [id number] [place] [address]- 0169 15 Mar, 2012 [facility] [place] [facility] [address] [id number] [address]- 3602 Mar, [facility] [place] [facility] [address] [id number] [place] [address]- 1354 Feb, [facility] [place] [facility] [address] [id number] [place] [address]- 9714 Feb, [facility] [place] [facility] [address] [id number] [place] [address]- 6038 Feb, [facility] [place] [facility] [address] [id number] [place] [address]- 7324 02 Feb, 2012 [facility] [address] [id number] [place] [address]- 3486 21 Jan, 2012 [facility] [address] [id number] [place] [address]- 7596 21 Jan, 2012 [facility] [address] [id number] [place] [address]- 7716 17 Jan, 2012 [facility] [address] [id number] [place] [address]- 0417 17 Jan, 2012 [facility] [address] [id number] [place] [address]- 7850 14 Jan, 2012 [facility] [address] [id number] [place] [address]- 0293 13 Jan, 2012 [facility] [address] [id number] [place] [address]- 9753 13 Jan, 2012 [facility] [address] [id number] [place] [address]- 1485 10 Jan, 2012 [facility] [address] [id number] [place] [address]- 5923 10 Jan, 2012 [facility] [address] [id number] [place] [address]- 8430 26 Dec, 2011 [facility] [address] [id number] [place] [address]- 5894 26 Dec, 2011 [facility] [address] [id number] [place] [address]- 0916 Dec, [facility] [place] [facility] [address] [id number] [place] [address]- 7054 Dec, [facility] [place] [facility] [address] [id number] [place] [address]- 6329 20 Dec, 2011 [facility] [address] [id number] [place] [address]- 9055 Dec, [facility] [id number] [address]- 7009 Dec, [facility] [address] [address]- 4598 Dec, [facility] [address] [address]- 8138 Dec, [facility] [address] [address]- 5380 Dec, [facility] [id number] [address] Dec, [facility] [id number] [address] Dec, [facility] [id number] [address] Dec, [facility] [id number] [address] Dec, [facility] [id number] [address] Dec, [facility] [id number] [address] Nov, [facility] [id number] [address] Nov, [facility] [id number] [place] [address] Nov, [facility] [id number] [place] [address] Nov, IMMUNIZATIONS No Known Immunizations SOCIAL HISTORY [...]
--- OUTSIDE RECORDS SUMMARY | 2018-03-25 14:59 | XMS REPORT ---
Author Author STOLLRONAL Vargas Organization [facility], [place] Address [address] [place] [address] Care Team Providers Care Roll Setter Name Role Phone RONAL STOLL Unavailable PROBLEMS Type Condition ICD9-CM Code QKR80-QA Code Onset Dates Condition Status SNOMED Code Problem Anxiety F41.9 Active 34616806 Problem Type 2 diabetes mellitus without complication E11.9 Active 769837422 Problem Hypothyroid E03.9 Active 98269684 Problem Microalbuminuria R80.9 Active 375681285 Problem Other obesity due to excess calories E66.09 Active 960314330 Problem Body mass index (BMI) of 33.0-33.9 in adult Z68.33 Active 182495262 Problem Essential hypertension I10 Active 15761087 Problem Anemia D64.9 Active 896378148 Problem Mixed hyperlipidemia E78.2 Active 763190373 Problem Depression F32.9 Active [id number] ALLERGIES No Information ENCOUNTERS Encounter Location Date Diagnosis [facility] [place] [id number] [place] [address] 60283- 1423 Aug, [place] [id number] [place] [address] 40053- 5645 June, Mixed hyperlipidemia E78.2 and Type 2 diabetes mellitus without complication E11.9 [facility] [place] [id number] [place] [address] 42832- 3313 May, Anemia D64.9 ; Type 2 diabetes mellitus without complication E11.9 ; Hypothyroid E03.9 ; Mixed hyperlipidemia E78.2 ; Essential hypertension I10 ; Depression F32.9 ; Other obesity due to excess calories E66.09 ; Body mass index (BMI) of 33.0-33.9 in adult Z68.33 ; Anxiety F41.9 and Herpes zoster without complication B02.9 [facility] [place] [id number] [place] [address] 08603- 9271 30 Apr, 2017 Type 2 diabetes mellitus without complication E11.9 ; Anemia D64.9 ; Hypothyroid E03.9 ; Mixed hyperlipidemia E78.2 ; Essential hypertension I10 ; Depression F32.9 ; Other obesity due to excess calories E66.09 ; Body mass index (BMI) of 33.0-33.9 in adult Z68.33 ; Anxiety F41.9 and Herpes zoster without complication B02.9 [facility] [place] [id number] [place] [address] 56642- 4126 Apr, [facility] [place] [id number] [place] [address] 65820- 2525 Apr, [facility] [place] [id number] [place] [address] 16203- 5796 Apr, [facility] [place] [id number] [place] [address] 073431- 9581 Mar, [facility] [place] [id number] [place] [address] 826871- 3334 Feb, [facility] [place] [id number] [place] [address] 07650- 3877 Jan, [facility] [place] [id number] [place] [address] 86508- 3972 Jan, [facility] [place] [id number] [place] [address] 35107- 3661 Dec, Type 2 diabetes mellitus without complication E11.9 [facility], [place] [id number] [place] [address] [id number]- 9226 Nov, [facility] [place] [id number] [place] [address] 025109- 9937 Nov, Type 2 diabetes mellitus without complication E11.9 [facility] [place] [id number] [place] [address] 62749- 1836 Nov, [facility] [place] [id number] [place] [address] [id number]- 4045 Oct, Type 2 diabetes mellitus without complication E11.9 [facility], [place] [address] [facility] [id number] [address] 2118 14 Oct, 2016 [facility], [place] [id number] [place] [address] 06743- 1377 Oct, [facility], [place] [address] [address]- 4971 Sep, [facility] [place] [id number] [place] [address] 57086- 1927 Sep, Type 2 diabetes mellitus without complication E11.9 [facility], [place] [id number] [place] [address] 00905- 4711 Sep, Type 2 diabetes mellitus without complication E11.9 and Essential hypertension I10 [facility] [place] [address] [address]- 6782 Sep, [facility], [place] [id number] [place] [address] 27764- 0834 Sep, [facility] [place] [id number] [place] [address] 11553- 4898 Sep, Type 2 diabetes mellitus without complication E11.9 [facility], [place] [address] [address]- 7625 Aug, [facility] [place] [address] [address]- 2016 Aug, Type 2 diabetes mellitus without complication E11.9 [facility], [place] [id number] [address]- 1353 Aug, Type 2 diabetes mellitus without complication E11.9 [facility], [place] [address] [address]- 0933 Aug, [facility], [place] [address] [address]- 8646 Aug, Abnormal weight gain R63.5 [facility], [place] [id number] [address]- 0181 Aug, [facility], [place] [id number] [address]- 8005 Aug, Hypothyroid E03.9 [facility] [place] [id number] [address]- 8128 Aug, Type 2 diabetes mellitus without complication E11.9 [facility] [place] [id number] [place] [address] 88109- 1164 Jul, Abnormal weight gain R63.5 [facility] [place] [id number] [place] [address] 65248- 8050 Jul, Abnormal weight gain R63.5 [place] [id number] [place] [address] 90096- 8311 Jul, Abnormal weight gain R63.5 [place] [id number] [place] [address] 83337- 4532 Jul, Abnormal weight gain R63.5 ; Pain in right knee M25.561 and Pain in right ankle and joints of right foot M25.571 [place] [id number] [place] [address] 11063- 1643 Jul, [place] [address] [address]- 1247 Jul, 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 [facility] [place] [address] [address]- 0831 Jul, Type 2 diabetes mellitus without complication E11.9 [facility] [place] [address] [address]- 5582 June, [place] [id number] [place] [address] 51839- 3631 June, Type 2 diabetes mellitus without complication E11.9 [facility] [place] [address] [address]- 9155 June, [place] [address] [address]- 4679 June, [facility] [place] [id number] [place] [address] 66766- 3607 June, Type 2 diabetes mellitus without complication E11.9 ; Hypothyroid E03.9 ; Essential hypertension I10 ; Depression F32.9 and Mixed hyperlipidemia E78.2 [facility] [place] [id number] [place] [address] 55764- 4617 May, [facility] [place] [id number] [place] [address] 80924- 7497 Feb, Type 2 diabetes mellitus without complication E11.9 ; Hypothyroid E03.9 ; Mixed hyperlipidemia E78.2 ; Essential hypertension I10 ; Depression F32.9 and Anemia D64.9 [place] [address] [address]- 7176 Jan, [facility] [place] [id number] [place] [address] 74702- 4529 Sep, [facility] [place] [id number] [place] [address] 11797- 3598 Sep, Type 2 diabetes mellitus without complication E11.9 ; Anemia D64.9 ; Hypothyroid E03.9 ; Hyperlipidemia, unspecified hyperlipidemia type E78.5 and Essential (primary) hypertension I10 [place] [address] [address]- 3661 Aug, [facility], [place] [address] [address]- 6699 June, [facility] [place] [id number] [address]- 5989 June, Iron deficiency anemia, unspecified iron deficiency anemia type D50.9 [facility], [place] [address] [address]- 6370 May, Abnormal finding of blood chemistry, unspecified R79.9 [facility], [place] [id number] [place] [address] 15010- 4139 May, Type 2 diabetes mellitus without complication E11.9 ; Anemia D64.9 ; Hypothyroid E03.9 ; Anxiety F41.9 and Dyslipidemia E78.5 [facility], [place] [id number] [place] [address] 03155- 5665 Jan, Type 2 diabetes mellitus without complication E11.9 ; Depression F32.9 ; Essential hypertension I10 ; Hyperlipidemia E78.5 ; Anxiety F41.9 and Hypothyroidism E03.9 [facility], [place] [id number] [place] [address] 17914- 7239 Jan, Type 2 diabetes mellitus with diabetic neuropathy E11.40 [facility] [place] [id number] [place] [address] 84104- 2706 Jan, Type 2 diabetes mellitus with diabetic neuropathy E11.40 [facility], [place] [id number] [place] [address] 69608- 9417 Jan, [facility], [place] [id number] [place] [address] 06623- 8454 Jan, [facility], [place] [id number] [place] [address] 70837- 5248 Jan, [facility], [place] [id number] [place] [address] 80533- 1315 Jan, [facility] [place] [id number] [place] [address] 34011- 0062 Dec, [facility], [place] [id number] [place] [address] 25092- 1710 Dec, [facility], [place] [id number] [place] [address] 909088- 3407 Nov, [facility], [place] [id number] [place] [address] 49942- 0425 Nov, [facility], [place] [id number] [place] [address] 035868- 7060 Nov, [facility], [place] [address] [address]- 0154 Nov, [facility], [place] [address] [address]- 2151 Nov, [facility], [place] [id number] [address]- 0871 Nov, Pertussis exposure Z20.89 [facility], [place] [id number] [address]- 7232 Nov, [facility], [place] [address] [address]- 7811 Oct, [facility], [place] [address] 2352 Oct, [facility] [place] [address] 4191 Oct, [facility], [place] [address] [address]- 2108 Sep, [facility], [place] [id number] [address]- 1086 Sep, Diabetes mellitus without mention of complication, type II or unspecified type, uncontrolled 250.02 and Hyperlipidemia associated with type 2 diabetes mellitus 250.80 [facility], [place] [id number] [address]- 5689 Sep, [facility], [place] [address] [address]- 5668 Sep, [facility], [place] [id number] 3686 Sep, Diabetes mellitus without mention of complication, type II or unspecified type, not stated as uncontrolled 250.00 ; Hypothyroid 244.9 ; Hyperlipidemia 272.4 and Hypertension 401.9 [facility] [place] [id number] [address]- 4285 Aug, [facility], [place] [address] [address]- 7403 June, Diabetes mellitus without mention of complication, type II or unspecified type, not stated as uncontrolled 250.00 ; Hyperlipidemia 272.4 ; Hypertension 401.9 ; Candidiasis of female genitalia 112.1 ; Hypothyroid 244.9 and Liver lesion 573.8 [facility], [place] [address] [address]- 7552 June, [facility], [place] [id number] [place] [address] 73566- 3248 May, [facility], [place] [id number] [place] [address] 16626- 1582 May, [facility], [place] [id number] [place] [address] 38441- 3031 Mar, [facility], [place] [address] [address]- 2432 Mar, [facility], [place] [id number] [place] [address] 33709- 8665 Mar, [facility], [place] [address] [address]- 4653 Mar, [facility], [place] [id number] [address]- 3413 Jan, [facility], [place] [address] [address]- 7689 Jan, [facility], [place] [address] [address]- 3554 Nov, [facility], [place] [id number] [address]- 3999 Nov, [facility], [place] [id number] [address]- 0588 Nov, [facility], [place] [id number] [address]- 2033 Nov, [facility], [place] [address] [place] [address]- 3582 06 Nov, 2013 [facility] [place] [facility] [address] [id number] [place] [address]- 8406 06 Nov, 2013 [facility] [place] [facility] [address] [id number] [place] [address]- 2546 29 Oct, 2013 [facility] [place] [facility] [address] [id number] [place] [address] 2546 29 Oct, 2013 [facility] [place] [facility] [address] [id number] [place] [address] 2547 29 Oct, 2013 [facility] [place] [facility] [address] [id number] [place] [address]- 5652 29 Oct, 2013 [facility] [place] [facility] [address] [id number] [place] [address]- 8760 23 Oct, 2013 [facility] [place] [facility] [address] [id number] [place] [address]- 2549 23 Oct, 2013 [facility] [place] [facility] [address] [id number] [place] [address]- 2544 22 Oct, 2013 [facility] [place] [facility] [address] [id number] [place] [address]- 2542 22 Oct, 2013 [facility] [place] [facility] [address] [id number] [place] [address]- 2541 11 Oct, 2013 [facility] [place] [facility] [address] [id number] [place] [address] 2549 11 Oct, 2013 [facility] [place] [facility] [address] [id number] [place] [address]- 2542 08 Oct, 2013 [facility] [place] [facility] [address] [id number] [place] [address] 2548 08 Oct, 2013 [facility] [place] [facility] [address] [id number] [place] [address]- 2549 08 Oct, 2013 [facility] [place] [facility] [address] [id number] [place] [address]- 2548 Oct, [facility] [place] [facility] [address] [id number] [place] [address]- 6773 Sep, [facility] [place] [facility] [address] [id number] [place] [address]- 4325 Sep, [facility] [place] [facility] [address] [id number] [place] [address]- 8187 Sep, [facility] [place] [facility] [address] [id number] [place] [address]- 7188 Sep, [facility] [place] [facility] [address] [id number] [place] [address]- 6064 Sep, [facility] [place] [facility] [address] [id number] [place] [address]- 9034 Sep, [facility] [place] [facility] [address] [id number] [place] [address]- 9731 Aug, [facility] [place] [facility] [address] [id number] [place] [address]- 6019 Aug, [facility] [place] [facility] [address] [id number] [place] [address]- 3299 Aug, [facility] [place] [facility] [address] [id number] [place] [address]- 8534 Aug, [facility] [place] [facility] [address] [id number] [place] [address]- 9799 Aug, [facility] [place] [facility] [address] [id number] [place] [address]- 4303 Aug, [facility] [place] [facility] [address] [id number] [place] [address]- 7678 Aug, [facility] [place] [facility] [address] [id number] [place] [address]- 9118 Aug, [facility] [place] [facility] [address] [id number] [place] [address]- 6435 Aug, [facility] [place] [facility] [address] [id number] [place] [address]- 4933 Aug, 2013 [facility] [place] [facility] [address] [id number] [place] [address]- 6634 Aug, 2013 [facility] [place] [facility] [address] [id number] [place] [address]- 6129 Aug, 2013 [facility] [place] [facility] [address] [id number] [place] [address]- 1413 Aug, 2013 [facility] [place] [facility] [address] [id number] [place] [address]- 1476 Aug, 2013 [facility] [place] [facility] [address] [id number] [place] [address]- 5004 Aug, 2013 [facility] [place] [facility] [address] [id number] [place] [address]- 5702 Aug, 2013 [facility] [place] [facility] [address] [id number] [place] [address]- 0636 Aug, 2013 [facility] [place] [facility] [address] [id number] [place] [address]- 1431 Aug, 2013 [facility] [place] [facility] [address] [id number] [place] [address]- 8151 Aug, 2013 [facility] [place] [facility] [address] [id number] [place] [address]- 5007 Jul, [facility] [place] [facility] [address] [id number] [place] [address]- 5251 Jul, [facility] [place] [facility] [address] [id number] [place] [address]- 2918 Jul, [facility] [place] [facility] [address] [id number] [place] [address]- 4549 Jul, [facility] [place] [facility] [address] [id number] [place] [address]- 6111 05 Apr, 2012 [facility] [place] [facility] [address] [id number] [place] [address]- 0212 Apr, [facility] [place] [facility] [address] [id number] [place] [address]- 0469 15 Mar, 2012 [facility] [address] [id number] [place] [address]- 1316 11 Mar, 2012 [facility] [place] [facility] [address] [id number] [place] [address] 2546 30 Feb, 2012 [facility] [address] [id number] [place] [address]- 7236 Feb, [facility] [address] [id number] [place] [address] 2548 Feb, [facility] [address] [id number] [place] [address]- 9575 Feb, [facility] [address] [id number] [place] 4797 Jan, [facility] [address] [id number] [place] [address]- 3459 21 Jan, 2012 [facility] [address] [id number] [place] [address]- 7378 17 Jan, 2012 [facility] [address] [id number] [place] [address]- 2549 17 Jan, 2012 [facility] [address] [id number] [place] [address] 2544 14 Jan, 2012 [facility] [address] [id number] [place] [address]- 2546 13 Jan, 2012 [facility] [address] [id number] [place] [address] 2546 13 Jan, 2012 [facility] [place] [facility] [address] [id number] [place] [address] 2546 10 Jan, 2012 [facility] [place] [facility] [address] [id number] [place] [address] 2546 10 Jan, 2012 [facility] [place] [facility] [address] [id number] [place] [address]- 9368 Dec, [facility] [place] [facility] [address] [id number] [place] [address]- 6689 26 Dec, 2011 [facility] [place] [facility] [address] [id number] [address]- 5700 Dec, [facility] [place] [facility] [address] [facility] [id number] [place] [address]- 2459 Dec, [facility] [place] [facility] [address] [id number], [place] [address]- 2964 20 Dec, 2011 [facility] [place] [facility] [address] [id number] [place] [address]- 89[address] 19 Dec, 2011 [facility] [place] [facility] [address] [id number][place] [address] 19 Dec, 2011 [facility] [place] [facility] [address] [id number] [address] Dec, [facility] [place] [facility] [address] [id number][place] [address] 19 Dec, 2011 [facility] [place] [facility] [address] [id number][place] [address] 16 Dec, 2011 [facility] [place] [facility] [address] [id number][place] [address] 16 Dec, 2011 [facility] [place] [facility] [address] [id number], [place] [address] 16 Dec, 2011 [facility] [place] [facility] [address] [id number][place] [address] 16 Dec, 2011 [facility] [place] [facility] [address] [id number][place] [address] 14 Dec, 2011 [facility] [place] [facility] [address] [id number][place] [address] 14 Dec, 2011 [facility] [place] [facility] [address] [id number], [place] [address] 31 Nov, 2011 [facility] [place] [facility] [address] [facility] [id number] [place] [address] Nov, [facility] [place] [address] [facility] [id number] [place] [address] Nov, [facility] [place] [address] [facility] [id number] [place] [address] Nov, IMMUNIZATIONS No Known Immunizations SOCIAL HISTORY Never Assessed REASON FOR VISIT needs appt/lab PLAN OF CARE VITAL SIGNS MEDICATIONS Unknown [...]
--- OUTSIDE RECORDS SUMMARY | 2018-03-25 14:59 | XMS REPORT ---
Author Author STOLLRONAL Vargas [facility] Address [address] [place] [address] Care Team Providers Care Chaplain Resident Name Role Phone RONAL STOLL Unavailable PROBLEMS Type Condition ICD9-CM Code OQS16-NI Code Onset Dates Condition Status SNOMED Code Problem Anxiety F41.9 Active 68092231 Problem Mixed hyperlipidemia E78.2 Active 543678936 Problem Depression F32.9 Active 406135477 Problem Type 2 diabetes mellitus without complication E11.9 Active 072117370 Problem Hypothyroid E03.9 Active 57150863 Problem Essential hypertension I10 Active 34876810 Problem Anemia D64.9 Active [id number] ALLERGIES No Information ENCOUNTERS Encounter Location Date Diagnosis [facility] [id number] [place] [address] 78503- 0167 May, [facility] [id number] [place] [address] 97597- 4798 Apr, [facility] [id number] [place] [address] 14143- 8094 Apr, [facility] [id number] [place] [address] 30332- 5922 Mar, [facility] [id number] [place] [address] 32255- 5851 Feb, [facility] [id number] [place] [address] 37337- 7024 Jan, [facility] [address] [address]- 1343 Jan, [facility] [id number] [place] [address] 50050- 8585 Dec, Type 2 diabetes mellitus without complication E11.9 [facility] [address] [facility] [id number] [place] [address]- 8172 Nov, [facility] [address] [facility] [id number] [place] [address], [place] [address]- 0716 Nov, Type 2 diabetes mellitus without complication E11.9 [facility] [id number] [address]- 2396 Nov, [facility] [address] [facility] [id number] [place] [address], [place] [address]- 1250 Oct, Type 2 diabetes mellitus without complication E11.9 [facility] [address] [facility] [id number] [place] [address]- 5766 Oct, [facility] [id number] [place] [address], [place] [address]- 0778 Oct, [facility] [id number] [place] [address], [place] [address]- 6626 Sep, [facility] [id number] [place] [address]- 9682 Sep, Type 2 diabetes mellitus without complication E11.9 [facility] [id number] [place] [address]- 3813 Sep, Type 2 diabetes mellitus without complication E11.9 and Essential hypertension I10 [facility] [id number] [place] [address]- 0748 Sep, [facility] [address] [address] 4119 Sep, [facility] [id number] [place] [address]- 0445 Sep, Type 2 diabetes mellitus without complication E11.9 [facility] [id number] [place] 1790 Aug, [facility] [id number] [place] [address]- 2851 Aug, Type 2 diabetes mellitus without complication E11.9 [facility] [address], [place] [address]- 9293 Aug, Type 2 diabetes mellitus without complication E11.9 [facility] [address], [place] [address] 2546 Aug, [facility] [address] [address]- 2546 Aug, Abnormal weight gain R63.5 [facility] [address], [place] [address] 2546 Aug, [facility] [id number] [place] [address] 87347- 3249 Aug, Hypothyroid E03.9 [facility] [address], [place] [address]- 3061 Aug, Type 2 diabetes mellitus without complication E11.9 [facility] [address], [place] [address]- 3969 Jul, Abnormal weight gain R63.5 [facility] [address], [place] [address]- 9976 Jul, Abnormal weight gain R63.5 [facility] [address], [place] [address] 2546 Jul, Abnormal weight gain R63.5 [facility] [address], [place] [address] 2546 Jul, Abnormal weight gain R63.5 ; Pain in right knee M25.561 and Pain in right ankle and joints of right foot M25.571 [facility] [address], [place] [address]- 2166 Jul, [facility] [address], [place] [address]- 2546 Jul, 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 [facility] [address] [place] [address] 96629- 2799 Jul, Type 2 diabetes mellitus without complication E11.9 [facility] [address], [place] [address]- 5018 June, [facility] [id number] [place] [address] 07993- 6865 June, Type 2 diabetes mellitus without complication E11.9 [facility] [id number] [place] [address] 67032- 1208 June, [facility] [id number] [place] [address] 15249- 3207 June, [facility] [id number] [place] [address] 78447- 8171 June, Type 2 diabetes mellitus without complication E11.9 ; Hypothyroid E03.9 ; Essential hypertension I10 ; Depression F32.9 and Mixed hyperlipidemia E78.2 [facility] [id number] [place] [address] 62870- 7102 May, [facility] [address], [place] [address]- 8031 Feb, Type 2 diabetes mellitus without complication E11.9 ; Hypothyroid E03.9 ; Mixed hyperlipidemia E78.2 ; Essential hypertension I10 ; Depression F32.9 and Anemia D64.9 [facility] [address], [place] [address]- 5769 Jan, [facility] [id number] [place] [address] 82207- 9109 Sep, [facility] [address], [place] [address]- 4935 Sep, Type 2 diabetes mellitus without complication E11.9 ; Anemia D64.9 ; Hypothyroid E03.9 ; Hyperlipidemia, unspecified hyperlipidemia type E78.5 and Essential (primary) hypertension I10 [facility] [address], [place] [address]- 8272 Aug, [place] [id number] [place] [address] 15429- 0736 June, [facility] [id number] [place] [address] 23443- 6290 June, Iron deficiency anemia, unspecified iron deficiency anemia type D50.9 [facility] [id number] [place] [address] 87763- 1730 May, Abnormal finding of blood chemistry, unspecified R79.9 [facility] [id number] [place] [address] 71848- 8562 May, Type 2 diabetes mellitus without complication E11.9 ; Anemia D64.9 ; Hypothyroid E03.9 ; Anxiety F41.9 and Dyslipidemia E78.5 [place] [id number] [place] [address] 24967- 7355 Jan, Type 2 diabetes mellitus without complication E11.9 ; Depression F32.9 ; Essential hypertension I10 ; Hyperlipidemia E78.5 ; Anxiety F41.9 and Hypothyroidism E03.9 [facility] [id number] [place] [address] 48410- 9689 Jan, Type 2 diabetes mellitus with diabetic neuropathy E11.40 [facility] [id number] [place] [address] 96892- 4666 Jan, Type 2 diabetes mellitus with diabetic neuropathy E11.40 [place] [id number] [place] [address] 92800- 8560 30 Jan, 2015 [facility] [id number] [place] [address] 21957- 0844 Jan, [facility] [id number] [place] [address] 34898- 1622 Jan, [facility] [id number] [place] [address] 32640- 0286 Jan, [facility] [id number] [place] [address] 00593- 4651 Dec, [place] [address], [place] [address]- 3077 Dec, [facility] [address] 1817 Nov, [facility] [address], [place] [address]- 6890 Nov, [facility] [id number] [place] [address] 47441- 8169 Nov, [facility] [address], [place] [address]- 2894 Nov, [facility] [id number] [place] [address] 49569- 0494 Nov, [facility] [address] [address]- 4959 Nov, Pertussis exposure Z20.89 [facility] [address], [place] [address]- 1507 Nov, [facility] [address], [place] [address]- 7943 Oct, [facility] [address], [place] [address]- 3406 Oct, [facility] [address], [place] [address]- 0208 Oct, [facility] [address], [place] [address]- 0372 Sep, [facility] [id number], [place] [address]- 2805 Sep, Diabetes mellitus without mention of complication, type II or unspecified type, uncontrolled 250.02 and Hyperlipidemia associated with type 2 diabetes mellitus 250.80 [facility] [address], [place] [address]- 9203 Sep, [facility] [address], [place] [address]- 9046 Sep, [facility] [id number], [place] [address]- 8110 Sep, Diabetes mellitus without mention of complication, type II or unspecified type, not stated as uncontrolled 250.00 ; Hypothyroid 244.9 ; Hyperlipidemia 272.4 and Hypertension 401.9 [facility] [address], [place] [address]- 6588 Aug, [facility] [address], [place] [address]- 9576 June, Diabetes mellitus without mention of complication, type II or unspecified type, not stated as uncontrolled 250.00 ; Hyperlipidemia 272.4 ; Hypertension 401.9 ; Candidiasis of female genitalia 112.1 ; Hypothyroid 244.9 and Liver lesion 573.8 [facility] [address], [place] [address]- 4246 June, [facility] [address], [place] [address]- 4626 May, [facility] [address] 8545 May, [facility] [address], [place] [address]- 7019 Mar, [facility] [id number], [place] [address]- 4926 Mar, [facility] [address], [place] [address]- 2196 Mar, [facility] [id number], [place] [address]- 2266 Mar, [facility] [address], [place] [address]- 0616 Jan, [facility] [id number], [place] [address]- 7556 Jan, [facility] [id number] [address]- 2466 Nov, [facility] [place] [facility] [address] [id number] [place] [address]- 8319 Nov, [facility] [place] [facility] [address] [id number] [place] [address]- 0762 Nov, [facility] [place] [facility] [address] [id number] [place] [address]- 8097 Nov, [facility] [place] [facility] [address] [id number] [place] [address]- 8939 Nov, [facility] [place] [facility] [address] [id number] [place] [address]- 0150 Nov, [facility] [place] [facility] [address] [id number] [place] [address]- 3017 29 Oct, 2013 [facility] [place] [facility] [address] [id number] [place] [address]- 0785 29 Oct, 2013 [facility] [place] [facility] [address] [id number] [place] [address]- 2543 29 Oct, 2013 [facility] [place] [facility] [address] [id number] [place] [address]- 2547 29 Oct, 2013 [facility] [place] [facility] [address] [id number] [place] [address]- 2542 23 Oct, 2013 [facility] [place] [facility] [address] [id number] [place] [address] 2546 23 Oct, 2013 [facility] [place] [facility] [address] [id number] [place] [address]- 2545 22 Oct, 2013 [facility] [place] [facility] [address] [id number] [place] [address] 2546 22 Oct, 2013 [facility] [place] [facility] [address] [id number] [place] [address]- 2546 11 Oct, 2013 [facility] [place] [facility] [address] [id number] [place] [address]- 2543 Oct, [facility] [place] [facility] [address] [id number] [place] [address]- 8488 Oct, [facility] [place] [facility] [address] [id number] [place] [address]- 3425 Oct, [facility] [place] [facility] [address] [id number] [place] [address]- 6505 Oct, [facility] [place] [facility] [address] [id number] [place] [address]- 7394 Oct, [facility] [place] [facility] [address] [id number] [place] [address]- 4156 Sep, [facility] [place] [facility] [address] [id number] [place] [address]- 9104 Sep, [facility] [place] [facility] [address] [id number] [place] [address]- 5426 Sep, [facility] [place] [facility] [address] [id number] [place] [address]- 0219 Sep, [facility] [place] [facility] [address] [id number] [place] [address]- 7055 Sep, [facility] [place] [facility] [address] [id number] [place] [address]- 9232 Sep, [facility] [place] [facility] [address] [id number] [place] [address]- 3952 Aug, [facility] [place] [facility] [address] [id number] [place] [address]- 4390 Aug, [facility] [place] [facility] [address] [id number] [place] [address]- 5975 Aug, [facility] [place] [facility] [address] [id number] [place] [address]- 5689 Aug, [facility] [place] [facility] [address] [id number] [place] [address]- 1298 Aug, [facility] [place] [facility] [address] [id number] [place] [address]- 0649 Aug, 2013 [facility] [place] [facility] [address] [id number] [place] [address]- 3036 Aug, 2013 [facility] [place] [facility] [address] [id number] [place] [address]- 9223 Aug, 2013 [facility] [place] [facility] [address] [id number] [place] [address]- 8021 Aug, 2013 [facility] [place] [facility] [address] [id number] [place] [address]- 0314 Aug, 2013 [facility] [place] [facility] [address] [id number] [place] [address]- 0960 Aug, 2013 [facility] [place] [facility] [address] [id number] [place] [address]- 9550 Aug, 2013 [facility] [place] [facility] [address] [id number] [place] [address]- 5326 Aug, 2013 [facility] [place] [facility] [address] [id number] [place] [address]- 7422 Aug, 2013 [facility] [place] [facility] [address] [id number] [place] [address]- 4876 Aug, 2013 [facility] [place] [facility] [address] [id number] [place] [address]- 7083 Aug, 2013 [facility] [place] [facility] [address] [id number] [place] [address]- 1260 Aug, 2013 [facility] [place] [facility] [address] [id number] [place] [address]- 9226 Aug, 2013 [facility] [place] [facility] [address] [id number] [place] [address]- 9217 Aug, [facility] [place] [facility] [address] [id number] [place] [address]- 6095 Jul, [facility] [place] [facility] [address] [id number] [place] [address]- 3162 Jul, [facility] [place] [facility] [address] [id number] [place] [address] 2546 18 Jul, 2012 [facility] [address] [id number] [place] [address]- 3645 Jul, [facility] [place] [facility] [address] [id number] [place] [address]- 2546 Apr, [facility] [place] [facility] [address] [id number] [place] [address]- 2546 Apr, [facility] [place] [facility] [address] [id number] [place] [address]- 4136 15 Mar, 2012 [facility] [place] [facility] [address] [id number] [place] [address]- 2546 Mar, [facility] [place] [facility] [address] [id number] [place] [address]- 9516 Feb, [facility] [address] [id number] [place] [address]- 7028 Feb, [facility] [address] [id number] [place] [address]- 5661 Feb, [facility] [place] [facility] [address] [id number] [place] [address]- 7256 Feb, [facility] [address] [id number] [place] [address]- 6294 Jan, [facility] [place] [facility] [address] [id number] [place] [address]- 7493 Jan, [facility] [place] [facility] [address] [id number] [place] [address]- 8555 Jan, [facility] [place] [facility] [address] [id number] [place] [address]- 6406 17 Jan, 2012 [facility] [place] [facility] [address] [id number] [place] [address]- 2546 14 Jan, 2012 [facility] [place] [facility] [address] [id number] [place] [address]- 6910 13 Jan, 2012 [facility] [place] [facility] [address] [id number] [place] [address]- 6838 13 Jan, 2012 [facility] [place] [facility] [address] [id number] [place] [address]- 6436 10 Jan, 2012 [facility] [place] [facility] [address] [facility] [id number] [place] [address]- 3978 Jan, [facility] [place] [facility] [address] [id number] [place] [address]- 6973 Dec, [facility] [place] [facility] [address] [id number] [place] [address]- 6629 Dec, [facility] [place] [facility] [address] [id number] [place] [address]- 9227 Dec, [facility] [place] [facility] [address] [id number] [place] [address]- 4870 Dec, [facility] [place] [facility] [address] [id number], [place] [address]- 8192 Dec, [facility] [place] [facility] [address] [id number], [place] [address]- 5041 Dec, [facility] [place] [facility] [address] [id number], [place] [address]- 3422 Dec, [facility] [place] [facility] [address] [id number], [place] [address]- 1138 Dec, [facility] [place] [facility] [address] [id number], [place] [address]- 1497 19 Dec, 2011 [facility] [place] [facility] [address] [id number], [place] [address]- 2984 16 Dec, 2011 [facility] [place] [facility] [address] [id number], [place] [address]- 9347 16 Dec, 2011 [facility] [place] [facility] [address] [facility] [id number], [place] [address]- 8423 16 Dec, 2011 [facility] [place] [facility] [address] [facility] [id number], [place] [address]- 7639 Dec, [facility] [id number], [place] [address]- 9382 Dec, [facility] [id number], [place] [address]- 9021 Dec, [facility] [id number], [place] [address]- 1175 Nov, [facility] [id number], [place] [address]- 4343 Nov, [facility] [id number], [place] [address]- 7933 Nov, [facility] [id number], [place] [address]- 3934 Nov, IMMUNIZATIONS No Known Immunizations SOCIAL HISTORY Never Assessed REASON FOR VISIT Lab (walk-in)--[facility] VITAL SIGNS MEDICATIONS Unknown Medications RESULTS Name Result Date Reference Range CCP ANTIBODY 2016-08-22 CCP Antibodies IgG/IgA 9 0-19 THYROID ANALYZER 2016-08-22 TSH 7.390 0.450-4.500 T4,Free (Direct) 0.87 0.82-1.77 Thyroid Peroxidase (TPO) Ab 360 0-34 Interpretive Comment CBC 2016-08-22 WBC 5.6 3.4-10.8 RBC 5.09 3.77-5.28 Hemoglobin 14.4 11.1-15.9 Hematocrit 43.9 34.0-46.6 MCV 86 79-97 MCH 28.3 26.6-33.0 MCHC 32.8 31.5-35.7 RDW 14.3 12.3-15.4 Platelets 406 150-379 Neutrophils 53 Lymphs 39 Monocytes 5 Eos 3 Basos 0 Neutrophils (Absolute) 3.0 1.4-7.0 Lymphs (Absolute) 2.2 0.7-3.1 Monocytes(Absolute) 0.3 0.1-0.9 Eos (Absolute) 0.2 0.0-0.4 Baso (Absolute) 0.0 0.0-0.2 Immature Granulocytes 0 Immature Grans (Abs) 0.0 0.0-0.1 ESR/SED RATE 2016-08-22 Sedimentation Rate-Westergren 14 0-32 RA (RHEUMATOID) FACTOR 2016-08-22 RA Latex Turbid. 19.2 0.0-13.9 LIPID PANEL 2016-08-22 Cholesterol, Total 228 100-199 Triglycerides 333 0-149 HDL Cholesterol 43 >39 VLDL Cholesterol Gabriele 67 5-40 LDL Cholesterol Calc 118 0-99 CMP 2016-08-22 Glucose, Serum 247 65-99 BUN 12 6-24 Creatinine, Serum 0.62 0.57-1.00 eGFR If NonAfricn Am 109 >59 eGFR If Africn Am 126 >59 BUN/Creatinine Ratio 19 9-23 Sodium, Serum 138 134-144 Potassium, Serum 4.5 3.5-5.2 Chloride, Serum 98 96-106 Carbon Dioxide, Total 22 18-29 Calcium, Serum 9.6 8.7-10.2 Protein, Total, Serum 7.5 6.0-8.5 Albumin, Serum 4.6 3.5-5.5 Globulin, Total 2.9 1.5-4.5 A/G Ratio 1.6 1.2-2.2 Bilirubin, Total 0.3 0.0-1.2 Alkaline Phosphatase, S 111 39-117 AST (SGOT) 46 0-40 ALT (SGPT) 76 0-32 Written Authorization 2016-08-22 Written Authorization PROCEDURES Procedure Date Ordered Result Body Site ASSAY THYROID STIM HORMONE August 22, 2016 COMPLETE CBC W/AUTO DIFF WBC August 22, 2016 VENIPUNCT, ROUTINE* August 22, 2016 RHEUMATOID FACTOR, QUANT August 22, 2016 RBC SED RATE, AUTOMATED August 22, 2016 COMPREHEN METABOLIC PANEL August 22, 2016 LIPID PANEL August 22, 2016 INSTRUCTIONS MEDICATIONS ADMINISTERED No [...]
[2018-03-25] MEDS ORDERED: ONDANSETRON 4 MG/2 ML (SDV) Z0FRAN IVP ONE ×2 (15:00→16:00)
[2018-03-25] MEDS ORDERED: NS IV 1000 ML 1,000 ML IV SCH (15:00)
--- OUTSIDE RECORDS SUMMARY | 2018-03-25 15:00 | XMS REPORT ---
Author JOSE ANTONIO Gay [facility] eClinicalWorks Address Unknown Phone Unavailable Care Team Providers Care Contract Negotiation Manager Name Role Phone JOSE ANTONIO MOSS CP Unavailable Allergies No Known Allergies Problems Problem Type Condition Code Onset Dates Condition Status Problem Depression F32.9 Active Problem Essential hypertension I10 Active Problem Type 2 diabetes mellitus without complication E11.9 Active Problem Hypothyroidism E03.9 Active Assessment Type 2 diabetes mellitus with diabetic neuropathy E11.40 Active Problem Hyperlipidemia E78.5 Active Problem Anxiety F41.9 Active Medications No Known Medications Procedures Procedure Coding System Code Date LIPID PANEL CPT-4 81240 Feb 25, 2015 COMPREHEN METABOLIC PANEL CPT-4 53325 Feb 25, 2015 COMPLETE CBC W/AUTO DIFF WBC CPT-4 91878 Feb 25, 2015 VENIPUNCT, ROUTINE* CPT-4 01634 Feb 25, 2015 Results Name Result Date Reference Range Unit Abnormality Flag ROUTINE VENIPUNCTURE Summary Purpose eClinicalWorks Submission
--- OUTSIDE RECORDS SUMMARY | 2018-03-25 15:00 | XMS REPORT ---
Author Author JERMAN RONAL Organization [facility] Address [address] [place] [address] Care Team Providers Care Applied Behavior Specialist Name Role Phone JERMAN RONAL Unavailable PROBLEMS Type Condition ICD9-CM Code [id number] Code Onset Dates Condition Status SNOMED Code Problem Anxiety F41.9 Active 79385416 Problem Mixed hyperlipidemia E78.2 Active 488224268 Problem Depression F32.9 Active 566540408 Problem Type 2 diabetes mellitus without complication E11.9 Active 128575326 Problem Hypothyroid E03.9 Active 03228974 Problem Essential hypertension I10 Active 08031172 Problem Anemia D64.9 Active 088909848 ALLERGIES Substance Reaction Event Type Date Status Victoza nausea Drug Allergy June, Active SOCIAL HISTORY Never Assessed PLAN OF CARE Activity Details Follow Up 3 Months, prn Reason:CHM/DM VITAL SIGNS Height 63 in 2016-07-07 Weight 170.9 lbs 2016-07-07 Temperature 98.5 degrees Fahrenheit 2016-07-07 Heart Rate 70 bpm 2016-07-07 Respiratory Rate 18 2016-07-07 BMI 30.27 kg/m2 2016-07-07 Blood pressure systolic 124 mmHg 2016-07-07 Blood pressure diastolic 77 mmHg 2016-07-07 MEDICATIONS Medication Instructions Dosage Frequency Start Date End Date Duration Status NovoLog Flexpen 100 UNIT/ML Subcutaneous 3 times a day based on blood sugar 6 -10 units June, 12 months Active Glucocard Expression Test 1 subcutaneously 4 times a day test 4 times per day 6h June, 30 days Active MetFORMIN HCl ER 500 mg Orally twice a day 2 tablet twice daily with meals 12h 90 days Active Trilipix 135 MG TAKE ONE CAPSULE BY MOUTH ONCE DAILY 90 Active Glimepiride 4 MG Orally Once a day TAKE TWO TABLETS BY MOUTH ONCE DAILY ( MUST HAVE APPOINTMENT FOR REFILL) 24h 90 days Active Levothyroxine Sodium 50 mcg Orally Once a day TAKE ONE TABLET BY MOUTH ONCE DAILY 24h 90 days Active Levemir FlexTouch 100 UNIT/ML Subcutaneous Once a day 75 units 24h 16 Oct, 2014 12 months Active Effexor XR 150 MG Orally Once a day 1 capsule with food 24h 90 days Active Trilipix 135 MG Orally Once a day take 1 capsule (135 mg) by oral route once daily 24h 28 Nov, 2013 Active Lisinopril-Hydrochlorothiazide 20-25 MG Orally Once a day TAKE ONE TABLET BY MOUTH ONCE DAILY 24h 90 days Active Lipitor 40 mg Orally Once a day 1 tablet 24h June, 90 days Active RESULTS Name Result Date Reference Range A1C (IN HOUSE) 2016-07-07 A1C IN HOUSE >14 4.3 - 5.6 % Previous A1c 10.7 Lot [id number] Exp date PROCEDURES Procedure Date Ordered Result Body Site GLYCATED HEMOGLOBIN TEST July 07, 2016 IMMUNIZATIONS No Known Immunizations MEDICAL (GENERAL) HISTORY [...]
--- OUTSIDE RECORDS SUMMARY | 2018-03-25 15:00 | XMS REPORT ---
Author Author RONAL STOLL Organization [facility] Address [address] [place] [address] Care Team Providers Care Color Blender Name Role Phone RONAL STOLL Unavailable PROBLEMS Type Condition ICD9-CM Code [id number] Code Onset Dates Condition Status SNOMED Code Problem Anxiety F41.9 Active 70419279 Problem Mixed hyperlipidemia E78.2 Active 544676272 Problem Essential hypertension I10 Active 88750569 Problem Anemia D64.9 Active 868646375 Problem Hypothyroid E03.9 Active 42396061 Problem Depression F32.9 Active 061215430 Problem Type 2 diabetes mellitus without complication E11.9 Active 880353478 ALLERGIES Unknown Allergies SOCIAL HISTORY No smoking Hx information available PLAN OF CARE VITAL SIGNS MEDICATIONS Unknown Medications RESULTS No Results PROCEDURES No Known procedures IMMUNIZATIONS No Known Immunizations
--- OUTSIDE RECORDS SUMMARY | 2018-03-25 15:00 | XMS REPORT ---
Author Author STOLLRONAL Vargas Organization [facility] Address [address] [place] [address] Care Team Providers Care News Operations Manager Name Role Phone RONAL STOLL Unavailable PROBLEMS Type Condition ICD9-CM Code FSU14-CX Code Onset Dates Condition Status SNOMED Code Problem Anxiety F41.9 Active 35892293 Problem Type 2 diabetes mellitus without complication E11.9 Active 347119972 Problem Hypothyroid E03.9 Active 95280322 Problem Microalbuminuria R80.9 Active 353010597 Problem Other obesity due to excess calories E66.09 Active 603452007 Problem Body mass index (BMI) of 33.0-33.9 in adult Z68.33 Active 833832013 Problem Essential hypertension I10 Active 87435900 Problem Anemia D64.9 Active 606963909 Problem Mixed hyperlipidemia E78.2 Active 965358694 Problem Depression F32.9 Active [id number] ALLERGIES No Information ENCOUNTERS Encounter Location Date Diagnosis [facility] [id number] [place] [address]473[address]404 May, [facility] [id number] [place] [address] 57791- 1459 30 Apr, 2017 Type 2 diabetes mellitus without complication E11.9 ; Anemia D64.9 ; Hypothyroid E03.9 ; Mixed hyperlipidemia E78.2 ; Essential hypertension I10 ; Depression F32.9 ; Other obesity due to excess calories E66.09 ; Body mass index (BMI) of 33.0-33.9 in adult Z68.33 ; Anxiety F41.9 and Herpes zoster without complication B02.9 [facility] [id number] [place] [address]81- 9664 Apr, [facility] [id number] [place] [address]246- 7902 Apr, [facility] [address] [facility] [id number] [place] [address] 4534 Apr, [facility] [address] [facility] [id number] [place] [address] 9326 Mar, [facility] [address] [facility] [id number] [place] [address]- 5266 Feb, [facility] [address] [place] [address] 7793 Jan, [facility] [address] [facility] [id number] [place] [address] Jan, [facility] [address] 9713 Dec, Type 2 diabetes mellitus without complication E11.9 [facility] [address] [place] [address] Nov, [facility] [address] [place] [address] 1738 Nov, Type 2 diabetes mellitus without complication E11.9 [facility] [address] [place] [address] Nov, [facility] [address] [address] Oct, Type 2 diabetes mellitus without complication E11.9 [facility] [address] [place] [address]- 1595 14 [address], [address] [facility] [address] [facility] [id number] [address] Oct, [facility] [address] [place] [address]- 7[address] Sep, [facility] [address] [id number] [address]- 0726 Sep, Type 2 diabetes mellitus without complication E11.9 [facility] [address] [address]- 2978 Sep, Type 2 diabetes mellitus without complication E11.9 and Essential hypertension I10 [facility] [address] [place] [address] Sep, [facility] [address] [address] 1266 Sep, [facility] [id number] [place] [address] 85183- 8117 Sep, Type 2 diabetes mellitus without complication E11.9 [facility] [address] [place] [address]17 Aug, [facility] [id number] [place] [address] 69036- 3675 Aug, Type 2 diabetes mellitus without complication E11.9 [facility] [address] [address]- 5706 Aug, Type 2 diabetes mellitus without complication E11.9 [facility] [address] [address]- 7226 Aug, [facility] [address] [address]- 0643 Aug, Abnormal weight gain R63.5 [facility] [address] [address]- 9646 Aug, [facility] [address] [address]- 6047 Aug, Hypothyroid E03.9 [facility] [address] [place] [address]- 2440 Aug, Type 2 diabetes mellitus without complication E11.9 [facility] [address] [address]- 6561 Jul, Abnormal weight gain R63.5 [facility] [address] [address]- 7972 Jul, Abnormal weight gain R63.5 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 [place] [id number] [place] [address] 54893- 7861 Jul, Type 2 diabetes mellitus without complication E11.9 [place] [id number] [place] [address] 97921- 8821 June, [place] [id number] [address]- 1153 June, Type 2 diabetes mellitus without complication E11.9 [place] [address] [address]- 6842 June, [address] [address] [address]- 9549 June, [place] [id number] [place] [address] 80978- 6909 June, Type 2 diabetes mellitus without complication E11.9 ; Hypothyroid E03.9 ; Essential hypertension I10 ; Depression F32.9 and Mixed hyperlipidemia E78.2 [address] [address] [address]- 9110 May, [facility] [address] [address]- 7053 Feb, Type 2 diabetes mellitus without complication E11.9 ; Hypothyroid E03.9 ; Mixed hyperlipidemia E78.2 ; Essential hypertension I10 ; Depression F32.9 and Anemia D64.9 [place] [id number] [place] [address] 39512- 5685 Jan, [place] [id number] [place] [address] 54697- 9516 Sep, [address] [address] [address]- 2606 Sep, Type 2 diabetes mellitus without complication E11.9 ; Anemia D64.9 ; Hypothyroid E03.9 ; Hyperlipidemia, unspecified hyperlipidemia type E78.5 and Essential (primary) hypertension I10 [place] [id number] [place] [address] 29256- 0937 Aug, [place] [id number] [place] [address] 62507- 1590 June, [address] [id number] [place] [address] 65623- 4552 June, Iron deficiency anemia, unspecified iron deficiency anemia type D50.9 [place] [id number] [place] [address] 60685- 6448 May, Abnormal finding of blood chemistry, unspecified R79.9 [place] [id number] [place] [address] 15926- 0667 May, Type 2 diabetes mellitus without complication E11.9 ; Anemia D64.9 ; Hypothyroid E03.9 ; Anxiety F41.9 and Dyslipidemia E78.5 [address] [id number] [place] [address] 56311- 7930 Jan, Type 2 diabetes mellitus without complication E11.9 ; Depression F32.9 ; Essential hypertension I10 ; Hyperlipidemia E78.5 ; Anxiety F41.9 and Hypothyroidism E03.9 [place] [id number] [place] [address] 37333- 3684 Jan, Type 2 diabetes mellitus with diabetic neuropathy E11.40 [facility] [address] [facility] [id number] [address]- 2473 Jan, Type 2 diabetes mellitus with diabetic neuropathy E11.40 [facility] [address] [facility] [id number] [address]- 2568 Jan, [facility] [address] [address]- 3782 Jan, [facility] [address] [facility] [id number] 0205 Jan, [facility] [id number] [address]- 0669 Jan, [facility] [address] [place] [address] 290990- 0358 Dec, [facility] [address] [address]- 3646 Dec, [facility] [address] [address]- 6661 Nov, [facility] [address] [address]- 9670 Nov, [facility] [address] [address]- 5986 Nov, [facility] [address] [address]- 2343 Nov, [facility] [address] [address]- 0948 Nov, [facility] [address] 2895 Nov, Pertussis exposure Z20.89 [facility] [address] [address]- 8014 Nov, [facility] [address] [address]- 6951 Oct, [facility] [id number] [address]- 8852 Oct, [facility] [id number] [address]- 4326 Oct, [facility] [address] 6[address] Sep, [facility] [address] 3293 Sep, Diabetes mellitus without mention of complication, type II or unspecified type, uncontrolled 250.02 and Hyperlipidemia associated with type [address] [facility] [address] [address]- 6403 Sep, [facility] [address] [address]- 2185 Sep, [facility] [address] [address]- 5068 Sep, Diabetes mellitus without mention of complication, type II or unspecified type, not stated as uncontrolled 250.00 ; Hypothyroid 244.9 ; Hyperlipidemia 272.[address] [facility] [address] [address]- 3693 Aug, [facility] [id number] [address]- 3581 June, Diabetes mellitus without mention of complication, type II or unspecified type, not stated as uncontrolled 250.00 ; Hyperlipidemia 272.4 ; Hypertension 401.9 ; Candidiasis of female genitalia 112.1 ; Hypothyroid 244.[address] [facility] [id number] [address]- 3032 June, [facility] [address] [address]- 9507 May, [facility] [id number] [address]- 4707 May, [facility] [place] [facility] [address] [id number] [place] [address]- 7305 Mar, 2014 [facility] [place] [facility] [address] [id number] [place] [address]- 2722 Mar, 2014 [facility] [place] [facility] [address] [id number] [place] [address]- 0198 Mar, 2014 [facility] [place] [facility] [address] [id number] [place] [address]- 1416 Mar, [facility] [place] [facility] [address] [id number] [place] [address]- 6723 Jan, [facility] [place] [facility] [address] [id number] [place] [address]- 3330 Jan, [facility] [place] [facility] [address] [id number] [place] [address]- 4642 Nov, [facility] [place] [facility] [address] [id number] [place] [address]- 2685 Nov, [facility] [place] [facility] [address] [id number] [place] [address]- 6286 Nov, [facility] [place] [facility] [address] [id number] [place] [address]- 5802 Nov, [facility] [place] [facility] [address] [id number] [address]- 8043 Nov, [facility] [place] [facility] [address] [id number] [address]- 6283 Nov, [facility] [place] [facility] [address] [id number] [place] [address]- 9829 Oct, [facility] [place] [facility] [address] [id number] [place] [address]- 6643 29 Oct, 2013 [facility] [place] [facility] [address] [id number] [place] [address]- 8962 29 Oct, 2013 [facility] [place] [facility] [address] [id number] [address]- 5768 29 Oct, 2013 [facility] [place] [facility] [address] [id number] [place] [address]- 2989 23 Oct, 2013 [facility] [place] [facility] [address] [id number] [place] [address]- 6776 23 Oct, 2013 [facility] [place] [facility] [address] [id number] [place] [address]- 7030 Oct, 2013 [facility] [place] [facility] [address] [id number] [place] [address]- 7786 22 Oct, 2013 [facility] [place] [facility] [address] [id number] [place] [address]- 0566 Oct, 2013 [facility] [place] [facility] [address] [id number] [place] [address]- 3613 Oct, 2013 [facility] [place] [facility] [address] [id number] [place] [address]- 5181 08 Oct, 2013 [facility] [place] [facility] [address] [id number] [place] [address]- 6544 08 Oct, 2013 [facility] [place] [facility] [address] [id number] [place] [address]- 1724 Oct, 2013 [facility] [place] [facility] [address] [id number] [place] [address]- 2238 08 Oct, 2013 [facility] [place] [facility] [address] [id number] [place] [address]- 0165 Sep, [facility] [place] [facility] [address] [id number] [place] [address]- 0389 Sep, [facility] [place] [facility] [address] [id number] [place] [address]- 5202 Sep, [facility] [place] [facility] [address] [id number] [place] [address]- 0608 Sep, [facility] [place] [facility] [address] [id number] [place] [address]- 2902 Sep, [facility] [place] [facility] [address] [id number] [facility] [address]- 9986 Sep, [facility] [place] [facility] [address] [id number] [facility] [address]- 5841 Aug, [facility] [place] [facility] [address] [id number] [place] [address]- 8170 Aug, [facility] [place] [facility] [address] [id number] [place] [address]- 5340 Aug, [facility] [place] [facility] [address] [id number] [place] [address]- 3023 Aug, [facility] [place] [facility] [address] [id number] [place] [address]- 2252 Aug, [facility] [place] [facility] [address] [id number] [place] [address]- 7518 Aug, [facility] [place] [facility] [address] [id number] [place] [address]- 3550 Aug, [facility] [place] [facility] [address] [id number] [place] [address]- 2950 Aug, [facility] [place] [facility] [address] [id number] [place] [address]- 7373 Aug, [facility] [place] [facility] [address] [id number] [place] [address]- 7319 Aug, [facility] [place] [facility] [address] [id number] [place] [address]- 2684 Aug, [facility] [place] [facility] [address] [id number] [place] [address]- 9954 Aug, [facility] [place] [facility] [address] [id number] [place] [address]- 5924 Aug, [facility] [place] [facility] [address] [id number] [place] [address]- 4236 Aug, [facility] [place] [facility] [address] [id number] [place] [address]- 6129 Aug, [facility] [place] [facility] [address] [id number] [place] [address]- 8702 Aug, 2013 [facility] [place] [facility] [address] [id number] [place] [address]- 6828 Aug, [facility] [place] [facility] [address] [id number] [place] [address]- 5063 Aug, [facility] [place] [facility] [address] [id number] [place] [address]- 4991 Aug, [facility] [place] [facility] [address] [id number] [place] [address]- 8198 Jul, [facility] [place] [facility] [address] [id number] [place] [address]- 7194 Jul, [facility] [place] [facility] [address] [id number] [place] [address]- 1155 Jul, [facility] [place] [facility] [address] [id number] [place] [address]- 2687 Jul, [facility] [place] [facility] [address] [id number] [place] [address]- 8123 Apr, [facility] [place] [facility] [address] [id number] [place] [address]- 8640 Apr, [facility] [place] [facility] [address] [id number] [place] [address]- 2036 15 Mar, 2012 [facility] [place] [facility] [address] [id number] [address]- 7026 Mar, [facility] [place] [facility] [address] [id number] [place] [address]- 4382 Feb, [facility] [place] [facility] [address] [id number] [place] [address]- 9739 Feb, [facility] [place] [facility] [address] [id number] [place] [address]- 6565 Feb, [facility] [place] [facility] [address] [id number] [place] [address]- 5305 02 Feb, 2012 [facility] [address] [id number] [place] [address]- 6416 21 Jan, 2012 [facility] [address] [id number] [place] [address]- 0056 21 Jan, 2012 [facility] [address] [id number] [place] [address]- 8116 17 Jan, 2012 [facility] [address] [id number] [place] [address]- 4946 17 Jan, 2012 [facility] [address] [id number] [place] [address]- 1638 14 Jan, 2012 [facility] [address] [id number] [place] [address]- 4996 13 Jan, 2012 [facility] [address] [id number] [place] [address]- 6270 13 Jan, 2012 [facility] [address] [id number] [place] [address]- 3004 10 Jan, 2012 [facility] [address] [id number] [place] [address]- 4721 10 Jan, 2012 [facility] [address] [id number] [place] [address]- 7417 26 Dec, 2011 [facility] [address] [id number] [place] [address]- 1098 26 Dec, 2011 [facility] [address] [id number] [place] [address]- 3734 Dec, [facility] [place] [facility] [address] [id number] [place] [address]- 2341 Dec, [facility] [place] [facility] [address] [id number] [place] [address]- 3811 20 Dec, 2011 [facility] [address] [id number] [place] [address] Dec, [facility] [address] [id number] [address] Dec, [facility] [address] [address] Dec, [facility] [address] [address] Dec, [facility] [address] [address] Dec, [facility] [address] [address] Dec, [facility] [address] [address] Dec, [facility] [address] [address] Dec, [facility] [address] [address] Dec, [facility] [address] [address] Dec, [facility] [address] [address] Nov, [facility] [address] [id number] [address] Nov, [facility] [address] [address] Nov, [facility] [id number] [address] Nov, IMMUNIZATIONS No Known Immunizations SOCIAL HISTORY Never Assessed REASON FOR VISIT BS request PLAN OF CARE VITAL SIGNS MEDICATIONS [...]
--- OUTSIDE RECORDS SUMMARY | 2018-03-25 15:00 | XMS REPORT ---
Author Author MAJOR MCCARTNEY [facility] [employer] Address Unknown Phone Unavailable Care Team Providers Care Educational Administration Teacher Name Role Phone MAJOR MCCARTNEY CP Unavailable [...]
--- OUTSIDE RECORDS SUMMARY | 2018-03-25 15:00 | XMS REPORT ---
Author Author JERMAN RONAL Organization [facility] Address [address] [place] [address] Care Team Providers Care Specialty Sales Consultant Name Role Phone JERMAN RONAL Unavailable PROBLEMS Type Condition ICD9-CM Code [id number] Code Onset Dates Condition Status SNOMED Code Problem Anxiety F41.9 Active 54322771 Problem Mixed hyperlipidemia E78.2 Active 798517777 Problem Depression F32.9 Active 875308874 Problem Type 2 diabetes mellitus without complication E11.9 Active 358232637 Problem Hypothyroid E03.9 Active 63563077 Problem Essential hypertension I10 Active 22806327 Problem Anemia D64.9 Active [id number] ALLERGIES No Information SOCIAL HISTORY Never Assessed PLAN OF CARE VITAL SIGNS MEDICATIONS Medication Instructions Dosage Frequency Start Date End Date Duration Status Levemir FlexTouch 100 UNIT/ML Subcutaneous twice a day 45 units in AM, 50 units in PM 12h 16 Oct, 2014 Active RESULTS No Results PROCEDURES No Known [...]
--- OUTSIDE RECORDS SUMMARY | 2018-03-25 15:00 | XMS REPORT ---
Author Author RONAL STOLL Organization [facility] Address [address] [place] [address] Care Team Providers Care Mining Teacher Name Role Phone STOLLRONAL Vargas Unavailable PROBLEMS Type Condition ICD9-CM Code VCS42-SH Code Onset Dates Condition Status SNOMED Code Problem Anxiety F41.9 Active 17731430 Problem Type 2 diabetes mellitus without complication E11.9 Active 342437560 Problem Hypothyroid E03.9 Active 53229662 Problem Microalbuminuria R80.9 Active 747287972 Problem Other obesity due to excess calories E66.09 Active 435117430 Problem Body mass index (BMI) of 33.0-33.9 in adult Z68.33 Active 999582269 Problem Essential hypertension I10 Active 71147990 Problem Anemia D64.9 Active 459651049 Problem Mixed hyperlipidemia E78.2 Active 041889698 Problem Depression F32.9 Active 801877537 ALLERGIES Substance Reaction Event Type Date Status Victoza nausea Drug Allergy Sep, Active ENCOUNTERS Encounter Location Date Diagnosis [facility] [id number] [place] [address] 16917- 3790 May, [facility] [id number] [address] 6743 May, Anemia D64.9 ; Type 2 diabetes mellitus without complication E11.9 ; Hypothyroid E03.9 ; Mixed hyperlipidemia E78.2 ; Essential hypertension I10 ; Depression F32.9 ; Other obesity due to excess calories E66.09 ; Body mass index (BMI) of 33.0-33.9 in adult Z68.33 ; Anxiety F41.9 and Herpes zoster without complication B02.9 [facility] [id number], [place] [address] 06[address] Apr, Type 2 diabetes mellitus without complication E11.9 ; Anemia D64.9 ; Hypothyroid E03.9 ; Mixed hyperlipidemia E78.2 ; Essential hypertension I10 ; Depression F32.9 ; Other obesity due to excess calories E66.09 ; Body mass index (BMI) of 33.0-33.9 in adult Z68.33 ; Anxiety F41.9 and Herpes zoster without complication B02.9 [facility] [id number] [place] [address] 62866- 5203 Apr, [facility] [id number] [place] [address] 06413- 8788 Apr, [facility] [id number] [place] [address] 097738- 9200 Apr, [facility] [id number] [place] [address] 79889- 4885 Mar, [facility] [id number] [place] [address] 75971- 0948 Feb, [facility] [id number] [place] [address] 82352- 5715 Jan, [facility] [id number] [place] [address] 32493- 7806 Jan, [facility] [id number] [place] [address] 46106- 0477 Dec, Type 2 diabetes mellitus without complication E11.9 [facility] [id number] [place] [address] 76840- 0130 30 Nov, 2016 [facility] [id number] [place] [address] 21022- 8945 Nov, Type 2 diabetes mellitus without complication E11.9 [facility] [id number] [place] [address] 21821- 3904 17 Nov, 2016 [facility] [id number] [place] [address] 976335- 6276 Oct, Type 2 diabetes mellitus without complication E11.9 [facility] [id number] [place] [address] 74446- 9173 Oct, [facility] [address] [facility] [id number] [address] 7904 Oct, [facility] [id number] [place] [address] 5905 Sep, [facility] [id number], [place] [address] 8892 Sep, Type 2 diabetes mellitus without complication E11.9 [facility] [address] [facility] [id number] [address] 2262 Sep, Type 2 diabetes mellitus without complication E11.9 and Essential hypertension I10 [facility] [id number], [place] [address]- 1425 Sep, [facility] [id number], [place] [address]- 2262 Sep, [facility] [id number], [place] [address]- 8414 Sep, Type 2 diabetes mellitus without complication E11.9 [facility] [address], [place] [address]- 9220 Aug, [facility] [id number], [place] [address]- 6669 Aug, Type 2 diabetes mellitus without complication E11.9 [facility] [address], [place] [address]- 8320 Aug, Type 2 diabetes mellitus without complication E11.9 [facility] [id number], [place] [address]- 9594 Aug, [facility] [id number], [place] [address]- 7072 Aug, Abnormal weight gain R63.5 [facility] [id number], [place] [address]- 9669 Aug, [facility] [id number] [address]- 7533 Aug, Hypothyroid E03.9 [facility] [id number] [place] [address] 78504- 1286 Aug, Type 2 diabetes mellitus without complication E11.9 [facility] [address], [place] [address]- 6152 Jul, Abnormal weight gain R63.5 [facility] [id number] [place] [address] 13705- 4266 Jul, Abnormal weight gain R63.5 [facility] [id number] [place] [address] 14441- 3486 Jul, Abnormal weight gain R63.5 [facility] [id number] [place] [address] 51357- 7276 Jul, Abnormal weight gain R63.5 ; Pain in right knee M25.561 and Pain in right ankle and joints of right foot M25.571 [place] [address], [place] [address]- 7577 Jul, [place] [id number] [place] [address] 11404- 0905 Jul, 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 [place] [id number], [place] [address]- 9606 Jul, Type 2 diabetes mellitus without complication E11.9 [facility] [address], [place] [address]- 3276 June, [facility] [id number], [place] [address]- 6822 June, Type 2 diabetes mellitus without complication E11.9 [facility] [id number], [place] [address]- 1862 June, [facility] [id number], [place] [address]- 4931 June, [place] [id number], [place] [address]- 6188 June, Type 2 diabetes mellitus without complication E11.9 ; Hypothyroid E03.9 ; Essential hypertension I10 ; Depression F32.9 and Mixed hyperlipidemia E78.2 [place] [address], [place] [address]- 8895 May, [place] [id number] [place] [address] 32341- 5328 Feb, Type 2 diabetes mellitus without complication E11.9 ; Hypothyroid E03.9 ; Mixed hyperlipidemia E78.2 ; Essential hypertension I10 ; Depression F32.9 and Anemia D64.9 [place] [id number] [place] [address] 88952- 0395 Jan, [place] [id number] [place] [address] 43549- 7173 Sep, [place] [id number] [place] [address] 68292- 0570 Sep, Type 2 diabetes mellitus without complication E11.9 ; Anemia D64.9 ; Hypothyroid E03.9 ; Hyperlipidemia, unspecified hyperlipidemia type E78.5 and Essential (primary) hypertension I10 [place] [id number], [place] [address]- 2129 Aug, [place] [id number], [place] [address]- 5863 June, [place] [id number] [place] [address] 90681- 5829 June, Iron deficiency anemia, unspecified iron deficiency anemia type D50.9 [place] [id number] [place] [address] 64220- 2104 May, Abnormal finding of blood chemistry, unspecified R79.9 [place] [address], [place] [address]- 3727 May, Type 2 diabetes mellitus without complication E11.9 ; Anemia D64.9 ; Hypothyroid E03.9 ; Anxiety F41.9 and Dyslipidemia E78.5 [facility] [id number] [place] [address] 04949- 3035 Jan, Type 2 diabetes mellitus without complication E11.9 ; Depression F32.9 ; Essential hypertension I10 ; Hyperlipidemia E78.5 ; Anxiety F41.9 and Hypothyroidism E03.9 [facility] [id number] [place] [address] 79439- 4293 Jan, Type 2 diabetes mellitus with diabetic neuropathy E11.40 [facility] [id number] [place] [address] 56441- 2432 Jan, Type 2 diabetes mellitus with diabetic neuropathy E11.40 [facility] [id number] [place] [address] 00661- 7390 Jan, [facility] [id number] [place] [address] 76703- 0564 Jan, [facility] [id number] [place] [address] 92523- 1580 Jan, [facility] [id number] [place] [address] 96152- 3991 Jan, [facility] [id number] [place] [address] 10611- 5454 Dec, [facility] [id number] [place] [address] 56417- 3125 Dec, [facility] [id number] [place] [address] 30996- 2308 Nov, [facility] [id number] [place] [address] 538445- 5752 Nov, [facility] [id number] [place] [address] 83970- 3668 Nov, [facility] [id number] [place] [address] 71323- 6349 Nov, [facility] [id number], [place] [address]- 6216 Nov, [facility] [id number], [place] [address]- 5418 Nov, Pertussis exposure Z20.89 [facility] [id number], [place] [address]- 7116 Nov, [facility] [id number], [place] [address]- 7676 Oct, [facility] [address], [place] [address]- 6899 Oct, [facility] [address], [place] [address]- 5886 Oct, [facility] [address], [place] [address]- 2331 Sep, [facility] [address], [place] [address]- 1540 Sep, Diabetes mellitus without mention of complication, type II or unspecified type, uncontrolled 250.02 and Hyperlipidemia associated with type 2 diabetes mellitus 250.80 [facility] [address], [place] [address]- 6926 Sep, [facility] [id number], [place] [address]- 0736 Sep, [facility] [id number], [place] [address]- 5146 Sep, Diabetes mellitus without mention of complication, type II or unspecified type, not stated as uncontrolled 250.00 ; Hypothyroid 244.9 ; Hyperlipidemia 272.4 and Hypertension 401.9 [facility] [address], [place] [address]- 1116 Aug, [facility] [id number], [place] [address]- 3784 June, Diabetes mellitus without mention of complication, type II or unspecified type, not stated as uncontrolled 250.00 ; Hyperlipidemia 272.4 ; Hypertension 401.9 ; Candidiasis of female genitalia 112.1 ; Hypothyroid 244.9 and Liver lesion 573.8 [facility] [address], [place] [address]- 2838 June, [facility] [address], [place] [address]- 4684 May, [facility] [id number] [place] [address] 76711- 1853 May, [facility] [address], [place] [address]- 5340 Mar, [facility] [id number] [place] [address] 68835- 4249 Mar, [facility] [address], [place] [address]- 1442 Mar, [facility] [address], [place] [address]- 0446 Mar, [facility] [address], [place] [address]- 9702 Jan, [facility] [address], [place] [address]- 4346 Jan, [facility] [id number], [place] [address]- 2071 Nov, [facility] [address], [place] [address]- 5949 Nov, [facility] [address], [place] [address]- 1011 Nov, [facility] [id number], [place] [address]- 7127 Nov, [facility] [id number] 9174 Nov, [facility] [id number] [place] [address]- 6937 06 Nov, 2013 [facility] [place] [facility] [address] [id number] [place] [address] 2546 29 Oct, 2013 [facility] [place] [facility] [address] [id number] [place] [address] 2546 29 Oct, 2013 [facility] [place] [facility] [address] [id number] [place] [address] 2546 29 Oct, 2013 [facility] [place] [facility] [address] [id number] [place] [address] 2542 29 Oct, 2013 [facility] [place] [facility] [address] [id number] [place] [address]- 8246 23 Oct, 2013 [facility] [place] [facility] [address] [id number] [place] [address]- 7392 23 Oct, 2013 [facility] [place] [facility] [address] [id number] [place] [address]- 7339 22 Oct, 2013 [facility] [place] [facility] [address] [id number] [place] [address]- 2913 22 Oct, 2013 [facility] [place] [facility] [address] [id number] [place] [address] 2548 11 Oct, 2013 [facility] [place] [facility] [address] [id number] [place] [address]- 2547 11 Oct, 2013 [facility] [place] [facility] [address] [id number] [place] [address]- 2543 08 Oct, 2013 [facility] [place] [facility] [address] [id number] [place] [address]- 2547 08 Oct, 2013 [facility] [place] [facility] [address] [id number] [place] [address] 2548 08 Oct, 2013 [facility] [place] [facility] [address] [id number] [place] [address]- 2545 08 Oct, 2013 [facility] [place] [facility] [address] [id number] [place] [address]- 6755 Sep, [facility] [place] [facility] [address] [id number] [place] [address]- 5379 Sep, [facility] [place] [facility] [address] [id number] [place] [address]- 1265 Sep, [facility] [place] [facility] [address] [id number] [place] [address]- 6242 Sep, [facility] [place] [facility] [address] [id number] [place] [address]- 2694 Sep, [facility] [place] [facility] [address] [id number] [place] [address]- 7289 Sep, [facility] [place] [facility] [address] [id number] [place] [address]- 0172 Aug, [facility] [place] [facility] [address] [id number] [place] [address]- 6790 Aug, [facility] [place] [facility] [address] [id number] [place] [address]- 0995 Aug, [facility] [place] [facility] [address] [id number] [place] [address]- 6359 Aug, [facility] [place] [facility] [address] [id number] [place] [address]- 6422 Aug, [facility] [place] [facility] [address] [id number] [place] [address]- 1454 Aug, [facility] [place] [facility] [address] [id number] [place] [address]- 0088 Aug, [facility] [place] [facility] [address] [id number] [place] [address]- 6724 Aug, [facility] [place] [facility] [address] [id number] [place] [address]- 3555 Aug, [facility] [place] [facility] [address] [id number] [place] [address]- 9899 Aug, [facility] [place] [facility] [address] [id number] [place] [address]- 5569 Aug, 2013 [facility] [place] [facility] [address] [id number] [place] [address]- 5983 Aug, 2013 [facility] [place] [facility] [address] [id number] [place] [address]- 7413 Aug, 2013 [facility] [place] [facility] [address] [id number] [place] [address]- 7675 Aug, 2013 [facility] [place] [facility] [address] [id number] [place] [address]- 0733 Aug, 2013 [facility] [place] [facility] [address] [id number] [place] [address]- 4272 Aug, 2013 [facility] [place] [facility] [address] [id number] [place] [address]- 8210 Aug, 2013 [facility] [place] [facility] [address] [id number] [place] [address]- 7985 Aug, 2013 [facility] [place] [facility] [address] [id number] [place] [address]- 6516 Aug, 2013 [facility] [place] [facility] [address] [id number] [place] [address]- 6145 Jul, [facility] [place] [facility] [address] [id number] [place] [address]- 2309 Jul, [facility] [place] [facility] [address] [id number] [place] [address]- 8971 Jul, [facility] [place] [facility] [address] [id number] [place] [address]- 8615 Jul, [facility] [place] [facility] [address] [id number] [place] [address]- 3509 Apr, [facility] [place] [facility] [address] [id number] [place] [address]- 4423 Apr, [facility] [place] [facility] [address] [facility] [id number] [place] [address]- 2792 Mar, [facility] [place] [facility] [address] [id number] [place] [address]- 0916 11 Mar, 2012 [facility] [address] [id number] [place] [address]- 0786 Feb, [facility] [place] [facility] [address] [id number] [place] [address]- 2546 Feb, [facility] [address] [id number] [place] [address]- 4166 Feb, [facility] [place] [facility] [address] [id number] [place] [address]- 9356 Feb, [facility] [place] [facility] [address] [id number] [place] [address]- 7747 Jan, [facility] [place] [facility] [address] [id number] [place] [address]- 4266 Jan, [facility] [address] [id number] [place] [address]- 4514 17 Jan, 2012 [facility] [address] [id number] [place] [address]- 3077 17 Jan, 2012 [facility] [place] [facility] [address] [id number] [place] [address]- 0355 14 Jan, 2012 [facility] [address] [id number] [place] 2433 13 Jan, 2012 [facility] [place] [facility] [address] [id number] [place] [address]- 7458 13 Jan, 2012 [facility] [place] [facility] [address] [id number] [place] [address] 10 Jan, 2012 [facility] [place] [facility] [address] [id number] [place] [address] 10 Jan, 2012 [facility] [place] [facility] [address] [id number] [place] [address] 26 Dec, 2011 [facility] [place] [facility] [address] [id number] [place] [address] 26 Dec, 2011 [facility] [place] [facility] [address] [id number] [place] [address] Dec, [facility] [place] [facility] [address] [id number] [place] [address] 21 Dec, 2011 [facility] [place] [facility] [address] [id number] [place] [address] 20 Dec, 2011 [facility] [place] [facility] [address] [id number] [place] [address] 19 Dec, 2011 [facility] [place] [facility] [address] [id number] [place] [address] 19 Dec, 2011 [facility] [place] [facility] [address] [id number] [place] [address] 19 Dec, 2011 [facility] [place] [facility] [address] [id number] [place] [address] 19 Dec, 2011 [facility] [place] [facility] [address] [id number], [place] [address] 16 Dec, 2011 [facility] [place] [facility] [address] [id number], [place] [address] 16 Dec, 2011 [facility] [place] [facility] [address] [id number], [place] [address] 16 Dec, 2011 [facility] [place] [facility] [address] [id number], [place] [address] 16 Dec, 2011 [facility] [place] [facility] [address] [id number], [place] [address] 14 Dec, 2011 [facility] [place] [facility] [address] [id number], [place] [address] 14 Dec, 2011 [facility] [place] [facility] [address] [id number], [place] [address] 31 Nov, 2011 [facility] [place] [facility] [address] [id number], [place] [address] 31 Nov, 2011 [facility] [place] [facility] [address] [facility] [id number] [place] [address] Nov, [facility] [address] [facility] [id number] [place] [address] Nov, IMMUNIZATIONS No Known Immunizations SOCIAL HISTORY Never Assessed REASON FOR VISIT 3 mo f/u DM---DBennettRN PLAN OF CARE Activity Details Follow Up 3 Months Reason:DM VITAL SIGNS Height 63 in 2016-10-12 Weight 193 lbs 2016-10-12 Temperature 98.3 degrees Fahrenheit 2016-10-12 Heart Rate 80 bpm 2016-10-12 Respiratory Rate 20 2016-10-12 BMI 34.18 kg/m2 2016-10-12 Blood pressure systolic 140 mmHg 2016-10-12 Blood pressure diastolic 94 mmHg 2016-10-12 MEDICATIONS Medication Instructions Dosage Frequency Start Date End Date Duration Status Pen Natick 32G X 4 MM as directed 6h Sep, 90 days Active MetFORMIN HCl ER 500 mg Orally twice a day 2 tablet twice daily with meals 12h Active Tresiba FlexTouch 200 UNIT/ML Subcutaneous at bedtime Inject 140 units Sep, Active Lipitor 40 mg Orally Once a day 1 tablet 24h June, 90 days Active Levothyroxine Sodium 50 mcg Orally Once a day TAKE ONE TABLET BY MOUTH ONCE DAILY 24h 90 days Active Effexor XR 150 MG Orally Once a day 1 capsule with food 24h 90 days Active Glucocard Expression Test 1 subcutaneously 4 times a day test 4 times per day 6h June, 30 days Active Invokana 300 MG Orally Once a day 1 tablet 24h Sep, Oct, 30 day(s) Active Pioglitazone HCl 30 MG Orally Once a day 1 tablet 24h Sep, 30 day(s) Active Lisinopril-Hydrochlorothiazide 20-25 MG Orally Once a day TAKE ONE TABLET BY MOUTH ONCE DAILY 24h 90 days Active NovoLog Flexpen 100 UNIT/ML Subcutaneous 3 times a day before meals 40 units June, Active Trilipix 135 MG Orally Once a day take 1 capsule (135 mg) by oral route once daily 24h Nov, Active RESULTS Name Result Date Reference Range GLUCOSE FINGERSTICK (IN HOUSE) 2016-10-12 GLU FINGERSTICK 123 PC fasting Lot # Exp date PROCEDURES Procedure Date Ordered Result Body Site GLUCOSE BLOOD TEST Oct 12, 2016 GLYCATED HEMOGLOBIN TEST Oct 12, 2016 INSTRUCTIONS MEDICATIONS ADMINISTERED No Known Medications [...]
--- OUTSIDE RECORDS SUMMARY | 2018-03-25 15:00 | XMS REPORT ---
Author Author MAJOR MCCARTNEY [facility] eClinicalWorks Address Unknown Phone Unavailable Care Team Providers Care Paper Plate Machine Tender Name Role Phone MAJOR MCCARTNEY CP Unavailable [...] Date End Date Status Dosage NovoLog Flexpen [facility] [address]-38 100 UNIT/ML Subcutaneous before each meal Oct 26, 2014 30 units Invokana [facility] [address]-24 100 MG Orally Once a day Dec 28, 2014 1 tablet Levemir FlexTouch [facility] [address]-05 100 UNIT/ML Subcutaneous 2 times a day Nov 11, 2014 70 units Results No Known Results Summary Purpose eClinicalWorks Submission
--- OUTSIDE RECORDS SUMMARY | 2018-03-25 15:00 | XMS REPORT ---
Author JOSE ANTONIO [facility] eClinicalWorks Address Unknown Phone Unavailable Care Team Providers Care Environmental Project Manager Name Role Phone JOSE ANTONIO MOSS [...]
--- OUTSIDE RECORDS SUMMARY | 2018-03-25 15:00 | XMS REPORT ---
Author Author RONAL STOLL Organization eClinicalWorks Address Unknown Phone Unavailable Care Team Providers Care Iron Miner Blasting Name Role Phone RONAL STOLL CP Unavailable Allergies No Known Allergies Problems Problem Type Condition Code Onset Dates Condition Status Problem Anemia D64.9 Active Problem Hypothyroid E03.9 Active Problem Type 2 diabetes mellitus without complication E11.9 Active Problem Anxiety F41.9 Active Assessment Abnormal finding of blood chemistry, unspecified R79.9 Active Medications No Known Medications Procedures Procedure Coding System Code Date BLOOD SMEAR INTERPRETATION CPT-4 22394 June 15, 2015 Results No Known Results Summary Purpose eClinicalWorks Submission
--- OUTSIDE RECORDS SUMMARY | 2018-03-25 15:00 | XMS REPORT ---
Author Author RONAL STOLL Organization [facility] Address [address] [place] [address] Care Team Providers Care Covering Machine Tender Name Role Phone RONAL STOLL Unavailable PROBLEMS Type Condition ICD9-CM Code [id number] Code Onset Dates Condition Status SNOMED Code Problem Anxiety F41.9 Active 50709567 Problem Mixed hyperlipidemia E78.2 Active 912325098 Problem Depression F32.9 Active 891697929 Problem Type 2 diabetes mellitus without complication E11.9 Active 284496849 Problem Hypothyroid E03.9 Active 32195405 Problem Essential hypertension I10 Active 89914264 Problem Anemia D64.9 Active [id number] ALLERGIES No Information SOCIAL HISTORY Never Assessed [...]
--- OUTSIDE RECORDS SUMMARY | 2018-03-25 15:01 | XMS REPORT ---
Author Author STOLLRONAL Vargas Organization [facility] [place] Address [address] [place] [address] Care Team Providers Care Certified [place] Reporter Name Role Phone RONAL STOLL Unavailable PROBLEMS Type Condition ICD9-CM Code OBN25-AK Code Onset Dates Condition Status SNOMED Code Problem Anxiety F41.9 Active 61866860 Problem Type 2 diabetes mellitus without complication E11.9 Active 917305432 Problem Hypothyroid E03.9 Active 37958667 Problem Microalbuminuria R80.9 Active 348847226 Problem Other obesity due to excess calories E66.09 Active 093723000 Problem Body mass index (BMI) of 33.0-33.9 in adult Z68.33 Active 636481351 Problem Essential hypertension I10 Active 42803543 Problem Anemia D64.9 Active 226070168 Problem Mixed hyperlipidemia E78.2 Active 432621902 Problem Depression F32.9 Active [id number] ALLERGIES No Information ENCOUNTERS Encounter Location Date Diagnosis [facility] [place] [id number] [place] [address] 73945- 3814 May, [facility] [place] [id number] [place] [address] 43659- 0875 30 Apr, 2017 Type 2 diabetes mellitus without complication E11.9 ; Anemia D64.9 ; Hypothyroid E03.9 ; Mixed hyperlipidemia E78.2 ; Essential hypertension I10 ; Depression F32.9 ; Other obesity due to excess calories E66.09 ; Body mass index (BMI) of 33.0-33.9 in adult Z68.33 ; Anxiety F41.9 and Herpes zoster without complication B02.9 [facility] [place] [id number] [place] [address] 16186- 9712 Apr, [facility] [place] [id number] [place] [address] 75564- 7564 Apr, [facility] [place] [address] [facility] [id number] [place] [address] 9815 Apr, [facility] [place] [address] [facility] [id number] [place] [address]- 4196 Mar, [facility] [place] [address] [facility] [id number] [place] [address]- 2896 Feb, [facility] [place] [address] [place] [address] 3508 Jan, [facility] [place] [address] [facility] [id number] [place] [address] Jan, [facility] [place] [address] [address] Dec, Type 2 diabetes mellitus without complication E11.9 [facility] [place] [address] [place] [address]- 2776 Nov, [facility] [place] [address] [place] [address]- 8072 Nov, Type 2 diabetes mellitus without complication E11.9 [facility] [place] [address] [place] [address]- 7559 Nov, [facility] [place] [address] [address] Oct, Type 2 diabetes mellitus without complication E11.9 [facility] [place] [address] [place] [address]- 8485 14 Oct, 2016 [facility] [place] [address] [facility] [id number], [place] [address] 6930 Oct, [facility] [place] [address] [place] [address]- 9896 Sep, [facility] [place] [address] [id number] [place] [address]- 7756 Sep, Type 2 diabetes mellitus without complication E11.9 [facility] [place] [address], [place] [address]- 7573 Sep, Type 2 diabetes mellitus without complication E11.9 and Essential hypertension I10 [facility] [place] [address] [place] [address]- 2576 Sep, [facility] [place] [address], [place] [address]- 5596 Sep, [facility] [place] [id number] [place] [address] 46820- 2055 Sep, Type 2 diabetes mellitus without complication E11.9 [facility] [place] [address] [place] [address]- 0023 Aug, [facility] [place] [id number] [place] [address] 59315- 2228 Aug, Type 2 diabetes mellitus without complication E11.9 [facility] [place] [address], [place] [address]- 3436 Aug, Type 2 diabetes mellitus without complication E11.9 [facility] [place] [address], [place] [address]- 9052 Aug, [facility] [place] [address], [place] [address]- 3988 Aug, Abnormal weight gain R63.5 [facility] [place] [address]005[address], [place] [address]- 0166 Aug, [facility] [place] [address]005[address], [place] [address]- 5200 Aug, Hypothyroid E03.9 [facility] [place] [address] [place] [address]- 7332 Aug, Type 2 diabetes mellitus without complication E11.9 [facility] [place] [address] [place] [address]- 1895 Jul, Abnormal weight gain R63.5 [facility] [place] [address], [place] [address]- 4747 Jul, Abnormal weight gain R63.5 [facility] [place] [address], [place] [address]- 2968 Jul, Abnormal weight gain R63.5 [place] [id number] [place] [address] 11550- 7493 Jul, Abnormal weight gain R63.5 ; Pain in right knee M25.561 and Pain in right ankle and joints of right foot M25.571 [place] [id number] [place] [address] 40492- 2060 Jul, [place] [id number] [place] [address] 53517- 1633 Jul, 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 [place] [id number] [place] [address] 59028- 8777 Jul, Type 2 diabetes mellitus without complication E11.9 [place] [id number] [place] [address] 69335- 4418 June, [place] [id number] [address]- 3675 June, Type 2 diabetes mellitus without complication E11.9 [place] [address], [place] [address]- 0800 June, [place] [address], [place] [address]- 3618 June, [place] [id number] [place] [address] 39091- 4913 June, Type 2 diabetes mellitus without complication E11.9 ; Hypothyroid E03.9 ; Essential hypertension I10 ; Depression F32.9 and Mixed hyperlipidemia E78.2 [place] [address], [place] [address]- 9823 May, [facility] [place] [address], [place] [address]- 0877 Feb, Type 2 diabetes mellitus without complication E11.9 ; Hypothyroid E03.9 ; Mixed hyperlipidemia E78.2 ; Essential hypertension I10 ; Depression F32.9 and Anemia D64.9 [place] [id number] [place] [address] 10195- 9963 Jan, [place] [id number] [place] [address] 73294- 6920 Sep, [place] [address] 91762- 6350 Sep, Type 2 diabetes mellitus without complication E11.9 ; Anemia D64.9 ; Hypothyroid E03.9 ; Hyperlipidemia, unspecified hyperlipidemia type E78.5 and Essential (primary) hypertension I10 [place] [id number] [place] [address] 66091- 8457 Aug, [place] [id number] [place] [address] 53061- 8330 June, [place] [id number] [place] [address] 87930- 2284 June, Iron deficiency anemia, unspecified iron deficiency anemia type D50.9 [place] [id number] [place] [address] 62482- 4886 May, Abnormal finding of blood chemistry, unspecified R79.9 [place] [id number] [place] [address] 76762- 5491 May, Type 2 diabetes mellitus without complication E11.9 ; Anemia D64.9 ; Hypothyroid E03.9 ; Anxiety F41.9 and Dyslipidemia E78.5 [place] [id number] [place] [address] 46712- 8016 Jan, Type 2 diabetes mellitus without complication E11.9 ; Depression F32.9 ; Essential hypertension I10 ; Hyperlipidemia E78.5 ; Anxiety F41.9 and Hypothyroidism E03.9 [place] [id number] [place] [address] 56578- 3810 Jan, Type 2 diabetes mellitus with diabetic neuropathy E11.40 [facility] [address] [facility] [id number] [address]- 3465 Jan, Type 2 diabetes mellitus with diabetic neuropathy E11.40 [facility] [address] [facility] [id number], [place] [address]- 1678 Jan, [facility] [address], [place] [address]- 1506 Jan, [facility] [address] [facility] [id number] 9099 Jan, [facility] [address] [id number], [place] [address]- 4731 Jan, [facility] [id number] [place] [address] 358910- 2517 Dec, [facility] [id number], [place] [address]- 4056 Dec, [facility] [id number], [place] [address]- 2880 Nov, [facility] [id number], [place] [address]- 4129 Nov, [facility] [address], [place] [address]- 6088 Nov, [facility] [id number], [place] [address]- 2370 Nov, [facility] [address], [place] [address]- 3246 Nov, [facility] [id number] 2340 Nov, Pertussis exposure Z20.89 [facility] [id number], [place] [address]- 1753 Nov, [facility] [id number], [place] [address]- 2519 Oct, [facility] [place] [address] [id number], [place] [address]- 8117 Oct, [facility] [place] [address] [id number], [place] [address]- 1197 Oct, [facility] [place] [address] 7798 Sep, [facility] [place] [address] 8565 Sep, Diabetes mellitus without mention of complication, type II or unspecified type, uncontrolled 250.02 and Hyperlipidemia associated with type 2 diabetes mellitus 250.80 [facility] [place] [address], [place] [address]- 1184 Sep, [facility] [place] [address], [place] [address]- 8401 Sep, [facility] [place] [address], [place] [address]- 3482 Sep, Diabetes mellitus without mention of complication, type II or unspecified type, not stated as uncontrolled 250.00 ; Hypothyroid 244.9 ; Hyperlipidemia 272.4 and Hypertension 401.9 [facility] [place] [address], [place] [address]- 2818 Aug, [facility] [place] [address] [id number], [place] [address]- 6013 June, Diabetes mellitus without mention of complication, type II or unspecified type, not stated as uncontrolled 250.00 ; Hyperlipidemia 272.4 ; Hypertension 401.9 ; Candidiasis of female genitalia 112.1 ; Hypothyroid 244.9 and Liver lesion 573.8 [facility] [place] [address] [id number], [place] [address]- 3043 June, [facility] [place] [address], [place] [address]- 6413 May, [facility] [place] [address] [id number], [place] [address]- 6070 May, [facility] [place] [facility] [address] [id number] [place] [address]- 2502 Mar, 2014 [facility] [place] [facility] [address] [id number] [place] [address]- 8396 Mar, 2014 [facility] [place] [facility] [address] [id number] [place] [address]- 5158 Mar, 2014 [facility] [place] [facility] [address] [id number] [place] [address]- 1841 Mar, [facility] [place] [facility] [address] [id number] [place] [address]- 3822 Jan, [facility] [place] [facility] [address] [id number] [place] [address]- 0072 Jan, [facility] [place] [facility] [address] [id number] [place] [address]- 3971 Nov, [facility] [place] [facility] [address] [id number] [place] [address]- 2780 Nov, [facility] [place] [facility] [address] [id number] [place] [address]- 2875 Nov, [facility] [place] [facility] [address] [id number] [place] [address]- 2371 Nov, [facility] [place] [facility] [address] [id number], [place] [address]- 6018 Nov, [facility] [place] [facility] [address] [id number], [place] [address]- 4155 Nov, [facility] [place] [facility] [address] [id number] [place] [address]- 1267 Oct, [facility] [place] [facility] [address] [id number] [place] [address]- 0474 29 Oct, 2013 [facility] [place] [facility] [address] [id number] [place] [address]- 9038 29 Oct, 2013 [facility] [place] [facility] [address] [id number], [place] [address]- 6801 29 Oct, 2013 [facility] [place] [facility] [address] [id number] [place] [address]- 6242 23 Oct, 2013 [facility] [place] [facility] [address] [id number] [place] [address]- 9476 23 Oct, 2013 [facility] [place] [facility] [address] [id number] [place] [address]- 3488 Oct, 2013 [facility] [place] [facility] [address] [id number] [place] [address]- 5961 22 Oct, 2013 [facility] [place] [facility] [address] [id number] [place] [address]- 6034 Oct, 2013 [facility] [place] [facility] [address] [id number] [place] [address]- 8704 Oct, 2013 [facility] [place] [facility] [address] [id number] [place] [address]- 3502 08 Oct, 2013 [facility] [place] [facility] [address] [id number] [place] [address]- 8766 08 Oct, 2013 [facility] [place] [facility] [address] [id number] [place] [address]- 4069 Oct, 2013 [facility] [place] [facility] [address] [id number] [place] [address]- 6648 08 Oct, 2013 [facility] [place] [facility] [address] [id number] [place] [address]- 5226 Sep, [facility] [place] [facility] [address] [id number] [place] [address]- 0933 Sep, [facility] [place] [facility] [address] [id number] [place] [address]- 2016 Sep, [facility] [place] [facility] [address] [id number] [place] [address]- 5496 Sep, [facility] [place] [facility] [address] [id number] [place] [address]- 6002 Sep, [facility] [place] [facility] [address] [id number] [facility] [place] [address]- 7362 Sep, [facility] [place] [facility] [address] [id number] [facility] [place] [address]- 7431 Aug, [facility] [place] [facility] [address] [id number] [place] [address]- 0942 Aug, [facility] [place] [facility] [address] [id number] [place] [address]- 3552 Aug, [facility] [place] [facility] [address] [id number] [place] [address]- 0911 Aug, [facility] [place] [facility] [address] [id number] [place] [address]- 8592 Aug, [facility] [place] [facility] [address] [id number] [place] [address]- 1792 Aug, [facility] [place] [facility] [address] [id number] [place] [address]- 2276 Aug, [facility] [place] [facility] [address] [id number] [place] [address]- 6840 Aug, [facility] [place] [facility] [address] [id number] [place] [address]- 3869 Aug, [facility] [place] [facility] [address] [id number] [place] [address]- 7157 Aug, [facility] [place] [facility] [address] [id number] [place] [address]- 8207 Aug, [facility] [place] [facility] [address] [id number] [place] [address]- 6536 Aug, [facility] [place] [facility] [address] [id number] [place] [address]- 0271 Aug, [facility] [place] [facility] [address] [id number] [place] [address]- 7444 Aug, [facility] [place] [facility] [address] [id number] [place] [address]- 4680 Aug, [facility] [place] [facility] [address] [id number] [place] [address]- 9677 Aug, 2013 [facility] [place] [facility] [address] [id number] [place] [address]- 1070 Aug, [facility] [place] [facility] [address] [id number] [place] [address]- 9852 Aug, [facility] [place] [facility] [address] [id number] [place] [address]- 6648 Aug, [facility] [place] [facility] [address] [id number] [place] [address]- 9522 Jul, [facility] [place] [facility] [address] [id number] [place] [address]- 4045 Jul, [facility] [place] [facility] [address] [id number] [place] [address]- 1204 Jul, [facility] [place] [facility] [address] [id number] [place] [address]- 5932 Jul, [facility] [place] [facility] [address] [id number] [place] [address]- 8444 Apr, [facility] [place] [facility] [address] [id number] [place] [address]- 3137 Apr, [facility] [place] [facility] [address] [id number] [place] [address]- 2825 15 Mar, 2012 [facility] [place] [facility] [address] [id number], [place] [address]- 2660 Mar, [facility] [place] [facility] [address] [id number] [place] [address]- 1561 Feb, [facility] [place] [facility] [address] [id number] [place] [address]- 6472 Feb, [facility] [place] [facility] [address] [id number] [place] [address]- 1293 Feb, [facility] [place] [facility] [address] [id number] [place] [address]- 7745 02 Feb, [address] [facility] [address] [id number] [place] [address]- 7486 21 Jan, 2012 [facility] [address] [id number] [place] [address]- 2446 21 Jan, [address] [facility] [address] [id number] [place] [address]- 4646 17 Jan, [address] [facility] [address] [id number] [place] [address] 17 Jan, 2012 [facility] [address] [id number] [place] [address] 14 Jan, 2012 [facility] [address] [id number] [place] [address] 13 Jan, [address] [facility] [address] [id number] [place] [address] 13 Jan, 2012 [facility] [address] [id number] [place] [address] 10 Jan, [address] [facility] [address] [id number] [place] [address] 10 Jan, 2012 [facility] [address] [id number] [place] [address] 26 Dec, [address] [facility] [address] [id number] [place] [address] 26 Dec, 2011 [facility] [address] [id number] [place] [address] Dec, [facility] [place] [facility] [address] [id number] [place] [address] Dec, [facility] [place] [facility] [address] [id number] [place] [address] 20 Dec, [address] [facility] [address] [id number] [place] [address] Dec, [facility] [place] [address] [facility] [id number], [place] [address] Dec, [facility] [place] [address] [facility] [id number], [place] [address] Dec, [facility] [place] [address] [facility] [id number], [place] [address] Dec, [facility] [place] [address] [facility] [id number], [place] [address] Dec, [facility] [place] [address] [facility] [id number], [place] [address] Dec, [facility] [place] [address] [facility] [id number], [place] [address] Dec, [facility] [place] [id number] [place] [address] Dec, [facility] [place] [id number] [place] [address] Dec, [facility] [place] [id number], [place] [address] Dec, [facility] [place] [id number], [place] [address] Nov, [facility] [place] [id number], [place] [address] Nov, [facility] [place] [id number], [place] [address] Nov, [facility] [place] [address] [id number], [place] [address] Nov, IMMUNIZATIONS No Known Immunizations SOCIAL HISTORY Never Assessed REASON FOR VISIT BS f/u PLAN OF CARE VITAL SIGNS MEDICATIONS Medication Instructions Dosage Frequency Start Date End Date Duration Status Tresiba FlexTouch 200 UNIT/ML Subcutaneous at bedtime Inject 130 units Sep, 30 days Active NovoLog Flexpen 100 UNIT/ML Subcutaneous 3 times a day before meals 40 units June, Active RESULTS No Results PROCEDURES [...]
--- OUTSIDE RECORDS SUMMARY | 2018-03-25 15:01 | XMS REPORT ---
Author JOSE ANTONIO Gay [facility] eClinicalWorks Address Unknown Phone Unavailable Care Team Providers Care Rail Car Unloader Name Role Phone JOSE ANTONIO MOSS CP [...]
--- OUTSIDE RECORDS SUMMARY | 2018-03-25 15:01 | XMS REPORT ---
Author Author RONAL STOLL Organization eClinicalWorks Address Unknown Phone Unavailable Care Team Providers Care Distilling Department Supervisor Name Role Phone RONAL STOLL CP Unavailable Allergies No Known Allergies Problems Problem Type Condition Code Onset Dates Condition Status Problem Anemia D64.9 Active Problem Hypothyroid E03.9 Active Problem Type 2 diabetes mellitus without complication E11.9 Active Problem Anxiety F41.9 Active Medications Medication Code System Code Instructions Start Date End Date Status Dosage Effexor XR [facility] [address]-18 150 MG Orally Once a day 1 capsule with food Results No Known Results Summary Purpose eClinicalWorks Submission
--- OUTSIDE RECORDS SUMMARY | 2018-03-25 15:01 | XMS REPORT ---
Author MAJOR Hutchinson [facility] eClinicalWorks Address Unknown Phone Unavailable Care Team Providers Care Critical Power Technician Name Role Phone MAJOR MCCARTNEY CP Unavailable Allergies, Adverse Reactions, Alerts Substance Reaction Event Type Victoza nausea Drug Allergy Problems Problem Type Condition Code Onset Dates Condition Status Assessment Hyperlipidemia E78.5 Active Assessment Depression F32.9 Active Assessment Essential hypertension I10 Active Assessment Hypothyroidism E03.9 Active Assessment Anxiety F41.9 Active Problem Depression F32.9 Active Problem Essential hypertension I10 Active Problem Type 2 diabetes mellitus without complication E11.9 Active Problem Hypothyroidism E03.9 Active Assessment Type 2 diabetes mellitus without complication E11.9 Active Problem Hyperlipidemia E78.5 Active Problem Anxiety F41.9 Active Medications Medication Code System Code Instructions Start Date End Date Status Dosage Invokana [facility] [address]-38 100 MG Orally Once a day Dec 28, 2014 1 tablet metformin [place] 0 500 mg oral 2 times a day with meals Dec 23, 2013July take 2 tablet by Oral route 2 times per day Glime[address] [facility] [address]-91 4 MG Orally Once a day [address] [facility] [address]-97 40 MG Orally Once a day July 08, 2014 1 tablet Lisinopril-Hydrochlorothiazide [facility] [address]-89 20-25 MG Orally Once a day [address] [facility] [address]-29 135 MG Orally Once a day Dec 23, 2013 take 1 capsule (135 mg) by oral route once daily NovoLog Flexpen [facility] [address]-14 100 UNIT/ML Subcutaneous before each meal Oct 26, [address] [facility] [address]-28 100 UNIT/ML Subcutaneous 2 times a day Nov 11, [address] [facility] 55164788165 50 MCG TAKE ONE TABLET BY MOUTH DAILY Effexor XR [facility] [address]-70 150 MG Orally Once a day 1 capsule with food Procedures Procedure Coding System Code Date MICROALBUMIN, SEMIQUANT CPT-4 78809 Feb 25, 2015 Office Visit, Est Pt., Level 3 CPT-4 19962 Feb 25, 2015 GLYCATED HEMOGLOBIN TEST CPT-4 35003 Feb 25, 2015 Vital Signs Date/Time: Feb 25, 2015 Temperature 98.1 F Weight 189.5 lbs Height 63 in BMI 33.56 Index Blood Pressure Diastolic 90 mmHg Blood Pressure Systolic 132 mmHg Cardiac Monitoring Heart Rate 84 bpm Results No Known Results Summary Purpose eClinicalWorks Submission
--- OUTSIDE RECORDS SUMMARY | 2018-03-25 15:01 | XMS REPORT ---
Author NICOLAS Vazquez [facility] eClinicalWorks Address Unknown Phone Unavailable Care Team Providers Care Mobile Tester Name Role Phone NICOLAS GARCIA CP Unavailable Allergies, Adverse Reactions, Alerts Substance Reaction Event Type Victoza nausea Drug Allergy Problems Problem Type Condition Code Onset Dates Condition Status Problem Depressive disorder, not elsewhere classified 311 Active Problem Diabetes mellitus without mention of complication, type II or unspecified type, uncontrolled 250.02 Active Problem Anxiety state, unspecified 300.00 Active Assessment Pertussis exposure Z20.89 Active Problem Hypertension 401.9 Active Problem Pure hyperglyceridemia 272.1 Active Problem Hyperlipidemia associated with type 2 diabetes mellitus 250.80 Active Problem Unspecified hypothyroidism 244.9 Active Problem Unspecified anemia 285.9 Active Problem Proteinuria 791.0 Active Problem Unspecified episodic mood disorder 296.90 Active Medications Medication Code System Code Instructions Start Date End Date Status Dosage Effexor XR [facility] [address]-21 150 MG Orally Once a day 1 capsule with food Zithromax Z-Ravin [facility] [address]-19 250 MG Orally Once a day Dec 01, 2014 Dec 06, 2014 2 tablets on the first day, then 1 tablet daily for 4 days Glimepiride [facility] [address]-15 4 MG Orally Once a day 2 tablets Trilipix [facility] [address]-13 135 MG Orally Once a day Dec 23, 2013 take 1 capsule (135 mg) by oral route once daily Lisinopril-Hydrochlorothiazide [facility] [address]-55 20-25 MG Orally Once a day 1 tablet Promethazine-Codeine [facility] [address]-34 6.25-10 MG/5ML Orally every 6 hrs Dec 01, 2014 10 ml NovoLog Flexpen [facility] [address]-68 100 UNIT/ML Subcutaneous before each meal Oct 26, 2014 25 units Levemir FlexTouch [facility] [address]-00 100 UNIT/ML Subcutaneous 2 times a day Nov 11, 2014 45 units bid metformin ND 0 500 mg Dec 23, 2013 take 2 tablet by Oral route 2 times per day with the evening meal Lipitor [facility] [address]-09 40 MG Orally Once a day July 08, 2014 1 tablet Trulicity [facility] [address]-10 1.5 MG/0.5ML Subcutaneous once weekly 0.75 mg Levothyroxine Sodium [facility] 98606084207 50 MCG TAKE ONE TABLET BY MOUTH DAILY Procedures Procedure Coding System Code Date Office Visit, Est Pt., Level 2 CPT-4 35642 Dec 01, 2014 Vital Signs Date/Time: Dec 01, 2014 Temperature 98.1 F Weight 183 lbs Height 63 in BMI 32.41 Index Blood Pressure Diastolic 74 mmHg Blood Pressure Systolic 118 mmHg Cardiac Monitoring Heart Rate 88 bpm Results No Known Results Summary Purpose eClinicalWorks Submission
--- OUTSIDE RECORDS SUMMARY | 2018-03-25 15:02 | XMS REPORT ---
Author Author MAJOR MCCARTNEY [facility] eClinicalWorks Address Unknown Phone Unavailable Care Team Providers Care Oliver Filter Operator Name Role Phone MAJOR MCCARTNEY CP Unavailable [...] Start Date End Date Status Dosage Invokana [facility] [address]-00 100 MG Orally Once a day Dec 28, 2014 1 tablet Results No Known Results Summary Purpose eClinicalWorks Submission
--- OUTSIDE RECORDS SUMMARY | 2018-03-25 15:02 | XMS REPORT ---
Author Author JERMAN RONAL Organization [facility] Address [address] [place] [address] Care Team Providers Care Opal Miner Name Role Phone STOLLCLAUDIA VargasELE Unavailable PROBLEMS Type Condition ICD9-CM Code AMV67-BU Code Onset Dates Condition Status SNOMED Code Problem Anxiety F41.9 Active 67248393 Problem Mixed hyperlipidemia E78.2 Active 954869436 Problem Depression F32.9 Active 848715575 Problem Type 2 diabetes mellitus without complication E11.9 Active 614208285 Problem Hypothyroid E03.9 Active 98550310 Problem Essential hypertension I10 Active 87594347 Problem Anemia D64.9 Active 941094454 ALLERGIES No Information SOCIAL HISTORY Never Assessed PLAN OF CARE VITAL SIGNS MEDICATIONS Medication Instructions Dosage Frequency Start Date End Date Duration Status Levemir FlexTouch 100 UNIT/ML Subcutaneous twice a day 45 units 12h 16 Oct Active NovoLog Flexpen 100 UNIT/ML Subcutaneous 3 times a day before meals 25 units 12 Jun, 2016 Active RESULTS No Results PROCEDURES No Known [...]
--- OUTSIDE RECORDS SUMMARY | 2018-03-25 15:02 | XMS REPORT ---
Author Author MAJOR MCCARTNEY [facility] eClinicalWorks Address Unknown Phone Unavailable Care Team Providers Care Dishwasher Name Role Phone MAJOR MCCARTNEY CP Unavailable [...] Start Date End Date Status Dosage Invokana [facility] [address]-60 100 MG Orally Once a day Dec 28, 2014 1 tablet Results No Known Results Summary Purpose eClinicalWorks Submission
--- OUTSIDE RECORDS SUMMARY | 2018-03-25 15:02 | XMS REPORT ---
Author MAJOR Hutchinson [facility] eClinicalWorks Address Unknown Phone Unavailable Care Team Providers Care Forming Department End Finder Name Role Phone MAJOR MCCARTNEY CP Unavailable Allergies, Adverse Reactions, Alerts Substance Reaction Event Type Victoza nausea Drug Allergy Problems Problem Type Condition ICD-9 Code Onset Dates Condition Status Problem Depressive disorder, not elsewhere classified 311 Active Problem Diabetes mellitus without mention of complication, type II or unspecified type, uncontrolled 250.02 Active Problem Anxiety state, unspecified 300.00 Active Assessment Hyperlipidemia associated with type 2 diabetes mellitus 250.80 Active Assessment Diabetes mellitus without mention of complication, type II or unspecified type, uncontrolled 250.02 Active Problem Hypertension 401.9 Active Problem Pure hyperglyceridemia 272.1 Active Problem Hyperlipidemia associated with type 2 diabetes mellitus 250.80 Active Problem Unspecified hypothyroidism 244.9 Active Problem Unspecified anemia 285.9 Active Problem Proteinuria 791.0 Active Problem Unspecified episodic mood disorder 296.90 Active Medications Medication Code System Code Instructions Start Date End Date Status Dosage Glimepiride [facility] [address]-73 4 MG Orally Once a day 2 tablets Effexor XR [facility] [address]-49 150 MG Orally Once a day 1 capsule with food Levemir FlexTouch [facility] [address]-72 100 UNIT/ML Subcutaneous Once a day Oct 12, 2014 60 as directed @ metformin NDC 0 500 mg Dec 23, 2013 take 2 tablet by Oral route 2 times per day with the evening meal levothyroxine NDC 0 50 mcg Dec 23, 2013 1 tablet by Oral route 1 time per day Lisinopril-Hydrochlorothiazide [facility] [address]-24 20-25 MG Orally Once a day 1 tablet Lipitor [facility] [address]-07 40 MG Orally Once a day July 08, 2014 1 tablet Trilipix [facility] [address]-65 135 MG Orally Once a day Dec 23, 2013 take 1 capsule (135 mg) by oral route once daily Procedures Procedure Coding System Code Date Office Visit, Est Pt., Level 4 CPT-4 68504 Oct 16, 2014 Vital Signs Date/Time: Oct 16, 2014 Temperature 97.1 F Weight 177.8 lbs Height 63 in BMI 31.49 Index Blood Pressure Diastolic 80 mmHg Blood Pressure Systolic 122 mmHg Cardiac Monitoring Heart Rate 88 bpm Results No Known Results Summary Purpose eClinicalWorks Submission
--- OUTSIDE RECORDS SUMMARY | 2018-03-25 15:02 | XMS REPORT ---
Author Author ARACELIS FERREIRA Organization [facility] Address [address] [place] [address] Care Team Providers Care Coin Purse Framer Name Role Phone ARACELIS FERREIRA Unavailable PROBLEMS Type Condition ICD9-CM Code NWG45-ND Code Onset Dates Condition Status SNOMED Code Problem Anxiety F41.9 Active 04212837 Problem Type 2 diabetes mellitus without complication E11.9 Active 813812527 Problem Hypothyroid E03.9 Active 16056142 Problem Microalbuminuria R80.9 Active 777856343 Problem Other obesity due to excess calories E66.09 Active 043479789 Problem Body mass index (BMI) of 33.0-33.9 in adult Z68.33 Active 050686422 Problem Essential hypertension I10 Active 50631765 Problem Anemia D64.9 Active 878880361 Problem Mixed hyperlipidemia E78.2 Active 363407298 Problem Depression F32.9 Active 634290472 ALLERGIES Substance Reaction Event Type Date Status Victoza nausea Drug Allergy Aug, Active ENCOUNTERS Encounter Location Date Diagnosis [facility] [id number] [place] [address]87- 5159 May, [facility] [id number] [place] [address] 25903- 9659 Apr, Type 2 diabetes mellitus without complication E11.9 ; Anemia D64.9 ; Hypothyroid E03.9 ; Mixed hyperlipidemia E78.2 ; Essential hypertension I10 ; Depression F32.9 ; Other obesity due to excess calories E66.09 ; Body mass index (BMI) of 33.0-33.9 in adult Z68.33 ; Anxiety F41.9 and Herpes zoster without complication B02.9 [facility] [id number] [address] 2744 Apr, [facility] [id number] [place] [address] 46053- 6803 Apr, [facility] [address] [facility] [id number] [place] [address] 8081 Apr, [facility] [address] [facility] [id number], [place] [address] 7926 Mar, [facility] [address] [facility] [id number], [place] [address] 6889 Feb, [facility] [address] [facility] [id number], [place] [address] 5629 Jan, [facility] [address] [facility] [id number] [place] [address]- 5347 Jan, [facility] [address] [address] Dec, Type 2 diabetes mellitus without complication E11.9 [facility] [address], [place] [address] 7050 Nov, [facility] [address] [facility] [id number], [place] [address]- 7254 Nov, Type 2 diabetes mellitus without complication E11.9 [facility] [address], [place] [address] 85[address] Nov, [facility] [address], [place] [address] 8646 Oct, Type 2 diabetes mellitus without complication E11.9 [facility] [address] [facility] [id number], [place] [address]- 0065 14 Oct, 2016 [facility] [address] [facility] [id number], [place] [address] 3128 Oct, [facility] [id number] [address] [address] Sep, [facility] [id number] 0398 Sep, Type 2 diabetes mellitus without complication E11.9 [facility] [address], [place] [address] 1396 Sep, Type 2 diabetes mellitus without complication E11.9 and Essential hypertension I10 [facility] [address], [place] [address]- 7587 Sep, [facility] [address], [place] [address]- 2777 Sep, [facility] [address], [place] [address]- 0963 Sep, Type 2 diabetes mellitus without complication E11.9 [facility] [id number] [address] 3647 Aug, [facility] [address], [place] [address]- 1056 Aug, Type 2 diabetes mellitus without complication E11.9 [facility] [address], [place] [address]- 5869 Aug, Type 2 diabetes mellitus without complication E11.9 [facility] [id number] [place] [address]- 3499 Aug, [facility] [address], [place] [address]- 4104 Aug, Abnormal weight gain R63.5 [facility] [address], [place] [address] 4501 Aug, [facility] [address], [place] [address]- 9731 Aug, Hypothyroid E03.9 [facility] [address], [place] [address]- 5480 Aug, Type 2 diabetes mellitus without complication E11.9 [facility] [address], [place] [address]- 3625 Jul, Abnormal weight gain R63.5 [facility] [address], [place] [address]- 4304 Jul, Abnormal weight gain R63.5 [facility] [address], [place] [address]- 2916 Jul, Abnormal weight gain R63.5 [facility] [address], [place] [address]- 0626 Jul, Abnormal weight gain R63.5 ; Pain in right knee M25.561 and Pain in right ankle and joints of right foot M25.571 [address], [place] [address]- 2089 Jul, [address] [id number] [place] [address] 77223- 7184 Jul, 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 [address], [place] [address]- 4497 Jul, Type 2 diabetes mellitus without complication E11.9 [address] [address], [place] [address]- 7414 June, [address], [place] [address]- 3017 June, Type 2 diabetes mellitus without complication E11.9 [address], [place] [address]- 9822 June, [address] [place], [place] [address]- 9675 June, [address], [place] [address]- 3859 June, Type 2 diabetes mellitus without complication E11.9 ; Hypothyroid E03.9 ; Essential hypertension I10 ; Depression F32.9 and Mixed hyperlipidemia E78.2 [address] [address], [place] [address]- 8626 May, [address] [place], [place] [address]- 0139 Feb, Type 2 diabetes mellitus without complication E11.9 ; Hypothyroid E03.9 ; Mixed hyperlipidemia E78.2 ; Essential hypertension I10 ; Depression F32.9 and Anemia D64.9 [address] [id number] [place] [address] 02835- 1404 Jan, [address] [id number] [place] [address] 61987- 5871 Sep, [address] [address] [address]- 8969 Sep, Type 2 diabetes mellitus without complication E11.9 ; Anemia D64.9 ; Hypothyroid E03.9 ; Hyperlipidemia, unspecified hyperlipidemia type E78.5 and Essential (primary) hypertension I10 [place] [id number] [place] [address] 08178- 4192 Aug, [address] [address] 91704- 6316 June, [address] [address] 62660- 4303 June, Iron deficiency anemia, unspecified iron deficiency anemia type D50.9 [place] [id number] [place] [address] 19817- 4896 May, Abnormal finding of blood chemistry, unspecified R79.9 [place] [id number] [place] [address] 98357- 1328 May, Type 2 diabetes mellitus without complication E11.9 ; Anemia D64.9 ; Hypothyroid E03.9 ; Anxiety F41.9 and Dyslipidemia E78.5 [address] [id number] [place] [address] 14231- 4201 Jan, Type 2 diabetes mellitus without complication E11.9 ; Depression F32.9 ; Essential hypertension I10 ; Hyperlipidemia E78.5 ; Anxiety F41.9 and Hypothyroidism E03.9 [place] [id number] [place] [address] 14977- 7933 Jan, Type 2 diabetes mellitus with diabetic neuropathy E11.40 [facility] [address] [facility] [id number], [place] [address]- 1073 Jan, Type 2 diabetes mellitus with diabetic neuropathy E11.40 [facility] [address] [facility] [id number] [place] [address]- 0076 Jan, [facility] [address] [facility] [id number] [place] [address] 88088- 7580 Jan, [facility] [address] [facility] [id number], [place] [address]- 0323 Jan, [facility] [id number] [place] [address] 50651- 2145 Jan, [facility] [address], [place] [address]- 6092 Dec, [facility] [id number] [place] [address] 14721- 5975 Dec, [facility] [address] 2859 Nov, [facility] [id number], [place] [address]- 4229 Nov, [facility] [address], [place] [address]- 4023 Nov, [facility] [id number] [place] [address] 02105- 4082 Nov, [facility] [id number], [place] [address]- 1467 Nov, [facility] [id number] [place] [address] 38763- 9705 Nov, Pertussis exposure Z20.89 [facility] [address], [place] [address]- 7996 Nov, [facility] [id number] [place] [address] 17765- 2533 Oct, [facility] [id number], [place] [address]- 8392 Oct, [facility] [id number] [place] [address] 771744- 3408 Oct, [facility] [address], [place] [address]- 2804 Sep, [facility] [id number] [place] [address] 851912- 6547 Sep, Diabetes mellitus without mention of complication, type II or unspecified type, uncontrolled 250.02 and Hyperlipidemia associated with type 2 diabetes mellitus 250.80 [facility] [id number] [place] [address] 23768- 9229 Sep, [facility] [id number] [place] [address] 48697- 4218 Sep, [facility] [id number] [place] [address] 21390- 2275 Sep, Diabetes mellitus without mention of complication, type II or unspecified type, not stated as uncontrolled 250.00 ; Hypothyroid 244.9 ; Hyperlipidemia 272.4 and Hypertension 401.9 [facility] [address], [place] [address]- 5867 Aug, [facility] [address], [place] [address]- 5326 June, Diabetes mellitus without mention of complication, type II or unspecified type, not stated as uncontrolled 250.00 ; Hyperlipidemia 272.4 ; Hypertension 401.9 ; Candidiasis of female genitalia 112.1 ; Hypothyroid 244.9 and Liver lesion 573.8 [facility] [address] 3970 June, [facility] [address], [place] [address]- 9311 May, [facility] [id number] [place] [address] 09749- 4391 May, [facility] [place] [facility] [address] [id number] [place] [address]- 6422 Mar, 2014 [facility] [place] [facility] [address] [id number] [place] 6586 16 Mar, 2014 [facility] [place] [facility] [address] [id number] [place] [address]- 5646 Mar, 2014 [facility] [place] [facility] [address] [id number] [place] [address]- 2655 Mar, 2014 [facility] [place] [facility] [address] [id number] [place] [address]- 3589 Jan, [facility] [place] [facility] [address] [id number] [place] [address]- 0935 Jan, [facility] [place] [facility] [address] [facility] [id number] [place] [address]- 6489 Nov, [facility] [place] [facility] [address] [id number] [place] [address]- 5252 Nov, [facility] [place] [facility] [address] [id number] [place] [address]- 1508 Nov, [facility] [place] [facility] [address] [facility] [id number] [place] [address]- 0978 Nov, [facility] [place] [facility] [address] [facility] [id number] [place] [address]- 3229 Nov, [facility] [place] [facility] [address] [facility] [id number] [place] [address]- 3637 Nov, [facility] [place] [facility] [address] [id number] [place] [address]- 0676 Oct, [facility] [place] [facility] [address] [id number] [place] [address]- 3262 Oct, [facility] [place] [facility] [address] [facility] [id number] [place] [address]- 0264 Oct, [facility] [place] [facility] [address] [id number] [place] [address]- 0627 29 Oct, 2013 [facility] [place] [facility] [address] [id number] [place] [address]- 5806 Oct, 2013 [facility] [place] [facility] [address] [id number] [place] [address] 2546 23 Oct, 2013 [facility] [place] [facility] [address] [id number] [place] [address]- 3086 Oct, 2013 [facility] [place] [facility] [address] [id number] [place] [address] 2548 Oct, 2013 [facility] [place] [facility] [address] [id number] [place] [address]- 2236 Oct, 2013 [facility] [place] [facility] [address] [id number] [place] [address]- 2200 Oct, 2013 [facility] [place] [facility] [address] [id number] [place] [address]- 5180 Oct, 2013 [facility] [place] [facility] [address] [id number] [place] [address]- 5988 Oct, 2013 [facility] [place] [facility] [address] [id number] [place] [address]- 1445 Oct, 2013 [facility] [place] [facility] [address] [id number] [place] [address]- 0436 Oct, 2013 [facility] [place] [facility] [address] [id number] [place] [address]- 3591 Sep, [facility] [place] [facility] [address] [id number] [place] [address]- 7708 Sep, [facility] [place] [facility] [address] [id number] [place] [address]- 3326 Sep, [facility] [place] [facility] [address] [id number] [place] [address]- 3008 Sep, [facility] [place] [facility] [address] [id number] [place] [address]- 6025 Sep, [facility] [place] [facility] [address] [id number] [place] [address]- 1313 Sep, [facility] [place] [facility] [address] [id number] [place] [address]- 7545 Aug, [facility] [place] [facility] [address] [id number] [place] [address]- 1855 Aug, [facility] [place] [facility] [address] [id number] [place] [address]- 8922 Aug, [facility] [place] [facility] [address] [id number] [place] [address]- 7125 Aug, [facility] [place] [facility] [address] [id number] [place] [address]- 4920 Aug, [facility] [place] [facility] [address] [id number] [place] [address]- 2328 Aug, [facility] [place] [facility] [address] [id number] [place] [address]- 3228 Aug, [facility] [place] [facility] [address] [id number] [place] [address]- 0954 Aug, [facility] [place] [facility] [address] [id number] [place] [address]- 6578 Aug, [facility] [place] [facility] [address] [id number] [place] [address]- 1547 Aug, [facility] [place] [facility] [address] [id number] [place] [address]- 3914 Aug, [facility] [place] [facility] [address] [id number] [place] [address]- 9399 Aug, [facility] [place] [facility] [address] [id number] [place] [address]- 9983 Aug, [facility] [place] [facility] [address] [id number] [place] [address]- 7075 Aug, [facility] [place] [facility] [address] [id number] [place] [address]- 3546 Aug, 2013 [facility] [address] [id number] [place] [address]- 3573 Aug, 2013 [facility] [address] [id number] [place] [address]- 9198 Aug, 2013 [facility] [address] [id number] [place] [address]- 7504 Aug, 2013 [facility] [address] [id number] [place] [address]- 1382 Aug, [facility] [address] [id number] [place] [address]- 0964 Jul, [facility] [address] [id number] [place] [address]- 1479 Jul, [facility] [address] [id number] [place] [address]- 5066 Jul, [facility] [address] [id number] [place] [address]- 0721 Jul, [facility] [address] [id number] [place] [address]- 7302 Apr, [facility] [address] [id number] [place] [address]- 2386 Apr, [facility] [address] [id number] [place] [address]- 1289 15 Mar, 2012 [facility] [address] [id number] [place] [address]- 6951 Mar, [facility] [place] [facility] [address] [id number] [place] [address]- 3051 Feb, [facility] [place] [facility] [address] [id number] [place] [address]- 2546 Feb, [facility] [place] [facility] [address] [id number] [place] [address]- 2954 Feb, [facility] [address] [id number] [place] [address]- 5989 Feb, [facility] [place] [facility] [address] [id number] [place] [address]- 1247 Jan, [facility] [place] [facility] [address] [id number] [place] [address]- 3594 Jan, [facility] [place] [facility] [address] [id number] [place] [address]- 9875 17 Jan, 2012 [facility] [place] [facility] [address] [id number] [place] [address]- 7190 17 Jan, 2012 [facility] [place] [facility] [address] [id number] [place] [address]- 0286 14 Jan, 2012 [facility] [place] [facility] [address] [id number] [place] [address]- 5064 13 Jan, 2012 [facility] [place] [facility] [address] [id number] [place] [address]- 7162 Jan, [facility] [place] [facility] [address] [id number] [place] [address]- 0880 Jan, [facility] [place] [facility] [address] [id number] [place] [address]- 7705 Jan, [facility] [place] [facility] [address] [id number] [place] [address]- 8824 Dec, [facility] [place] [facility] [address] [id number], [place] [address]- 5981 Dec, [facility] [place] [facility] [address] [id number] [place] [address]- 7136 Dec, [facility] [place] [facility] [address] [id number] [place] [address]- 2142 Dec, [facility] [place] [facility] [address] [id number] [place] [address]- 1315 Dec, [facility] [place] [facility] [address] [id number], [place] [address]- 1436 Dec, [facility] [address], [place] [address]- 8099 Dec, [facility] [address], [place] [address]- 0653 Dec, [facility] [id number] [place] [address] 48258- 8818 Dec, [facility] [id number] [place] [address] 06758- 9791 16 Dec, 2011 [facility] [id number] [place] [address] 61280- 4874 Dec, [facility] [id number] [place] [address] 11104- 4845 Dec, [facility] [id number] [place] [address] 05387- 3559 Dec, [facility] [id number] [place] [address] 63381- 7813 Dec, [facility] [id number] [place] [address] 65223- 4917 Dec, [facility] [id number] [address] Nov, [facility] [id number] [address] Nov, [facility] [id number] [address] Nov, [facility] [id number] [address] Nov, IMMUNIZATIONS No Known Immunizations SOCIAL HISTORY Never Assessed REASON FOR VISIT RA consult--Shelbi PLAN OF CARE Activity Details Follow Up with PCP Reason: VITAL SIGNS Height 63 in 2016-09-14 Weight 192 lbs 2016-09-14 Temperature 98.4 degrees Fahrenheit 2016-09-14 Heart Rate 70 bpm 2016-09-14 Respiratory Rate 20 2016-09-14 BMI 34.01 kg/m2 2016-09-14 Blood pressure systolic 130 mmHg 2016-09-14 Blood pressure diastolic 80 mmHg 2016-09-14 MEDICATIONS Medication Instructions Dosage Frequency Start Date End Date Duration Status Levemir FlexTouch 100 UNIT/ML Subcutaneous twice a day 45 units in AM, 60 units in PM 12h 16 Oct, 2014 Active Trilipix 135 MG Orally Once a day take 1 capsule (135 mg) by oral route once daily 24h Nov, Active NovoLog Flexpen 100 UNIT/ML Subcutaneous 3 times a day before meals 25 units June, Active Effexor XR 150 MG Orally Once a day 1 capsule with food 24h 90 days Active MetFORMIN HCl ER 500 mg Orally twice a day 2 tablet twice daily with meals 12h 90 days Active Levothyroxine Sodium 50 mcg Orally Once a day TAKE ONE TABLET BY MOUTH ONCE DAILY 24h 90 days Active Glucocard Expression Test 1 subcutaneously 4 times a day test 4 times per day 6h June, 30 days Active Lipitor 40 mg Orally Once a day 1 tablet 24h June, 90 days Active Lisinopril-Hydrochlorothiazide 20-25 MG Orally Once a day TAKE ONE TABLET BY MOUTH ONCE DAILY 24h 90 days Active RESULTS No Results PROCEDURES [...]
--- OUTSIDE RECORDS SUMMARY | 2018-03-25 15:02 | XMS REPORT ---
Author Author MAJOR MCCARTNEY [facility] eClinicalWorks Address Unknown Phone Unavailable Care Team Providers Care Steel Die Press Set Up Operator Name Role Phone MAJOR MCCARTNEY CP [...] Date End Date Status Dosage NovoLog Flexpen [facility] [place] [address]-19 100 UNIT/ML Subcutaneous before each meal Oct 26, 2014 15 units Levemir FlexTouch [facility] [place] [place] [address]-94 100 UNIT/ML Subcutaneous 2 times a day Nov 11, 2014 40 units bid Results No Known Results Summary Purpose eClinicalWorks Submission
--- OUTSIDE RECORDS SUMMARY | 2018-03-25 15:02 | XMS REPORT ---
Author JOSE ANTONIO Gay [facility] eClinicalWorks Address Unknown Phone Unavailable Care Team Providers Care Kaiawhina Kohanga Reo Name Role Phone JOSE ANTONIO MOSS CP [...]
--- OUTSIDE RECORDS SUMMARY | 2018-03-25 15:03 | XMS REPORT ---
Author Author MAJOR MCCARTNEY [facility] eClinicalWorks Address Unknown Phone Unavailable Care Team Providers Care Human Resources Operations Coordinator Name Role Phone MAJOR MCCARTNEY CP Unavailable [...]
--- OUTSIDE RECORDS SUMMARY | 2018-03-25 15:03 | XMS REPORT ---
Author JOSE ANTONIO Gay [facility] eClinicalWorks Address Unknown Phone Unavailable Care Team Providers Care Gun Barrel Finisher Name Role Phone JOSE ANTONIO MOSS CP [...]
--- OUTSIDE RECORDS SUMMARY | 2018-03-25 15:03 | XMS REPORT ---
Author Author MAJOR MCCARTNEY [facility] eClinicalWorks Address Unknown Phone Unavailable Care Team Providers Care Feller Operator Name Role Phone MAJOR MCCARTNEY CP [...]
--- OUTSIDE RECORDS SUMMARY | 2018-03-25 15:03 | XMS REPORT ---
Author Author STOLLRONAL Vargas Organization [facility] Address [address] [place] [address] Care Team Providers Care Sql Bi Developer Name Role Phone RONAL STOLL Unavailable PROBLEMS Type Condition ICD9-CM Code LEQ09-KC Code Onset Dates Condition Status SNOMED Code Problem Anxiety F41.9 Active 80131006 Problem Mixed hyperlipidemia E78.2 Active 701235760 Problem Depression F32.9 Active 094962000 Problem Type 2 diabetes mellitus without complication E11.9 Active 339621606 Problem Hypothyroid E03.9 Active 15078812 Problem Essential hypertension I10 Active 03790835 Problem Anemia D64.9 Active [id number] ALLERGIES No Information ENCOUNTERS Encounter Location Date Diagnosis [facility] [id number] [place] [address] 57900- 0416 May, [facility] [id number] [place] [address] 53910- 7642 Apr, [facility] [id number] [place] [address] 08234- 0981 Apr, [facility] [id number] [place] [address] 84972- 4781 Apr, [facility] [id number] [place] [address] 46476- 6299 Mar, [facility] [id number] [place] [address] 37241- 5468 Feb, [facility] [id number] [place] [address] 66936- 5330 Jan, [facility] [id number] [place] [address] 14688- 5925 Jan, [facility] [address] [place] [address]- 0781 Dec, Type 2 diabetes mellitus without complication E11.9 [facility] [address] [place] [address] 4146 Nov, [facility] [address] [place] [address]- 6009 Nov, Type 2 diabetes mellitus without complication E11.9 [facility] [id number] [place] [address], [place] [address]- 3644 Nov, [facility] [id number] [place] [address], [place] [address]- 6149 Oct, Type 2 diabetes mellitus without complication E11.9 [facility] [address] [place] [address]- 4243 Oct, [facility] [id number] [place] [address] 99845- 3233 Oct, [facility] [address] [place] [address]- 5109 Sep, [facility] [id number] [place] [address] 13393- 5424 Sep, Type 2 diabetes mellitus without complication E11.9 [facility] [address] [place] [address]- 2451 Sep, Type 2 diabetes mellitus without complication E11.9 and Essential hypertension I10 [facility] [address] [address]- 7865 Sep, [facility] [address] [place] [address]- 0248 Sep, [facility] [address] [address]- 0787 Sep, Type 2 diabetes mellitus without complication E11.9 [facility] [address] [place] [address]- 3680 Aug, [facility] [address] [address]- 2504 Aug, Type 2 diabetes mellitus without complication E11.9 [facility] [address] [address]- 1806 Aug, Type 2 diabetes mellitus without complication E11.9 [facility] [address], [place] [address] 2546 Aug, [facility] [address] [address] 2547 Aug, Abnormal weight gain R63.5 [facility] [address], [place] [address]- 5066 Aug, [facility] [address], [place] [address]- 8366 Aug, Hypothyroid E03.9 [facility] [address] [address] 2546 Aug, Type 2 diabetes mellitus without complication E11.9 [facility] [address] [address]- 7823 Jul, Abnormal weight gain R63.5 [facility] [address], [place] [address]- 7716 Jul, Abnormal weight gain R63.5 [facility] [address], [place] [address] 2546 Jul, Abnormal weight gain R63.5 [facility] [address], [place] [address]- 2542 Jul, Abnormal weight gain R63.5 ; Pain in right knee M25.561 and Pain in right ankle and joints of right foot M25.571 [facility] [address], [place] [address]- 5586 Jul, [facility] [address], [place] [address]- 6990 Jul, 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 [facility] [id number] [address]- 2949 Jul, Type 2 diabetes mellitus without complication E11.9 [facility] [address], [place] [address]- 4153 June, [facility] [id number] [place] [address] 53858- 5988 June, Type 2 diabetes mellitus without complication E11.9 [facility] [address], [place] [address]- 9213 June, [facility] [id number] [place] [address] 18238- 2820 June, [facility] [address] [address]- 6764 June, Type 2 diabetes mellitus without complication E11.9 ; Hypothyroid E03.9 ; Essential hypertension I10 ; Depression F32.9 and Mixed hyperlipidemia E78.2 [facility] [address] [address]- 2714 May, [facility] [address] [address]- 6105 Feb, Type 2 diabetes mellitus without complication E11.9 ; Hypothyroid E03.9 ; Mixed hyperlipidemia E78.2 ; Essential hypertension I10 ; Depression F32.9 and Anemia D64.9 [facility] [address] [address]- 9231 Jan, [facility] [address] [address]- 8828 Sep, [facility] [address], [place] [address]- 4035 Sep, Type 2 diabetes mellitus without complication E11.9 ; Anemia D64.9 ; Hypothyroid E03.9 ; Hyperlipidemia, unspecified hyperlipidemia type E78.5 and Essential (primary) hypertension I10 [address] [facility] [address] [place] [address] 59276- 0905 Aug, [facility] [id number] [place] [address] 15522- 5871 June, [facility] [id number] [place] [address] 10109- 7648 June, Iron deficiency anemia, unspecified iron deficiency anemia type D50.9 [facility] [id number] [place] [address] 37405- 2318 May, Abnormal finding of blood chemistry, unspecified R79.9 [facility] [id number] [place] [address] 99472- 3777 May, Type 2 diabetes mellitus without complication E11.9 ; Anemia D64.9 ; Hypothyroid E03.9 ; Anxiety F41.9 and Dyslipidemia E78.5 [facility] [id number] [place] [address] 85252- 8423 Jan, Type 2 diabetes mellitus without complication E11.9 ; Depression F32.9 ; Essential hypertension I10 ; Hyperlipidemia E78.5 ; Anxiety F41.9 and Hypothyroidism E03.9 [facility] [id number] [place] [address] 39804- 0618 Jan, Type 2 diabetes mellitus with diabetic neuropathy E11.40 [facility] [id number] [place] [address] 81706- 6872 Jan, Type 2 diabetes mellitus with diabetic neuropathy E11.40 [facility] [id number] [place] [address] 16204- 3478 Jan, [facility] [id number] [place] [address] 58879- 6732 Jan, [facility] [id number] [place] [address] 71416- 7510 Jan, [facility] [id number] [place] [address] 09597- 5591 Jan, [address] [id number], [place] [address]- 3400 Dec, [facility] [address], [place] [address]- 8618 Dec, [facility] [address], [place] [address]- 5527 Nov, [facility] [address], [place] [address]- 7134 Nov, [facility] [address], [place] [address]- 4787 Nov, [facility] [address], [place] [address]- 8282 Nov, [facility] [id number] [address]- 5885 Nov, [facility] [address], [place] [address]- 9565 Nov, Pertussis exposure Z20.89 [facility] [address], [place] [address]- 8018 Nov, [facility] [address], [place] [address]- 8092 Oct, [facility] [address], [place] [address]- 5135 Oct, [facility] [id number], [place] [address]- 0403 Oct, [facility] [id number] [address]- 8673 Sep, [facility] [address], [place] [address]- 7516 Sep, Diabetes mellitus without mention of complication, type II or unspecified type, uncontrolled 250.02 and Hyperlipidemia associated with type 2 diabetes mellitus 250.80 [facility] [address], [place] [address]- 7211 Sep, [facility] [id number] 4565 Sep, [facility] [address] 1588 Sep, Diabetes mellitus without mention of complication, type II or unspecified type, not stated as uncontrolled 250.00 ; Hypothyroid 244.9 ; Hyperlipidemia 272.4 and Hypertension 401.9 [facility] [address], [place] [address]- 1731 Aug, [facility] [address] 7445 June, Diabetes mellitus without mention of complication, type II or unspecified type, not stated as uncontrolled 250.00 ; Hyperlipidemia 272.4 ; Hypertension 401.9 ; Candidiasis of female genitalia 112.1 ; Hypothyroid 244.9 and Liver lesion 573.8 [facility] [address], [place] [address]- 2635 June, [facility] [id number], [place] [address]- 3809 May, [facility] [address], [place] [address]- 6481 May, [facility] [id number], [place] [address]- 2888 Mar, [facility] [id number] 8139 Mar, [facility] [id number] 1498 Mar, [facility] [address] 4551 Mar, [facility] [id number] 4632 Jan, [facility] [address] [place] [address]- 9177 Jan, [facility] [place] [facility] [address] [id number] [place] [address]- 4413 Nov, [facility] [place] [facility] [address] [id number] [place] [address]- 0516 Nov, [facility] [place] [facility] [address] [id number] [place] [address]- 6670 Nov, [facility] [place] [facility] [address] [id number] [place] [address]- 1391 Nov, [facility] [place] [facility] [address] [id number] [place] [address]- 8538 Nov, [facility] [place] [facility] [address] [id number] [place] [address]- 3783 Nov, [facility] [place] [facility] [address] [id number] [place] [address]- 7746 29 Oct, 2013 [facility] [place] [facility] [address] [id number] [place] [address]- 7638 29 Oct, 2013 [facility] [place] [facility] [address] [id number] [place] [address]- 2548 29 Oct, 2013 [facility] [place] [facility] [address] [id number] [place] [address]- 2545 29 Oct, 2013 [facility] [place] [facility] [address] [id number] [place] [address] 2546 23 Oct, 2013 [facility] [place] [facility] [address] [id number] [place] [address]- 2542 23 Oct, 2013 [facility] [place] [facility] [address] [id number] [place] [address] 2543 22 Oct, 2013 [facility] [place] [facility] [address] [id number] [place] [address]- 2549 22 Oct, 2013 [facility] [place] [facility] [address] [id number] [place] [address]- 2714 Oct, [facility] [place] [facility] [address] [id number] [place] [address]- 9823 Oct, [facility] [place] [facility] [address] [id number] [place] [address]- 4579 Oct, [facility] [place] [facility] [address] [id number] [place] [address]- 1318 Oct, [facility] [place] [facility] [address] [id number] [place] [address]- 6249 Oct, [facility] [place] [facility] [address] [id number] [place] [address]- 8593 Oct, [facility] [place] [facility] [address] [id number] [place] [address]- 1338 Sep, [facility] [place] [facility] [address] [id number] [place] [address]- 5941 Sep, [facility] [place] [facility] [address] [id number] [place] [address]- 7575 Sep, [facility] [place] [facility] [address] [id number] [place] [address]- 8545 Sep, [facility] [place] [facility] [address] [id number] [place] [address]- 0807 Sep, [facility] [place] [facility] [address] [id number] [place] [address]- 9547 Sep, [facility] [place] [facility] [address] [id number] [place] [address]- 3353 Aug, [facility] [place] [facility] [address] [id number] [place] [address]- 4298 Aug, [facility] [place] [facility] [address] [id number] [place] [address]- 3643 Aug, [facility] [place] [facility] [address] [id number] [place] [address]- 7051 Aug, [facility] [place] [facility] [address] [id number] [place] [address]- 0936 Aug, 2013 [facility] [place] [facility] [address] [id number] [place] [address]- 0630 Aug, 2013 [facility] [place] [facility] [address] [id number] [place] [address]- 7093 Aug, 2013 [facility] [place] [facility] [address] [id number] [place] [address]- 2731 Aug, 2013 [facility] [place] [facility] [address] [id number] [place] [address]- 4205 Aug, 2013 [facility] [place] [facility] [address] [id number] [place] [address]- 4973 Aug, 2013 [facility] [place] [facility] [address] [id number] [place] [address]- 1747 Aug, 2013 [facility] [place] [facility] [address] [id number] [place] [address]- 9283 Aug, 2013 [facility] [place] [facility] [address] [id number] [place] [address]- 8801 Aug, 2013 [facility] [place] [facility] [address] [id number] [place] [address]- 3679 Aug, 2013 [facility] [place] [facility] [address] [id number] [place] [address]- 9618 Aug, 2013 [facility] [place] [facility] [address] [id number] [place] [address]- 2845 Aug, 2013 [facility] [place] [facility] [address] [id number] [place] [address]- 5390 Aug, [facility] [place] [facility] [address] [id number] [place] [address]- 5184 Aug, [facility] [place] [facility] [address] [id number] [place] [address]- 2832 Aug, 2013 [facility] [place] [facility] [address] [id number] [place] [address]- 2372 Jul, [facility] [place] [facility] [address] [id number] [place] [address]- 1515 Jul, [facility] [place] [facility] [address] [id number] [place] [address]- 9240 Jul, [facility] [place] [facility] [address] [id number] [place] [address] 2546 Jul, [facility] [place] [facility] [address] [id number] [place] [address] 2546 Apr, [facility] [place] [facility] [address] [id number] [place] [address]- 2546 Apr, [facility] [place] [facility] [address] [id number] [place] [address]- 4096 15 Mar, 2012 [facility] [place] [facility] [address] [id number] [place] [address]- 4586 Mar, [facility] [place] [facility] [address] [id number] [place] [address]- 2610 Feb, [facility] [place] [facility] [address] [id number] [place] [address]- 9834 Feb, [facility] [place] [facility] [address] [id number] [place] [address]- 1599 Feb, [facility] [place] [facility] [address] [id number] [place] [address]- 2446 Feb, [facility] [place] [facility] [address] [id number] [place] [address]- 1465 Jan, [facility] [place] [facility] [address] [id number] [place] [address]- 4076 Jan, [facility] [place] [facility] [address] [id number] [place] [address]- 7526 Jan, [facility] [place] [facility] [address] [id number] [place] [address]- 2546 Jan, [facility] [place] [facility] [address] [id number] [place] [address]- 1485 14 Jan, 2012 [facility] [place] [facility] [address] [id number] [place] [address]- 1760 13 Jan, 2012 [facility] [place] [facility] [address] [id number] [place] [address]- 9266 13 Jan, 2012 [facility] [place] [facility] [address] [facility] [id number] [place] [address]- 3776 10 Jan, 2012 [facility] [place] [facility] [address] [id number] [place] [address]- 5996 10 Jan, 2012 [facility] [place] [facility] [address] [id number] [place] [address]- 0234 26 Dec, 2011 [facility] [place] [facility] [address] [id number] [place] [address]- 5395 26 Dec, 2011 [facility] [place] [facility] [address] [id number] [place] [address]- 3271 Dec, [facility] [place] [facility] [address] [id number], [place] [address]- 6604 Dec, [facility] [place] [facility] [address] [id number], [place] [address]- 1065 20 Dec, 2011 [facility] [place] [facility] [address] [id number], [place] [address]- 4695 19 Dec, 2011 [facility] [place] [facility] [address] [id number], [place] [address]- 7259 19 Dec, 2011 [facility] [place] [facility] [address] [id number], [place] [address]- 3235 19 Dec, 2011 [facility] [place] [facility] [address] [id number], [place] [address]- 3710 19 Dec, 2011 [facility] [place] [facility] [address] [id number], [place] [address]- 4173 16 Dec, 2011 [facility] [place] [facility] [address] [id number], [place] [address]- 3172 16 Dec, 2011 [facility] [place] [facility] [id number] 3886 Dec, [facility] [id number] 3688 Dec, [facility] [address], [place] [address]- 2147 Dec, [facility] [id number]- 5157 Dec, [facility] [address] 7755 Nov, [facility] [address] 8947 Nov, [facility] [address], [place] [address]- 9396 Nov, [facility] [address], [place] [address]- 2094 Nov, IMMUNIZATIONS No Known Immunizations SOCIAL HISTORY Never Assessed REASON FOR VISIT lab order PLAN OF CARE VITAL SIGNS MEDICATIONS [...]
--- OUTSIDE RECORDS SUMMARY | 2018-03-25 15:03 | XMS REPORT ---
Author Author RONAL STOLL Organization [facility] Address [address] [place] [address] Care Team Providers Care Bookkeeping Service Sales Agent Name Role Phone STOLLRONAL Vargas Unavailable PROBLEMS Type Condition ICD9-CM Code CEM54-PY Code Onset Dates Condition Status SNOMED Code Problem Anxiety F41.9 Active 23101429 Problem Type 2 diabetes mellitus without complication E11.9 Active 341480704 Problem Hypothyroid E03.9 Active 83722353 Problem Microalbuminuria R80.9 Active 821685777 Problem Other obesity due to excess calories E66.09 Active 944703556 Problem Body mass index (BMI) of 33.0-33.9 in adult Z68.33 Active 334832605 Problem Essential hypertension I10 Active 60842686 Problem Anemia D64.9 Active 934423704 Problem Mixed hyperlipidemia E78.2 Active 354915555 Problem Depression F32.9 Active 105535802 ALLERGIES No Information ENCOUNTERS Encounter Location Date Diagnosis [facility] [id number] [address] May, Anemia D64.9 ; Type 2 diabetes mellitus without complication E11.9 ; Hypothyroid E03.9 ; Mixed hyperlipidemia E78.2 ; Essential hypertension I10 ; Depression F32.9 ; Other obesity due to excess calories E66.09 ; Body mass index (BMI) of 33.0-33.9 in adult Z68.33 ; Anxiety F41.9 and Herpes zoster without complication B02.9 [facility] [address] [facility] [id number] [address] Apr, Type 2 diabetes mellitus without complication E11.9 ; Anemia D64.9 ; Hypothyroid E03.9 ; Mixed hyperlipidemia E78.2 ; Essential hypertension I10 ; Depression F32.9 ; Other obesity due to excess calories E66.09 ; Body mass index (BMI) of 33.0-33.9 in adult Z68.33 ; Anxiety F41.9 and Herpes zoster without complication B02.9 [facility] [id number] [place] [address] 12909- 5346 Apr, [facility] [id number] [place] [address] 491990- 6406 Apr, [facility] [id number] [place] [address] 48402- 9916 Apr, [facility] [id number] [place] [address] 01348- 3822 Mar, [facility] [id number] [place] [address] 460755- 0443 Feb, [facility] [id number] [place] [address] 68520- 8045 Jan, [facility] [id number] [place] [address] 64110- 6396 Jan, [facility] [id number] [place] [address] 67362- 3654 Dec, Type 2 diabetes mellitus without complication E11.9 [facility] [id number] [place] [address] 70602- 5055 30 Nov, 2016 [facility] [address] [address] 5860 18 Nov, 2016 Type 2 diabetes mellitus without complication E11.9 [facility] [id number] [place] [address] 89844- 7941 17 Nov, 2016 [facility] [address] 6902 26 Oct, 2016 Type 2 diabetes mellitus without complication E11.9 [facility] [address] 4296 14 Oct, 2016 [facility] [address], [place] [address]- 1857 12 Oct, 2016 [facility] [address], [place] [address]- 0316 Sep, [facility] [id number] [place] [address] 60268- 2438 Sep, Type 2 diabetes mellitus without complication E11.9 [facility] [address], [place] [address]- 6867 Sep, Type 2 diabetes mellitus without complication E11.9 and Essential hypertension I10 [facility] [address], [place] [address]- 6037 Sep, [facility] [id number] [place] [address] 23876- 5422 Sep, [facility] [id number] [place] [address] 87837- 4464 Sep, Type 2 diabetes mellitus without complication E11.9 [facility] [id number] [place] [address] 57252- 3423 Aug, [facility] [address], [place] [address]- 6563 Aug, Type 2 diabetes mellitus without complication E11.9 [facility] [address], [place] [address]- 0432 Aug, Type 2 diabetes mellitus without complication E11.9 [facility] [address], [place] [address]- 2589 Aug, [facility] [address], [place] [address]- 1482 Aug, Abnormal weight gain R63.5 [facility] [address], [place] [address]- 2910 Aug, [facility] [address], [place] [address]- 6563 Aug, Hypothyroid E03.9 [facility] [address], [place] [address]- 9268 Aug, Type 2 diabetes mellitus without complication E11.9 [facility] [id number] [place] [address] 19066- 0042 Jul, Abnormal weight gain R63.5 [facility] [id number] [place] [address] 17508- 0580 Jul, Abnormal weight gain R63.5 [facility] [id number] [place] [address] 74339- 4677 Jul, Abnormal weight gain R63.5 [facility] [id number] [place] [address] 47308- 8641 Jul, Abnormal weight gain R63.5 ; Pain in right knee M25.561 and Pain in right ankle and joints of right foot M25.571 [id number] [place] [address] 64326- 7510 Jul, [id number] [place] [address] 04371- 7520 Jul, 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 [address] [place] [id number] [place] [address] 12375- 1529 Jul, Type 2 diabetes mellitus without complication E11.9 [facility] [id number] [place] [address] 68092- 3894 June, [facility] [id number] [place] [address] 89412- 4075 June, Type 2 diabetes mellitus without complication E11.9 [facility] [id number] [place] [address] 97242- 3582 June, [facility] [id number] [place] [address] 18748- 2294 June, [facility] [id number] [place] [address] 37481- 5707 June, Type 2 diabetes mellitus without complication E11.9 ; Hypothyroid E03.9 ; Essential hypertension I10 ; Depression F32.9 and Mixed hyperlipidemia E78.2 [address] [id number] [place] [address] 17132- 0023 May, [address] [facility] [id number] [place] [address] 70845- 3972 Feb, Type 2 diabetes mellitus without complication E11.9 ; Hypothyroid E03.9 ; Mixed hyperlipidemia E78.2 ; Essential hypertension I10 ; Depression F32.9 and Anemia D64.9 [address] [id number] [place] [address] 77759- 6266 Jan, [address] [id number] [place] [address] 66424- 4915 Sep, [address] [id number] [place] [address] 79565- 3242 Sep, Type 2 diabetes mellitus without complication E11.9 ; Anemia D64.9 ; Hypothyroid E03.9 ; Hyperlipidemia, unspecified hyperlipidemia type E78.5 and Essential (primary) hypertension I10 [address] [facility] [id number] [place] [address] 39087- 0338 Aug, [address] [id number] [place] [address] 20304- 7143 June, [address] [id number] [place] [address] 60257- 7934 June, Iron deficiency anemia, unspecified iron deficiency anemia type D50.9 [address] [id number] [place] [address] 64159- 4961 May, Abnormal finding of blood chemistry, unspecified R79.9 [address] [id number] [place] [address] 82175- 8343 May, Type 2 diabetes mellitus without complication E11.9 ; Anemia D64.9 ; Hypothyroid E03.9 ; Anxiety F41.9 and Dyslipidemia E78.5 [address] [id number] [place] [address] 99460- 9682 Jan, Type 2 diabetes mellitus without complication E11.9 ; Depression F32.9 ; Essential hypertension I10 ; Hyperlipidemia E78.5 ; Anxiety F41.9 and Hypothyroidism E03.9 [facility] [id number] [place] [address] 164260- 0261 Jan, Type 2 diabetes mellitus with diabetic neuropathy E11.40 [facility] [id number] [place] [address] 847650- 8538 Jan, Type 2 diabetes mellitus with diabetic neuropathy E11.40 [facility] [id number] [place] [address] 565787- 3483 Jan, [facility] [id number] [place] [address] 41061- 0023 Jan, [facility] [id number] [place] [address] 045725- 8299 Jan, [facility] [id number] [place] [address] 14565- 9612 Jan, [facility] [id number] [place] [address] 60182- 0669 Dec, [facility] [id number] [place] [address] 75722- 6686 Dec, [facility] [id number] [place] [address] 10361- 0588 Nov, [facility] [id number] [place] [address] 46700- 9025 Nov, [facility] [id number] [place] [address] 29849- 9746 Nov, [facility] [id number] [place] [address] 325353- 6592 Nov, [facility] [id number] [place] [address] 129603- 1041 Nov, [facility] [id number] [place] [address] 54366- 3480 Nov, Pertussis exposure Z20.89 [facility] [address], [place] [address]- 7666 Nov, [facility] [address], [place] [address]- 7786 Oct, [facility] [address], [place] [address]- 7092 Oct, [facility] [address] 2813 Oct, [facility] [address]- 3146 Sep, [facility] [address] 2260 Sep, Diabetes mellitus without mention of complication, type II or unspecified type, uncontrolled 250.02 and Hyperlipidemia associated with type 2 diabetes mellitus 250.80 [address], [place] [address]- 4509 Sep, [facility] [address] 4291 Sep, [facility] [id number] [address]- 5293 Sep, Diabetes mellitus without mention of complication, type II or unspecified type, not stated as uncontrolled 250.00 ; Hypothyroid 244.9 ; Hyperlipidemia 272.4 and Hypertension 401.9 [facility] [id number] [address]- 9480 Aug, [facility] [id number] 6168 June, Diabetes mellitus without mention of complication, type II or unspecified type, not stated as uncontrolled 250.00 ; Hyperlipidemia 272.4 ; Hypertension 401.9 ; Candidiasis of female genitalia 112.1 ; Hypothyroid 244.9 and Liver lesion 573.8 [address] [place] [address]- 6969 June, [facility] [place] [facility] [address] [id number] [place] [address]- 8016 May, [facility] [place] [facility] [address] [id number] [place] [address]- 7456 May, [facility] [place] [facility] [address] [id number] [place] [address]- 9706 Mar, 2014 [facility] [place] [facility] [address] [id number] [place] [address]- 7196 Mar, 2014 [facility] [place] [facility] [address] [id number] [place] [address]- 4916 Mar, [facility] [place] [facility] [address] [facility] [id number] [place] 2267 Mar, 2014 [facility] [place] [facility] [address] [facility] [id number] [place] [address]- 7511 Jan, [facility] [place] [facility] [address] [id number] [place] [address]- 3686 Jan, [facility] [place] [facility] [address] [facility] [id number] [place] [address]- 1277 Nov, [facility] [place] [facility] [address] [facility] [id number] [place] [address]- 2557 Nov, [facility] [place] [facility] [address] [id number] [place] [address]- 9017 Nov, [facility] [place] [facility] [address] [id number] [place] 5997 Nov, [facility] [place] [facility] [address] [id number] [place] [address]- 1606 Nov, [facility] [place] [facility] [address] [facility] [id number] [place] [address]- 5916 Nov, [facility] [place] [facility] [address] [id number] [place] [address]- 2546 29 Oct, 2013 [facility] [place] [facility] [address] [id number] [place] [address]- 3287 29 Oct, 2013 [facility] [place] [facility] [address] [id number] [place] [address]- 2962 29 Oct, 2013 [facility] [place] [facility] [address] [id number] [place] [address]- 5842 29 Oct, 2013 [facility] [place] [facility] [address] [id number] [place] [address]- 5438 23 Oct, 2013 [facility] [place] [facility] [address] [id number] [place] [address]- 1615 23 Oct, 2013 [facility] [place] [facility] [address] [id number] [place] [address]- 3866 Oct, 2013 [facility] [place] [facility] [address] [id number] [place] [address]- 0241 Oct, 2013 [facility] [place] [facility] [address] [id number] [place] [address]- 7431 Oct, 2013 [facility] [place] [facility] [address] [id number] [place] [address]- 5239 11 Oct, 2013 [facility] [place] [facility] [address] [id number] [place] [address]- 3400 08 Oct, 2013 [facility] [place] [facility] [address] [id number], [place] [address]- 4675 08 Oct, 2013 [facility] [place] [facility] [address] [id number], [place] [address]- 6884 08 Oct, 2013 [facility] [place] [facility] [address] [id number] [place] [address]- 5630 Oct, 2013 [facility] [place] [facility] [address] [id number] [place] [address]- 3276 Sep, [facility] [place] [facility] [address] [id number] [place] [address]- 9092 Sep, [facility] [place] [facility] [address] [id number] [place] [address]- 7869 Sep, [facility] [place] [facility] [address] [id number] [place] [address]- 7453 Sep, [facility] [place] [facility] [address] [id number] [place] [address]- 7519 Sep, [facility] [place] [facility] [address] [id number] [place] [address]- 4472 Sep, [facility] [place] [facility] [address] [id number] [place] [address]- 5007 Aug, [facility] [place] [facility] [address] [id number] [place] [address]- 5817 Aug, [facility] [place] [facility] [address] [id number] [place] [address]- 6113 Aug, [facility] [place] [facility] [address] [id number] [place] [address]- 9704 Aug, [facility] [place] [facility] [address] [id number] [place] [address]- 4595 Aug, [facility] [place] [facility] [address] [id number] [place] [address]- 0825 Aug, [facility] [place] [facility] [address] [id number] [place] [address]- 6318 Aug, [facility] [place] [facility] [address] [id number] [place] [address]- 6602 Aug, [facility] [place] [facility] [address] [id number] [place] [address]- 4261 Aug, [facility] [place] [facility] [address] [id number] [place] [address]- 3415 Aug, [facility] [place] [facility] [address] [id number] [place] [address]- 1144 Aug, [facility] [place] [facility] [address] [id number] [place] 8837 Aug, [facility] [place] [facility] [address] [id number] [place] [address]- 8714 Aug, 2013 [facility] [place] [facility] [address] [id number] [place] [address]- 5890 Aug, 2013 [facility] [place] [facility] [address] [id number] [place] [address]- 1742 Aug, 2013 [facility] [place] [facility] [address] [id number] [place] [address]- 1600 Aug, 2013 [facility] [place] [facility] [address] [id number] [place] [address]- 4831 Aug, 2013 [facility] [place] [facility] [address] [id number] [place] [address]- 3408 Aug, 2013 [facility] [place] [facility] [address] [id number] [place] [address]- 4228 Aug, 2013 [facility] [place] [facility] [address] [id number] [place] [address]- 0416 Jul, [facility] [place] [facility] [address] [id number] [place] [address]- 4020 Jul, [facility] [place] [facility] [address] [id number] [place] [address]- 3785 Jul, [facility] [place] [facility] [address] [id number] [place] [address]- 6733 Jul, [facility] [place] [facility] [address] [id number] [place] [address]- 6807 Apr, [facility] [place] [facility] [address] [id number] [place] [address]- 2042 Apr, [facility] [place] [facility] [address] [id number] [place] [address]- 8067 15 Mar, 2012 [facility] [place] [facility] [address] [id number] [place] [address]- 6740 11 Mar, 2012 [facility] [place] [facility] [address] [id number] [place] [address]- 2845 Feb, [facility] [address] [id number] [place] [address]- 6898 Feb, [facility] [place] [facility] [address] [id number] [place] [address]- 6036 Feb, [facility] [place] [facility] [address] [id number] [place] [address]- 3817 Feb, [facility] [place] [facility] [address] [id number] [place] [address]- 8729 Jan, [facility] [place] [facility] [address] [id number] [place] [address]- 7471 Jan, [facility] [place] [facility] [address] [id number] [place] [address]- 8796 17 Jan, 2012 [facility] [place] [facility] [address] [id number] [place] [address]- 4951 17 Jan, 2012 [facility] [place] [facility] [address] [id number] [place] [address]- 6625 14 Jan, 2012 [facility] [place] [facility] [address] [id number] [place] [address]- 2494 13 Jan, 2012 [facility] [place] [facility] [address] [id number] [place] [address]- 7585 Jan, [facility] [place] [facility] [address] [id number] [place] [address]- 7101 10 Jan, 2012 [facility] [place] [facility] [address] [id number] [place] [address]- 8885 Jan, [facility] [place] [facility] [address] [id number] [place] [address]- 7017 Dec, [facility] [place] [facility] [address] [id number] [place] 8028 Dec, [facility] [place] [facility] [address] [id number] [place] [address]- 0768 Dec, [facility] [place] [facility] [address] [id number] [place] [address]- 0744 21 Dec, 2011 [facility] [place] [facility] [address] [id number] [place] [address]- 3799 20 Dec, 2011 [facility] [place] [facility] [address] [id number] [place] [address]- 0439 19 Dec, 2011 [facility] [place] [facility] [address] [id number] [place] [address]- 7002 19 Dec, 2011 [facility] [place] [facility] [address] [id number] [place] [address]- 1412 19 Dec, 2011 [facility] [place] [facility] [address] [id number] [place] [address]- 8802 19 Dec, 2011 [facility] [place] [facility] [address] [facility] [id number] [place] [address]- 0403 16 Dec, 2011 [facility] [place] [facility] [address] [id number] [place] [address]- 4492 16 Dec, 2011 [facility] [place] [facility] [address] [id number] [place] [address]- 3137 16 Dec, 2011 [facility] [place] [facility] [address] [facility] [id number] [place] [address] 16 Dec, 2011 [facility] [place] [facility] [address] [facility] [id number] [place] [address] 14 Dec, 2011 [facility] [place] [facility] [address] [id number] [place] [address] 14 Dec, 2011 [facility] [place] [facility] [address] [id number], [place] [address] Nov, [facility] [place] [facility] [address] [id number] [place] [address] Nov, [facility] [place] [facility] [address] [facility] [id number] [place] [address] Nov, [facility] [place] [facility] [address] [id number] [place] [address] Nov, IMMUNIZATIONS No Known Immunizations SOCIAL HISTORY Never Assessed REASON FOR VISIT BS ck text PLAN OF CARE VITAL SIGNS MEDICATIONS Unknown [...]
--- OUTSIDE RECORDS SUMMARY | 2018-03-25 15:03 | XMS REPORT ---
Author JOSEA NTONIO [facility] eClinicalWorks Address Unknown Phone Unavailable Care Team Providers Care Gathering Worker Name Role Phone JOSE ANTONIO MOSS CP Unavailable Allergies No Known Allergies Problems Problem Type Condition Code Onset Dates Condition Status Problem Depressive disorder, not elsewhere classified 311 Active Problem Diabetes mellitus without mention of complication, type II or unspecified type, uncontrolled 250.02 Active Problem Anxiety state, unspecified 300.00 Active Assessment Type 2 diabetes mellitus with diabetic neuropathy E11.40 Active Problem Hypertension 401.9 Active Problem Pure hyperglyceridemia 272.1 Active Problem Hyperlipidemia associated with type 2 diabetes mellitus 250.80 Active Problem Unspecified hypothyroidism 244.9 Active Problem Unspecified anemia 285.9 Active Problem Proteinuria 791.0 Active Problem Unspecified episodic mood disorder 296.90 Active Medications No Known Medications Results No Known Results Summary Purpose eClinicalWorks Submission
--- OUTSIDE RECORDS SUMMARY | 2018-03-25 15:03 | XMS REPORT ---
Author Author MAJOR MCCARTNEY [facility] eClinicalWorks Address Unknown Phone Unavailable Care Team Providers Care Soil And Plant Scientist Name Role Phone MAJOR MCCARTNEY CP Unavailable [...] Instructions Start Date End Date Status Dosage Trulicity [facility] [address]-85 1.5 MG/0.5ML Subcutaneous once weekly 0.75 mg NovoLog Flexpen [facility] [address]-92 100 UNIT/ML Subcutaneous Oct 26, 2014 as directed Results No Known Results Summary Purpose eClinicalWorks Submission
--- OUTSIDE RECORDS SUMMARY | 2018-03-25 15:05 | XMS REPORT | Continuity of Care Document ---
Author Author [facility] of [facility] Address Unknown Phone Unavailable Allergies Active Description Code Type Severity Reaction Onset Reported/Identified Relationship to Patient Clinical Status Yes No Known Drug Allergies [id number] Drug Allergy Mild N/A 09/18/2008 Yes Victoza 3-Ravin 0.6 mg/0.1 mL (18 mg/3 mL) pen injector Drug Allergy N/A N/A 06/08/2014 Medications There is no data. Problems Date Dx Coded Attending Type Code Diagnosis Diagnosed By 04/03/2009 ISA DO JOSE ANTONIO K 388.70 Earache 04/03/2009 MOSS DO JOSE ANTONIO K 401.1 ESSENTIAL HYPERTENSION BENIGN 04/03/2009 MOSS DO, JOSE ANTONIO K 473.9 Sinusitis 04/03/2009 MOSS DO, JOSE ANTONIO K 784.0 Headache 04/03/2009 MOSS DO, JOSE ANTONIO K 388.70 Earache 04/03/2009 MOSS DO, JOSE ANTONIO K 401.1 ESSENTIAL HYPERTENSION BENIGN 04/03/2009 MOSS DO, JOSE ANTONIO K 473.9 Sinusitis 04/03/2009 MOSS DO, JOSE ANTONIO K 784.0 Headache 04/03/2009 MOSS DO, JOSE ANTONIO K 388.70 Earache 04/03/2009 MOSS DO, JOSE ANTONIO K 401.1 ESSENTIAL HYPERTENSION BENIGN 04/03/2009 MOSS DO, JOSE ANTONIO K 473.9 Sinusitis 04/03/2009 MSOS DO, JOSE ANTONIO K 784.0 Headache 04/03/2009 MOSS DO, JOSE ANTONIO K 388.70 Earache 04/03/2009 MOSS DO, JOSE ANTONIO K 401.1 ESSENTIAL HYPERTENSION BENIGN 04/03/2009 MOSS DO, JOSE ANTONIO K 473.9 Sinusitis 04/03/2009 MOSS DO, JOSE ANTONIO K 784.0 Headache 04/03/2009 MOSS DO, JOSE ANTONIO K 388.70 Earache 04/03/2009 MOSS DO, JOSE ANTONIO K 401.1 ESSENTIAL HYPERTENSION BENIGN 04/03/2009 MOSS DO, JOSE ANTONIO K 473.9 Sinusitis 04/03/2009 MOSS DO, JOSE ANTONIO K 784.0 Headache 04/03/2009 MOSS DO, JOSE ANTONIO K 388.70 Earache 04/03/2009 MOSS DO, JOSE ANTONIO K 401.1 ESSENTIAL HYPERTENSION BENIGN 04/03/2009 MOSS DO, JOSE ANTONIO K 473.9 Sinusitis 04/03/2009 MOSS DO, JOSE ANTONIO K 784.0 Headache 04/03/2009 MOSS DO, JOSE ANTONIO K 388.70 Earache 04/03/2009 MOSS DO, JOSE ANTONIO K 401.1 ESSENTIAL HYPERTENSION BENIGN 04/03/2009 MOSS DO, JOSE ANTONIO K 473.9 Sinusitis 04/03/2009 MOSS DO, JOSE ANTONIO K 784.0 Headache 04/03/2009 GREEN PA-C, CRYSTAL M 388.70 Earache 04/03/2009 GREEN PA-C, CRYSTAL M 401.1 ESSENTIAL HYPERTENSION BENIGN 04/03/2009 GREEN PA-C, CRYSTAL M 473.9 Sinusitis 04/03/2009 GREEN PA-C, CRYSTAL M 784.0 Headache 04/03/2009 MOSS DO, JOSE ANTONIO K 388.70 Earache 04/03/2009 MOSS DO, JOSE ANTONIO K 401.1 ESSENTIAL HYPERTENSION BENIGN 04/03/2009 MOSS DO, JOSE ANTONIO K 473.9 Sinusitis 04/03/2009 MOSS DO, JOSE ANTONIO K 784.0 Headache 04/03/2009 JACQUI WADE MD 388.70 Earache 04/03/2009 JACQUI WADE MD 401.1 ESSENTIAL HYPERTENSION BENIGN 04/03/2009 JACQUI WADE MD 473.9 Sinusitis 04/03/2009 JACQUI WADE MD 784.0 Headache 04/03/2009 MOSS DO, JOSE ANTONIO K 388.70 Earache 04/03/2009 MOSS DO, JOSE ANTONIO K 401.1 ESSENTIAL HYPERTENSION BENIGN 04/03/2009 MOSS DO, JOSE ANTONIO K 473.9 Sinusitis 04/03/2009 MOSS DO, JOSE ANTONIO K 784.0 Headache 04/03/2009 MOSS DO, JOSE ANTONIO K 388.70 Earache 04/03/2009 MOSS DO, JOSE ANTONIO K 401.1 ESSENTIAL HYPERTENSION BENIGN 04/03/2009 MOSS DO, JOSE ANTONIO K 473.9 Sinusitis 04/03/2009 MOSS DO, JOSE ANTONIO K 784.0 Headache 12/21/2011 MOSS DO, JOSE ANTONIO K 300.00 AN ANXIETY UNSPEC 12/21/2011 MOSS DO, JOSE ANTONIO K 311 MO DEPRESS NOS 12/21/2011 MOSS DO, JOSE ANTONIO K 300.00 AN ANXIETY UNSPEC 12/21/2011 MOSS DO, JOSE ANTONIO K 311 MO DEPRESS NOS 12/21/2011 MOSS DO, JOSE ANTONIO K 300.00 AN ANXIETY UNSPEC 12/21/2011 MOSS DO, JOSE ANTONIO K 311 MO DEPRESS NOS 12/21/2011 MOSS DO, JOSE ANTONIO K 300.00 AN ANXIETY UNSPEC 12/21/2011 MOSS DO, JOSE ANTONIO K 311 MO DEPRESS NOS 12/21/2011 MOSS DO, JOSE ANTONIO K 300.00 AN ANXIETY UNSPEC 12/21/2011 MOSS DO, JOSE ANTONIO K 311 MO DEPRESS NOS 12/21/2011 MOSS DO, JOSE ANTONIO K 300.00 AN ANXIETY UNSPEC 12/21/2011 MOSS DO, JOSE ANTONIO K 311 MO DEPRESS NOS 12/21/2011 MOSS DO, JOSE ANTONIO K 300.00 AN ANXIETY UNSPEC 12/21/2011 MOSS DO, JOSE ANTONIO K 311 MO DEPRESS NOS 12/21/2011 CRYSTAL GREEN PA-C 300.00 AN ANXIETY UNSPEC 12/21/2011 CRYSTAL GREEN PA-C 311 MO DEPRESS NOS 12/21/2011 MOSS DO, JOSE ANTONIO K 300.00 AN ANXIETY UNSPEC 12/21/2011 MOSS DO, JOSE ANTONIO K 311 MO DEPRESS NOS 12/21/2011 JACQUI WADE MD 300.00 AN ANXIETY UNSPEC 12/21/2011 JACQIU WADE MD 311 MO DEPRESS NOS 12/21/2011 MOSS DO, JOSE ANTONIO K 300.00 AN ANXIETY UNSPEC 12/21/2011 MOSS DO, JOSE ANTONIO K 311 MO DEPRESS NOS 12/21/2011 MOSS DO, JOSE ANTONIO K 300.00 AN ANXIETY UNSPEC 12/21/2011 MOSS DO, JOSE ANTONIO K 311 MO DEPRESS NOS 01/10/2012 MOSS DO, JOSE ANTONIO K 296.90 MOOD DISORDER NOS 01/10/2012 MOSS DO, JOSE ANTONIO K 296.90 MOOD DISORDER NOS 01/10/2012 MOSS DO, JOSE ANTONIO K 296.90 MOOD DISORDER NOS 01/10/2012 MOSS DO, JOSE ANTONIO K 296.90 MOOD DISORDER NOS 01/10/2012 MOSS DO, JOSE ANTONIO K 296.90 MOOD DISORDER NOS 01/10/2012 MOSS DO, JOSE ANTONIO K 296.90 MOOD DISORDER NOS 01/10/2012 MOSS DO, JOSE ANTONIO K 296.90 MOOD DISORDER NOS 01/10/2012 CRYSTAL GREEN PA-C 296.90 MOOD DISORDER NOS 01/10/2012 MOSS DO, JOSE ANTONIO K 296.90 MOOD DISORDER NOS 01/10/2012 JACQUI WADE MD 296.90 MOOD DISORDER NOS 01/10/2012 MOSS DO, JOSE ANTONIO K 296.90 MOOD DISORDER NOS 01/10/2012 MOSS DO, JOSE ANTONIO K 296.90 MOOD DISORDER NOS 01/12/2012 MOSS DO, JOSE ANTONIO K 244.9 UNSPECIFIED ACQUIRED HYPOTHYROIDISM 01/12/2012 MOSS DO, JOSE ANTONIO K 380.4 IMPACTED CERUMEN 01/12/2012 MOSS DO, JOSE ANTONIO K 790.29 OTHER ABNORMAL GLUCOSE 01/12/2012 MOSS DO, JOSE ANTONIO K V58.69 LONG-TERM (CURRENT) USE OF OTHER MEDICATIONS 01/12/2012 MOSS DO, JOSE ANTONIO K V70.0 ROUTINE GENERAL MEDICAL EXAMINATION AT A HEALTH CARE FACILITY 01/12/2012 MOSS DO, JOSE ANTONIO K 244.9 UNSPECIFIED ACQUIRED HYPOTHYROIDISM 01/12/2012 MOSS DO, JOSE ANTONIO K 380.4 IMPACTED CERUMEN 01/12/2012 MOSS DO, JOSE ANTONIO K 790.29 OTHER ABNORMAL GLUCOSE 01/12/2012 MOSS DO, JOSE ANTONIO K V58.69 LONG-TERM (CURRENT) USE OF OTHER MEDICATIONS 01/12/2012 MOSS DO, JOSE ANTONIO K V70.0 ROUTINE GENERAL MEDICAL EXAMINATION AT A HEALTH CARE FACILITY 01/12/2012 MOSS DO, JOSE ANTONIO K 244.9 UNSPECIFIED ACQUIRED HYPOTHYROIDISM 01/12/2012 MOSS DO, JOSE ANTONIO K 380.4 IMPACTED CERUMEN 01/12/2012 MOSS DO, JOSE ANTONIO K 790.29 OTHER ABNORMAL GLUCOSE 01/12/2012 MOSS DO, JOSE ANTONIO K V58.69 LONG-TERM (CURRENT) USE OF OTHER MEDICATIONS 01/12/2012 MOSS DO, JOSE ANTONIO K V70.0 ROUTINE GENERAL MEDICAL EXAMINATION AT A HEALTH CARE FACILITY 01/12/2012 MOSS DO, JOSE ANTONIO K 244.9 UNSPECIFIED ACQUIRED HYPOTHYROIDISM 01/12/2012 MOSS DO, JOSE ANTONIO K 380.4 IMPACTED CERUMEN 01/12/2012 MOSS DO, JOSE ANTONIO K 790.29 OTHER ABNORMAL GLUCOSE 01/12/2012 MOSS DO, JOSE ANTONIO K V58.69 LONG-TERM (CURRENT) USE OF OTHER MEDICATIONS 01/12/2012 MOSS DO, JOSE ANTONIO K V70.0 ROUTINE GENERAL MEDICAL EXAMINATION AT A HEALTH CARE FACILITY 01/12/2012 MOSS DO, JOSE ANTONIO K 244.9 UNSPECIFIED ACQUIRED HYPOTHYROIDISM 01/12/2012 MOSS DO, JOSE ANTONIO K 380.4 IMPACTED CERUMEN 01/12/2012 MOSS DO, JOSE ANTONIO K 790.29 OTHER ABNORMAL GLUCOSE 01/12/2012 MOSS DO, JOSE ANTONIO K V58.69 LONG-TERM (CURRENT) USE OF OTHER MEDICATIONS 01/12/2012 MOSS DO, JOSE ANTONIO K V70.0 ROUTINE GENERAL MEDICAL EXAMINATION AT A HEALTH CARE FACILITY 01/12/2012 MOSS DO, JOSE ANTONIO K 244.9 UNSPECIFIED ACQUIRED HYPOTHYROIDISM 01/12/2012 MOSS DO, JOSE ANTONIO K 380.4 IMPACTED CERUMEN 01/12/2012 MOSS DO, JOSE ANTONIO K 790.29 OTHER ABNORMAL GLUCOSE 01/12/2012 MOSS DO, JOSE ANTONIO K V58.69 LONG-TERM (CURRENT) USE OF OTHER MEDICATIONS 01/12/2012 MOSS DO, JOSE ANTONIO K V70.0 ROUTINE GENERAL MEDICAL EXAMINATION AT A HEALTH CARE FACILITY 01/12/2012 MOSS DO, JOSE ANTONIO K 244.9 UNSPECIFIED ACQUIRED HYPOTHYROIDISM 01/12/2012 MOSS DO, JOSE ANTONIO K 380.4 IMPACTED CERUMEN 01/12/2012 MOSS DO, JOSE ANTONIO K 790.29 OTHER ABNORMAL GLUCOSE 01/12/2012 MOSS DO JOSE ANTONIO K V58.69 LONG-TERM (CURRENT) USE OF OTHER MEDICATIONS 01/12/2012 MOSS DO JOSE ANTONIO K V70.0 ROUTINE GENERAL MEDICAL EXAMINATION AT A HEALTH CARE FACILITY 01/12/2012 CRYSTAL GREEN PA-C 244.9 UNSPECIFIED ACQUIRED HYPOTHYROIDISM 01/12/2012 CRYSTAL GREEN PA-C 380.4 IMPACTED CERUMEN 01/12/2012 CRYSTAL GREEN PA-C 790.29 OTHER ABNORMAL GLUCOSE 01/12/2012 CRYSTAL GREEN PA-C V58.69 LONG-TERM (CURRENT) USE OF OTHER MEDICATIONS 01/12/2012 CRYSTAL GREEN PA-C V70.0 ROUTINE GENERAL MEDICAL EXAMINATION AT A HEALTH CARE FACILITY 01/12/2012 ISA DO JOSE ANTONIO K 244.9 UNSPECIFIED ACQUIRED HYPOTHYROIDISM 01/12/2012 MOSS DO, JOSE ANTONIO K 380.4 IMPACTED CERUMEN 01/12/2012 MOSS DO, JOSE ANTONIO K 790.29 OTHER ABNORMAL GLUCOSE 01/12/2012 ISA DO JOSE ANTONIO K V58.69 LONG-TERM (CURRENT) USE OF OTHER MEDICATIONS 01/12/2012 MOSS DO, JOSE ANTONIO K V70.0 ROUTINE GENERAL MEDICAL EXAMINATION AT A HEALTH CARE FACILITY 01/12/2012 JACQUI WADE MD 244.9 UNSPECIFIED ACQUIRED HYPOTHYROIDISM 01/12/2012 JACQUI WADE MD 380.4 IMPACTED CERUMEN 01/12/2012 JACQUI WADE MD 790.29 OTHER ABNORMAL GLUCOSE 01/12/2012 JACQUI WADE MD V58.69 LONG-TERM (CURRENT) USE OF OTHER MEDICATIONS 01/12/2012 JACQUI WADE MD V70.0 ROUTINE GENERAL MEDICAL EXAMINATION AT A HEALTH CARE FACILITY 01/12/2012 MOSS DO JOSE ANTONIO K 244.9 UNSPECIFIED ACQUIRED HYPOTHYROIDISM 01/12/2012 MOSS DO, JOSE ANTONIO K 380.4 IMPACTED CERUMEN 01/12/2012 MOSS DO, JOSE ANTONIO K 790.29 OTHER ABNORMAL GLUCOSE 01/12/2012 MOSS DO, JOSE ANTONIO K V58.69 LONG-TERM (CURRENT) USE OF OTHER MEDICATIONS 01/12/2012 MOSS DO, JOSE ANTONIO K V70.0 ROUTINE GENERAL MEDICAL EXAMINATION AT A HEALTH CARE FACILITY 01/12/2012 MOSS DO, JOSE ANTONIO K 244.9 UNSPECIFIED ACQUIRED HYPOTHYROIDISM 01/12/2012 MOSS DO, JOSE ANTONIO K 380.4 IMPACTED CERUMEN 01/12/2012 MOSS DO, JOSE ANTONIO K 790.29 OTHER ABNORMAL GLUCOSE 01/12/2012 MOSS DO, JOSE ANTONIO K V58.69 LONG-TERM (CURRENT) USE OF OTHER MEDICATIONS 01/12/2012 MOSS DO, JOSE ANTONIO K V70.0 ROUTINE GENERAL MEDICAL EXAMINATION AT A HEALTH CARE FACILITY 01/17/2012 MOSS DO, JOSE ANTONIO K 250.02 DIABETES II UNCONTROLLED (UNCOMPLICATED) 01/17/2012 MOSS DO, JOSE ANTONIO K 285.9 ANEMIA 01/17/2012 MOSS DO, JOSE ANTONIO K 250.02 DIABETES II UNCONTROLLED (UNCOMPLICATED) 01/17/2012 MOSS DO, JOSE ANTONIO K 285.9 ANEMIA 01/17/2012 MOSS DO, JOSE ANTONIO K 250.02 DIABETES II UNCONTROLLED (UNCOMPLICATED) 01/17/2012 MOSS DO, JOSE ANTONIO K 285.9 ANEMIA 01/17/2012 MOSS DO, JOSE ANTONIO K 250.02 DIABETES II UNCONTROLLED (UNCOMPLICATED) 01/17/2012 MOSS DO, JOSE ANTONIO K 285.9 ANEMIA 01/17/2012 MOSS DO, JOSE ANTONIO K 250.02 DIABETES II UNCONTROLLED (UNCOMPLICATED) 01/17/2012 MOSS DO, JOSE ANTONIO K 285.9 ANEMIA 01/17/2012 MOSS DO, JOSE ANTONIO K 250.02 DIABETES II UNCONTROLLED (UNCOMPLICATED) 01/17/2012 MOSS DO, JOSE ANTONIO K 285.9 ANEMIA 01/17/2012 MOSS DO, JOSE ANTONIO K 250.02 DIABETES II UNCONTROLLED (UNCOMPLICATED) 01/17/2012 MOSS DO, JOSE ANTONIO K 285.9 ANEMIA 01/17/2012 PETER ROSARIO, CRYSTAL Michel 250.02 DIABETES II UNCONTROLLED (UNCOMPLICATED) 01/17/2012 PETER ROSARIO, CRYSTAL Michel 285.9 ANEMIA 01/17/2012 MOSS DO, JOSE ANTONIO K 250.02 DIABETES II UNCONTROLLED (UNCOMPLICATED) 01/17/2012 MOSS DO, JOSE ANTONIO K 285.9 ANEMIA 01/17/2012 JACQUI WADE MD 250.02 DIABETES II UNCONTROLLED (UNCOMPLICATED) 01/17/2012 JACQUI WADE MD 285.9 ANEMIA 01/17/2012 MOSS DO, JOSE ANTONIO K 250.02 DIABETES II UNCONTROLLED (UNCOMPLICATED) 01/17/2012 MOSS DO, JOSE ANTONIO K 285.9 ANEMIA 01/17/2012 MOSS DO, JOSE ANTONIO K 250.02 DIABETES II UNCONTROLLED (UNCOMPLICATED) 01/17/2012 MOSS DO, JOSE ANTONIO K 285.9 ANEMIA 02/05/2012 MOSS DO, JOSE ANTONIO K 564.00 CONSTIPATION 02/05/2012 MOSS DO, JOSE ANTONIO K V76.10 BREAST CANCER SCREENING 02/05/2012 MOSS DO, JOSE ANTONIO K V76.2 CERVICAL CANCER SCREENING (PAP SMEAR) 02/05/2012 MOSS DO, JOSE ANTONIO K 564.00 CONSTIPATION 02/05/2012 MOSS DO, JOSE ANTONIO K V76.10 BREAST CANCER SCREENING 02/05/2012 MOSS DO, JOSE ANTONIO K V76.2 CERVICAL CANCER SCREENING (PAP SMEAR) 02/05/2012 MOSS DO, JOSE ANTONIO K 564.00 CONSTIPATION 02/05/2012 MOSS DO, JOSE ANTONIO K V76.10 BREAST CANCER SCREENING 02/05/2012 MOSS DO, JOSE ANTONIO K V76.2 CERVICAL CANCER SCREENING (PAP SMEAR) 02/05/2012 MOSS DO, JOSE ANTONIO K 564.00 CONSTIPATION 02/05/2012 MOSS DO, JOSE ANTONIO K V76.10 BREAST CANCER SCREENING 02/05/2012 MOSS DO, JOSE ANTONIO K V76.2 CERVICAL CANCER SCREENING (PAP SMEAR) 02/05/2012 MOSS DO JOSE ANTONIO K 564.00 CONSTIPATION 02/05/2012 MOSS DO JOSE ANTONIO K V76.10 BREAST CANCER SCREENING 02/05/2012 MOSS DO JOSE ANTONIO K V76.2 CERVICAL CANCER SCREENING (PAP SMEAR) 02/05/2012 JUDY MOSS DOA K 564.00 CONSTIPATION 02/05/2012 MOSS DO JOSE ANTONIO K V76.10 BREAST CANCER SCREENING 02/05/2012 MOSS DO JOSE ANTONIO K V76.2 CERVICAL CANCER SCREENING (PAP SMEAR) 02/05/2012 CRYSTAL GREEN PA-C 564.00 CONSTIPATION 02/05/2012 CRYSTAL GREEN PA-C V76.10 BREAST CANCER SCREENING 02/05/2012 CRYSTAL GREEN PA-C V76.2 CERVICAL CANCER SCREENING (PAP SMEAR) 02/05/2012 JOSE ANTONIO MOSS DO K 564.00 CONSTIPATION 02/05/2012 JUDY MOSS DOA K V76.10 BREAST CANCER SCREENING 02/05/2012 JUDY MOSS DOA K V76.2 CERVICAL CANCER SCREENING (PAP SMEAR) 02/05/2012 JACQUI WADE MD 564.00 CONSTIPATION 02/05/2012 JACQUI WADE MD V76.10 BREAST CANCER SCREENING 02/05/2012 JACQUI WADE MD V76.2 CERVICAL CANCER SCREENING (PAP SMEAR) 02/05/2012 JUDY MOSS DOA K 564.00 CONSTIPATION 02/05/2012 JUDY MOSS DOA K V76.10 BREAST CANCER SCREENING 02/05/2012 JUDY MOSS DOA K V76.2 CERVICAL CANCER SCREENING (PAP SMEAR) 02/05/2012 JUDY MOSS DOA K 564.00 CONSTIPATION 02/05/2012 MOSS DO JOSE ANTONIO K V76.10 BREAST CANCER SCREENING 02/05/2012 JUDY MOSS DOA K V76.2 CERVICAL CANCER SCREENING (PAP SMEAR) 02/08/2012 MOSS DO, JOSE ANTONIO K 250.00 DIABETES MELLITUS TYPE 2 02/08/2012 MOSS DO, JOSE ANTONIO K 250.00 DIABETES MELLITUS TYPE 2 02/08/2012 MOSS DO, JOSE ANTONIO K 250.00 DIABETES MELLITUS TYPE 2 02/08/2012 MOSS DO, JOSE ANTONIO K 250.00 DIABETES MELLITUS TYPE 2 02/08/2012 MOSS DO, JOSE ANTONIO K 250.00 DIABETES MELLITUS TYPE 2 02/08/2012 MOSS DO, JOSE ANTONIO K 250.00 DIABETES MELLITUS TYPE 2 02/08/2012 CRYSTAL GREEN PA-C 250.00 DIABETES MELLITUS TYPE 2 02/08/2012 MOSS DO, JOSE ANTONIO K 250.00 DIABETES MELLITUS TYPE 2 02/08/2012 JACQUI WADE MD 250.00 DIABETES MELLITUS TYPE 2 02/08/2012 MOSS DO, JOSE ANTONIO K 250.00 DIABETES MELLITUS TYPE 2 02/08/2012 MOSS DO, JOSE ANTONIO K 250.00 DIABETES MELLITUS TYPE 2 04/12/2012 MOSS DO, JOSE ANTONIO K 780.2 SYNCOPE 04/12/2012 MOSS DO, JOSE ANTONIO K 780.2 SYNCOPE 04/12/2012 MOSS DO, JOSE ANTONIO K 780.2 SYNCOPE 04/12/2012 MOSS DO, JOSE ANTONIO K 780.2 SYNCOPE 04/12/2012 MOSS DO, JOSE ANTONIO K 780.2 SYNCOPE 04/12/2012 CRYSTAL GREEN PA-C 780.2 SYNCOPE 04/12/2012 MOSS DO, JOSE ANTONIO K 780.2 SYNCOPE 04/12/2012 JACQUI WADE MD 780.2 SYNCOPE 04/12/2012 MOSS DO, JOSE ANTONIO K 780.2 SYNCOPE 04/12/2012 MOSS DO, JOSE ANTONIO K 780.2 SYNCOPE 04/26/2012 MOSS DO, JOSE ANTONIO K 616.4 OTHER ABSCESS OF VULVA 04/26/2012 MOSS DO, JOSE ANTONIO K 616.4 OTHER ABSCESS OF VULVA 04/26/2012 MOSS DO, JOSE ANTONIO K 616.4 OTHER ABSCESS OF VULVA 04/26/2012 MOSS DO, JOSE ANTONIO K 616.4 OTHER ABSCESS OF VULVA 04/26/2012 CRYSTAL GREEN PA-C 616.4 OTHER ABSCESS OF VULVA 04/26/2012 MOSS DO, JOSE ANTONIO K 616.4 OTHER ABSCESS OF VULVA 04/26/2012 JACQUI WADE MD 616.4 OTHER ABSCESS OF VULVA 04/26/2012 MOSS DO, JOSE ANTONIO K 616.4 OTHER ABSCESS OF VULVA 04/26/2012 MOSS DO, JOSE ANTONIO K 616.4 OTHER ABSCESS OF VULVA 09/06/2013 MOSS DO, JOSE ANTONIO K 272.1 HYPERTRIGLYCERIDEMIA 09/06/2013 MOSS DO, JOSE ANTONIO K 791.0 MICROALBUMINURIA 09/06/2013 MOSS DO, JOSE ANTONIO K 272.1 HYPERTRIGLYCERIDEMIA 09/06/2013 MOSS DO, JOSE ANTONIO K 791.0 MICROALBUMINURIA 09/06/2013 CRYSTAL GREEN PA-C 272.1 HYPERTRIGLYCERIDEMIA 09/06/2013 PETER ROSARIO, CRYSTAL Michel 791.0 MICROALBUMINURIA 09/06/2013 MOSS DO, JOSE ANTONIO K 272.1 HYPERTRIGLYCERIDEMIA 09/06/2013 MOSS DO, JOSE ANTONIO K 791.0 MICROALBUMINURIA 09/06/2013 MAURO FUENTES, JACQUI 272.1 HYPERTRIGLYCERIDEMIA 09/06/2013 MAURO FUENTES, JACQUI 791.0 MICROALBUMINURIA 09/06/2013 MOSS DO, JOSE ANTONIO K 272.1 HYPERTRIGLYCERIDEMIA 09/06/2013 MOSS DO, JOSE ANTONIO K 791.0 MICROALBUMINURIA 09/06/2013 MOSS DO, JOSE ANTONIO K 272.1 HYPERTRIGLYCERIDEMIA 09/06/2013 MOSS DO, JOSE ANTONIO K 791.0 MICROALBUMINURIA 02/25/2014 MAURO FUENTES, JACQUI 465.9 UPPER RESPIRATORY INFECTION 02/25/2014 MAURO FUENTES, JACQUI 786.2 COUGH 02/25/2014 MOSS DO, JOSE ANTONIO K 465.9 UPPER RESPIRATORY INFECTION 02/25/2014 MOSS DO, JOSE ANTONIO K 786.2 COUGH 02/25/2014 MOSS DO, JOSE ANTONIO K 465.9 UPPER RESPIRATORY INFECTION 02/25/2014 MOSS DO, JOSE ANTONIO K 786.2 COUGH 06/02/2014 PAULA BECK APRN Ot 558.9 NONINF GASTROENTERIT NEC 06/02/2014 PAULA BECK PIT LABORER Ot 787.01 NAUSEA WITH VOMITING 06/04/2014 MOSS DO, JOSE ANTONIO K 787.01 NAUSEA WITH VOMITING 06/04/2014 MOSS DO, JOSE ANTONIO K 789.00 ABDOMINAL PAIN UNSPECIFIED SITE 08/03/2015 OMSS DO, JOSE ANTONIO K Ot K76.89 OTHER SPECIFIED DISEASES OF LIVER 08/09/2015 CHOCO RIOS MD Ot D50.9 IRON DEFICIENCY ANEMIA, UNSPECIFIED 08/09/2015 CHOCO RIOS MD, Ot E03.9 HYPOTHYROIDISM, UNSPECIFIED 08/09/2015 CHOCO RIOS MD Ot E11.9 TYPE 2 DIABETES MELLITUS WITHOUT COMPLIC 08/09/2015 CHOCO RIOS MD, Ot F32.9 MAJOR DEPRESSIVE DISORDER, SINGLE EPISOD 08/09/2015 CHOCO RIOS MD Ot I10 ESSENTIAL (PRIMARY) HYPERTENSION 08/09/2015 CHOCO RIOS MD Ot K59.00 CONSTIPATION, UNSPECIFIED 08/09/2015 CHOCO RIOS MD, Ot Z79.899 OTHER C JAVA DEVELOPER (CURRENT) DRUG THERAPY 09/06/2015 JOSE ANTONIO MOSS DO Ot K76.89 OTHER SPECIFIED DISEASES OF LIVER 09/06/2015 CHOCO RIOS MD, Ot D50.9 IRON DEFICIENCY ANEMIA, UNSPECIFIED 09/06/2015 CHOCO RIOS MD, Ot E03.9 HYPOTHYROIDISM, UNSPECIFIED 09/06/2015 CHOCO RIOS MD, Ot E11.9 TYPE 2 DIABETES MELLITUS WITHOUT COMPLIC 09/06/2015 CHOCO RIOS MD, Ot F32.9 MAJOR DEPRESSIVE DISORDER, SINGLE EPISOD 09/06/2015 CHOCO RIOS MD Ot I10 ESSENTIAL (PRIMARY) HYPERTENSION 09/06/2015 CHOCO RIOS MD Ot K59.00 CONSTIPATION, UNSPECIFIED 09/06/2015 CHOCO RIOS MD, Ot Z79.899 OTHER C JAVA DEVELOPER (CURRENT) DRUG THERAPY 09/06/2015 TONIO MOTA DO Ot D64.9 ANEMIA, UNSPECIFIED 09/06/2015 TONIO MOTA DO Ot Z01.818 ENCOUNTER FOR OTHER PREPROCEDURAL EXAMIN 09/06/2015 JOSE ANTONIO MOSS DO Ot K76.89 OTHER SPECIFIED DISEASES OF LIVER 09/06/2015 CHOCO RIOS MD, Ot D50.9 IRON DEFICIENCY ANEMIA, UNSPECIFIED 09/06/2015 CHOCO RIOS MD, Ot E03.9 HYPOTHYROIDISM, UNSPECIFIED 09/06/2015 CHOCO RIOS MD, Ot E11.9 TYPE 2 DIABETES MELLITUS WITHOUT COMPLIC 09/06/2015 CHOCO RIOS MD, Ot F32.9 MAJOR DEPRESSIVE DISORDER, SINGLE EPISOD 09/06/2015 CHOCO RIOS MD Ot I10 ESSENTIAL (PRIMARY) HYPERTENSION 09/06/2015 CHOCO RIOS MD Ot K59.00 CONSTIPATION, UNSPECIFIED 09/06/2015 CHOCO RIOS MD, Ot Z79.899 OTHER USP (CURRENT) DRUG THERAPY 09/06/2015 JOSE ANTONIO MOSS DO Ot K76.89 OTHER SPECIFIED DISEASES OF LIVER 09/07/2015 TONIO MOTA DO Ot D50.9 IRON DEFICIENCY ANEMIA, UNSPECIFIED 09/07/2015 TONIO MOTA DO Ot K25.9 GASTRIC ULCER, UNSP ACUTE OR CHRONIC, 09/07/2015 TONIO MOTA DO Ot K44.9 DIAPHRAGMATIC HERNIA WITHOUT OBSTRUCTION 09/08/2015 MOTA DO, TONIO D Ot D50.9 IRON DEFICIENCY ANEMIA, UNSPECIFIED 09/08/2015 MOTA DO, TONIO D Ot K25.9 GASTRIC ULCER, UNSP ACUTE OR CHRONIC, 09/08/2015 MOTA DO, TONIO D Ot K44.9 DIAPHRAGMATIC HERNIA WITHOUT OBSTRUCTION 09/16/2015 MOTA DO, TONIO D Ot D50.9 IRON DEFICIENCY ANEMIA, UNSPECIFIED 09/16/2015 MOTA DO, TONIO D Ot K25.9 GASTRIC ULCER, UNSP ACUTE OR CHRONIC, 09/16/2015 MOTA DO, TONIO D Ot K44.9 DIAPHRAGMATIC HERNIA WITHOUT OBSTRUCTION 11/01/2015 CHOCO RIOS MD, Ot D50.9 IRON DEFICIENCY ANEMIA, UNSPECIFIED 11/01/2015 CHOCO RIOS MD, Ot E03.9 HYPOTHYROIDISM, UNSPECIFIED 11/01/2015 CHOCO RIOS MD Ot E11.9 TYPE 2 DIABETES MELLITUS WITHOUT COMPLIC 11/01/2015 CHOCO RIOS MD Ot F32.9 MAJOR DEPRESSIVE DISORDER, SINGLE EPISOD 11/01/2015 CHOCO RIOS MD Ot I10 ESSENTIAL (PRIMARY) HYPERTENSION 11/01/2015 CHOCO RIOS MD Ot K59.00 CONSTIPATION, UNSPECIFIED 11/01/2015 CHOCO RIOS MD, Ot Z79.899 OTHER USP (CURRENT) DRUG THERAPY 11/02/2015 CHOCO RIOS MD, Ot D50.9 IRON DEFICIENCY ANEMIA, UNSPECIFIED 11/02/2015 CHOCO RIOS MD, Ot E03.9 HYPOTHYROIDISM, UNSPECIFIED 11/02/2015 CHOCO RIOS MD Ot E11.9 TYPE 2 DIABETES MELLITUS WITHOUT COMPLIC 11/02/2015 CHOCO RIOS MD, Ot F32.9 MAJOR DEPRESSIVE DISORDER, SINGLE EPISOD 11/02/2015 CHOCO RIOS MD Ot I10 ESSENTIAL (PRIMARY) HYPERTENSION 11/02/2015 CHOCO RIOS MD Ot K59.00 CONSTIPATION, UNSPECIFIED 11/02/2015 CHOCO RIOS MD, Ot Z79.899 OTHER USP (CURRENT) DRUG THERAPY 11/08/2015 CHOCO RIOS MD, Ot D50.9 IRON DEFICIENCY ANEMIA, UNSPECIFIED 11/08/2015 XUN MD, MATTHEWS-TONY Ot E03.9 HYPOTHYROIDISM, UNSPECIFIED 11/08/2015 BLANCA FUENTES, CHOCO Ot E11.9 TYPE 2 DIABETES MELLITUS WITHOUT COMPLIC 11/08/2015 BLANCA FUENTES, CHOCO Ot F32.9 MAJOR DEPRESSIVE DISORDER, SINGLE EPISOD 11/08/2015 BLANCA FUENTES, CHOCO Ot I10 ESSENTIAL (PRIMARY) HYPERTENSION 11/08/2015 BLANCA FUENTES, CHOCO Ot K59.00 CONSTIPATION, UNSPECIFIED 11/08/2015 BLANCA FUENTES, CHOCO Ot Z79.899 OTHER USP (CURRENT) DRUG THERAPY 11/08/2015 BLANCA FUENTES, CHOCO Ot D50.9 IRON DEFICIENCY ANEMIA, UNSPECIFIED 11/08/2015 BLANCA FUENTES, CHOCO Ot E03.9 HYPOTHYROIDISM, UNSPECIFIED 11/08/2015 LBANCA FUENTES, CHOCO Ot E11.9 TYPE 2 DIABETES MELLITUS WITHOUT COMPLIC 11/08/2015 BLANCA FUENTES, CHOCO Ot F32.9 MAJOR DEPRESSIVE DISORDER, SINGLE EPISOD 11/08/2015 BLANCA FUENTES, CHOCO Ot I10 ESSENTIAL (PRIMARY) HYPERTENSION 11/08/2015 BLANCA FUENTES, CHOCO Ot K59.00 CONSTIPATION, UNSPECIFIED 11/08/2015 BLANCA FUENTES, CHOCO Ot Z79.899 OTHER USP (CURRENT) DRUG THERAPY 11/17/2015 CHOCO RIOS MD Ot D50.9 IRON DEFICIENCY ANEMIA, UNSPECIFIED 11/17/2015 BLANCA FUENTES, CHOCO Ot E03.9 HYPOTHYROIDISM, UNSPECIFIED 11/17/2015 LBANCA FUENTES, CHOCO Ot E11.9 TYPE 2 DIABETES MELLITUS WITHOUT COMPLIC 11/17/2015 BLANCA FUENTES, CHOCO Ot F32.9 MAJOR DEPRESSIVE DISORDER, SINGLE EPISOD 11/17/2015 BLANCA FUENTES, CHOCO Ot I10 ESSENTIAL (PRIMARY) HYPERTENSION 11/17/2015 BLANCA FUENTES, CHOCO Ot K59.00 CONSTIPATION, UNSPECIFIED 11/17/2015 BLANCA FUENTES, CHOCO Ot Z79.899 OTHER C JAVA DEVELOPER (CURRENT) DRUG THERAPY 02/14/2016 BLANCA FUENTES, CHOCO Ot D50.9 IRON DEFICIENCY ANEMIA, UNSPECIFIED 02/14/2016 BLANCA FUENTES, CHOCO Ot E03.9 HYPOTHYROIDISM, UNSPECIFIED 02/14/2016 BLANCA FUENTES, CHOCO Ot E11.9 TYPE 2 DIABETES MELLITUS WITHOUT COMPLIC 02/14/2016 CHOCO RIOS MD Ot F32.9 MAJOR DEPRESSIVE DISORDER, SINGLE EPISOD 02/14/2016 CHOCO RIOS MD Ot I10 ESSENTIAL (PRIMARY) HYPERTENSION 02/14/2016 CHOCO RIOS MD Ot K59.00 CONSTIPATION, UNSPECIFIED 02/14/2016 CHOCO RIOS MD Ot Z79.899 OTHER USP (CURRENT) DRUG THERAPY 02/15/2016 CHOCO RIOS MD, Ot D50.9 IRON DEFICIENCY ANEMIA, UNSPECIFIED 02/15/2016 CHOCO RIOS MD Ot E03.9 HYPOTHYROIDISM, UNSPECIFIED 02/15/2016 CHOCO RIOS MD Ot E11.9 TYPE 2 DIABETES MELLITUS WITHOUT COMPLIC 02/15/2016 CHOCO RIOS MD, Ot F32.9 MAJOR DEPRESSIVE DISORDER, SINGLE EPISOD 02/15/2016 CHOCO RIOS MD Ot I10 ESSENTIAL (PRIMARY) HYPERTENSION 02/15/2016 CHOCO RIOS MD, Ot K59.00 CONSTIPATION, UNSPECIFIED 02/15/2016 CHOCO RIOS MD, Ot Z79.899 OTHER C JAVA DEVELOPER (CURRENT) DRUG THERAPY 03/06/2016 JOSE ANTONIO MOSS DO Ot K76.89 OTHER SPECIFIED DISEASES OF LIVER 03/06/2016 TONIO MOTA DO Ot D64.9 ANEMIA, UNSPECIFIED 03/06/2016 TONIO MOTA DO Ot Z01.818 ENCOUNTER FOR OTHER PREPROCEDURAL EXAMIN 03/06/2016 JOSE ANTONIO MOSS DO Ot K76.89 OTHER SPECIFIED DISEASES OF LIVER 03/15/2016 CHOCO RIOS MD, Ot D50.9 IRON DEFICIENCY ANEMIA, UNSPECIFIED 03/15/2016 CHOCO RIOS MD Ot E03.9 HYPOTHYROIDISM, UNSPECIFIED 03/15/2016 CHOCO RIOS MD Ot E11.9 TYPE 2 DIABETES MELLITUS WITHOUT COMPLIC 03/15/2016 CHOCO RIOS MD, Ot F32.9 MAJOR DEPRESSIVE DISORDER, SINGLE EPISOD 03/15/2016 CHOCO RIOS MD Ot I10 ESSENTIAL (PRIMARY) HYPERTENSION 03/15/2016 CHOCO RIOS MD Ot K59.00 CONSTIPATION, UNSPECIFIED 03/15/2016 CHOCO RIOS MD, Ot Z79.899 OTHER C JAVA DEVELOPER (CURRENT) DRUG THERAPY 06/12/2016 CHOCO RIOS MD Ot D50.9 IRON DEFICIENCY ANEMIA, UNSPECIFIED 06/12/2016 CHOCO RIOS MD Ot E03.9 HYPOTHYROIDISM, UNSPECIFIED 06/12/2016 CHOCO RIOS MD Ot E11.9 TYPE 2 DIABETES MELLITUS WITHOUT COMPLIC 06/12/2016 CHOCO RIOS MD Ot F32.9 MAJOR DEPRESSIVE DISORDER, SINGLE EPISOD 06/12/2016 CHOCO RIOS MD Ot I10 ESSENTIAL (PRIMARY) HYPERTENSION 06/12/2016 CHOCO RIOS MD Ot K59.00 CONSTIPATION, UNSPECIFIED 06/12/2016 CHOCO RIOS MD Ot Z79.899 OTHER USP (CURRENT) DRUG THERAPY Procedures Code [place] [address] ROUTINE VENIPUNCTURE 12/27/2011 56073 TSH 12/27/2011 61369 BMP 12/27/2011 1341014 GFR CALC (RESULT ONLY) 12/27/2011 95710 PSYCH DIAG INTER EXAM 12/28/2011 02890 ROUTINE VENIPUNCTURE 01/15/2012 45031 INDIV PSYTX 45/50 MIN 01/15/2012 55768 LIPID PANEL 01/15/2012 65008 A1C (RML) 01/15/2012 91223 CBC 01/15/2012 90976 PAP SMEAR 02/09/2012 17007 CULTURE UROGENITAL 02/09/2012 27882 ROUTINE VENIPUNCTURE 04/08/2012 10794 A1C (IN-HOUSE) 04/08/2012 10893 CMP 04/08/2012 7382440 GFR CALC (RESULT ONLY) 04/08/2012 50284 CBC 04/08/2012 22834 ROUTINE VENIPUNCTURE 08/12/2012 98311 A1C (IN-HOUSE) 08/12/2012 09136 CMP 08/12/2012 69782 TSH 08/12/2012 78581 ROUTINE VENIPUNCTURE 09/02/2013 82471 A1C (IN-HOUSE) 09/02/2013 95073 MICRO ALBUMIN-IN HOUSE 09/02/2013 12388 CMP 09/02/2013 4021939 GFR CALC (RESULT ONLY) 09/02/2013 30866 MICROALBUMIN 09/02/2013 33188 TSH 09/02/2013 48948 LIPID PANEL 09/03/2013 05414 ROUTINE VENIPUNCTURE 12/23/2013 37824 CMP 12/23/2013 77953 MICROALBUMIN 12/23/2013 80315 A1C (IN-HOUSE) 12/23/2013 65467 ROUTINE VENIPUNCTURE 04/10/2014 32442 A1C (IN-HOUSE) 04/10/2014 3284192 GFR CALC (RESULT ONLY) 04/10/2014 96445 CMP 04/10/2014 08545 LIPID PANEL 04/10/2014 Results Test Result Range Microalb/Creat Ratio, [facility] - 03/07/16 09:24 Creatinine, Urine 35.6 mg/dL Not Estab. Microalbumin, Urine 5.4 ug/mL Not Estab. Microalb/Creat Ratio 15.2 mg/g creat 0.0-30.0 CBC With Differential/Platelet - 08/22/16 08:14 WBC 5.6 x10E3/uL 3.4-10.8 RBC 5.09 x10E6/uL 3.77-5.28 Hemoglobin 14.4 g/dL 11.1-15.9 Hematocrit 43.9 % 34.0-46.6 MCV 86 fL 79-97 MCH 28.3 pg 26.6-33.0 MCHC 32.8 g/dL 31.5-35.7 RDW 14.3 % 12.3-15.4 Platelets 406 x10E3/uL 150-379 Neutrophils 53 % Lymphs 39 % Monocytes 5 % Eos 3 % Basos 0 % Neutrophils (Absolute) 3.0 x10E3/uL 1.4-7.0 Lymphs (Absolute) 2.2 x10E3/uL 0.7-3.1 Monocytes(Absolute) 0.3 x10E3/uL 0.1-0.9 Eos (Absolute) 0.2 x10E3/uL 0.0-0.4 Baso (Absolute) 0.0 x10E3/uL 0.0-0.2 Immature Granulocytes 0 % Immature Grans (Abs) 0.0 x10E3/uL 0.0-0.1 Comp. Metabolic Panel (14) - 08/22/16 08:14 Glucose, Serum 247 mg/dL 65-99 BUN 12 mg/dL 6-24 Creatinine, Serum 0.62 mg/dL 0.57-1.00 eGFR If NonAfricn Am 109 mL/min/1.73 >59 eGFR If Africn Am 126 mL/min/1.73 >59 BUN/Creatinine Ratio 19 9-23 Sodium, Serum 138 mmol/L 134-144 Potassium, Serum 4.5 mmol/L 3.5-5.2 Chloride, Serum 98 mmol/L 96-106 Carbon Dioxide, Total 22 mmol/L 18-29 Calcium, Serum 9.6 mg/dL 8.7-10.2 Protein, Total, Serum 7.5 g/dL 6.0-8.5 Albumin, Serum 4.6 g/dL 3.5-5.5 Globulin, Total 2.9 g/dL 1.5-4.5 A/G Ratio 1.6 1.2-2.2 Bilirubin, Total 0.3 mg/dL 0.0-1.2 Alkaline Phosphatase, S 111 IU/L 39-117 AST (SGOT) 46 IU/L 0-40 ALT (SGPT) 76 IU/L 0-32 Lipid Panel - 08/22/16 08:14 Cholesterol, Total 228 mg/dL 100-199 Triglycerides 333 mg/dL 0-149 HDL Cholesterol 43 mg/dL >39 VLDL Cholesterol Gabriele 67 mg/dL 5-40 LDL Cholesterol Calc 118 mg/dL 0-99 Rheumatoid Arthritis Factor - 08/22/16 08:14 RA Latex Turbid. 19.2 IU/mL 0.0-13.9 Thyroid [place] Profile - 08/22/16 08:14 TSH 7.390 uIU/mL 0.450-4.500 Thyroxine (T4) Free, Direct, S - 08/22/16 08:14 T4,Free (Direct) 0.87 ng/dL 0.82-1.77 Thyroid Peroxidase (TPO) Ab - 08/22/16 08:14 Thyroid Peroxidase (TPO) Ab 360 IU/mL 0-34 Interpretive Comment Comment Sedimentation Rate-Westergren - 08/22/16 08:14 Sedimentation Rate-Westergren 14 mm/hr 0-32 CCP Antibodies IgG/IgA - 08/22/16 08:14 CCP Antibodies IgG/IgA 9 units 0-19 Written Authorization - 08/22/16 08:14 Written Authorization Comment MICROALBUMIN/CREATININE RATIO, URINE - 05/25/17 10:03 CREATININE, RANDOM URINE 74 mg/dL 20-320 MICROALBUMIN 6.2 mg/dL See Note: MICROALBUMIN/CREATININE RATIO, RANDOM URINE 84 mcg/mg creat <30 TSH - 06/04/17 10:29 TSH 3.31 mIU/L NRG Encounters ACCT No. Visit Date/Time Discharge Status Pt. Type Provider Facility Loc./Unit Complaint [id number] 06/04/2014 10:37:00 06/04/2014 23:59:59 CLS Outpatient JOSE ANTONIO MOSS DO [id number] 04/13/2014 10:39:00 04/13/2014 23:59:59 CLS Outpatient JOSE ANTONIO MOSS DO [facility] [id number] 02/25/2014 14:21:00 02/25/2014 23:59:59 CLS Outpatient JACQUI WADE MD [id number] 12/23/2013 14:30:00 12/23/2013 23:59:59 CLS Outpatient MOSS DOJOSE ANTONIO [facility] [id number] 12/23/2013 09:57:00 12/23/2013 23:59:59 CLS Outpatient CRYSTAL GREEN PA-C [id number] 11/18/2013 11:03:00 11/18/2013 23:59:59 CLS Outpatient JOSE ANTONIO MOSS DO [id number] 09/02/2013 08:51:00 09/02/2013 23:59:59 CLS Outpatient MOSS DOJOSE ANTONIO [id number] 08/12/2012 15:51:00 08/12/2012 23:59:59 CLS Outpatient JOSE ANTONIO MOSS DO [id number] 04/26/2012 10:31:00 04/26/2012 23:59:59 CLS Outpatient MOSS DOJOSE ANTONIO [id number] 04/12/2012 14:28:00 04/12/2012 23:59:59 CLS Outpatient JOSE ANTONIO MOSS DO [facility] [id number] 02/05/2012 17:56:00 02/05/2012 23:59:59 CLS Outpatient MOSS DOJOSE ANTONIO [place] [id number] 12/27/2011 13:29:00 12/27/2011 23:59:59 CLS Outpatient ISA DOJOSE ANTONIO [facility] [id number] 06/13/2016 00:13:00 06/13/2016 23:59:59 CLS Preadmit CHOCO RIOS MD [facility] ONC [id number] 03/14/2016 14:22:00 06/12/2016 00:01:00 DIS Outpatient CHOCO RIOS MD [facility] ONC [id number] 11/16/2015 14:21:00 02/14/2016 00:01:00 DIS Outpatient CHOCO RIOS MD [facility] ONC [id number] 10/19/2015 14:01:00 11/01/2015 00:01:00 DIS Outpatient CHOCO RIOS MD [facility] ONC [id number] 09/07/2015 12:15:00 09/07/2015 14:15:00 DIS Outpatient TONIO MOTA DO [facility] SDC ANEMIA [id number] 09/01/2015 06:14:00 09/01/2015 23:59:59 CLS Outpatient TONIO MOTA DO [facility] PREOP ANEMIA [id number] 12/15/2014 08:28:00 12/15/2014 23:59:59 CLS Outpatient MOSS JOSE ANTONIO Phipps [facility] RAD ABD PAIN [id number] 06/02/2014 10:20:00 06/02/2014 12:46:00 DIS Emergency PAULA BECK APRN [facility] ER ABD PAIN/VOMITING [id number] 09/08/2014 13:41:00 Document Registration [id number] 09/08/2014 13:41:00 Document Registration [id number] 01/22/2018 16:20:00 01/22/2018 23:59:59 [facility] [id number] 06/04/2017 10:20:00 Document Registration [id number] 05/25/2017 08:40:00 Document Registration [id number] 03/08/2016 13:06:00 Document Registration [id number] 08/23/2016 15:09:00 Document Registration [id number] 08/27/2016 20:06:00 Document Registration
[2018-03-25 15:26] LABS: BASOPHILS % (AUTO) 0 % (0-10); EOSINOPHILS # (AUTO) 0.1 10^3/uL (0.0-0.3); EOSINOPHILS % (AUTO) 2 % (0-10); HEMATOCRIT 42 % (35-52); HEMOGLOBIN 14.2 G/DL (11.5-16.0); LYMPHOCYTES # (AUTO) 1.5 X 10^3 (1.0-4.0); LYMPHOCYTES % (AUTO) 29 % (12-44); MEAN CORPUSCULAR HEMOGLOBIN 29 PG (25-34); MEAN CORPUSCULAR HGB CONC 34 G/DL (32-36); MEAN CORPUSCULAR VOLUME 85 FL (80-99); MEAN PLATELET VOLUME 10.7 FL (7.4-10.4); MONOCYTES # (AUTO) 0.5 X 10^3 (0.0-1.0); MONOCYTES % (AUTO) 9 % (0-12); NEUTROPHILS # (AUTO) 3.1 X 10^3 (1.8-7.8); NEUTROPHILS % (AUTO) 61 % (42-75); PLATELET COUNT 257 10^3/uL (130-400); RED CELL DISTRIBUTION WIDTH 13.6 % (10.0-14.5); WHITE BLOOD COUNT 5.1 10^3/uL (4.3-11.0)
[2018-03-25 15:46] LABS: ALANINE AMINOTRANSFERASE 42 U/L (0-55); ALBUMIN 4.2 GM/DL (3.2-4.5); ALKALINE PHOSPHATASE 102 U/L (40-136); AMYLASE 19 U/L (25-125); BILIRUBIN,TOTAL 0.6 MG/DL (0.1-1.0); BUN/CREATININE RATIO 14; CALCIUM 9.5 MG/DL (8.5-10.1); CARBON DIOXIDE 26 MMOL/L (21-32); CHLORIDE 99 MMOL/L (98-107); CREATININE SERUM 0.83 MG/DL (0.60-1.30); GFR ESTIMATED > 60; GLUCOSE 328 MG/DL (70-105); LIPASE 33 U/L (8-78); POTASSIUM 4.1 MMOL/L (3.6-5.0); SODIUM 136 MMOL/L (135-145); TOTAL PROTEIN 7.5 GM/DL (6.4-8.2)
[2018-03-25] MEDS ORDERED: IOHEXOL 350 MG/ML 100 ML (OMNIPAQUE 350) VIAL IV ONE (16:00)
[2018-03-25] MEDS ORDERED: RECEIVED CONTRAST (Hold Metformin) IV SCH (16:00)
[2018-03-25] MEDS ORDERED: fentaNYL INJECTION 100 MCG/2 ML AMP IVP ONE (16:00)
[2018-03-25] MEDS ORDERED: NS 100 ML (IVPB) BAG IV ONE (16:00)
--- NOTE | 2018-03-25 16:06 | Diagnostic Imaging Report ---
INDICATION: Epigastric pain. TECHNIQUE: Multiple grayscale sonographic images were obtained of the right upper quadrant of the abdomen. CORRELATION STUDY: None FINDINGS: LIVER: There is uniform echotexture within the visualized portions of the liver. There is normal, hepatopedal direction of flow within the main portal vein. Liver length of 17.7 cm. GALLBLADDER: The gallbladder demonstrates no definitive shadowing gallstones. No abnormal gallbladder wall thickening or pericholecystic fluid. COMMON BILE DUCT: Obscured and cannot be visualized. No findings to suggest significant bile duct dilatation. PANCREAS: Largely obscured. RIGHT KIDNEY: Measures 10.4 x 4.9 x 6.5 cm. No hydronephrosis. AORTA/IVC: Not well visualized. OTHER: None. IMPRESSION: 1. Negative appearing right upper quadrant abdominal ultrasound. Dictated by: Dictated on workstation # [id number]
--- NOTE | 2018-03-25 16:51 | Diagnostic Imaging Report ---
PROCEDURE: CT abdomen and pelvis with contrast. TECHNIQUE: Multiple contiguous axial images were obtained through the abdomen and pelvis after administration of intravenous contrast. INDICATION: Abdominal pain. FINDINGS: The previous CT abdomen/pelvis exam performed on 12/15/2014 failed to show any sign of an acute abnormality of the abdomen or pelvis. The gallbladder ultrasound exam performed just prior to this exam was also unremarkable for an acute abnormality. On this study, the gallbladder is not significantly distended. There are a few small densities in the neck of the gallbladder. These were not clearly evident on the prior exam, and in reviewing the ultrasound study, there was no sign of cholelithiasis. There did seem to be some thickening of the gallbladder wall, however. This could be related to small polyps. The common bile duct is not dilated. The previous exam did reveal a 1.2 cm hypodense liver lesion in the right lobe of the liver segment . This finding seems stable when compared to the prior exam of 06/02/2014. On this exam, that area of diminished density is again evident and does not appear to have changed significantly. The stability of this finding over a greater than three-year period would indicate it is most likely a benign process. The liver is otherwise unremarkable. The spleen, pancreas, adrenals, kidneys, aorta, and inferior vena cava show no sign of an acute abnormality. The stomach is partially filled with fluid and particulate matter and consequently difficult to assess. There are a few segments of small bowel in the left mid abdomen, which do show thickening of the bowel wall. This appearance is nonspecific but does suggest enteritis. There is no evidence for a bowel obstruction. The appendix was visualized and is not abnormally thickened. The uterus is prominent but not enlarged. The urinary bladder is grossly unremarkable. There is no pelvic mass or free fluid collection noted. The lung bases are clear. There is a 1 cm nodule along the lateral aspect of the right breast. This may represent a small lymph node. The possibility that this is a neoplastic mass would be less likely but should still be considered. According to our records, the patient has not had a mammogram. If the patient has had a recent (within the last year) mammogram elsewhere, then no further imaging would be necessary. That study would be helpful for comparison. If the patient has not had a recent mammogram, then mammography would be recommended for further evaluation. The bone windows show no evidence for a fracture or for a destructive lesion. IMPRESSION: 1. There are several segments of small bowel in the left upper quadrant, which do show thickening of the bowel wall. This appearance is nonspecific but suggests enteritis. Clinical followup is recommended. 2. There is no evidence for cholelithiasis or acute cholecystitis, although there may be a few small polyps within the neck of the gallbladder. If clinical concern regarding an acute abnormality of the gallbladder persists, then a nuclear medicine hepatobiliary scan would be recommended for further study. 3. The area of low density in the right lobe of the liver seen previously is again evident and no different. 4. The 1 cm nodule in the lateral aspect of the right breast is of uncertain etiology. Considerations and recommendations as above. Dictated by: Dictated on workstation # [id number]
--- NOTE | 2018-03-25 17:12 | ED Abdominal Pain ---
General Chief Complaint: Abdominal/GI Problems Stated Complaint: ABD PAIN Nursing Triage Note: pt arrived POV with cc/o midsternal, xyphoid process pain that has been going on for a year. Pt states that this one started on Sunday and shes been nauseated and hardly able to keep things down. Pt states it is making her anxious. Sepsis Screen: No Definite Risk Source of Information: Patient Exam Limitations: No Limitations History of Present Illness Date Seen by Provider: Mar 25, 2018 Time Seen by Provider: 15:00 Initial Comments 47-year-old female who presents to the emergency room with complaints of nausea , vomiting for the past 2 days. Allergies and Home Medications Allergies Coded Allergies: No Known Drug Allergies (Unverified , 09/18/08) Home Medications Atorvastatin Calcium 40 Mg Tablet, 40 MG PO HS, (Reported) Canagliflozin 100 Mg Tablet, 100 MG PO DAILY, (Reported) Glimepiride 4 Mg Tablet, 4 MG PO DAILY, (Reported) Insulin Determir 1,000 Units/10 Ml Soln, 1,000 UNITS SQ NEEDED, (Reported) Levothyroxine Sodium 50 Mcg Tablet, 50 MCG PO DAILY, (Reported) Lisinopril 20 Mg Tablet, 20 MG PO DAILY, (Reported) Metformin HCl 500 Mg Tablet, 500 MG PO BID, (Reported) Pantoprazole Sodium 40 Mg Tablet.dr, 40 MG PO DAILY Prescribed by: SANTY WOLF on 09/07/15 1323 Sucralfate 1 Gm Tablet, 1 GM PO QID Prescribed by: SANTY WOLF on 09/07/15 1323 Venlafaxine HCl 150 Mg Cap.er.24h, 150 MG PO DAILY, (Reported) [Trilipix] , PO DAILY, (Reported) Past Unkijzs-Vvyupx-Ruqboo Hx Patient Social History Alcohol Use: Denies Use Recreational Drug Use: No Recent Foreign Travel: No Contact w/Someone Who Travel: No Recent Infectious Disease Expo: No Seasonal Allergies Seasonal Allergies: Yes Past Medical History Surgeries: Yes Tonsillectomy Respiratory: No Cardiac: Yes High Cholesterol, Hypertension Neurological: No Gastrointestinal: No Musculoskeletal: No Endocrine: Yes Hypothyroidsim, Diabetes, Non-Insulin dep Cancer: No Psychosocial: Yes Depression Physical Exam Vital Signs Vital Signs - First Documented 03/25/18 14:45 Temp 97.3 Pulse 118 Resp 20 B/P (MAP) 150/95 (113) O2 Delivery Room Air Capillary Refill : Less Than 3 Seconds Height/Weight/BMI Height: 5'2.00" Weight: 175lbs. 0.0oz. 79.643532hs; 31.1 BMI Method:Stated Progress/Results/Core Measures Results/Orders Lab Results Laboratory Tests Test 03/25/18 15:10 03/25/18 17:12 Range/Units White Blood Count 5.1 4.3-11.0 10^3/uL Red Blood Count 4.90 4.35-5.85 10^6/uL Hemoglobin 14.2 11.5-16.0 G/DL Hematocrit 42 35-52 % Mean Corpuscular Volume 85 80-99 FL Mean Corpuscular Hemoglobin 29 25-34 PG Mean Corpuscular Hemoglobin Concent 34 32-36 G/DL Red Cell Distribution Width 13.6 10.0-14.5 % Platelet Count 257 130-400 10^3/uL Mean Platelet Volume 10.7 H 7.4-10.4 FL Neutrophils (%) (Auto) 61 42-75 % Lymphocytes (%) (Auto) 29 12-44 % Monocytes (%) (Auto) 9 0-12 % Eosinophils (%) (Auto) 2 0-10 % Basophils (%) (Auto) 0 0-10 % Neutrophils # (Auto) 3.1 1.8-7.8 X 10^3 Lymphocytes # (Auto) 1.5 1.0-4.0 X 10^3 Monocytes # (Auto) 0.5 0.0-1.0 X 10^3 Eosinophils # (Auto) 0.1 0.0-0.3 10^3/uL Basophils # (Auto) 0.0 0.0-0.1 10^3/uL Sodium Level 136 135-145 MMOL/L Potassium Level 4.1 3.6-5.0 MMOL/L Chloride Level 99 98-107 MMOL/L Carbon Dioxide Level 26 21-32 MMOL/L Anion Gap 11 5-14 MMOL/L Blood Urea Nitrogen 12 7-18 MG/DL Creatinine 0.83 0.60-1.30 MG/DL Estimat Glomerular Filtration Rate > 60 BUN/Creatinine Ratio 14 Glucose Level 328 H 70-105 MG/DL Calcium Level 9.5 8.5-10.1 MG/DL Corrected Calcium 9.3 8.5-10.1 MG/DL Total Bilirubin 0.6 0.1-1.0 MG/DL Aspartate Amino Transf (AST/SGOT) 30 5-34 U/L Alanine Aminotransferase (ALT/SGPT) 42 0-55 U/L Alkaline Phosphatase 102 40-136 U/L Total Protein 7.5 6.4-8.2 GM/DL Albumin 4.2 3.2-4.5 GM/DL Amylase Level 19 L 25-125 U/L Lipase 33 8-78 U/L My Orders Orders - JUAN HARMAN Comprehensive Metabolic Panel (03/25/18 15:00) Lipase (03/25/18 15:00) Amylase (03/25/18 15:00) Ua Culture If Indicated (03/25/18 15:00) Saline Lock/Iv-Start (03/25/18 15:00) Cbc With Automated Diff (03/25/18 15:00) Us Gallbladder 40940 (03/25/18 15:00) Ns Iv 1000 Ml (Sodium Chloride 0.9%) (03/25/18 15:00) Ondansetron Injection (Zofran Injectio (03/25/18 15:00) Fentanyl Injection (Sublimaze Injection (03/25/18 16:00) Ondansetron Injection (Zofran Injectio (03/25/18 16:00) Ct Abdomen/Pelvis W (03/25/18 15:57) Iohexol Injection (Omnipaque 350 Mg/Ml 1 (03/25/18 16:00) Contrast Received (Contrast Received) (03/25/18 16:00) Ns (Ivpb) (Sodium Chloride 0.9% Ivpb Bag (03/25/18 16:00) Medications Given in ED Current Medications Medications Dose Ordered Sig/Antonieta Route Start Time Stop Time Status Last Admin Dose Admin Fentanyl Citrate 50 mcg ONCE ONCE IVP 03/25/18 16:00 03/25/18 16:01 DC 03/25/18 16:05 50 MCG Iohexol 100 ml ONCE ONCE IV 03/25/18 16:00 03/25/18 16:14 DC 03/25/18 16:11 100 ML Ondansetron HCl 4 mg ONCE ONCE IVP 03/25/18 15:00 03/25/18 15:01 DC 03/25/18 15:10 4 MG Ondansetron HCl 4 mg ONCE ONCE IVP 03/25/18 16:00 03/25/18 16:01 DC 03/25/18 16:05 4 MG Sodium Chloride 100 ml ONCE ONCE IV 03/25/18 16:00 03/25/18 16:14 DC 03/25/18 16:12 85 ML Vital Signs/I&O 03/25/18 14:45 Temp 97.3 Pulse 118 Resp 20 B/P (MAP) 150/95 (113) O2 Delivery Room Air Blood Pressure Mean: 113 Departure Impression Primary Impression: Nausea and vomiting Additional Impressions: right breast nodule Abdominal pain Disposition: HOME, SELF-CARE Condition: Stable/Unchanged Departure-Patient Inst. Decision time for Depature: 17:37 Referrals: [facility]/ (PCP) Primary Care Physician Add. Discharge Instructions: Take medications as directed. Follow-up with her primary care provider within 1 week for recheck and to discuss the further evaluation of the breast nodule that was found on CT scan. Return back to the emergency room for worsening symptoms or concerns as needed. All discharge instructions reviewed with patient and/or family. Voiced understanding. Scripts Ondansetron HCl (Zofran) 4 Mg Tab 4 MG PO Q4H PRN for NAUSEA/VOMITING-1ST LINE, #14 TAB Prov: JUAN HARMAN 03/25/18 Hydrocodone Bit/Acetaminophen (Hydrocodone/Acetaminophen 5/325mg Tablet) 1 Tab Tab 1 EACH PO Q4-6HR PRN for PAIN-MODERATE MDD 10, #10 TAB Prov: JUAN HARMAN 03/25/18 JUAN HARMAN Mar 25, 2018 17:12
[2018-03-25 17:21] LABS: BILIRUBIN,URINE NEGATIVE (NEGATIVE); CLARITY,URINE SLIGHTLY CLOUDY; COLOR,URINE YELLOW; GLUCOSE, URINE (UA) 4+ (NEGATIVE); KETONES,URINE NEGATIVE (NEGATIVE); LEUKOCYTE ESTERASE ,URINE 1+ (NEGATIVE); NITRITE,URINE NEGATIVE (NEGATIVE); PH,URINE 7 (5-9); PROTEIN,URINE 2+ (NEGATIVE); UROBILINOGEN,URINE 1 MG/DL (NORMAL)
[2018-03-25 17:33] LABS: BACTERIA,URINE NEGATIVE /HPF; WBC,URINE RARE /HPF
[2018-03-25] MEDS ORDERED: ONDN4T PO (17:42)
[2018-03-25] MEDS ORDERED: ACHD5005 PO (17:42)
[2018-03-25 17:49] VITALS: BP 142/88
== END 2018-03-25 17:50 | disposition home or self-care (01) ==
LOC: ER 14:45
DX: R11.2 Nausea with vomiting, unspecified (principal); R10.9 Unspecified abdominal pain; N63.10 Unspecified lump in the right breast, unspecified quadrant; E78.00 Pure hypercholesterolemia, unspecified; I10 Essential (primary) hypertension; E03.9 Hypothyroidism, unspecified; E11.9 Type 2 diabetes mellitus without complications; F32.9 Major depressive disorder, single episode, unspecified; Z79.4 Long term (current) use of insulin; Z90.89 Acquired absence of other organs
CPT/HCPCS: 36415; 74177; 76705; 80053; 81000; 82150; 83690; 85025; 96361; 96374; 96375; 96376

== ENCOUNTER → 2018-04-15 | Outpatient (CLI) | payer OTHER ==
[~2018-04-15] MED LIST changes: +ACHD5005 PO; +ONDN4T PO
--- NOTE | 2018-04-15 18:01 | Diagnostic Imaging Report ---
INDICATION: Right breast density noted on recent CT study performed 03/25/2018. No prior mammograms are available for comparison. Comparison is made with prior CT study performed 03/25/2018. The current study was also evaluated with a Computer Aided Detection (CAD) system. FINDINGS: In reviewing the CT, the density is in the far lateral aspect of the right breast. This appears to be inferiorly located on CT. No density in the inferior right breast laterally is seen. There is a circumscribed density in the upper outer right breast at posterior depth, most likely representing a lymph node. There are benign calcifications. Left breast is unremarkable. The axillae are unremarkable. IMPRESSION: No abnormality is identified in the lower outer right breast to account for the CT abnormality. There is circumscribed density in the upper-outer right breast which has benign features. Ultrasound evaluation of the upper and lower outer aspect of the right breast is recommended and will be performed today. ACR BI-RADS Category 0: Incomplete. (Needs additional imaging evaluation). Result letter will be mailed to the patient. Note: At least 10% of breast cancer is not imaged by mammography. Dictated by: Dictated on workstation # [id number]
--- NOTE | 2018-04-15 18:30 | Diagnostic Imaging Report ---
INDICATION: Density in the outer right breast. Correlation is made with diagnostic mammogram earlier same day as well as prior CT study from 03/17/2018. FINDINGS: Sonographic interrogation of the entire outer right breast was performed. No solid or cystic mass is seen. No sonographic abnormality is identified. IMPRESSION: No sonographic abnormality is seen. Patient should return to routine screening mammography. ACR BI-RADS Category 1: Negative. Dictated by: Dictated on workstation # [id number]
== END ==
LOC: RAD 12:39
PROVIDERS: ATTEND Nurse Practitioner Family
DX: N63.0 Unspecified lump in unspecified breast (principal); R92.2 Inconclusive mammogram
CPT/HCPCS: 77066

== ENCOUNTER → 2019-09-11 | Outpatient (CLI) | payer BC ==
[~2019-09-11] MED LIST changes: -GLIM4TAB PO; +GLIM4TAB5 PO
--- NOTE | 2019-09-11 13:16 | Diagnostic Imaging Report ---
PROCEDURE: MR imaging of the brain without contrast. TECHNIQUE: Multiplanar, multisequence MR imaging of the brain was performed without contrast. INDICATION: Bilateral jaw pain. No prior studies are available for comparison. FINDINGS: The ventricles and sulci are within normal limits. No diffusion restriction is seen to suggest acute ischemia. Normal expected flow-voids within the carotid siphons are seen. There is no midline shift. No acute intra-axial or extra-axial hemorrhage is detected. Corpus callosum is unremarkable. The sella and parasellar structures are unremarkable. IMPRESSION: Unremarkable noncontrast MRI of the brain. Dictated by: Dictated on workstation # [id number]
== END ==
LOC: RAD 12:25
PROVIDERS: ATTEND Physician Assistant
DX: G50.0 Trigeminal neuralgia (principal)
CPT/HCPCS: 70551

== ENCOUNTER → 2020-08-20 | Outpatient (CLI) | payer BC ==
[~2020-08-20] MED LIST changes: -LISI-552 PO; +LISI20TA26 PO
--- NOTE | 2020-08-20 11:00 | Diagnostic Imaging Report ---
Clinical indication: Patient with lower back pain which radiates down right leg. Exam: MRI of the lumbar spine performed without IV contrast. Sagittal T2, sagittal T1, sagittal T2 fat-sat, and axial T2. Comparison: None. Findings: Five lumbar type vertebra are identified. Lumbar spine has normal alignment with no fracture or dislocation. There is a small intraosseous hemangioma within the L3 vertebra. Otherwise, the lumbar vertebra have normal T1 and T2 signal. The visualized portions of the distal spinal cord, conus medullaris, and cauda equina have normal anatomic appearance. The conus medullaris tip is seen at the L1-L2 intervertebral level. No paraspinal soft tissue abnormality is seen. There are small degenerative spurs involving the lumbar spine. L1-L2: Unremarkable. L2-L3: There are low T2 degenerative disk signal changes with no significant disk bulge. L3-L4: There are low T2 degenerative disk signal changes at the L3-L4 level. There is a small curvilinear annular tear involving the left extra foraminal aspect of disk with no significant disk bulge seen. There is no significant central spinal canal or neural foramen narrowing. L4-L5: There is a mild diffuse disk bulge with [id number] loss of disk space height. There is mild bilateral facet arthropathy. There is mild central canal stenosis and moderate to severe right neural foramen narrowing and moderate left neural foramen narrowing due to foraminal disk herniations. There is a small area of caudal disk extrusion extending roughly 5 mm in the right paracentral aspect of the posterior aspect of the L5 vertebra. L5-S1: There is minimal diffuse disk bulging with small disk herniation with spurs in left foraminal region causing moderate to severe left neural foramen narrowing. There is bilateral facet arthropathy. There is [id number] right neural foramen narrowing. There is no significant central canal stenosis. Impression: 1: There is an L4-L5 diffuse disk bulge with right paracentral disk extrusion and caudal disk migration. There is bilateral facet arthropathy. There is mild central canal stenosis, moderate to severe right neural foramen narrowing and moderate left neural foramen narrowing. 2: There is minimal L5-S1 disk bulging with small left foraminal disk spur causing moderate to severe left neural foramen narrowing. There is [id number] right neural foramen narrowing. 3: There is a small annular tear involving the left foraminal aspect of the L3-L4 discs. Dictated by: Dictated on workstation # [id number]
== END ==
LOC: RAD 09:30
PROVIDERS: ATTEND Physician Assistant
DX: M47.816 Spondylosis without myelopathy or radiculopathy, lumbar region (principal); M51.26 Other intervertebral disc displacement, lumbar region; M51.27 Other intervertebral disc displacement, lumbosacral region; M51.36 Other intervertebral disc degeneration, lumbar region; M48.061 Spinal stenosis, lumbar region without neurogenic claudication; M48.07 Spinal stenosis, lumbosacral region
CPT/HCPCS: 72148